=== PATIENT | female | born 1950 | race Caucasian/White ===

== ENCOUNTER → 2016-10-03 | Outpatient (CLI) | payer MEDICARE, BC ==
--- NOTE | 2016-10-03 12:51 | EST ---
DATE OF SERVICE: 10/03/2016 AGE: 66Y SEX: F HT: 67 WT: 148 lbs. Protocol Jairo: X Other: Stage: III Dur. of Exercise: 9 minutes *Heart Rate Blood Pressure *Rest: 88 Rest: 111/81 * *Max. Achieved: 169 Maximum BP: 148/61 85% PMHR: 130 100% PMHR: 153 *METS: 10.5 INDICATION OF THE STUDY: Chest pain. MEDICATIONS: STRESS DATA: Pretesting physical examination showed heart rate of 88, pressure is 111/81 mmHg. Baseline EKG showed sinus rhythm. The patient exercised on the treadmill according to Jairo protocol for a total of 9 minutes and achieved 10.5 METs. Max heart rate was 169, which is about 110% of maximum predicted heart rate. Maximum blood pressure was 148/61 mmHg. Clinically, the patient did not have any symptoms. The EKG did not show any significant ST or T wave abnormalities consistent with ischemia. CONCLUSION: 1. Excellent exercise capacity. 2. Normal EKG in response to exercise. 3. Essentially normal stress test for this patient.
== END | disposition home or self-care (01) ==
LOC: RADNMMAIN 11:23
PROVIDERS: ATTEND Family Medicine
DX: Z09 Encounter for follow-up examination after completed treatment for conditions other than malignant neoplasm (principal); Z82.49 Family history of ischemic heart disease and other diseases of the circulatory system
CPT/HCPCS: 93017

== ENCOUNTER → 2019-04-07 | Outpatient (CLI) | payer MEDICARE, BC ==
--- NOTE | 2019-04-07 23:07 | XR ---
EXAMINATION TYPE: XR cervical spine comp DATE OF EXAM: 04/07/2019 COMPARISON: None HISTORY: 69-year-old female left-sided neck pain TECHNIQUE: 5 views FINDINGS: No predental space widening or prevertebral soft tissue swelling. Mild disc/endplate degenerative kenyon nge from C4 through C7 levels. Alignment is maintained. Scattered facet and uncovertebral joint degen erative change resulting in moderate bony neuroforaminal narrowing on the right at C4-C5, C5-C6, and C6-C7. Moderate bony neuroforaminal narrowing on the left at C5-C6 and C6-C7. IMPRESSION: Moderate spondylotic changes especially from C4 through C7 levels. No malalignment.
== END | disposition home or self-care (01) ==
LOC: RADXRMAIN 11:34
PROVIDERS: ATTEND Family Medicine
DX: M47.812 Spondylosis without myelopathy or radiculopathy, cervical region (principal)
CPT/HCPCS: 72050

== ENCOUNTER → 2019-05-04 | Outpatient (CLI) | payer MEDICARE ==
--- NOTE | 2019-05-05 11:19 | MM ---
Reason for exam: screening (asymptomatic). Last mammogram was performed 3 years and 4 months ago. History: Patient is postmenopausal. Physical Findings: A clinical breast exam by your physician is recommended on an annual basis and results should be correlated with mammographic findings. MG 3D Screening Mammo W/Cad Bilateral CC and MLO view(s) were taken. Prior study comparison: December 30, 2015, mammogram, performed at [facility]. January 08, 2007, bilateral screening mammogram w/CAD. The breast tissue is heterogeneously dense. This may lower the sensitivity of mammography. There are benign appearing vascular, dystrophic calcifications bilaterally. There is no discrete abnormality. ASSESSMENT: Benign, BI-RAD 2 RECOMMENDATION: Routine screening mammogram of both breasts in 1 year.
== END | disposition home or self-care (01) ==
LOC: RADMAMWWP 11:13
PROVIDERS: ATTEND Family Medicine
DX: Z12.31 Encounter for screening mammogram for malignant neoplasm of breast (principal)
CPT/HCPCS: 77063; 77067

== ENCOUNTER → 2020-06-03 | Outpatient (CLI) | payer MEDICARE ==
--- NOTE | 2020-06-03 15:32 | BD ---
EXAMINATION TYPE: Axial Bone Density DATE OF EXAM: 06/03/2020 COMPARISON: NONE CLINICAL HISTORY: Height: 5 FT 6 IN Weight: 146 FRAX RISK QUESTIONS: Alcohol (3 or more units per day): NO Family History (Parent hip fracture): NO Glucocorticoids (More than 3mos): NO (Ex: prednisone, prednisolone, methylprednisolone, dexamethasone, and hydrocortisone). History of Fracture in Adulthood: YES Secondary Osteoporosis: 1. Type 1 Diabetes: NO 2. Hyperthyroidism: NO 3. Menopause before 45: YES 4. Malnutrition: NO 5. Chronic liver disease: NO Rheumatoid Arthritis: NO Current Tobacco Use: NO RISK FACTORS HISTORY OF: Family History of Osteoporosis: NO Active: YES Postmenopausal woman: AGE 41 MEDICATIONS: Additional Medications: NONE Additional History: EXAM MEASUREMENTS: Bone mineral densitometry was performed using the [employer]istat System. Bone mineral density as measured about the Lumbar spine is: ----- L1-L4(G/cm2): 0.962 T Score Values are as follows: ----- L2: -2.3 ----- L3: -1.6 ----- L4: -1.8 ----- L1-L4: -1.8 Bone mineral density has: DECREASED -3.0 % since study of: 2006 Bone mineral density about the R hip (g/cm2): 0.771 Bone mineral density about the L hip (g/cm2): 0.790 T Score values are as follows: -----R Neck: -1.9 -----L Neck: -1.8 -----R Total: -1.7 -----L Total: -1.6 Bone mineral density has: DECREASED -2.1 % since study of: 2006 IMPRESSION: Osteopenia (T Score between -2.5 and -1). There is slightly increased risk of fracture and the patient may be considered for treatment. Re-Screen 2-5 years. NOTE: T-SCORE=SD OF THE YOUNG ADULT MEAN.
== END | disposition home or self-care (01) ==
LOC: RADBDWWP 07:37
PROVIDERS: ATTEND Family Medicine
DX: M85.88 Other specified disorders of bone density and structure, other site (principal); Z03.818 Encounter for observation for suspected exposure to other biological agents ruled out; Z20.828 Contact with and (suspected) exposure to other viral communicable diseases
CPT/HCPCS: 77080

== ENCOUNTER → 2021-07-06 | Outpatient (CLI) | payer MEDICARE ==
--- NOTE | 2021-07-07 11:47 | MM ---
Reason for exam: screening (asymptomatic). Last mammogram was performed 2 years and 2 months ago. History: Patient is postmenopausal. Physical Findings: A clinical breast exam by your physician is recommended on an annual basis and results should be correlated with mammographic findings. MG 3D Screening Mammo W/Cad Bilateral CC and MLO view(s) were taken. Prior study comparison: May 04, 2019, bilateral MG 3d screening mammo w/cad. December 30, 2015, mammogram, performed at [facility]. The breast tissue is heterogeneously dense. This may lower the sensitivity of mammography. There are benign appearing round vascular calcifications bilaterally. There is no discrete abnormality. ASSESSMENT: Benign, BI-RAD 2 RECOMMENDATION: Routine screening mammogram of both breasts in 1 year.
== END | disposition home or self-care (01) ==
LOC: RADMAMWWP 08:01
PROVIDERS: ATTEND Family Medicine
DX: Z12.31 Encounter for screening mammogram for malignant neoplasm of breast (principal); Z78.0 Asymptomatic menopausal state
CPT/HCPCS: 77063; 77067

== ENCOUNTER → 2022-07-10 | Outpatient (CLI) | payer MEDICARE ==
--- NOTE | 2022-07-11 07:35 | MM ---
Reason for Exam: Screening (asymptomatic). Last screening mammogram was performed 12 month(s) ago. Patient History: Menarche at age 12. First Full-Term at age 20. Postmenopausal. Risk Values: Lea 5 year model risk: 1.6%. NCI Lifetime model risk: 3.9%. Prior Study Comparison: 12/30/2015 Screening Mammogram, [facility]. 05/04/2019 Bilateral Screening Mammogram, [facility]. 07/06/2021 Bilateral Screening Mammogram, [facility]. Tissue Density: The breast tissue is heterogeneously dense. This may lower the sensitivity of mammography. Findings: Analyzed By CAD. There is no suspicious group of microcalcifications or new suspicious mass in either breast. Overall Assessment: Benign, BI-RAD 2 Management: Screening Mammogram of both breasts in 1 year. A clinical breast exam by your physician is recommended on an annual basis and results should be correlated with mammographic findings. Electronically signed and approved by: Gerald Bruno M.D. Radiologis
== END | disposition home or self-care (01) ==
LOC: RADMAMWWP 07:24
PROVIDERS: ATTEND Family Medicine
DX: Z12.31 Encounter for screening mammogram for malignant neoplasm of breast (principal); Z78.0 Asymptomatic menopausal state
CPT/HCPCS: 77063; 77067

== ENCOUNTER 2022-08-14 10:08 | Day surgery (SDC) | payer MEDICARE ==
[~2022-08-14 10:08] MED LIST: LIDOCAINE 1% (10MG/ML) FOR IV START INTRADERMA PRN
[2022-08-14] MEDS: LACTATED RINGERS 1,000 ML IV SCH ×2 (10:25→11:05)
[2022-08-14 10:46] VITALS: RESP 16; TEMP 98
[2022-08-14] MEDS ORDERED: PROPOFOL 10 MG/ML 20 ML VIAL IV ONE (11:06)
[2022-08-14] MEDS ORDERED: LIDOCAINE 2% INJ 20 MG/ML (2 ML VIAL) ONE (11:06)
--- NOTE | 2022-08-14 11:26 | P.PCN ---
Date of Procedure: 08/14/22 Procedure(s) Performed: BRIEF HISTORY: Patient is a 72ear-old pleasant white female scheduled for an elective colonoscopy as a part of screening for colon cancer. PROCEDURE PERFORMED: Colonoscopy with biopsy. PREOPERATIVE DIAGNOSIS: Screening for colon cancer. IV sedation per Anesthesia. PROCEDURE: After informed consent was obtained, the patient, was brought into the endoscopy unit. IV sedation was administered by Anesthesia under continuous monitoring. Digital rectal examination was normal. Initially the Olympus CF-160 flexible video colonoscope was then inserted in the rectum, gradually advanced into the cecum without any difficulty. Careful examination was performed as the scope was gradually being withdrawn. Ileocecal valve and the appendiceal orifice were visualized and appeared normal. Prep was excellent. Mucosa of the cecum a centimeter polyp that was removed by cold biopsy. Rest of the, ascending colon, transverse colon, descending colon, sigmoid colon, and rectum appeared normal. Retroflexion was performed in the rectum and no lesions were seen. The patient tolerated the procedure well. IMPRESSION: 3-4 mm cecal polyp status post cold biopsy Rest of the colon appeared normal RECOMMENDATIONS: Findings of this examination were discussed with the patient as well as her family. She was advised to follow with the biopsy results. If the biopsy reveals adenoma she can have a repeat colonoscopy in 5 years.. 7
[2022-08-14 12:03] VITALS: BP 124/77; PULSE 81
== END 2022-08-14 12:17 | disposition home or self-care (01) ==
LOC: ORWHC2ENDO 10:08
PROVIDERS: ATTEND Internal Medicine Gastroenterology
DX: Z12.11 Encounter for screening for malignant neoplasm of colon (principal); K63.5 Polyp of colon; Z79.899 Other long term (current) drug therapy
CPT/HCPCS: 88305; 45380; J2704; J2001

== ENCOUNTER → 2023-01-29 | Outpatient (CLI) | payer MEDICARE ==
[2023-01-29 16:13] LABS: African American GFR (CKD) 66 (>60 ml/min/1.73 sqM); Blood Urea Nitrogen 20 mg/dL (7-17); Non-African American GFR(CKD) 57 (>60 ml/min/1.73 sqM)
--- NOTE | 2023-01-30 19:40 | CT ---
EXAMINATION TYPE: CT iac w con DATE OF EXAM: 01/29/2023 COMPARISON: None HISTORY: 89 year-old female H60.542, Left side hearing loss with pain radiating down jaw x6mo. CT DLP: 142.7 mGycm Automated exposure control for dose reduction was used. TECHNIQUE: Contiguous high-resolution axial scanning of the temporal bones performed with IV Contras t, patient injected with 80 ml mL of Isovue 300. Coronal reformatted images obtained. FINDINGS: Nondominant left vertebral artery that terminates as a PICA branch. Otherwise, there is no abnormalit y of visualized intracranial structures. The skull base appears normal. There is a large soft tissue swelling which fills the left external auditory canal. There is contiguo us extension into the lateral mesotympanum with partial encasement of the malleus and incus. No ossic ular erosion is seen. Partial opacification of the adjacent anterior superior mastoid air cells possibly from direct extens ion from the external auditory canal, axial image 32. No blunting of the scutum at this time. The right middle ear cavity and remainder of the bilateral mastoid air cells are well pneumatized. The adjacent dural venous sinus remains well opacified. The round and oval windows are normal. There is no abnormality of bony labyrinths. The vestibular and cochlear aqueducts are well visualized. The facial nerve canal is normal bilaterally. The internal auditory canal and meati are symmetrical bilaterally. There is no evidence of fractures. Moderate mucosal thickening left maxillary sinus with some layering fluid. Frothy density in the righ t maxillary sinus with trace air-fluid level. Similar in the left sphenoid sinus. Otherwise, scattere d moderate mucosal thickening throughout the remainder of the paranasal sinuses. Leftward nasal septa l deviation. Reformatted images confirm above findings. IMPRESSION: 1. Large soft tissue plug filling the length of the left external auditory canal. There is contiguous extension into the lateral mesotympanum with partial encasement of the malleus and incus. No ossicul ar erosion is seen. 2. Partial opacification of the anterior superior left mastoid air cells just adjacent to the externa l auditory canal, possibly from direct extension of the soft tissue process. Tissue sampling recommen ded. 3. Moderate to severe acute on chronic pansinusitis. Leftward nasal septal deviation.
== END | disposition home or self-care (01) ==
LOC: RADCTMAIN 15:29
PROVIDERS: ATTEND Otolaryngology
DX: H60.542 Acute eczematoid otitis externa, left ear (principal); J32.4 Chronic pansinusitis; J34.2 Deviated nasal septum; J34.89 Other specified disorders of nose and nasal sinuses
CPT/HCPCS: 82565; 84520; 70481; 36415; Q9967

== ENCOUNTER → 2023-04-27 | Outpatient (CLI) | payer MEDICARE ==
--- NOTE | 2023-04-30 19:54 | PE ---
EXAMINATION TYPE: PET CT fusion skull to thigh DATE OF EXAM: 04/27/2023 COMPARISON: 04/02/2023 CT chest Prior PET/CT: None HISTORY: Solitary pulmonary nodule TECHNIQUE: Following the intravenous administration of 10.16 mCi of F-18 FDG, whole body images are performed from the skull base to the midthigh. Images are reviewed on the computer in the coronal, a xial, and sagittal planes. Reconstructed rotating images are created on independent workstation and reviewed on the computer. A localization and attenuation correction CT is performed in conjunction with the PET scan. DLP: 372.28 mGycm SCAN: Initial Blood glucose: 94 mg/dL Average Mediastinum SUV: 1.76 Average Liver SUV: 1.97 FINDINGS: HEAD and NECK: No abnormal uptake. 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 Abnormal u ptake temporal bone regions is not identified on this exam. THORAX: There may be some inflammatory-type changes at the right sternal clavicular junction SUV valu e 3.1, image 98. There is a punctate nodule within the periphery of the superior segment right lower lobe, consistent consistency by 0 is made be below the threshold of detectability size ABDOMEN: No abnormal uptake PELVIS: No abnormal uptake OSSEOUS STRUCTURES: No abnormal uptake LOCALIZATION CT: Small nodule right lobe liver superiorly segment. No suspicious abnormality right st ernoclavicular CT. COMPARISON: None IMPRESSION: 1. 1. No suspicious focal uptake to suggest a primary neoplastic process. 2. No abnormal uptake in the reported neoplastic temporal bone region. 2. No suspicious uptake normal nodule within the right lung. This however may be below the threshold for detectability. Monitoring with CT chest is recommended. Repeat PET/CT can be performed if patient change in size.
== END | disposition home or self-care (01) ==
LOC: RADPETMAIN 13:34
PROVIDERS: ATTEND Family Medicine
DX: R91.1 Solitary pulmonary nodule (principal)
CPT/HCPCS: 78815; A9552

== ENCOUNTER 2023-05-19 12:40 | Inpatient (IN) | payer MEDICARE ==
[2023-05-19] MEDS ORDERED: ACETAMINOPHEN IV (For NPO) 1,000 MG in EMPTY BAG 1 BAG IVPB STA (13:11)
[2023-05-19] MEDS ORDERED: SODIUM CHLORIDE 0.9% 500 ML 500 ML IV ONE (13:11)
[2023-05-19] MEDS ORDERED: ONDANSETRON 4 MG/2 ML VIAL IVP STA (13:14)
[2023-05-19 13:26] LABS: Basophils % (A) 0 %; Eosinophils # (A) 0.1 k/uL (0-0.7); Eosinophils % (A) 1 %; HCT 36.7 % (34.0-46.0); HGB 12.4 gm/dL (11.4-16.0); Lymphocytes # (A) 0.5 k/uL (1.0-4.8); Lymphocytes % (A) 4 %; MCH 34.4 pg (25.0-35.0); MCHC 33.6 g/dL (31.0-37.0); MCV 102.2 fL (80.0-100.0); Macrocytosis Slight; Mean Platelet Volume 7.1; Monocytes # (A) 0.5 k/uL (0-1.0); Monocytes % (A) 4 %; Neutrophils # (A) 11.2 k/uL (1.3-7.7); Neutrophils % (A) 90 %; Platelet Count 455 k/uL (150-450); RDW 13.5 % (11.5-15.5); WBC 12.4 k/uL (3.8-10.6)
[2023-05-19 13:51] LABS: ALT 37 U/L (4-34); AST 45 U/L (14-36); African American GFR (CKD) 84 (>60 ml/min/1.73 sqM); Albumin 3.2 g/dL (3.5-5.0); Alkaline Phosphatase 103 U/L (38-126); Anion Gap 10 mmol/L; Blood Urea Nitrogen 28 mg/dL (7-17); Calcium 8.7 mg/dL (8.4-10.2); Carbon Dioxide 26 mmol/L (22-30); Chloride 99 mmol/L (98-107); Glucose 109 mg/dL (74-99); Non-African American GFR(CKD) 73 (>60 ml/min/1.73 sqM); Potassium 4.3 mmol/L (3.5-5.1); Sodium 135 mmol/L (137-145); Total Bilirubin 0.5 mg/dL (0.2-1.3); Total Protein 6.4 g/dL (6.3-8.2)
--- NOTE | 2023-05-19 14:08 | ED ---
General Adult HPI - General Chief complaint: Nausea/Vomiting/Diarrhea Stated complaint: Weakness Time Seen by Provider: 05/19/23 12:42 Source: patient, family, RN notes reviewed, old records reviewed Mode of arrival: ambulatory Limitations: no limitations - History of Present Illness Initial comments: 73-year-old female presenting for evaluation of nausea, vomiting, dizziness, and poor appetite. Patient is accompanied with her daughter who is able to give a detailed history of her recent past. 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 She also had some facial plastics including a weight in the left eyelid. Patient has not been eating well and his had vomiting every time she stands. No specific abdominal pain. No measured fever. Symptoms have been present even prior to surgery. - Related Data Home Medications Medication Instructions Recorded Confirmed No Known Home Medications 08/10/22 08/10/22 Allergies Allergy/AdvReac Type Severity Reaction Status Date / Time No Known Allergies Allergy Verified 05/19/23 12:52 Review of Systems ROS Statement: Those systems with pertinent positive or pertinent negative responses have been documented in the HPI. ROS Other: All systems not noted in ROS Statement are negative. Past Medical History Past Medical History: Cancer Additional Past Medical History / Comment(s): broken foot x2. cholesteatoma. 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 Incision surrounding the right ear and temporal region) Eye exam: Present: normal appearance, PERRL ENT exam: Present: normal exam Neck exam: Present: normal inspection. Absent: tenderness, meningismus Respiratory exam: Present: normal lung sounds bilaterally. Absent: respiratory distress, wheezes Cardiovascular Exam: Present: regular rate, normal rhythm GI/Abdominal exam: Present: soft, other (Lower abdominal incision is clean and dry). Absent: distended, tenderness Extremities exam: Present: other (Left lateral thigh incision non-erythematous, clean and dry) Neurological exam: Present: alert, oriented X3 Skin exam: Present: warm, dry, intact. Absent: cyanosis, diaphoretic Course Vital Signs 05/19/23 05/19/23 05/19/23 12:52 13:42 14:09 Temperature 97.9 F Pulse Rate 80 79 83 Respiratory 16 17 17 Rate Blood Pressure 119/74 124/74 119/78 O2 Sat by Pulse 97 98 96 Oximetry 05/19/23 15:11 Temperature 99.2 F Pulse Rate 83 Respiratory 18 Rate Blood Pressure 128/75 O2 Sat by Pulse 96 Oximetry Medical Decision Making - Medical Decision Making Was pt. sent in by a medical professional or institution (, [facility], LYMPHEDEMA THERAPIST, urgent care, hospital, or usp...) When possible be specific @ -No Did you speak to anyone other than the patient for history (EMS, parent, family, police, friend...)? What history was obtained from this source @ Patient's daughter Did you review nursing and triage notes (agree or disagree)? Why? @ -I reviewed and agree with nursing and triage notes Were old charts reviewed (outside hosp., previous admission, EMS record, old EKG, old radiological studies, urgent care reports/EKG's, usp records)? Report findings @ -No old charts were reviewed Differential Diagnosis (chest pain, altered mental status, abdominal pain women, abdominal pain men, vaginal bleeding, weakness, fever, dyspnea, syncope, headache, dizziness, GI bleed, back pain, seizure, CVA, palpatations, mental health, musculoskeletal)? @ -[Differential Weakness: Hypoglycemia, shock, sepsis, hyponatremia, anemia, infection, ID, ETOH, adverse medicine reaction, overdose, stroke, this is not meant to be an all-inclusive list. EKG interpreted by me (3pts min.). @ -EKG: Sinus rhythm rate of 82, GA interval 121, QRS duration 80, QTC 400, no ST segment changes. X-rays interpreted by me (1pt min.). @ -None done CT interpreted by me (1pt min.). @ -None done U/S interpreted by me (1pt. min.). @ -None done What testing was considered but not performed or refused? (CT, X-rays, U/S, labs)? Why? @ -None What meds were considered but not given or refused? Why? @ -None Did you discuss the management of the patient with other professionals (professionals i.e. , PA, LYMPHEDEMA THERAPIST, lab, RT, psych nurse, social service technician, packing floor worker, teacher, special service officer, oil field caser)? Give summary @ -No Was smoking cessation discussed for >3mins.? @ -No Was critical care preformed (if so, how long)? @ -No Were there social determinants of health that impacted care today? How? (Homelessness, low income, unemployed, alcoholism, drug addiction, transportation, low edu. Level, literacy, decrease access to med. care, fci, rehab)? @ -No Was there de-escalation of care discussed even if they declined (Discuss DNR or withdrawal of care, Hospice)? DNR status @ -No What co-morbidities impacted this encounter? (DM, HTN, Smoking, COPD, CAD, Cancer, CVA, ARF, Chemo, Hep., AIDS, mental health diagnosis, sleep apnea, morbid obesity)? @ -Squamous cell carcinoma Was patient admitted / discharged? Hospital course, mention meds given and route, prescriptions, significant lab abnormalities, going to OR and other pertinent info. @ -73-year-old female with nausea vomiting, dehydration, poor appetite. Patient states has had progressive weakness, difficulty ambulating secondary to generalized weakness. The patient is currently being treated for squamous cell carcinoma of the head and neck with recent reconstructive surgery at outside hospital. Her incisions are clean and dry without signs of infection. She has a mild leukocytosis and a mild thrombocytosis. She is hemodynamically stable. She is in a sinus rhythm. Currently awaiting urinalysis. Patient does appear dehydrated, will be admitted for symptom control, hydration, and possible placement for rehabilitation. Undiagnosed new problem with uncertain prognosis? @ -No Drug Therapy requiring intensive monitoring for toxicity (Heparin, Nitro, I nsulin, Cardizem)? @ -No Were any procedures done? @ -No Diagnosis/symptom? @ -[Generalized weakness, dehydration, vomiting Acute, or Chronic, or Acute on Chronic? @ -[Acute Uncomplicated (without systemic symptoms) or Complicated (systemic symptoms)? @ -default Side effects of treatment? @ -No Exacerbation, Progression, or Severe Exacerbation? @ -No Poses a threat to life or bodily function? How? (Chest pain, USA, ID, pneumonia, PE, COPD, DKA, ARF, appy, cholecystitis, CVA, Diverticulitis, Homicidal, Suicidal, threat to staff... and all critical care pts) @ -[Moderate risk - Lab Data Result diagrams: 05/19/23 13:15 05/19/23 13:15 Lab Results 05/19/23 05/19/23 05/19/23 Range/Units 13:15 13:15 13:15 WBC 12.4 H (3.8-10.6) k/uL RBC 3.60 L (3.80-5.40) m/uL Hgb 12.4 (11.4-16.0) gm/dL Hct 36.7 (34.0-46.0) % MCV 102.2 H (80.0-100.0) fL MCH 34.4 (25.0-35.0) pg MCHC 33.6 (31.0-37.0) g/dL RDW 13.5 (11.5-15.5) % Plt Count 455 H (150-450) k/uL MPV 7.1 Neutrophils % 90 % Lymphocytes % 4 % Monocytes % 4 % Eosinophils % 1 % Basophils % 0 % Neutrophils # 11.2 H (1.3-7.7) k/uL Lymphocytes # 0.5 L (1.0-4.8) k/uL Monocytes # 0.5 (0-1.0) k/uL Eosinophils # 0.1 (0-0.7) k/uL Basophils # 0.0 (0-0.2) k/uL Macrocytosis Slight Sodium 135 L (137-145) mmol/L Potassium 4.3 (3.5-5.1) mmol/L Chloride 99 (98-107) mmol/L Carbon Dioxide 26 (22-30) mmol/L Anion Gap 10 mmol/L BUN 28 H (7-17) mg/dL Creatinine 0.80 (0.52-1.04) mg/dL Est GFR (CKD-EPI)AfAm 84 (>60 ml/min/1.73 sqM) Est GFR (CKD-EPI)NonAf 73 (>60 ml/min/1.73 sqM) Glucose 109 H (74-99) mg/dL Plasma Lactic Acid Beni 1.2 (0.7-2.0) mmol/L Calcium 8.7 (8.4-10.2) mg/dL Magnesium 2.0 (1.6-2.3) mg/dL Total Bilirubin 0.5 (0.2-1.3) mg/dL AST 45 H (14-36) U/L ALT 37 H (4-34) U/L Alkaline Phosphatase 103 (38-126) U/L Total Protein 6.4 (6.3-8.2) g/dL Albumin 3.2 L (3.5-5.0) g/dL Disposition Clinical Impression: Dehydration, Generalized weakness, Vomiting Disposition: ADMITTED IP TO THIS [facility] Condition: Stable Is patient prescribed a controlled substance at d/c from ED?: No Referrals: Rafa Godfrey DO [Primary Care Provider] - 1-2 days Time of Disposition: 15:41
[2023-05-19] MEDS ORDERED: NALOXONE 0.4 MG/ML 1 ML VIAL IV PRN (15:37)
[2023-05-19] MEDS: SODIUM CHLORIDE 0.9% 1,000 ML IV SCH (15:54)
[2023-05-19] MEDS ORDERED: oxyCODONE-APAP 5-325MG 1 EACH TAB PO PRN (18:14)
--- NOTE | 2023-05-19 18:16 | P.HPIM ---
History of Present Illness H&P Date: 05/19/23 Chief Complaint: Nausea/vomiting/weakness 73-year-old female presenting for evaluation of nausea, vomiting, dizziness, and poor appetite. Patient is accompanied with her daughter who is able to give a detailed history of her recent past. 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 She also had some facial plastics including a weight in the left eyelid. Patient has not been eating well and his had vomiting every time she stands. No specific abdominal pain. No measured fever. Symptoms have been present even prior to surgery. Patient reports she had progressive weakness and difficulty ambulating secondary to generalized weakness EKG: Sinus rhythm rate of 82, NC interval 121, QRS duration 80, QTC 400, no ST segment changes. Bladder completed in ED reveals a difficult 0.4, hemoglobin 12.4, blood count of 455, sodium 135, potassium 4.3, BUN/creatinine of 28/0.80 and blood glucose of 109, lactic acid of 1.2 Patient is being admitted for dehydration/weakness and generalized decline; we will possibly require placement for adult failure to thrive Review of Systems REVIEW OF SYSTEMS: CONSTITUTIONAL: No fever, no malaise, no fatigue. HEENT: No recent visual problems or hearing problems. Denied any sore throat. CARDIOVASCULAR: No chest pain, orthopnea, PND, no palpitations, no syncope. PULMONARY: No shortness of breath, no cough, no hemoptysis. GASTROINTESTINAL: No diarrhea, no nausea, no vomiting, no abdominal pain. NEUROLOGICAL: No headaches, no weakness, no numbness. HEMATOLOGICAL: Denies any bleeding or petechiae. GENITOURINARY: Denies any burning micturition, frequency, or urgency. MUSCULOSKELETAL/RHEUMATOLOGICAL: Denies any joint pain, swelling, or any muscle pain. ENDOCRINE: Denies any polyuria or polydipsia. The rest of the 14-point review of systems is negative. Past Medical History Past Medical History: Cancer Additional Past Medical History / Comment(s): broken foot x2. cholesteatoma. 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 History of Any Multi-Drug Resistant Organisms: None Reported Past Surgical History: Tubal Ligation Past Anesthesia/Blood Transfusion Reactions: No Reported Reaction Past Psychological History: No Psychological Hx Reported Smoking Status: Never smoker Medications and Allergies Home Medications Medication Instructions Recorded Confirmed Type Acetaminophen Tab [Tylenol Tab] 1,000 mg PO Q6H PRN 05/19/23 05/19/23 History Celecoxib 200 mg PO BID 05/19/23 05/19/23 History Ondansetron [Zofran] 4 mg PO Q8H PRN 05/19/23 05/19/23 History oxyCODONE-APAP 5-325MG [Percocet 1 tab PO Q4-6H PRN 05/19/23 05/19/23 History 5-325 mg] Allergies Allergy/AdvReac Type Severity Reaction Status Date / Time No Known Allergies Allergy Verified 05/19/23 12:52 Physical Exam Vitals: Vital Signs Temp Pulse Resp BP Pulse Ox 05/19/23 17:35 99.2 F 90 17 124/70 98 05/19/23 16:30 89 18 131/72 95 05/19/23 15:11 99.2 F 83 18 128/75 96 05/19/23 14:09 83 17 119/78 96 05/19/23 13:42 79 17 124/74 98 05/19/23 12:52 97.9 F 80 16 119/74 97 Intake and Output 05/19/23 05/19/23 05/19/23 06:59 14:59 22:59 Other: Weight 56.245 kg PHYSICAL EXAMINATION: GENERAL: The patient is alert and oriented x3, not in any acute distress. Well developed, well nourished. HEENT: Pupils are round and equally reacting to light. EOMI. No scleral icterus. No conjunctival pallor. Normocephalic, atraumatic. No pharyngeal erythema. No thyromegaly. CARDIOVASCULAR: S1 and S2 present. No murmurs, rubs, or gallops. PULMONARY: Chest is clear to auscultation, no wheezing or crackles. ABDOMEN: Soft, nontender, nondistended, normoactive bowel sounds. No palpable organomegaly. MUSCULOSKELETAL: No joint swelling or deformity. EXTREMITIES: No cyanosis, clubbing, or pedal edema. NEUROLOGICAL: Gross neurological examination did not reveal any focal deficits. SKIN: No rashes. Results CBC & Chem 7: 05/19/23 13:15 05/19/23 13:15 Labs: Abnormal Lab Results - Last 24 Hours (Table) 05/19/23 05/19/23 Range/Units 13:15 13:15 WBC 12.4 H (3.8-10.6) k/uL RBC 3.60 L (3.80-5.40) m/uL MCV 102.2 H (80.0-100.0) fL Plt Count 455 H (150-450) k/uL Neutrophils # 11.2 H (1.3-7.7) k/uL Lymphocytes # 0.5 L (1.0-4.8) k/uL Sodium 135 L (137-145) mmol/L BUN 28 H (7-17) mg/dL Glucose 109 H (74-99) mg/dL AST 45 H (14-36) U/L ALT 37 H (4-34) U/L Albumin 3.2 L (3.5-5.0) g/dL Assessment and Plan Assessment: 1. Intractable nausea/vomiting/dehydration - Patient has been placed on IV fluids in form of normal saline at a rate of 100 mL an hour; symptomatic treatment for nausea and vomiting - Continue with oral intake as tolerated 2. Generalized weakness/adult failure to thrive; we will consult PT/OT; consult case management/[employer]OV[employer] WORKER for possible placement 3. Acute renal injury/dehydration; related to poor oral intake and nausea and vomiting; P fluid hydration as indicated above; we will monitor strict RITCHIE's, daily weights, renal function and electrolytes; avoid nephrotoxins and hypotension 4. Leukocytosis; lactic acid level is within normal limits at 1.2; no signs of infection; likely reactive to intractable vomiting; we will monitor CBC, CRP and pro-calcitonin 5. Transaminitis; AST/ALT elevated at 45/37; could be related to dehydration; we will continue with IV fluid hydration and monitor liver enzymes with plans for further workup if liver enzymes continue to trend up 6. Invasive squamous cell carcinoma of head and neck; we will consult oncology - Pain controlled with home dose of Percocet 5 mg every 4 hours when necessary; we will add IV morphine 4 mg every 4 hours when necessary DVT prophylaxis; SCDs CODE STATUS; full code
[2023-05-19] MEDS ORDERED: MORPHINE SULFATE 4 MG/ML SYRINGE IVP PRN (18:17)
[2023-05-19] MEDS: ACETAMINOPHEN TAB 325 MG TAB PO PRN (18:43)
[2023-05-19] MEDS: ONDANSETRON 4 MG/2 ML VIAL IVP PRN (18:50)
[2023-05-20] MEDS ORDERED: METOCLOPRAMIDE 5 MG/ML 2 ML VIAL IVP PRN ×2 (00:41→00:54)
[2023-05-20] MEDS: METOCLOPRAMIDE 5 MG/ML 2 ML VIAL IVP PRN (01:12)
[2023-05-20] MEDS: ACETAMINOPHEN TAB 325 MG TAB PO PRN ×3 (04:31→22:01)
[2023-05-20] MEDS: SODIUM CHLORIDE 0.9% 1,000 ML IV SCH ×2 (06:23→19:54)
[2023-05-20 10:59] LABS: Basophils # (A) 0.04 X 10*3/uL (0.00-0.10); Basophils % (A) 0.4 %; Eosinophils # (A) 0.35 X 10*3/uL (0.04-0.35); Eosinophils % (A) 3.9 %; HCT 34.1 % (37.2-46.3); HGB 10.7 d/dL (12.0-15.0); Lymphocytes # (A) 1.26 X 10*3/uL (0.90-5.00); Lymphocytes % (A) 14.2 %; MCH 32.9 pg (27.0-32.0); MCHC 31.4 d/dL (32.0-37.0); MCV 104.9 FL (80.0-97.0); Mean Platelet Volume 10.2 FL (9.5-12.2); Monocytes # (A) 0.79 X 10*3/uL (0.20-1.00); Monocytes % (A) 8.9 %; NRBC Per 100 WBC 0 X 10*3/uL (0.00-0.01); Neutrophils # (A) 6.42 X 10*3/uL (1.80-7.70); Neutrophils % (A) 72.3 %; Platelet Count 405 X 10*3/uL (140-440); RBC 3.25 X 10*6/uL (4.10-5.20); WBC 8.89 X 10*3/uL (4.50-10.00)
[2023-05-20 11:42] LABS: BUN/Creat Ratio 32.14 Ratio (12.00-20.00); Blood Urea Nitrogen 22.5 mg/dL (9.0-27.0); Calcium 8.4 mg/dL (8.7-10.3); Carbon Dioxide 22.6 mmol/L (21.6-31.8); Chloride 103 mmol/L (96-109); Glucose 92 mg/dL (70-110); Potassium 4.2 mmol/L (3.5-5.5); Sodium 138 mmol/L (135-145)
--- NOTE | 2023-05-20 12:55 | P.PN ---
Subjective Progress Note Date: 05/20/23 73-year-old female presenting for evaluation of nausea, vomiting, dizziness, and poor appetite. Patient is accompanied with her daughter who is able to give a detailed history of her recent past. 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 She also had some facial plastics including a weight in the left eyelid. Patient has not been eating well and his had vomiting every time she stands. No specific abdominal pain. No measured fever. Symptoms have been present even prior to surgery. Patient reports she had progressive weakness and difficulty ambulating secondary to generalized weakness EKG: Sinus rhythm rate of 82, IL interval 121, QRS duration 80, QTC 400, no ST segment changes. Bladder completed in ED reveals a difficult 0.4, hemoglobin 12.4, blood count of 455, sodium 135, potassium 4.3, BUN/creatinine of 28/0.80 and blood glucose of 109, lactic acid of 1.2 Patient is being admitted for dehydration/weakness and generalized decline; we will possibly require placement for adult failure to thrive 05/20. Patient seen and examined. Patient states she has poor appetite, states food tastes like cardboard. Patient denies any difficulty in swallowing food. REVIEW OF SYSTEMS: CONSTITUTIONAL: No fever, no malaise,. CARDIOVASCULAR: No chest pain, no palpitations, no syncope. PULMONARY: No shortness of breath, no cough, GASTROINTESTINAL: No diarrhea, no nausea, no vomiting, no abdominal pain. NEUROLOGICAL: No headaches, no weakness, PHYSICAL EXAMINATION: GENERAL: The patient is alert and oriented x3, chronically ill-looking, cach ectic HEENT: Pupils are round and equally reacting to light. EOMI. No scleral icterus. No conjunctival pallor. Normocephalic, atraumatic. No pharyngeal erythema. No thyromegaly. CARDIOVASCULAR: S1 and S2 present. No murmurs, rubs, or gallops. PULMONARY: Chest is clear to auscultation, no wheezing or crackles. ABDOMEN: Soft, nontender, nondistended, normoactive bowel sounds. No palpable organomegaly. MUSCULOSKELETAL: No joint swelling or deformity. EXTREMITIES: No cyanosis, clubbing, or pedal edema. NEUROLOGICAL: Gross neurological examination did not reveal any focal deficits. SKIN: No rashes. 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 Continue same treatment. Continue with symptomatic treatment. Resume home medication. Monitor labs and vitals. DVT and GI prophylaxis. Further recommendations as per clinical course of the patient Dictation was produced using [employer] dictation software. please excuse any grammatical, word or spelling errors. Objective - Vital Signs Vital signs: Vital Signs Temp 98.6 F 05/20/23 08:10 Pulse 80 05/20/23 08:10 Resp 16 05/20/23 08:10 BP 115/64 05/20/23 08:10 Pulse Ox 95 05/20/23 08:10 FiO2 Intake & Output 05/19/23 05/20/23 05/20/23 18:59 06:59 18:59 Weight 56.245 kg 56.245 kg Other: Voiding Method Bedpan Diaper # Voids 2 # Bowel Movements 3 - Labs CBC & Chem 7: 05/20/23 06:36 05/20/23 06:36 Labs: Abnormal Lab Results - Last 24 Hours (Table) 05/19/23 05/19/23 Range/Units 13:15 13:15 WBC 12.4 H (3.8-10.6) k/uL RBC 3.60 L (3.80-5.40) m/uL MCV 102.2 H (80.0-100.0) fL Plt Count 455 H (150-450) k/uL Neutrophils # 11.2 H (1.3-7.7) k/uL Lymphocytes # 0.5 L (1.0-4.8) k/uL Sodium 135 L (137-145) mmol/L BUN 28 H (7-17) mg/dL Glucose 109 H (74-99) mg/dL AST 45 H (14-36) U/L ALT 37 H (4-34) U/L Albumin 3.2 L (3.5-5.0) g/dL
[2023-05-20] MEDS: DEXAMETHASONE SOD PHOSPHATE 4 MG/ML 1 ML VIAL IVP SCH ×2 (13:16→20:47)
[2023-05-20] MEDS: MECLIZINE 12.5 MG TAB PO SCH ×2 (13:17→19:06)
--- NOTE | 2023-05-20 15:23 | P.CONS ---
History of Present Illness - Reason for Consult Consult date: 05/20/23 hx squamous cell carcinoma head and neck Requesting physician: Corey Lunsford - Chief Complaint dizziness, n/v - History of Present Illness Patient is a 73 female with a significant history of invasive squamous cell carcinoma the head and neck. Patient follows with Dr. Tang, head and neck oncologist and Dr. Navarro of radiation oncology and was referred to Dr. Anirudh Solo but has yet to establish care in our clinic. She has upcoming appt on 05/23/23. Patient had left canal wall/ typanomastoidectomy on 03/10/23. Pathology confirmed squamous cell carcinoma. Most recently patient underwent surgical resection on 05/13/23 at [facility], and during surgery it was found that malignancy metastasized to the dura. MRI brain was obtained on 05/15/23 followin g surgery, however this was done at [facility] and we do not have access to this record. Daughter states she has brought imaging CD to radiology so scan can be uploaded into EMR. MRI brain and IACs on 04/02/23 revealed left-sided abnormal enhancing soft tissue seen involving the external auditory canal, reticular soft tissues mastoid air cells middle ear and labyrinthine epilympanum. No abnormal enhancement seen in the posterior fossa or brain. Enhancement seen extending to the petrous temporal bone. No abnormal enhancement seen in Meckel's cave. Anterior enhancement extends to the temporal mandibular joint. No abnormal enhancement seen in the internal auditory canals. No focal vasogenic edema on the FLAIR sequence. CT IVAC obtained on 05/10/23 revealed post treatment changes to the left mastoid air cells with persistent soft tissue/fluid extending throughout the temporal bone with erosion of the superior aspect of the temporal bone likely extending into the brain. She presented to the ER for persistent intractable nausea and vomiting and dizziness. daughter states since discharge from [facility] symptoms have worsened. Patient reports she is experiencing a spinning sensation that is worse upon movement was improved upon laying flat enclosing eyes. Patient is also reporting weakness and difficulties controlling her movements. Daughter reports that symptoms began to worsen one day prior to admission was unable to tolerate oral intake which caused family to bring patient to the ER for further evaluation. Upon admission CBC revealed WBC 12.4, hemoglobin 12.4, platelets 455 ,000. Sodium 135. Creatinine 0.80. Glucose 109. VSS, afebrile Review of Systems 10 point ROS is negative except as stated in the HPI Past Medical History Past Medical History: Cancer Additional Past Medical History / Comment(s): broken foot x2. cholesteatoma. 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 History of Any Multi-Drug Resistant Organisms: None Reported Past Surgical History: Tubal Ligation Past Anesthesia/Blood Transfusion Reactions: No Reported Reaction Past Psychological History: No Psychological Hx Reported Smoking Status: Never smoker Past Alcohol Use History: None Reported Past Drug Use History: None Reported Medications and Allergies Home Medications Medication Instructions Recorded Confirmed Type Acetaminophen Tab [Tylenol Tab] 1,000 mg PO Q6H PRN 05/19/23 05/19/23 History Celecoxib 200 mg PO BID 05/19/23 05/19/23 History Ondansetron [Zofran] 4 mg PO Q8H PRN 05/19/23 05/19/23 History oxyCODONE-APAP 5-325MG [Percocet 1 tab PO Q4-6H PRN 05/19/23 05/19/23 History 5-325 mg] Allergies Allergy/AdvReac Type Severity Reaction Status Date / Time No Known Allergies Allergy Verified 05/19/23 12:52 Physical Exam Vitals: Vital Signs Temp Pulse Pulse Pulse Resp BP BP 05/20/23 12:40 99.1 F 81 16 05/20/23 08:10 98.6 F 80 16 05/20/23 02:25 98.1 F 80 18 129/63 05/19/23 19:40 99.2 F 58 L 18 92/54 05/19/23 17:35 99.2 F 90 17 124/70 05/19/23 16:30 89 18 131/72 05/19/23 15:11 99.2 F 83 18 128/75 BP Pulse Ox 05/20/23 12:40 121/64 96 05/20/23 08:10 115/64 95 05/20/23 02:25 94 L 05/19/23 19:40 96 05/19/23 17:35 98 05/19/23 16:30 95 05/19/23 15:11 96 Intake and Output 05/19/23 05/20/23 05/20/23 22:59 06:59 14:59 Other: Voiding Method Bedpan Diaper # Voids 3 2 # Bowel Movements 3 3 Weight 56.245 kg - Constitutional General appearance: average body habitus, no acute distress - EENT Eyes: anicteric sclerae ENT: hearing grossly normal - Respiratory Respiratory: bilateral: CTA - Cardiovascular Rhythm: regular Heart sounds: normal: S1, S2 Abnormal Heart Sounds: no systolic murmur, no diastolic murmur, no rub, no S3 Gallop, no S4 Gallop, no click, no other - Integumentary Integumentary: no cyanotic, no jaundiced - Neurologic left-sided facial droop present, generalized weakness - Musculoskeletal Musculoskeletal: generalized weakness - Psychiatric Psychiatric: A&O x's 3, appropriate affect, intact judgment & insight Results CBC & Chem 7: 05/20/23 06:36 05/20/23 06:36 Labs: Abnormal Lab Results - Last 24 Hours (Table) 05/20/23 05/20/23 05/20/23 Range/Units 06:36 06:36 06:36 RBC 3.25 L (4.10-5.20) X 10*6/uL Hgb 10.7 L (12.0-15.0) d/dL Hct 34.1 L (37.2-46.3) % MCV 104.9 H (80.0-97.0) FL MCH 32.9 H (27.0-32.0) pg MCHC 31.4 L (32.0-37.0) d/dL Anion Gap 12.40 H (4.00-12.00) mmol/L BUN/Creatinine Ratio 32.14 H (12.00-20.00) Ratio Calcium 8.4 L (8.7-10.3) mg/dL Procalcitonin 0.23 H (0.02-0.09) ng/mL Comments: CT IAC reviewed MRI - head: report reviewed Assessment and Plan (1) Intractable vomiting with nausea Current Visit: Yes Status: Acute Priority: High Code(s): R11.2 - NAUSEA WITH VOMITING, UNSPECIFIED SNOMED Code(s): 740233762 (2) Dizziness Current Visit: Yes Status: Acute Priority: High Code(s): R42 - DIZZINESS AND GIDDINESS SNOMED Code(s): 323287420 (3) Squamous cell carcinoma of head and neck Current Visit: Yes Status: Acute Priority: High Code(s): C76.0 - MALIGNANT NEOPLASM OF HEAD, FACE AND NECK SNOMED Code(s): 667289151 Plan: Vertigo, Intractable N/V: -Continue anti-emetics and IV hydration -Will add antivert 12.5mg BID. Due to previous reported sedative affects with medication will use lower dose -Decadron IVP added. Will continue to monitor symptoms Squamous cell carcinoma of head and neck: -New referral to Dr. Anirudh Solo. Scheduled for consult appt on 05/23/23. May need to reschedule pending current hospitalization -Follows with Dr. Navarro of radiation oncology and head and neck oncology, Dr. Tang. Spoke with Dr. Navarro regarding case, consult was placed -Patient had left canal wall/ typanomastoidectomy on 03/10/23. Pathology confirmed squamous cell carcinoma. Most recently patient underwent surgical resection on 05/13/23 at [facility], and during surgery it was found that malignancy metastasized to the dura. MRI brain was obtained on 05/15/23 following surgery, however this was done at [facility] and we do not have access to this record. Daughter states she has brought imaging CD to radiology so scan can be uploaded into EMR. Will review scan once available -MRI brain and IACs on 04/02/23 revealed left-sided abnormal enhancing soft tissue seen involving the external auditory canal, reticular soft tissues mastoid air cells middle ear and labyrinthine epilympanum. No abnormal enhancement seen in the posterior fossa or brain. Enhancement seen extending to the petrous temporal bone. No abnormal enhancement seen in Meckel's cave. Anterior enhancement extends to the temporal mandibular joint. No abnormal enhancement seen in the internal auditory canals. No focal vasogenic edema on the FLAIR sequence. CT IAC obtained on 05/10/23 revealed post treatment changes to the left mastoid air cells with persistent soft tissue/fluid extending throughout the temporal bone with erosion of the superior aspect of the temporal bone likely extending into the brain. -Decadron IVP 4mg q8 ordered. Will continue to monitor symptoms. If there is no meaningful improvement in symptoms would recommend repeat brain imaging. And possible transfer to [facility] where surgery was performed for further evaluation -Will request records from [facility] from recent surgery/admission Pt and family updated on plan and are agreeable attests: I have performed H&P and developed impression and plan of care for patient, discussed with dictator. I agree with dictated note, documented as a scribe Time with Patient: Greater than 30
[2023-05-20] MEDS: droNABinol 2.5 MG CAP PO SCH (18:13)
[2023-05-21] MEDS ORDERED: QUEtiapine 25 MG TAB PO STA (05:10)
[2023-05-21] MEDS: DEXAMETHASONE SOD PHOSPHATE 4 MG/ML 1 ML VIAL IVP SCH ×3 (05:12→20:35)
--- NOTE | 2023-05-21 08:51 | P.CONS ---
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 The patient underwent a left subtotal temporal bone resection on May 17. She unfortunately has been hospitalized secondary to progressive nausea, vomiting and dizziness. 1 week ago, the patient had plan for surgical resection of a left well- differentiated squamous cell carcinoma of the external auditory canal with temporal bone invasion. She underwent a subtotal temporal bone resection, and unfortunately at the time of surgery was found to have involvement of the dura. Therefore, a gross total resection was deemed not possible. Subsequently, the planned left parotidectomy with neck dissection was aborted. The patient was being recommended a definitive radiation approach with consideration of concurrent chemotherapy. Unfortunately, in the days since her surgery, the patient has had some increased difficulty. She was treated for a shingles outbreak. She had become extremely dizzy, being unable to stand. She was having persistent vomiting and loose bowels. She had been started on meclizine as an outpatient, but the patient's daughter notes this mostly was just sedating. She is still having some left-sided facial pain, but states this was worse over the past few days. Since being hospitalized on May 19, the patient is now starting to do a little bit better. She has been started on dexamethasone. She is able to sit up in bed without having the room spinning. She states she still has nausea and loose bowels. She states she was able to tolerate some soup broth, but feels everything she eats goes right through her. Her pain is currently a 4 out of 10, which is improved compared to her home regimen. Review of Systems Constitutional: Denies chills, Denies fever Eyes: denies blurred vision Cardiovascular: Denies chest pain Respiratory: Denies congestion, Denies cough Gastrointestinal: Reports diarrhea, Denies abdominal pain Genitourinary: Denies dysuria Musculoskeletal: Reports muscle weakness Neurological: Denies aphasia, Denies ataxia, Denies confusion Psychiatric: Denies anxiety Past Medical History Past Medical History: Cancer Additional Past Medical History / Comment(s): broken foot x2. cholesteatoma. 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 History of Any Multi-Drug Resistant Organisms: None Reported Past Surgical History: Tubal Ligation Past Anesthesia/Blood Transfusion Reactions: No Reported Reaction Past Psychological History: No Psychological Hx Reported Smoking Status: Never smoker Past Alcohol Use History: None Reported Past Drug Use History: None Reported Medications and Allergies Home Medications Medication Instructions Recorded Confirmed Type Acetaminophen Tab [Tylenol Tab] 1,000 mg PO Q6H PRN 05/19/23 05/19/23 History Celecoxib 200 mg PO BID 05/19/23 05/19/23 History Ondansetron [Zofran] 4 mg PO Q8H PRN 05/19/23 05/19/23 History oxyCODONE-APAP 5-325MG [Percocet 1 tab PO Q4-6H PRN 05/19/23 05/19/23 History 5-325 mg] Allergies Allergy/AdvReac Type Severity Reaction Status Date / Time No Known Allergies Allergy Verified 05/19/23 12:52 Physical Exam Vitals: Vital Signs Temp Pulse Resp BP Pulse Ox 05/21/23 01:52 98.6 F 76 16 98 05/21/23 01:10 121/61 05/20/23 19:09 98.6 F 93 17 119/68 95 05/20/23 12:40 99.1 F 81 16 121/64 96 Intake and Output 05/20/23 05/21/23 05/21/23 22:59 06:59 14:59 Other: Voiding Method Bedpan Diaper - Constitutional General appearance: no acute distress - EENT Eyes: EOMI, PERRLA Ears: left: scarring (Surgical incision sites along left ear are clean, dry and intact.) - Neck Neck: no lymphadenopathy - Respiratory Respiratory: bilateral: CTA - Cardiovascular Rhythm: regular - Gastrointestinal General gastrointestinal: no distended, no tenderness - Neurologic Neurologic: CNII-XII intact (Left facial droop - slightly improved since s urgical procedure. ) - Musculoskeletal Musculoskeletal: strength equal bilaterally - Psychiatric Psychiatric: A&O x's 3, appropriate affect, intact judgment & insight Results CBC & Chem 7: 05/20/23 06:36 05/20/23 06:36 Labs: Abnormal Lab Results - Last 24 Hours (Table) 05/20/23 05/20/23 05/20/23 Range/Units 06:36 06:36 06:36 RBC 3.25 L (4.10-5.20) X 10*6/uL Hgb 10.7 L (12.0-15.0) d/dL Hct 34.1 L (37.2-46.3) % MCV 104.9 H (80.0-97.0) FL MCH 32.9 H (27.0-32.0) pg MCHC 31.4 L (32.0-37.0) d/dL Anion Gap 12.40 H (4.00-12.00) mmol/L BUN/Creatinine Ratio 32.14 H (12.00-20.00) Ratio Calcium 8.4 L (8.7-10.3) mg/dL Procalcitonin 0.23 H (0.02-0.09) ng/mL MRI - head: image reviewed Assessment and Plan Assessment: The patient is a 73-year-old female with a history of a recently diagnosed clinical stage IV (cT4, cN0, 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 The patient underwent a left subtotal temporal bone resection on May 17. She unfortunately has been hospitalized secondary to progressive nausea, vomiting and dizziness. Plan: 1. Nausea/vomiting/dizziness: Patient reports she is slightly improved today (in particular the dizziness), but unfortunately she does still feel nauseous and having loose bowels. It seems the steroids are helping. I am curious of the patient is having a vestibular neuronitis, which may be from her recent surgery versus viral causes versus malignant involvement. Considering the acuteness of the onset, I favor one of the first 2 causes. I will reach out to her surgeon to see his recommendations. At this time, agree with continuing dexamethasone. Please hold meclizine, as this did not seem to improve the patient's symptoms as an outpatient and caused increased dizziness. 2. Squamous cell carcinoma: As detailed above, the patient unfortunately has dural involvement of her disease resulting in this being surgically unresectable. We were planning to see the patient as an outpatient for consideration of definitive radiation as well as possible addition of chemotherapy. I discussed with the patient that we would typically like her to have at least another 1-2 weeks to heal from her surgery. Furthermore, we would need the patient to improve symptomatically from her current difficulties. At this time, she has been unable to ambulate independently without becoming extremely nauseous or having a fall. Today she is sitting up in bed much more easily than she was previously. This is encouraging that she seems to be improving clinically. We will continue to follow during this hospital stay. Time: I spent 45 minutes with this patient, of which greater than 50% of that time was spent counseling, coordinating care, and reviewing the risks, benefits, and all potential complications of radiation. Time with Patient: Greater than 30
[2023-05-21] MEDS: droNABinol 2.5 MG CAP PO SCH ×2 (08:53→18:10)
[2023-05-21] MEDS: SODIUM CHLORIDE 0.9% 1,000 ML IV SCH ×2 (09:42→20:13)
[2023-05-21] MEDS: MECLIZINE 12.5 MG TAB PO SCH (10:21)
[2023-05-21 11:19] LABS: HCT 33.5 % (37.2-46.3); HGB 11.2 d/dL (12.0-15.0); MCH 33.4 pg (27.0-32.0); MCHC 33.4 d/dL (32.0-37.0); Mean Platelet Volume 10.1 FL (9.5-12.2); NRBC Per 100 WBC 0 X 10*3/uL (0.00-0.01); Platelet Count 432 X 10*3/uL (140-440); RBC 3.35 X 10*6/uL (4.10-5.20); RDW 13.6 % (11.5-14.5); WBC 9.83 X 10*3/uL (4.50-10.00)
[2023-05-21 11:45] LABS: ALT 27 U/L (8-44); AST 23 U/L (13-35); Albumin 3.4 d/dL (3.8-4.9); Albumin/Globulin Ratio 1.26 Ratio (1.60-3.17); Alkaline Phosphatase 108 U/L (41-126); BUN/Creat Ratio 35.83 Ratio (12.00-20.00); Blood Urea Nitrogen 21.5 mg/dL (9.0-27.0); Calcium 9.1 mg/dL (8.7-10.3); Carbon Dioxide 22.4 mmol/L (21.6-31.8); Chloride 104 mmol/L (96-109); Globulin 2.7 d/dL (1.6-3.3); Glucose 119 mg/dL (70-110); Potassium 4.6 mmol/L (3.5-5.5); Sodium 138 mmol/L (135-145); Total Bilirubin 0.2 mg/dL (0.3-1.2); Total Protein 6.1 d/dL (6.2-8.2)
[2023-05-21 12:22] VITALS: BMI 19.4
[2023-05-21] MEDS: ACETAMINOPHEN TAB 325 MG TAB PO PRN ×2 (12:22→22:19)
--- NOTE | 2023-05-21 13:47 | P.PN ---
Subjective Progress Note Date: 05/21/23 73-year-old female presenting for evaluation of nausea, vomiting, dizziness, and poor appetite. Patient is accompanied with her daughter who is able to give a detailed history of her recent past. 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 She also had some facial plastics including a weight in the left eyelid. Patient has not been eating well and his had vomiting every time she stands. No specific abdominal pain. No measured fever. Symptoms have been present even prior to surgery. Patient reports she had progressive weakness and difficulty ambulating secondary to generalized weakness EKG: Sinus rhythm rate of 82, OH interval 121, QRS duration 80, QTC 400, no ST segment changes. Bladder completed in ED reveals a difficult 0.4, hemoglobin 12.4, blood count of 455, sodium 135, potassium 4.3, BUN/creatinine of 28/0.80 and blood glucose of 109, lactic acid of 1.2 Patient is being admitted for dehydration/weakness and generalized decline; we will possibly require placement for adult failure to thrive 05/20. Patient seen and examined. Patient states she has poor appetite, states food tastes like cardboard. Patient denies any difficulty in swallowing food. 05/21. Patient seen and examined. Still complaining of poor appetite. Complaining of nausea REVIEW OF SYSTEMS: CONSTITUTIONAL: No fever, no malaise,. CARDIOVASCULAR: No chest pain, no palpitations, no syncope. PULMONARY: No shortness of breath, no cough, GASTROINTESTINAL: As mentioned above NEUROLOGICAL: No headaches, no weakness, PHYSICAL EXAMINATION: GENERAL: The patient is alert and oriented x3, chronically ill-looking, cachectic HEENT: Pupils are round and equally reacting to light. EOMI. No scleral icterus. No conjunctival pallor. Normocephalic, atraumatic. No pharyngeal erythema. No thyromegaly. CARDIOVASCULAR: S1 and S2 present. No murmurs, rubs, or gallops. PULMONARY: Chest is clear to auscultation, no wheezing or crackles. ABDOMEN: Soft, nontender, nondistended, normoactive bowel sounds. No palpable organomegaly. MUSCULOSKELETAL: No joint swelling or deformity. EXTREMITIES: No cyanosis, clubbing, or pedal edema. NEUROLOGICAL: Gross neurological examination did not reveal any focal deficits. SKIN: No rashes. 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 Pathology confirmed squamous cell carcinoma. Most recently patient underwent surgical resection on 05/13/23 at [facility], and during surgery it was found that malignancy metastasized to the dura. MRI brain was obtained on 05/15/23 following surgery. Pain management Hematology oncology following Radiation oncology following Labs and medication were reviewed.. Continue same treatment. Continue with symptomatic treatment. Resume home medication. Monitor labs and vitals. DVT and GI prophylaxis. Further recommendations as per clinical course of the patient Dictation was produced using [employer] dictation software. please excuse any grammatical, word or spelling errors. Objective - Vital Signs Vital signs: Vital Signs Temp 98.5 F 05/21/23 12:04 Pulse 77 05/21/23 12:04 Resp 16 05/21/23 12:04 BP 123/66 05/21/23 12:04 Pulse Ox 96 05/21/23 12:04 FiO2 Intake & Output 05/20/23 05/21/23 05/21/23 18:59 06:59 18:59 Weight 56.245 kg Other: Voiding Method Bedpan Diaper - Labs CBC & Chem 7: 05/21/23 06:06 05/21/23 06:06 Labs: Abnormal Lab Results - Last 24 Hours (Table) 05/21/23 05/21/23 Range/Units 06:06 06:06 RBC 3.35 L (4.10-5.20) X 10*6/uL Hgb 11.2 L (12.0-15.0) d/dL Hct 33.5 L (37.2-46.3) % MCV 100.0 H (80.0-97.0) FL MCH 33.4 H (27.0-32.0) pg BUN/Creatinine Ratio 35.83 H (12.00-20.00) Ratio Glucose 119 H (70-110) mg/dL Total Bilirubin 0.2 L (0.3-1.2) mg/dL Total Protein 6.1 L (6.2-8.2) d/dL Albumin 3.4 L (3.8-4.9) d/dL Albumin/Globulin Ratio 1.26 L (1.60-3.17) Ratio
--- NOTE | 2023-05-21 15:53 | CDI ---
Documentation Clarification Form Date: 05/21/2023 03:43:03 PM From: Kika Gonzalez RN, CCDS Email: [email or web address] Admit Date: 05/19/2023 03:37:00 PM Patient Name: Jannie Michel Visit Number: [id number] Discharge Date: ATTENTION: The Clinical Documentation Specialists (CDI) and [facility] Coding Staff appreciate your assistance in clarifying documentation. Please respond to the clarification below the line at the bottom and electronically sign. The CDI & [facility] Coding staff will review the response and follow-up if needed. Please note: Queries are made part of the Legal Health Record. If you have any questions, please contact the author of this message via ITS. Dr. Tavares Castnaeda Malnutrition is documented in the progress notes. Additional clarification regarding the severity of malnutrition is requested. History/Risk Factors: SCC temporal bone with invasion into dura with recent surgery of the temporal bone. Presented with nausea, vomiting and diarrhea. Admitted with dehydration, failure to thrive and acute renal injury. Clinical Indicators: per RD, underweight, muscle wasting to temporal region, subcutaneous fat loss to triceps. Poor appetite. Consuming 12% of a regular diet. She reports diarrhea anytime she eats Current BMI: 19 05/21 Consult Assessment: Malnutrition, acute severe. Treatment: general healthful diet, monitor labs Supplements: Ensure clear TID Please clarify the severity of malnutrition, if known: [ x ] Severe Protein-Calorie Malnutrition [ ] Other condition, please specify [ ] Unable to Determine MTDD
--- NOTE | 2023-05-21 16:36 | P.PN ---
Subjective Progress Note Date: 05/21/23 Principal diagnosis: n/v, dizziness At today's visit patient is resting comfortably in bed. Patient is reporting improvement in sx. Denies dizziness at this time. N/V has subsided. She is also reporting she feels more steady and better able to control movements of her upper body. Patient reports last night she woke up confused and was experiencing night sweats. Daughter states that patient has experienced this previously at nighttime during hospitalizations. Patient is A&O3 at today's visit and is answering questions appropriately. Objective - Vital Signs Vital signs: Vital Signs Temp 98.5 F 05/21/23 12:04 Pulse 77 05/21/23 12:04 Resp 16 05/21/23 12:04 BP 123/66 05/21/23 12:04 Pulse Ox 96 05/21/23 12:04 FiO2 Intake & Output 05/20/23 05/21/23 05/21/23 18:59 06:59 18:59 Weight 56.245 kg Other: Voiding Method Bedpan Diaper - Constitutional General appearance: Present: average body habitus, no acute distress - EENT Eyes: Present: anicteric sclerae ENT: Present: hearing grossly normal - Respiratory Details: breathing is even and unlabored - Cardiovascular Details: skin warm and dry - Integumentary Integumentary: Absent: cyanotic, jaundiced - Neurologic Neurologic Comment(s): left sided facial droop, baseline. Improved control and strength of upper body/extremities - Musculoskeletal Musculoskeletal: Present: generalized weakness - Psychiatric Psychiatric: Present: A&O x's 3, appropriate affect, intact judgment & insight - Labs CBC & Chem 7: 05/21/23 06:06 05/21/23 06:06 Labs: Abnormal Lab Results - Last 24 Hours (Table) 05/21/23 05/21/23 Range/Units 06:06 06:06 RBC 3.35 L (4.10-5.20) X 10*6/uL Hgb 11.2 L (12.0-15.0) d/dL Hct 33.5 L (37.2-46.3) % MCV 100.0 H (80.0-97.0) FL MCH 33.4 H (27.0-32.0) pg BUN/Creatinine Ratio 35.83 H (12.00-20.00) Ratio Glucose 119 H (70-110) mg/dL Total Bilirubin 0.2 L (0.3-1.2) mg/dL Total Protein 6.1 L (6.2-8.2) d/dL Albumin 3.4 L (3.8-4.9) d/dL Albumin/Globulin Ratio 1.26 L (1.60-3.17) Ratio Assessment and Plan (1) Intractable vomiting with nausea Current Visit: Yes Status: Acute Priority: High Code(s): R11.2 - NAUSEA WITH VOMITING, UNSPECIFIED SNOMED Code(s): 553490564 (2) Dizziness Current Visit: Yes Status: Acute Priority: High Code(s): R42 - DIZZINESS AND GIDDINESS SNOMED Code(s): 884996842 (3) Squamous cell carcinoma of head and neck Current Visit: Yes Status: Acute Priority: High Code(s): C76.0 - MALIGNANT NEOPLASM OF HEAD, FACE AND NECK SNOMED Code(s): 738398487 Plan: Vertigo, Intractable N/V: -Improvement in symptoms, denies dizziness and n/v at todays visit. Diet advanced to full liquids. Encouraged increased oral intake as tolerated -Continue IV hydration and anti-emetics prn -Antivert discontinued due to reported sedative side effects -PT consult placed -Will continue to monitor symptoms Squamous cell carcinoma of head and neck: -New referral to Dr. Anirudh Solo. Scheduled for consult appt on 05/23/23. May need to reschedule pending current hospitalization -Follows with Dr. Navarro of radiation oncology and head and neck oncology, Dr. Tang. Spoke with Dr. Navarro regarding case, consult was placed. Plan for RT 1-2 weeks s/p surgery and recovery from acute condition. -Patient had left canal wall/ typanomastoidectomy on 03/10/23. Pathology confirmed squamous cell carcinoma. Most recently patient underwent surgical resection on 05/13/23 of left temporal soft tissue mass at [facility]. During surgery it was found that malignancy metastasized to the dura. MRI brain was obtained on 05/15/23 following surgery, however this was done at [facility] nd we do not have access to this record. Daughter states she has brought imaging CD to radiology so scan can be uploaded into EMR. Will review scan once available -MRI brain and IACs on 04/02/23 revealed left-sided abnormal enhancing soft tissue seen involving the external auditory canal, reticular soft tissues mastoid air cells middle ear and labyrinthine epilympanum. No abnormal enhancement seen in the posterior fossa or brain. Enhancement seen extending to the petrous temporal bone. No abnormal enhancement seen in Meckel's cave. Anterior enhancement extends to the temporal mandibular joint. No abnormal enhancement seen in the internal auditory canals. No focal vasogenic edema on the FLAIR sequence. CT IAC obtained on 05/10/23 revealed post treatment changes to the left mastoid air cells with persistent soft tissue/fluid extending throughout the temporal bone with erosion of the superior aspect of the temporal bone likely extending into the brain. -Decadron IVP 4mg q8 ordered. Sx have significantly improved over the last 24 hours. Will continue decadron and plan for pt to be discharged on PO decadron. Will continue to monitor symptoms. -Records from [place] from recent surgery/admission requested Pt and family updated on plan and are agreeable
[2023-05-21] MEDS: IBUPROFEN 400 MG TAB PO PRN (18:10)
[2023-05-21] MEDS: ONDANSETRON 4 MG/2 ML VIAL IVP PRN (20:12)
[2023-05-22] MEDS: DEXAMETHASONE SOD PHOSPHATE 4 MG/ML 1 ML VIAL IVP SCH ×3 (05:02→19:58)
[2023-05-22] MEDS: droNABinol 2.5 MG CAP PO SCH ×2 (08:00→18:33)
--- NOTE | 2023-05-22 12:47 | P.PN ---
Subjective Progress Note Date: 05/22/23 Principal diagnosis: n/v, dizziness At today's visit patient is working with PT. Patient is reporting improvement in dizziness and n/v, stating sx have resolved. She is also reporting she feels more steady and better able to control movements of her upper body. Patient reports waking up confused during the night for the last 2 nights. Daughter states that patient has experienced this previously at nighttime during hospitalizations. She is also reporting persisting diarrhea and states she is has not been eating because "nothing tastes good", but denies any n/v. Objective - Vital Signs Vital signs: Vital Signs Temp 98.0 F 05/22/23 07:34 Pulse 73 05/22/23 07:34 Resp 18 05/22/23 07:34 BP 117/69 05/22/23 07:34 Pulse Ox 96 05/22/23 07:34 FiO2 Intake & Output 05/21/23 05/22/23 05/22/23 18:59 06:59 18:59 Weight 56.245 kg Other: Voiding Method Bedside Commode # Voids 1 - Constitutional General appearance: Present: average body habitus, no acute distress - EENT Eyes: Present: anicteric sclerae, EOMI ENT: Present: hearing grossly normal - Respiratory Details: breathing even and unlabored - Cardiovascular Details: skin warm and dry - Integumentary Integumentary: Absent: cyanotic, jaundiced - Neurologic Neurologic Comment(s): left-sided facial droop, baseline. - Musculoskeletal Musculoskeletal: Present: generalized weakness - Psychiatric Psychiatric: Present: A&O x's 3, appropriate affect, intact judgment & insight - Labs CBC & Chem 7: 05/21/23 06:06 05/21/23 06:06 Assessment and Plan (1) Intractable vomiting with nausea Current Visit: Yes Status: Acute Priority: High Code(s): R11.2 - NAUSEA WITH VOMITING, UNSPECIFIED SNOMED Code(s): 562138452 (2) Dizziness Current Visit: Yes Status: Acute Priority: High Code(s): R42 - DIZZINESS AND GIDDINESS SNOMED Code(s): 771710674 (3) Squamous cell carcinoma of head and neck Current Visit: Yes Status: Acute Priority: High Code(s): C76.0 - MALIGNANT NEOPLASM OF HEAD, FACE AND NECK SNOMED Code(s): 282397823 Plan: Vertigo, Intractable N/V: -Improvement in symptoms, denies dizziness and n/v at todays visit. Diet advanced to full liquids, but states she is not eating bc "nothing tastes good". Encouraged increased oral intake as tolerated -Continue IV hydration and anti-emetics prn -Antivert discontinued due to reported sedative side effects -Continue decadron -PT consult placed -Will continue to monitor symptoms Squamous cell carcinoma of head and neck: -Patient had left canal wall/ typanomastoidectomy on 03/10/23. Pathology confirmed squamous cell carcinoma. Most recently patient underwent surgical resection on 05/13/23 of left temporal soft tissue mass at [facility]. During surgery it was found that malignancy metastasized to the dura. MRI brain was obtained on 05/15/23 following surgery, however this was done at [place] and we do not have access to this record. Daughter states she has brought imaging CD to radiology so scan can be uploaded into EMR. Will review scan once available -MRI brain and IACs on 04/02/23 revealed left-sided abnormal enhancing soft tissue seen involving the external auditory canal, reticular soft tissues mastoid air cells middle ear and labyrinthine epilympanum. No abnormal enhancement seen in the posterior fossa or brain. Enhancement seen extending to the petrous temporal bone. No abnormal enhancement seen in Meckel's cave. Anterior enhancement extends to the temporal mandibular joint. No abnormal enhancement seen in the internal auditory canals. No focal vasogenic edema on the FLAIR sequence. CT IAC obtained on 05/10/23 revealed post treatment changes to the left mastoid air cells with persistent soft tissue/fluid extending throug hout the temporal bone with erosion of the superior aspect of the temporal bone likely extending into the brain. -New referral to Dr. Anirudh Solo. Scheduled for consult appt on 05/23/23. May need to reschedule pending current hospitalization -Follows with Dr. Navarro of radiation oncology and head and neck oncology, Dr. Tang. Spoke with Dr. Navarro regarding case, consult was placed. Plan for RT 2-3 weeks s/p surgery and pending recovery from acute condition. Rad onc will speak with surgeon at [facility] regarding recommendations for repeat brain imaging. If scan shows no improvement and/or progression, pt will need to follow up with neurosurgery at [facility] for further evaluation and management. -Decadron IVP 4mg q8 ordered. Sx have significantly improved over the last 24 hours. Will continue decadron and plan for pt to be discharged on PO decadron. Will continue to monitor symptoms. -Records from [place] from recent surgery/admission requested Dr. clevelandests: I have performed H&P and developed impression and plan of care for patient, discussed with dictator. I agree with dictated note, documented as a scribe
--- NOTE | 2023-05-22 13:11 | P.EN ---
Patient will require transport chair to assist with ADLs secondary to head and neck squamous cell carcinoma. Patient does have assistance in the home for someone to propel her to assist with ADLs.
[2023-05-22] MEDS: ACETAMINOPHEN TAB 325 MG TAB PO PRN ×2 (14:27→19:57)
[2023-05-22] MEDS: IBUPROFEN 400 MG TAB PO PRN ×2 (15:26→21:53)
[2023-05-22] MEDS: SODIUM CHLORIDE 0.9% 1,000 ML IV SCH (18:54)
[2023-05-23] MEDS: ACETAMINOPHEN TAB 325 MG TAB PO PRN ×3 (03:01→17:52)
[2023-05-23] MEDS: SODIUM CHLORIDE 0.9% 1,000 ML IV SCH ×2 (03:04→17:54)
[2023-05-23] MEDS: DEXAMETHASONE SOD PHOSPHATE 4 MG/ML 1 ML VIAL IVP SCH ×3 (04:59→20:23)
[2023-05-23] MEDS: droNABinol 2.5 MG CAP PO SCH ×2 (08:08→17:49)
--- NOTE | 2023-05-23 10:03 | P.PN ---
Subjective Progress Note Date: 05/22/23 73-year-old female presenting for evaluation of nausea, vomiting, dizziness, and poor appetite. Patient is accompanied with her daughter who is able to give a detailed history of her recent past. 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 She also had some facial plastics including a weight in the left eyelid. Patient has not been eating well and his had vomiting every time she stands. No specific abdominal pain. No measured fever. Symptoms have been present even prior to surgery. Patient reports she had progressive weakness and difficulty ambulating secondary to generalized weakness EKG: Sinus rhythm rate of 82, PA interval 121, QRS duration 80, QTC 400, no ST segment changes. Bladder completed in ED reveals a difficult 0.4, hemoglobin 12.4, blood count of 455, sodium 135, potassium 4.3, BUN/creatinine of 28/0.80 and blood glucose of 109, lactic acid of 1.2 Patient is being admitted for dehydration/weakness and generalized decline; we will possibly require placement for adult failure to thrive 05/20. Patient seen and examined. Patient states she has poor appetite, states food tastes like cardboard. Patient denies any difficulty in swallowing food. 05/21. Patient seen and examined. Still complaining of poor appetite. Complaining of nausea 05/22/2023 Patient seen and evaluated and follow-up this morning currently sitting up in the chair was able to work with physical therapy although continues with significant weakness. Patient and family refusing rehab and will be going home to stay with family for assistance. Arrangements being made for discharge planning and necessary equipment for the family to assist patient in ADLs. Oncology following as well recommending monitoring overnight continued on IV dexamethasone and will continue taper on discharge. Patient continues to be nauseated and extremely sensitive to smells although is eating a little more today. Encouraged oral intake and small frequent meals including meals from home. Patient is afebrile with no reports of chest pain or shortness of breath. Patient continues with some dizziness although is improved from previous. REVIEW OF SYSTEMS: CONSTITUTIONAL: No fever, no malaise,. CARDIOVASCULAR: No chest pain, no palpitations, no syncope. PULMONARY: No shortness of breath, no cough, GASTROINTESTINAL: As mentioned above NEUROLOGICAL: No headaches, reports generalized weakness PHYSICAL EXAMINATION: GENERAL: The patient is alert and oriented x3, chronically ill-looking, cachectic HEENT: Pupils are round and equally reacting to light. EOMI. No scleral icterus. No conjunctival pallor. Normocephalic, atraumatic. No pharyngeal erythema. No thyromegaly. CARDIOVASCULAR: S1 and S2 present. No murmurs, rubs, or gallops. PULMONARY: Chest is clear to auscultation, no wheezing or crackles. ABDOMEN: Soft, nontender, nondistended, normoactive bowel sounds. No palpable organomegaly. MUSCULOSKELETAL: No joint swelling or deformity. EXTREMITIES: No cyanosis, clubbing, or pedal edema. NEUROLOGICAL: Gross neurological examination did not reveal any focal deficits. SKIN: No rashes. 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 Patient had tympanomastoidectomy on 03/10/2023 as well as underwent recent surgical resection on 05/13/[address] 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 GI prophylaxis DVT perplexes Full code Plan: Patient will continue on gentle IV hydration and continue to encourage small frequent meals and oral intake Continue Marinol Encourage increased activity as tolerated and recommended physical therapy daily Patient would likely benefit from rehab although family and patient are refusing and will take the patient home and care for her in the home with home care Case management following arranging for necessary equipment and supplies for discharge Oncology following recommending monitoring overnight on continued IV dexamethasone and will taper on discharge with oral Follow-up with radiation oncology along with oncology in the outpatient setting Probable discharge in 24 hours The impression and plan of care has been dictated by Jen Washington, Nurse Practitioner as directed. Dr. Bisi MD I have performed a history and examination and MDM of this patient, discussed the same with the dictator, and agree with the dictator's assessment and plan as written ,documented as a scribe. Based on total visit time, I have performed more than 50% of the visit. Objective - Vital Signs Vital signs: Vital Signs Temp 98.0 F 05/22/23 07:34 Pulse 73 05/22/23 07:34 Resp 18 05/22/23 07:34 BP 117/69 05/22/23 07:34 Pulse Ox 96 05/22/23 07:34 FiO2 Intake & Output 05/21/23 05/22/23 05/22/23 18:59 06:59 18:59 Weight 56.245 kg Other: Voiding Method Bedside Commode # Voids 1 - Labs CBC & Chem 7: 05/21/23 06:06 05/21/23 06:06 Labs: Abnormal Lab Results - Last 24 Hours (Table) 05/21/23 05/21/23 Range/Units 06:06 06:06 RBC 3.35 L (4.10-5.20) X 10*6/uL Hgb 11.2 L (12.0-15.0) d/dL Hct 33.5 L (37.2-46.3) % MCV 100.0 H (80.0-97.0) FL MCH 33.4 H (27.0-32.0) pg BUN/Creatinine Ratio 35.83 H (12.00-20.00) Ratio Glucose 119 H (70-110) mg/dL Total Bilirubin 0.2 L (0.3-1.2) mg/dL Total Protein 6.1 L (6.2-8.2) d/dL Albumin 3.4 L (3.8-4.9) d/dL Albumin/Globulin Ratio 1.26 L (1.60-3.17) Ratio
--- NOTE | 2023-05-23 15:32 | P.GSCN ---
History of Present Illness Consult date: 05/23/23 History of present illness: CHIEF COMPLAINT: Nausea vomiting HISTORY OF PRESENT ILLNESS: This is a 73-year-old female with history of squamous cell carcinoma of the head and neck. Patient is status post left canal wall tympanomastoidectomy on 03/10/2023 and Surgical resection on 05/13/2023 of the left temporal soft tissue mass at [facility]. Patient's report that she'll be starting radiation and chemotherapy soon. However, since surgery she's been having nausea and vomiting. She's having difficulty eating. She is dehydrated. She's also having loose stools. She's never had EGD. She denies any fevers chills or sweats. Patient reports that smell of food makes her nauseous and therefore she's having difficulty with eating. PAST MEDICAL HISTORY: 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 status post tympanomastoidectomy and surgical resection of the left temporal soft tissue PAST SURGICAL HISTORY: as stated above MEDICATIONS: See below ALLERGIES: See below SOCIAL HISTORY: No illicit drug use. REVIEW OF SYSTEMS: CONSTITUTIONAL: Denies fever or chills. HEENT: Denies blurred vision, vision changes, or eye pain. Denies hemoptysis CARDIOVASCULAR: Denies chest pain or pressure. RESPIRATORY: No shortness of breath. GASTROINTESTINAL: See HPI for pertinent findings HEMATOLOGIC: Denies bleeding disorders. GENITOURINARY: Denies any blood in urine or increased urinary frequency. SKIN: Denies pruitis. Denies rash. PHYSICAL EXAM: VITAL SIGNS: Reviewed GENERAL: Well-developed in no acute distress. HEENT: No sclera icterus. Extraocular movements grossly intact. Moist buccal mucosa. Head is normocephalic. No nasal drainage. ABDOMEN: Soft. Nondistended. Nontender NEUROLOGIC: Alert and oriented. Cranial nerves II through XII grossly intact. LABORATORY DATA: WBC 9.83 Hgb 11.2 platelets 432 Sodium 138 potassium is 4.6 creatinine 0.6 Lactic acid 1.2 albumin 3.4 IMAGING: ASSESSMENT: 1. Mild protein calorie malnutrition 2. Poor oral intake 3. Nausea and vomiting 5. Squamous cell carcinoma of the head and neck with recent surgery PLAN: -Patient scheduled to see speech therapy for swallowing eval tomorrow -Patient will be scheduled for EGD and possible PEG tube placement for Saturday Thank you for this consultation Physician Compliance Analyst note has been reviewed by physician. Signing provider agrees with the documented findings, assessment, and plan of care. Past Medical History Past Medical History: Cancer Additional Past Medical History / Comment(s): broken foot x2. cholesteatoma. 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 History of Any Multi-Drug Resistant Organisms: None Reported Past Surgical History: Tubal Ligation Past Anesthesia/Blood Transfusion Reactions: No Reported Reaction Past Psychological History: No Psychological Hx Reported Smoking Status: Never smoker Past Alcohol Use History: None Reported Past Drug Use History: None Reported Medications and Allergies Home Medications Medication Instructions Recorded Confirmed Type Acetaminophen Tab [Tylenol] 1,000 mg PO Q6H PRN 05/19/23 05/19/23 History Celecoxib 200 mg PO BID 05/19/23 05/19/23 History Ondansetron [Zofran] 4 mg PO Q8H PRN 05/19/23 05/19/23 History oxyCODONE-APAP 5-325MG [Percocet 1 tab PO Q4-6H PRN 05/19/23 05/19/23 History 5-325 mg] Ibuprofen [Motrin] 400 mg PO Q6HR PRN tab 05/23/23 Rx droNABinol [Marinol] 2.5 mg PO AC-BID 7 Days #14 cap 05/23/23 Rx Allergies Allergy/AdvReac Type Severity Reaction Status Date / Time No Known Allergies Allergy Verified 05/19/23 12:52 Surgical - Exam Vital Signs Temp Pulse Resp BP Pulse Ox 97.9 F 80 16 119/74 97 05/19/23 12:52 05/19/23 12:52 05/19/23 12:52 05/19/23 12:52 05/19/23 12:52 Results - Labs 05/21/23 06:06 05/21/23 06:06
[2023-05-23] MEDS: METOCLOPRAMIDE 5 MG/ML 2 ML VIAL IVP PRN (20:34)
[2023-05-24] MEDS: IBUPROFEN 400 MG TAB PO PRN ×2 (03:10→21:15)
[2023-05-24] MEDS: SODIUM CHLORIDE 0.9% 1,000 ML IV SCH ×2 (03:11→18:09)
--- NOTE | 2023-05-24 05:10 | P.PN ---
Subjective Progress Note Date: 05/23/23 73-year-old female presenting for evaluation of nausea, vomiting, dizziness, and poor appetite. Patient is accompanied with her daughter who is able to give a detailed history of her recent past. 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 She also had some facial plastics including a weight in the left eyelid. Patient has not been eating well and his had vomiting every time she stands. No specific abdominal pain. No measured fever. Symptoms have been present even prior to surgery. Patient reports she had progressive weakness and difficulty ambulating secondary to generalized weakness EKG: Sinus rhythm rate of 82, MA interval 121, QRS duration 80, QTC 400, no ST segment changes. Bladder completed in ED reveals a difficult 0.4, hemoglobin 12.4, blood count of 455, sodium 135, potassium 4.3, BUN/creatinine of 28/0.80 and blood glucose of 109, lactic acid of 1.2 Patient is being admitted for dehydration/weakness and generalized decline; we will possibly require placement for adult failure to thrive 05/20. Patient seen and examined. Patient states she has poor appetite, states food tastes like cardboard. Patient denies any difficulty in swallowing food. 05/21. Patient seen and examined. Still complaining of poor appetite. Complaining of nausea 05/22/2023 Patient seen and evaluated and follow-up this morning currently sitting up in the chair was able to work with physical therapy although continues with significant weakness. Patient and family refusing rehab and will be going home to stay with family for assistance. Arrangements being made for discharge planning and necessary equipment for the family to assist patient in ADLs. Oncology following as well recommending monitoring overnight continued on IV dexamethasone and will continue taper on discharge. Patient continues to be nauseated and extremely sensitive to smells although is eating a little more today. Encouraged oral intake and small frequent meals including meals from home. Patient is afebrile with no reports of chest pain or shortness of breath. Patient continues with some dizziness although is improved from previous. 05/23/2023 Patient is seen in follow-up this morning with sister at the bedside. Patient continues with significant weakness along with nausea and inability to tolerate oral intake. Oncology along with radiation oncology following this patient is supposed to be potentially starting treatment soon. Patient having significant weakness and recommended physical therapy daily. Patient and family refused going to rehab and will be going home with assistance in the home and Homecare. Patient was scheduled for discharge today although continues to have difficulty with eating and not tolerating much oral intake and continues with difficulty in swallowing and handling any smells of food that make her extremely nauseated. Patient maintained on Marinol along with antinausea medications and reports not really helping. Will consult general surgery with discussion of possible PEG tube and further evaluation along with speech therapy and suggest modified Swallow study. REVIEW OF SYSTEMS: CONSTITUTIONAL: No fever, no malaise,. CARDIOVASCULAR: No chest pain, no palpitations, no syncope. PULMONARY: No shortness of breath, no cough, GASTROINTESTINAL: Reports continued nausea and occasional vomiting with bile, no appetite and extremely sensitive to any smells NEUROLOGICAL: No headaches, reports generalized weakness PHYSICAL EXAMINATION: GENERAL: The patient is alert and oriented x3, chronically ill-looking, cachectic HEENT: Pupils are round and equally reacting to light. EOMI. No scleral icterus. No conjunctival pallor. Normocephalic, atraumatic. No pharyngeal erythema. No thyromegaly. CARDIOVASCULAR: S1 and S2 present. No murmurs, rubs, or gallops. PULMONARY: Chest is clear to auscultation, no wheezing or crackles. ABDOMEN: Soft, nontender, nondistended, normoactive bowel sounds. No palpable organomegaly. MUSCULOSKELETAL: No joint swelling or deformity. EXTREMITIES: No cyanosis, clubbing, or pedal edema. NEUROLOGICAL: Gross neurological examination did not reveal any focal deficits. Diffusely weak SKIN: No rashes. 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 Patient and family refusing rehab and will be going home with home care Case management following arranging for necessary equipment and supplies for discharge Oncology following recommending continuing on IV dexamethasone and will taper on discharge with oral Follow-up with radiation oncology along with oncology in the outpatient setting Radiation oncology following discussed with the patient about following up outpatient with treatment once clinically stable and tolerating more oral intake Patient is not tolerating any oral intake and dietary following recommending TPN and have discussed with consultations and will not start at this time with the risks versus benefits explained. Patient be evaluated by speech therapy as patient reports some difficulty in swallowing and tolerating oral intake with possible modified barium swallow study. We'll also consult general surgery to discuss possible PEG tube placement Due to multiple complex medical issues, prognosis is guarded The impression and plan of care has been dictated by Jen Washington, Nurse Practitioner as directed. Dr. Bisi MD I have performed a history and examination and MDM of this patient, discussed the same with the dictator, and agree with the dictator's assessment and plan as written ,documented as a scribe. Based on total visit time, I have performed more than 50% of the visit. Objective - Vital Signs Vital signs: Vital Signs Temp 97.3 F L 05/23/23 07:30 Pulse 76 05/23/23 07:30 Resp 21 05/23/23 07:30 BP 118/66 05/23/23 07:30 Pulse Ox 96 05/23/23 07:30 FiO2 Intake & Output 05/22/23 05/23/23 05/23/23 18:59 06:59 18:59 Intake Total 900 Output Total 25 Balance 900 -25 Weight 56.245 kg Intake: Intake, IV Titration 900 Amount Sodium Chloride 0.9% 1, 900 000 ml @ 75 mls/hr IV . [id number] [facility] Rx#:[id number] Output: Emesis 25 Other: Voiding Method Bedside Commode # Voids 2 # Bowel Movements 2 - Labs CBC & Chem 7: 05/21/23 06:06 05/21/23 06:06
[2023-05-24] MEDS: DEXAMETHASONE SOD PHOSPHATE 4 MG/ML 1 ML VIAL IVP SCH ×3 (05:11→21:15)
[2023-05-24 07:24] LABS: Glucose,Whole Blood 106 mg/dL (70-110)
[2023-05-24] MEDS: droNABinol 2.5 MG CAP PO SCH (08:27)
[2023-05-24 11:06] LABS: Basophils # (A) 0.02 X 10*3/uL (0.00-0.10); Basophils % (A) 0.3 %; Eosinophils # (A) 0 X 10*3/uL (0.04-0.35); Eosinophils % (A) 0 %; HCT 34.8 % (37.2-46.3); HGB 11.9 d/dL (12.0-15.0); Lymphocytes # (A) 1.37 X 10*3/uL (0.90-5.00); MCH 33.7 pg (27.0-32.0); MCHC 34.2 d/dL (32.0-37.0); MCV 98.6 FL (80.0-97.0); Mean Platelet Volume 10.5 FL (9.5-12.2); Monocytes # (A) 1.08 X 10*3/uL (0.20-1.00); Monocytes % (A) 15.8 %; NRBC Per 100 WBC 0 X 10*3/uL (0.00-0.01); Neutrophils # (A) 4.27 X 10*3/uL (1.80-7.70); Neutrophils % (A) 62.4 %; Platelet Count 416 X 10*3/uL (140-440); RBC 3.53 X 10*6/uL (4.10-5.20); WBC 6.84 X 10*3/uL (4.50-10.00)
[2023-05-24] MEDS: METOCLOPRAMIDE 5 MG/ML 2 ML VIAL IVP PRN (12:04)
--- NOTE | 2023-05-24 12:48 | P.PN ---
Subjective Progress Note Date: 05/24/23 Principal diagnosis: n/v, dizziness At today's visit patient is resting comfortably in bed, family at bedside. Patient reports improvement in dizziness but is still experiencing intermittent nausea that is worsened with oral intake. Reports one episode of vomiting last night. She states the smell and taste of food causes her to have significant nausea and is unable to tolerate eating. Upon review of medication administration, patient has only used 1 dose of antiemetics over the last 3 days. Encouraged patient to request medications if she is feeling nauseous and to use medications proactively as needed to increase oral intake. Patient is scheduled for swallow study evaluation today. General surgery has been consulted with plans for EGD and possible PEG tube placement on Saturday. Objective - Vital Signs Vital signs: Vital Signs Temp 97.8 F 05/24/23 11:52 Pulse 51 L 05/24/23 11:52 Resp 17 05/24/23 11:52 BP 123/70 05/24/23 11:52 Pulse Ox 98 05/24/23 11:52 FiO2 Intake & Output 05/23/23 05/24/23 05/24/23 18:59 06:59 18:59 Intake Total 900 1200 Balance 900 1200 Weight 56.245 kg Intake: Intake, IV Titration 900 900 Amount Sodium Chloride 0.9% 1, 900 900 000 ml @ 75 mls/hr IV . [id number] [facility] Rx#:[id number] Oral 300 Other: Voiding Method Bedside Commode Toilet # Voids 2 1 # Bowel Movements 2 1 - Constitutional General appearance: Present: no acute distress, thin - EENT Eyes: Present: anicteric sclerae, EOMI ENT: Present: hearing grossly normal - Respiratory Details: breathing even unlabored - Cardiovascular Details: skin warm and dry - Gastrointestinal General gastrointestinal: Present: soft. Absent: tenderness - Integumentary Integumentary: Absent: cyanotic, jaundiced - Neurologic Neurologic Comment(s): left-sided facial droop, at baseline - Musculoskeletal Musculoskeletal: Present: generalized weakness - Psychiatric Psychiatric: Present: A&O x's 3, appropriate affect, intact judgment & insight - Labs CBC & Chem 7: 05/24/23 05:52 05/21/23 06:06 Labs: Abnormal Lab Results - Last 24 Hours (Table) 05/24/23 Range/Units 05:52 RBC 3.53 L (4.10-5.20) X 10*6/uL Hgb 11.9 L (12.0-15.0) d/dL Hct 34.8 L (37.2-46.3) % MCV 98.6 H (80.0-97.0) FL MCH 33.7 H (27.0-32.0) pg Monocytes # 1.08 H (0.20-1.00) X 10*3/uL Eosinophils # 0 L (0.04-0.35) X 10*3/uL Assessment and Plan (1) Intractable vomiting with nausea Current Visit: Yes Status: Acute Priority: High Code(s): R11.2 - NAUSEA WITH VOMITING, UNSPECIFIED SNOMED Code(s): 595537414 (2) Dizziness Current Visit: Yes Status: Acute Priority: High Code(s): R42 - DIZZINESS AND GIDDINESS SNOMED Code(s): 332854219 (3) Squamous cell carcinoma of head and neck Current Visit: Yes Status: Acute Priority: High Code(s): C76.0 - MALIGNANT NEOPLASM OF HEAD, FACE AND NECK SNOMED Code(s): 843039809 Plan: Vertigo, Intractable N/V: -Reports improvement in dizziness but is still experiencing intermittent nausea that is worsened with oral intake. Reports one episode of vomiting last night. She states the smell and taste of food causes her to have significant nausea and is unable to tolerate eating. Upon review of medication administration, patient has only used 1 dose of antiemetics over the last 3 days. Encouraged patient to request medications if she is feeling nauseous and to use medications proactively as needed to increase oral intake. -Swallow study evaluation scheduled for today. General surgery has been consul kaleb with plans for EGD and possible PEG tube placement on Saturday. -Continue IV hydration, marinol and anti-emetics prn -Continue decadron -Will continue to monitor symptoms Squamous cell carcinoma of head and neck: -Patient had left canal wall/ typanomastoidectomy on 03/10/23. Pathology confirmed squamous cell carcinoma. Most recently patient underwent surgical resection on 05/13/23 of left temporal soft tissue mass at [facility]. During surgery it was found that malignancy metastasized to the dura. MRI brain was obtained on 05/15/23 following surgery, however this was done at [facility] and we do not have access to this record. Records have been requested twice -MRI brain and IACs on 04/02/23 revealed left-sided abnormal enhancing soft tissue seen involving the external auditory canal, reticular soft tissues mastoid air cells middle ear and labyrinthine epilympanum. No abnormal enhancement seen in the posterior fossa or brain. Enhancement seen extending to the petrous temporal bone. No abnormal enhancement seen in Meckel's cave. Anterior enhancement extends to the temporal mandibular joint. No abnormal enhancement seen in the internal auditory canals. No focal vasogenic edema on the FLAIR sequence. CT IAC obtained on 05/10/23 revealed post treatment changes to the left mastoid air cells with persistent soft tissue/fluid extending throughout the temporal bone with erosion of the superior aspect of the temporal bone likely extending into the brain. -New referral to Dr. Anirudh Solo. Consult appt on 05/23/23 was missed due to hospitalization, pt has been rescheduled. Appt in discharge plan -Follows with Dr. Navarro of radiation oncology and head and neck oncology, Dr. Tang. Spoke with Dr. Navarro regarding case. Plan for RT 2-3 weeks s/p surgery and pending recovery from acute condition. Rad onc will speak with surgeon at [facility] regarding recommendations for repeat brain imaging. If scan shows no improvement and/or progression, pt will need to follow up with neurosurgery at [facility] for further evaluation/management prior to treatment. -Decadron IVP 4mg q8 ordered. Dizziness has significantly improved. Will continue decadron and plan for pt to be discharged on PO decadron. Script has been sent to patient's pharmacy. -Will continue to monitor symptoms with plans for outpt f/u to further discuss treatment options Patient and family has been updated on plan of care in detail
[2023-05-24] MEDS: PANTOPRAZOLE 40 MG/10 ML VIAL IVP SCH ×2 (13:29→21:15)
[2023-05-24] MEDS: MEGESTROL 400 MG/10 ML CUP PO SCH (13:29)
--- NOTE | 2023-05-24 13:29 | P.PN ---
Subjective Progress Note Date: 05/24/23 CHIEF COMPLAINT: Nausea and vomiting HISTORY OF PRESENT ILLNESS: Patient with history of squamous cell carcinoma of head and neck. Patient is status post left canal wall tympanomastoidectomy on 03/10/2023 and Surgical resection on 05/13/2023 of the left temporal soft tissue mass at [facility].. She continues to have nausea and vomiting. She was seen by speech therapy and they reported no issues with her swallow and the patient could continue on current diet which is currently full liquids. Patient continues to have episodes of nausea and vomiting. She reports that it's the smell of foods that cause her to have difficulty with eating. Afebrile. WBC 6.8 for HPI 0.9 PHYSICAL EXAM: VITAL SIGNS: Reviewed. GENERAL: Well-developed in no acute distress. ABDOMEN: Soft. Nondistended. Nontender. NEUROLOGIC: Alert and oriented. Cranial nerves II through XII grossly intact. ASSESSMENT: 1. Mild protein calorie malnutrition 2. Poor oral intake 3. Nausea and vomiting 5. Squamous cell carcinoma of the head and neck with recent surgery PLAN: -Patient scheduled for EGD and possible PEG tube placement on Saturday with Dr. Vo -Continue supportive care Physician Laboratory Aide note has been reviewed by physician. Signing provider agrees with the documented findings, assessment, and plan of care. Objective - Vital Signs Vital signs: Vital Signs Temp 97.8 F 05/24/23 11:52 Pulse 51 L 05/24/23 11:52 Resp 17 05/24/23 11:52 BP 123/70 05/24/23 11:52 Pulse Ox 98 05/24/23 11:52 FiO2 Intake & Output 05/23/23 05/24/23 05/24/23 18:59 06:59 18:59 Intake Total 900 1200 Balance 900 1200 Weight 56.245 kg Intake: Intake, IV Titration 900 900 Amount Sodium Chloride 0.9% 1, 900 900 000 ml @ 75 mls/hr IV . [id number] [facility] Rx#:[id number] Oral 300 Other: Voiding Method Bedside Commode Toilet # Voids 2 1 # Bowel Movements 2 1 - Labs CBC & Chem 7: 05/24/23 05:52 05/21/23 06:06 Labs: Abnormal Lab Results - Last 24 Hours (Table) 05/24/23 Range/Units 05:52 RBC 3.53 L (4.10-5.20) X 10*6/uL Hgb 11.9 L (12.0-15.0) d/dL Hct 34.8 L (37.2-46.3) % MCV 98.6 H (80.0-97.0) FL MCH 33.7 H (27.0-32.0) pg Monocytes # 1.08 H (0.20-1.00) X 10*3/uL Eosinophils # 0 L (0.04-0.35) X 10*3/uL
[2023-05-24 14:33] LABS: ALT 18 U/L (8-44); AST 14 U/L (13-35); Albumin 3.1 d/dL (3.8-4.9); Albumin/Globulin Ratio 1.29 Ratio (1.60-3.17); Alkaline Phosphatase 84 U/L (41-126); Blood Urea Nitrogen 17.1 mg/dL (9.0-27.0); Calcium 8.5 mg/dL (8.7-10.3); Carbon Dioxide 21.9 mmol/L (21.6-31.8); Chloride 102 mmol/L (96-109); Globulin 2.4 d/dL (1.6-3.3); Glucose 103 mg/dL (70-110); Potassium 4.4 mmol/L (3.5-5.5); Sodium 136 mmol/L (135-145); Total Bilirubin <0.2 mg/dL (0.3-1.2); Total Protein 5.5 d/dL (6.2-8.2)
[2023-05-25] MEDS: DEXAMETHASONE SOD PHOSPHATE 4 MG/ML 1 ML VIAL IVP SCH ×3 (04:22→20:38)
[2023-05-25] MEDS: SODIUM CHLORIDE 0.9% 1,000 ML IV SCH ×2 (05:37→18:33)
[2023-05-25] MEDS: ACETAMINOPHEN TAB 325 MG TAB PO PRN ×2 (06:14→20:38)
--- NOTE | 2023-05-25 06:19 | P.PN ---
Subjective Progress Note Date: 05/24/23 73-year-old female presenting for evaluation of nausea, vomiting, dizziness, and poor appetite. Patient is accompanied with her daughter who is able to give a detailed history of her recent past. 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 She also had some facial plastics including a weight in the left eyelid. Patient has not been eating well and his had vomiting every time she stands. No specific abdominal pain. No measured fever. Symptoms have been present even prior to surgery. Patient reports she had progressive weakness and difficulty ambulating secondary to generalized weakness EKG: Sinus rhythm rate of 82, W[place] interval 121, QRS duration 80, QTC 400, no ST segment changes. Bladder completed in ED reveals a difficult 0.4, hemoglobin 12.4, blood count of 455, sodium 135, potassium 4.3, BUN/creatinine of 28/0.80 and blood glucose of 109, lactic acid of 1.2 Patient is being admitted for dehydration/weakness and generalized decline; we will possibly require placement for adult failure to thrive 05/20. Patient seen and examined. Patient states she has poor appetite, states food tastes like cardboard. Patient denies any difficulty in swallowing food. 05/21. Patient seen and examined. Still complaining of poor appetite. Complaining of nausea 05/22/2023 Patient seen and evaluated and follow-up this morning currently sitting up in the chair was able to work with physical therapy although continues with significant weakness. Patient and family refusing rehab and will be going home to stay with family for assistance. Arrangements being made for discharge planning and necessary equipment for the family to assist patient in ADLs. Oncology following as well recommending monitoring overnight continued on IV dexamethasone and will continue taper on discharge. Patient continues to be nauseated and extremely sensitive to smells although is eating a little more today. Encouraged oral intake and small frequent meals including meals from home. Patient is afebrile with no reports of chest pain or shortness of breath. Patient continues with some dizziness although is improved from previous. 05/23/2023 Patient is seen in follow-up this morning with sister at the bedside. Patient continues with significant weakness along with nausea and inability to tolerate oral intake. Oncology along with radiation oncology following this patient is supposed to be potentially starting treatment soon. Patient having significant weakness and recommended physical therapy daily. Patient and family refused going to rehab and will be going home with assistance in the home and Homecare. Patient was scheduled for discharge today although continues to have difficulty with eating and not tolerating much oral intake and continues with difficulty in swallowing and handling any smells of food that make her extremely nauseated. Patient maintained on Marinol along with antinausea medications and reports not really helping. Will consult general surgery with discussion of possible PEG tube and further evaluation along with speech therapy and suggest modified Swallow study. 05/24/2023 Patient is seen and evaluated in follow-up this morning continues to have significant difficulties with tolerating oral intake. Swallow study to be performed per speech today and will await results. Patient has been encouraged to use antinausea medications and was taking Marinol although will change to Megace. General surgery consulted as well and plans on performing EGD with possible PEG tube placement on Saturday. Discussed with the patient and family at length along with daughter over the phone that patient may still continue to eat pleasure foods to encourage oral intake and nutrition as patient is significantly weak and if patient does proceed with PEG tube, this could potentially be temporary in order to gain nutrition for strength while atte mpting to go through chemo/radiation treatment. Oncology following and is maintained on IV dexamethasone with significant improvement in dizziness. Will continue gentle IV hydration and encourage oral intake. Encouraged increased activity as tolerated. Patient is up with a walker and doing well. Patient continues to have loose stools and oral intake is extremely poor. Patient denies any chest pain or shortness of breath and patient is afebrile. We'll monitor labs and replace electrolytes per protocol. REVIEW OF SYSTEMS: CONSTITUTIONAL: No fever, no malaise,. CARDIOVASCULAR: No chest pain, no palpitations, no syncope. PULMONARY: No shortness of breath, no cough, GASTROINTESTINAL: Reports continued nausea and occasional vomiting with bile, no appetite and extremely sensitive to any smells NEUROLOGICAL: No headaches, reports generalized weakness PHYSICAL EXAMINATION: GENERAL: The patient is alert and oriented x3, chronically ill-looking, cachectic HEENT: Pupils are round and equally reacting to light. EOMI. No scleral icterus. No conjunctival pallor. Normocephalic, atraumatic. No pharyngeal erythema. No thyromegaly. CARDIOVASCULAR: S1 and S2 present. No murmurs, rubs, or gallops. PULMONARY: Chest is clear to auscultation, no wheezing or crackles. ABDOMEN: Soft, nontender, nondistended, normoactive bowel sounds. No palpable organomegaly. MUSCULOSKELETAL: No joint swelling or deformity. EXTREMITIES: No cyanosis, clubbing, or pedal edema. NEUROLOGICAL: Gross neurological examination did not reveal any focal deficits. Diffusely weak SKIN: No rashes. 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 Speech performed bedside swallow and patient had excellent results with no concerns of dysphagia. Patient continues to have extreme sensitivity to any smells in any oral intake. Discussed with the family at length about bringing in foods that patient may have pleasure in eating to attempt to ensure adequate nutrition Patient was taking Marinol and will switch to Megace Gen. surgery following as well and plans for EGD with possible PEG tube placement. Encourage increased activity as tolerated and recommended physical therapy daily. Patient and family refusing rehab and will be going home with home care Case management following arranging for necessary equipment and supplies for discharge Oncology following recommending continuing on IV dexamethasone and will taper on discharge with oral Follow-up with radiation oncology along with oncology in the outpatient setting Radiation oncology following discussed with the patient about following up outpatient with treatment once clinically stable and tolerating more oral intake Due to multiple complex medical issues, prognosis is guarded The impression and plan of care has been dictated by Jen Washington Nurse Practitioner as directed. Dr. Tunde MD I have performed a history and examination and MDM of this patient, discussed the same with the dictator, and agree with the dictator's assessment and plan as written ,documented as a scribe. Based on total visit time, I have performed more than 50% of the visit. Objective - Vital Signs Vital signs: Vital Signs Temp 98.4 F 10/07/23 02:19 Pulse 68 05/25/23 02:19 Resp 14 05/25/23 02:19 BP 93/51 05/25/23 02:19 Pulse Ox 97 05/25/23 02:19 FiO2 Intake & Output 05/24/23 05/24/23 05/25/23 06:59 18:59 06:59 Intake Total 1200 1500 Balance 1200 1500 Intake: Intake, IV Titration 900 900 Amount Sodium Chloride 0.9% 1, 900 900 000 ml @ 75 mls/hr IV . [id number] [facility] Rx#:[id number] Oral 300 600 Other: Voiding Method Bedside Commode Toilet Toilet # Voids 2 1 2 # Bowel Movements 2 1 1 - Labs CBC & Chem 7: 05/24/23 05:52 05/24/23 05:52 Labs: Abnormal Lab Results - Last 24 Hours (Table) 05/24/23 05/24/23 Range/Units 05:52 05:52 RBC 3.53 L (4.10-5.20) X 10*6/uL Hgb 11.9 L (12.0-15.0) d/dL Hct 34.8 L (37.2-46.3) % MCV 98.6 H (80.0-97.0) FL MCH 33.7 H (27.0-32.0) pg Monocytes # 1.08 H (0.20-1.00) X 10*3/uL Eosinophils # 0 L (0.04-0.35) X 10*3/uL Anion Gap 12.10 H (4.00-12.00) mmol/L BUN/Creatinine Ratio 28.50 H (12.00-20.00) Ratio Calcium 8.5 L (8.7-10.3) mg/dL Total Bilirubin <0.2 L (0.3-1.2) mg/dL Total Protein 5.5 L (6.2-8.2) d/dL Albumin 3.1 L (3.8-4.9) d/dL Albumin/Globulin Ratio 1.29 L (1.60-3.17) Ratio
[2023-05-25] MEDS: PANTOPRAZOLE 40 MG/10 ML VIAL IVP SCH ×2 (08:41→20:38)
[2023-05-25] MEDS: METOCLOPRAMIDE 5 MG/ML 2 ML VIAL IVP PRN (08:41)
[2023-05-25] MEDS: MEGESTROL 400 MG/10 ML CUP PO SCH (08:42)
--- NOTE | 2023-05-25 17:01 | P.PN ---
Progress Note - Text Progress Note Date: 05/25/23 ASSESSMENT: 1. Mild protein calorie malnutrition 2. Poor oral intake 3. Nausea and vomiting 5. Squamous cell carcinoma of the head and neck with recent surgery PLAN: -Patient scheduled for EGD and possible PEG tube placement on Saturday with Dr. Vo -Continue supportive care HPI: YOKOO PHYSICAL EXAM: VITAL SIGNS: Reviewed. GENERAL: Well-developed in no acute distress. ABDOMEN: Soft. Nondistended. Nontender. NEUROLOGIC: Alert and oriented. Cranial nerves II through XII grossly intact.
--- NOTE | 2023-05-25 17:09 | XR ---
EXAMINATION TYPE: XR chest 1V portable DATE OF EXAM: 05/25/2023 COMPARISON: NONE HISTORY: CHF, nausea, vomiting dehydration TECHNIQUE: Single frontal view of the chest is obtained. FINDINGS: There is no focal air space opacity, pleural effusion, or pneumothorax seen. The cardiac silhouette size is within normal limits. The osseous structures are intact. IMPRESSION: No acute process.
[2023-05-25] MEDS: METOCLOPRAMIDE 5 MG/ML 2 ML VIAL IVP SCH ×2 (18:33→21:31)
[2023-05-25] MEDS: IOPAMIDOL CONTRAST (ORAL USE) VIAL PO PRN ×2 (18:33→19:27)
--- NOTE | 2023-05-25 20:42 | CT ---
EXAMINATION TYPE: CT ChestAbdPelvis wo con CT DLP: 335.0 mGycm, Automated exposure control for dose reduction was used. DATE OF EXAM: 05/25/2023 8:16 PM COMPARISON: Pet/CT 04/27/2023. CLINICAL INDICATION:Female, 73 years old with history of vomiting, h/o ca; PHH, n/v Technique: Multiple axial images of the chest, abdomen, and pelvis were obtained. Two-dimensional cor onal and sagittal reconstructions were obtained. Contrast used: mL of , Oral contrast used: with Oral Contrast Findings: CHEST: LUNGS/ PLEURA: No focal consolidation, pneumothorax or effusion. No significant change from 04/27/2023. AIRWAY: Patent and unremarkable. HEART: Size within normal limits. MEDIASTINUM: No gross evidence of adenopathy. VASCULATURE: No aortic aneurysm. MUSCULOSKELETAL: No acute osseous abnormalities. SOFT TISSUES/LYMPH NODES: Unremarkable. LOWER NECK: No significant findings. ABDOMEN: ABDOMEN LIVER: Unremarkable GALLBLADDER AND BILE DUCTS: Unremarkable. PANCREAS: Unremarkable. SPLEEN: Unremarkable. ADRENAL GLANDS: Unremarkable. KIDNEYS AND URETERS: No evidence of hydronephrosis or renal calculus. The ureters are unremarkable. PELVIS BLADDER: Unremarkable REPRODUCTIVE: Unremarkable. ABDOMEN & PELVIS STOMACH AND BOWEL: Oral contrast extends to the mid small bowel in the mid abdomen. No evidence for o bstruction. PERITONEUM: No evidence of pneumoperitoneum or free fluid. VASCULATURE: No evidence of aortic aneurysm. MUSCULOSKELETAL: No acute osseous abnormalities LYMPH NODES: No gross evidence for lymphadenopathy. SOFT TISSUE/ABDOMINAL WALL: Unremarkable IMPRESSION: Oral contrast extends to the mid small bowel in the mid abdomen. No evidence for obstruction. No acut e abdominal or thoracic process.
--- NOTE | 2023-05-25 23:01 | PN ---
PROGRESS NOTE DATE OF SERVICE: 05/25/2023 SUBJECTIVE: This is a 73-year-old woman, who was admitted with nausea, vomiting, poor appetite, is being closely monitored at this time. The patient had a surgery for invasive squamous cell carcinoma of the head and neck and recently consulted Surgery. No chest pain. No palpitation. PAST MEDICAL HISTORY: Reviewed. REVIEW OF SYSTEMS: A 14-point review is negative except as mentioned earlier. CURRENT MEDICATIONS: Reviewed. PHYSICAL EXAMINATION: VITAL SIGNS: Pulse 77, blood pressure 104/70, respirations 16. HEENT: Conjunctivae normal. NECK: No JVD. CARDIOVASCULAR: S1, S2. RESPIRATIONS: Breath sounds diminished at the bases. ABDOMEN: Soft, scaphoid. LEGS: No edema. NEVOUS SYSTEM: Nonfocal. LABORATORY DATA: Hemoglobin 11.9, rest of the labs noted. ASSESSMENT: 1. Intractable nausea, vomiting, possibly gastritis. 2. Dehydration secondary to vomiting. 3. Generalized weakness. 4. Moderate protein-calorie malnutrition. 5. Elevated procalcitonin. 6. Acute renal injury secondary to dehydration. 7. Leukocytosis. 8. Mild transaminitis. 9. 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 10.Metastasis of dura. 11.Full code. RECOMMENDATIONS: Recommend to continue current medications, continue symptomatic treatment. Otherwise, we will continue with symptomatic treatment. Follow closely with Infectious Disease and Surgery for possible endoscopies. PEG tube is an option. Currently, the patient is able to partake small amount of fluid. Continue to monitor. MMODL / IJN: [id number] /
[2023-05-26] MEDS: DEXAMETHASONE SOD PHOSPHATE 4 MG/ML 1 ML VIAL IVP SCH ×3 (04:25→20:12)
[2023-05-26] MEDS: SODIUM CHLORIDE 0.9% 1,000 ML IV SCH ×2 (05:42→17:46)
[2023-05-26 08:24] LABS: ALT 20 U/L (4-34); AST 20 U/L (14-36); African American GFR (CKD) >90 (>60 ml/min/1.73 sqM); Alkaline Phosphatase 82 U/L (38-126); Anion Gap 10 mmol/L; Blood Urea Nitrogen 18 mg/dL (7-17); Calcium 8.6 mg/dL (8.4-10.2); Carbon Dioxide 19 mmol/L (22-30); Chloride 104 mmol/L (98-107); Glucose 111 mg/dL (74-99); Non-African American GFR(CKD) >90 (>60 ml/min/1.73 sqM); Potassium 4.1 mmol/L (3.5-5.1); Sodium 133 mmol/L (137-145); Total Bilirubin 0.5 mg/dL (0.2-1.3)
[2023-05-26] MEDS: PANTOPRAZOLE 40 MG/10 ML VIAL IVP SCH ×2 (08:39→20:16)
[2023-05-26] MEDS: METOCLOPRAMIDE 5 MG/ML 2 ML VIAL IVP SCH ×4 (08:39→20:14)
[2023-05-26] MEDS: MEGESTROL 400 MG/10 ML CUP PO SCH (08:39)
[2023-05-26] MEDS: ACETAMINOPHEN TAB 325 MG TAB PO PRN ×2 (08:40→17:48)
[2023-05-26 08:47] LABS: Basophils % (A) 0 %; Eosinophils % (A) 0 %; HCT 39.8 % (34.0-46.0); HGB 13.4 gm/dL (11.4-16.0); Lymphocytes # (A) 0.8 k/uL (1.0-4.8); Lymphocytes % (A) 9 %; MCH 34.3 pg (25.0-35.0); MCHC 33.5 g/dL (31.0-37.0); MCV 102.3 fL (80.0-100.0); Macrocytosis Slight; Mean Platelet Volume 9.3; Monocytes # (A) 0.5 k/uL (0-1.0); Monocytes % (A) 5 %; Neutrophils # (A) 8.1 k/uL (1.3-7.7); Neutrophils % (A) 86 %; Platelet Count 411 k/uL (150-450); RBC 3.89 m/uL (3.80-5.40); RDW 13.7 % (11.5-15.5); WBC 9.4 k/uL (3.8-10.6)
--- NOTE | 2023-05-26 09:35 | P.PN ---
Progress Note - Text Progress Note Date: 05/26/23 The patient is stable. She is had some continued nausea. The patient has elected not to have a PEG tube placed. On exam vital signs appear stable. Abdomen soft. Patient will undergo EGD tomorrow. PEG tube will be on hold at this time.
[2023-05-26 14:25] LABS: Appearance,Urine Clear (Clear); Bilirubin,Urine Negative (Negative); Blood,Urine Negative (Negative); Color,Urine Colorless; Glucose,Urine (UA) Negative (Negative); Ketones,Urine Trace (Negative); Leukocyte Esterase,Urine Negative (Negative); Nitrite,Urine Negative (Negative); Protein,Urine Negative (Negative); Specific Gravity,Urine 1.016 (1.001-1.035); Urobilinogen,Urine <2.0 mg/dL (<2.0)
--- NOTE | 2023-05-26 22:11 | PN ---
PROGRESS NOTE DATE OF SERVICE: 05/26/2023 SUBJECTIVE: This is a 73-year-old woman, who was admitted with significant nausea, diminished p.o. intake, apparently has some improvement in the p.o. intake. The patient apparently has taken food bought from [employer] yesterday. No chest pain. No palpitations. CT scan of the abdomen and pelvis did not show any acute abnormality. OBJECTIVE: VITAL SIGNS: Pulse is 71, blood pressure 112/69, respirations 18. CHEST: Clear to auscultation. CARDIOVASCULAR: S1, S2. ABDOMEN: Soft. NERVOUS SYSTEM: Diffusely weak. LABORATORY DATA: Reviewed. ASSESSMENT: 1. Intractable nausea and vomiting, possible acute gastritis. 2. Dehydration secondary to vomiting. 3. Generalized weakness. 4. Moderate protein-calorie malnutrition. 5. Elevated procalcitonin. 6. Acute renal injury secondary to dehydration. 7. Leukocytosis. 8. Mild transaminitis. 9. 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 10.Full code. RECOMMENDATIONS: Recommend to continue current management and continue symptomatic treatment. Continue with Megace. Recommend UA with micro and we will repeat serum procalcitonin. Further recommendations to follow. MMODL / IJN: [id number] /
[2023-05-27] MEDS: DEXAMETHASONE SOD PHOSPHATE 4 MG/ML 1 ML VIAL IVP SCH ×3 (04:10→20:04)
[2023-05-27] MEDS: SODIUM CHLORIDE 0.9% 1,000 ML IV SCH ×2 (05:30→23:49)
[2023-05-27] MEDS: MEGESTROL 400 MG/10 ML CUP PO SCH (08:18)
[2023-05-27] MEDS: PANTOPRAZOLE 40 MG/10 ML VIAL IVP SCH ×2 (08:32→20:04)
[2023-05-27] MEDS: METOCLOPRAMIDE 5 MG/ML 2 ML VIAL IVP SCH ×4 (08:32→20:04)
[2023-05-27 11:38] LABS: ALT 15 U/L (8-44); AST 13 U/L (13-35); Albumin 3.1 d/dL (3.8-4.9); Albumin/Globulin Ratio 1.24 Ratio (1.60-3.17); Alkaline Phosphatase 75 U/L (41-126); BUN/Creat Ratio 27.17 Ratio (12.00-20.00); Blood Urea Nitrogen 16.3 mg/dL (9.0-27.0); Calcium 8.7 mg/dL (8.7-10.3); Carbon Dioxide 19.7 mmol/L (21.6-31.8); Chloride 103 mmol/L (96-109); Globulin 2.5 d/dL (1.6-3.3); Glucose 115 mg/dL (70-110); Potassium 4.6 mmol/L (3.5-5.5); Sodium 134 mmol/L (135-145); Total Bilirubin 0.3 mg/dL (0.3-1.2); Total Protein 5.6 d/dL (6.2-8.2)
[2023-05-27 12:07] LABS: Basophils # (A) 0.01 X 10*3/uL (0.00-0.10); Basophils % (A) 0.1 %; Eosinophils # (A) 0.01 X 10*3/uL (0.04-0.35); Eosinophils % (A) 0.1 %; HCT 37.9 % (37.2-46.3); HGB 12.9 d/dL (12.0-15.0); Lymphocytes # (A) 0.92 X 10*3/uL (0.90-5.00); Lymphocytes % (A) 7.1 %; MCH 33.8 pg (27.0-32.0); MCV 99.2 FL (80.0-97.0); Mean Platelet Volume 11.1 FL (9.5-12.2); Monocytes # (A) 0.74 X 10*3/uL (0.20-1.00); Monocytes % (A) 5.7 %; NRBC Per 100 WBC 0 X 10*3/uL (0.00-0.01); Neutrophils # (A) 11.09 X 10*3/uL (1.80-7.70); Neutrophils % (A) 85.5 %; Platelet Count 395 X 10*3/uL (140-440); RBC 3.82 X 10*6/uL (4.10-5.20); RBC Morphology Normal (Normal); RDW 14.1 % (11.5-14.5); WBC 12.97 X 10*3/uL (4.50-10.00)
--- NOTE | 2023-05-27 13:56 | P.PN ---
Subjective Progress Note Date: 05/27/23 Patient seen at 1125 this morning CHIEF COMPLAINT: Nausea and vomiting HISTORY OF PRESENT ILLNESS: Patient scheduled for EGD with possible PEG tube placement today with Dr. Vo. Afebrile. WBC 12.97 Patient with history of squamous cell carcinoma of head and neck. Patient is status post left canal wall tympanomastoidectomy on 03/10/2023 and Surgical resection on 05/13/2023 of the left temporal soft tissue mass at [facility]. PHYSICAL EXAM: VITAL SIGNS: Reviewed. GENERAL: no acute distress. ABDOMEN: Soft. Nondistended. Nontender. NEUROLOGIC: Alert and oriented. Cranial nerves II through XII grossly intact. ASSESSMENT: 1. Mild protein calorie malnutrition 2. Poor oral intake 3. Nausea and vomiting 5. Squamous cell carcinoma of the head and neck with recent surgery PLAN: -Patient scheduled for EGD and possible PEG tube placement today with Dr. Vo Physician Employment Director note has been reviewed by physician. Signing provider agrees with the documented findings, assessment, and plan of care. Objective - Vital Signs Vital signs: Vital Signs Temp 97.4 F L 05/27/23 07:15 Pulse 74 05/27/23 07:15 Resp 17 05/27/23 07:15 BP 95/58 05/27/23 07:15 Pulse Ox 95 05/27/23 07:15 FiO2 Intake & Output 05/26/23 05/27/23 05/27/23 18:59 06:59 18:59 Intake Total 900 900 Balance 900 900 Intake: Intake, IV Titration 900 900 Amount Sodium Chloride 0.9% 1, 900 900 000 ml @ 75 mls/hr IV . [id number] [facility] Rx#:[id number] Other: Voiding Method Toilet Toilet Toilet # Voids 2 4 # Bowel Movements 1 2 - Labs CBC & Chem 7: 05/27/23 07:03 05/27/23 07:03 Labs: Abnormal Lab Results - Last 24 Hours (Table) 05/26/23 05/27/23 05/27/23 Range/Units 14:04 07:03 07:03 WBC 12.97 H (4.50-10.00) X 10*3/uL RBC 3.82 L (4.10-5.20) X 10*6/uL MCV 99.2 H (80.0-97.0) FL MCH 33.8 H (27.0-32.0) pg Neutrophils # 11.09 H (1.80-7.70) X 10*3/uL Eosinophils # 0.01 L (0.04-0.35) X 10*3/uL Sodium 134 L (135-145) mmol/L Carbon Dioxide 19.7 L (21.6-31.8) mmol/L BUN/Creatinine Ratio 27.17 H (12.00-20.00) Ratio Glucose 115 H (70-110) mg/dL Total Protein 5.6 L (6.2-8.2) d/dL Albumin 3.1 L (3.8-4.9) d/dL Albumin/Globulin Ratio 1.24 L (1.60-3.17) Ratio Urine Ketones Trace H (Negative)
[2023-05-27] MEDS ORDERED: IV FLUID CONTINUATION 1,000 ML IV ONE ×2 (15:07)
[2023-05-27] MEDS ORDERED: LIDOCAINE 1% INJ 10MG/ML (20 ML MDV) ONE (15:08)
[2023-05-27] MEDS ORDERED: PROPOFOL 10 MG/ML 20 ML VIAL IV ONE (15:08)
--- NOTE | 2023-05-27 15:26 | P.OP ---
Date of Procedure: 05/27/23 Preoperative Diagnosis: Malnutrition Postoperative Diagnosis: Protein calorie patient Procedure(s) Performed: EGD with PEG tube placement Anesthesia: MAC Surgeon: Stephen Vo Pathology: none sent Condition: stable Disposition: PACU Description of Procedure: The patient's placed on the endoscopy table in the lateral position. She received IV sedation. Next the gastroscope placed oropharynx passed in the esophagus and stomach. There is no evidence of any outlet obstruction. Stomach was insufflated with air. The light reflux seen the anterior abdominal wall. The abdomen was prepped and draped usual fashion. The skin was incised. And the needles placed and stomach under direct visualization. The needle was snared. And the wires placed through the needle and the wire was snared and brought the oropharynx. The PEG tube was placed over top the wire brought down to the stomach. The PEG tube was secured. At the 3 cm jean carlos. The one-piece bolster was used. Patient tolerated procedure well.
--- NOTE | 2023-05-27 21:09 | P.PN ---
Subjective Progress Note Date: 05/27/23 73-year-old female presenting for evaluation of nausea, vomiting, dizziness, and poor appetite. Patient is accompanied with her daughter who is able to give a detailed history of her recent past. 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 She also had some facial plastics including a weight in the left eyelid. Patient has not been eating well and his had vomiting every time she stands. No specific abdominal pain. No measured fever. Symptoms have been present even prior to surgery. Patient reports she had progressive weakness and difficulty ambulating secondary to generalized weakness EKG: Sinus rhythm rate of 82, TN interval 121, QRS duration 80, QTC 400, no ST segment changes. Bladder completed in ED reveals a difficult 0.4, hemoglobin 12.4, blood count of 455, sodium 135, potassium 4.3, BUN/creatinine of 28/0.80 and blood glucose of 109, lactic acid of 1.2 Patient is being admitted for dehydration/weakness and generalized decline; we will possibly require placement for adult failure to thrive 05/20. Patient seen and examined. Patient states she has poor appetite, states food tastes like cardboard. Patient denies any difficulty in swallowing food. 05/21. Patient seen and examined. Still complaining of poor appetite. Complaining of nausea 05/22/2023 Patient seen and evaluated and follow-up this morning currently sitting up in the chair was able to work with physical therapy although continues with significant weakness. Patient and family refusing rehab and will be going home to stay with family for assistance. Arrangements being made for discharge planning and necessary equipment for the family to assist patient in ADLs. Oncology following as well recommending monitoring overnight continued on IV dexamethasone and will continue taper on discharge. Patient continues to be nauseated and extremely sensitive to smells although is eating a little more today. Encouraged oral intake and small frequent meals including meals from home. Patient is afebrile with no reports of chest pain or shortness of breath. Patient continues with some dizziness although is improved from previous. 05/23/2023 Patient is seen in follow-up this morning with sister at the bedside. Patient continues with significant weakness along with nausea and inability to tolerate oral intake. Oncology along with radiation oncology following this patient is supposed to be potentially starting treatment soon. Patient having significant weakness and recommended physical therapy daily. Patient and family refused going to rehab and will be going home with assistance in the home and Homecare. Patient was scheduled for discharge today although continues to have difficulty with eating and not tolerating much oral intake and continues with difficulty in swallowing and handling any smells of food that make her extremely nauseated. Patient maintained on Marinol along with antinausea medications and reports not really helping. Will consult general surgery with discussion of possible PEG tube and further evaluation along with speech therapy and suggest modified Swallow study. 05/24/2023 Patient is seen and evaluated in follow-up this morning continues to have significant difficulties with tolerating oral intake. Swallow study to be performed per speech today and will await results. Patient has been encouraged to use antinausea medications and was taking Marinol although will change to Megace. General surgery consulted as well and plans on performing EGD with possible PEG tube placement on Saturday. Discussed with the patient and family at length along with daughter over the phone that patient may still continue to eat pleasure foods to encourage oral intake and nutrition as patient is significantly weak and if patient does proceed with PEG tube, this could potentially be temporary in order to gain nutrition for strength while atte mpting to go through chemo/radiation treatment. Oncology following and is maintained on IV dexamethasone with significant improvement in dizziness. Will continue gentle IV hydration and encourage oral intake. Encouraged increased activity as tolerated. Patient is up with a walker and doing well. Patient continues to have loose stools and oral intake is extremely poor. Patient denies any chest pain or shortness of breath and patient is afebrile. We'll monitor labs and replace electrolytes per protocol. 05/27/2023 Patient is seen and evaluated in follow-up this morning currently nothing by mouth for EGD with possible PEG tube. Patient reports along with family at the bedside has been eating and able to tolerate. Family has been bringing in food of choice and patient is tolerating quite well. Patient reports is not drinking very well but is tolerating diet with no nausea or vomiting. Patient's walking more frequently and up and encouraged physical therapy daily. Patient is a febrile with no reported chest pain or shortness of breath. Patient hesitant about PEG tube and had a lengthy discussion with her and family about treatment plan moving forward and that PEG tube can definitely be something temporary in the event she does start receiving radiation and chemotherapy in order to continue with keeping her strength as she is not eating adequately in order to maintain this for continued treatments and back and forth with multiple hospitalizations and visits to doctors. Instructed patient to have a discussion with surgery prior to EGD today. Patient verbalized understanding and will do so. REVIEW OF SYSTEMS: CONSTITUTIONAL: No fever, no malaise,. CARDIOVASCULAR: No chest pain, no palpitations, no syncope. PULMONARY: No shortness of breath, no cough, GASTROINTESTINAL: Reports tolerating more pleasure foods that family is bringing in with no reported nausea or vomiting NEUROLOGICAL: No headaches, reports generalized weakness PHYSICAL EXAMINATION: GENERAL: The patient is alert and oriented x3, chronically ill-looking, cachectic HEENT: Pupils are round and equally reacting to light. EOMI. No scleral icterus. No conjunctival pallor. Normocephalic, atraumatic. No pharyngeal erythema. No thyromegaly. CARDIOVASCULAR: S1 and S2 present. No murmurs, rubs, or gallops. PULMONARY: Chest is clear to auscultation, no wheezing or crackles. ABDOMEN: Soft, nontender, nondistended, normoactive bowel sounds. No palpable organomegaly. MUSCULOSKELETAL: No joint swelling or deformity. EXTREMITIES: No cyanosis, clubbing, or pedal edema. NEUROLOGICAL: Gross neurological examination did not reveal any focal deficits. Diffusely weak SKIN: No rashes. 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 Speech performed bedside swallow and patient had excellent results with no concerns of dysphagia. Patient reports has been tolerating more oral intake although continues to have issues with drinking.. Discussed with the family at length about bringing in foods that patient may have pleasure in eating to attempt to ensure adequate nutrition. Patient to continue Megace Gen. surgery following as well and plans for EGD with possible PEG tube placement later today. Patient is somewhat reluctant to receive PEG tube and had a long discussion with her and her daughter about overall treatment plan and continued doctors appointments and the need to continue with gaining strength and mobility in order to continue with these treatments and patient verbalized understanding and will discuss further with general surgery about the PEG tube Encourage increased activity as tolerated and recommended physical therapy daily. Patient and family refusing rehab and will be going home with home care Case management following arranging for necessary equipment and supplies for discharge Oncology following recommending continuing on IV dexamethasone and will taper on discharge with oral Follow-up with radiation oncology along with oncology in the outpatient setting Radiation oncology following discussed with the patient about following up outpatient with treatment once clinically stable and tolerating more oral intake Family called again reporting patient has continued sutures in her surgical site on the left temporal that was supposed to be removed last week although patient has been hospitalized and will need to discuss further with surgeon who placed them for removal of. Due to multiple complex medical issues, prognosis is guarded Will discuss further with general surgery and recommendations regarding tube feedings or bolus feedings and dietary consult for a.m. Possible discharge in 24 hours The impression and plan of care has been dictated by Jen Washington, Nurse Practitioner as directed. Dr. Tunde MD I have performed a history and examination and MDM of this patient, discussed the same with the dictator, and agree with the dictator's assessment and plan as written ,documented as a scribe. Based on total visit time, I have performed more than 50% of the visit. Objective - Vital Signs Vital signs: Vital Signs Temp 97.4 F L 05/27/23 07:15 Pulse 74 05/27/23 07:15 Resp 17 05/27/23 07:15 BP 95/58 05/27/23 07:15 Pulse Ox 95 05/27/23 07:15 FiO2 Intake & Output 05/26/23 05/27/23 05/27/23 18:59 06:59 18:59 Intake Total 900 900 Balance 900 900 Intake: Intake, IV Titration 900 900 Amount Sodium Chloride 0.9% 1, 900 900 000 ml @ 75 mls/hr IV . [id number] [facility] Rx#:[id number] Other: Voiding Method Toilet Toilet # Voids 2 4 # Bowel Movements 1 2 - Labs CBC & Chem 7: 05/27/23 07:03 05/27/23 07:03 Labs: Abnormal Lab Results - Last 24 Hours (Table) 05/26/23 Range/Units 14:04 Urine Ketones Trace H (Negative)
[2023-05-28] MEDS: DEXAMETHASONE SOD PHOSPHATE 4 MG/ML 1 ML VIAL IVP SCH ×2 (04:12→13:19)
[2023-05-28] MEDS: MEGESTROL 400 MG/10 ML CUP PO SCH (07:47)
[2023-05-28] MEDS: PANTOPRAZOLE 40 MG/10 ML VIAL IVP SCH (09:42)
[2023-05-28] MEDS: METOCLOPRAMIDE 5 MG/ML 2 ML VIAL IVP SCH ×3 (09:43→17:14)
[2023-05-28 10:20] VITALS: RESP 19
[2023-05-28 13:07] VITALS: BP 129/70; PULSE 66; TEMP 98.1
[2023-05-28] MEDS: SODIUM CHLORIDE 0.9% 1,000 ML IV SCH (13:19)
--- NOTE | 2023-05-28 13:30 | P.PN ---
Subjective Progress Note Date: 05/28/23 Patient seen at 1125 this morning CHIEF COMPLAINT: Nausea and vomiting HISTORY OF PRESENT ILLNESS: patient status post PEG tube placement. She denies any abdominal pain. She is hungry and wants to eat. Afebrile. Patient with history of squamous cell carcinoma of head and neck. Patient is status post left canal wall tympanomastoidectomy on 03/10/2023 and Surgical resection on 05/13/2023 of the left temporal soft tissue mass at [facility]. PHYSICAL EXAM: VITAL SIGNS: Reviewed. GENERAL: no acute distress. ABDOMEN: Soft. Nondistended. Nontender. PEG tube site clean dry and intact NEUROLOGIC: Alert and oriented. Cranial nerves II through XII grossly intact. ASSESSMENT: 1. Mild protein calorie malnutrition 2. Poor oral intake 3. Nausea and vomiting 5. Squamous cell carcinoma of the head and neck with recent surgery PLAN: -consult dietitian to start tube feeds -ok to restart regular diet -Tube feeds and oral diet to start after 3pm today Physician Cattle Feeder note has been reviewed by physician. Signing provider agrees with the documented findings, assessment, and plan of care. Objective - Vital Signs Vital signs: Vital Signs Temp 98.2 F 05/28/23 07:41 Pulse 72 05/28/23 07:41 Resp 19 05/28/23 07:41 BP 121/71 05/28/23 07:41 Pulse Ox 96 05/28/23 07:41 FiO2 Intake & Output 05/27/23 05/28/23 05/28/23 18:59 06:59 18:59 Intake Total 1000 900 Balance 1000 900 Weight 56.245 kg Intake: IV 100 Intake, IV Titration 900 900 Amount Sodium Chloride 0.9% 1, 900 900 000 ml @ 75 mls/hr IV . [id number] [facility] Rx#:[id number] Other: Voiding Method Toilet Toilet Toilet # Voids 2 # Bowel Movements 1 - Labs CBC & Chem 7: 05/27/23 07:03 05/27/23 07:03
--- NOTE | 2023-05-28 14:13 | P.PN ---
Subjective Progress Note Date: 05/28/23 Principal diagnosis: n/v, dizziness At today's visit patient is resting comfortably in bed. Patient reports improvement in symptoms. Reports dizziness and n/v have subsided. Reporting that she feels hungry and wants to eat. Pt is NPO today until 1500, s/p PEG placement. Objective - Vital Signs Vital signs: Vital Signs Temp 98.1 F 05/28/23 12:21 Pulse 66 05/28/23 12:21 Resp 19 05/28/23 12:21 BP 129/70 05/28/23 12:21 Pulse Ox 96 05/28/23 12:21 FiO2 Intake & Output 05/27/23 05/28/23 05/28/23 18:59 06:59 18:59 Intake Total 1000 900 Balance 1000 900 Weight 50.1 kg Intake: IV 100 Intake, IV Titration 900 900 Amount Sodium Chloride 0.9% 1, 900 900 000 ml @ 75 mls/hr IV . [id number] [facility] Rx#:[id number] Other: Voiding Method Toilet Toilet Toilet # Voids 2 1 # Bowel Movements 1 - Constitutional General appearance: Present: average body habitus, no acute distress - EENT Eyes: Present: anicteric sclerae, EOMI ENT: Present: hearing grossly normal - Respiratory Details: breathing is even and unlabored - Cardiovascular Details: skin warm and dry - Gastrointestinal Gastrointestinal Comment(s): peg tube in situ General gastrointestinal: Present: soft. Absent: tenderness - Integumentary Integumentary: Absent: cyanotic, jaundiced - Psychiatric Psychiatric: Present: A&O x's 3, appropriate affect, intact judgment & insight - Labs CBC & Chem 7: 05/27/23 07:03 05/27/23 07:03 Assessment and Plan (1) Intractable vomiting with nausea Current Visit: Yes Status: Acute Priority: High Code(s): R11.2 - NAUSEA WITH VOMITING, UNSPECIFIED SNOMED Code(s): 576235140 (2) Dizziness Current Visit: Yes Status: Acute Priority: High Code(s): R42 - DIZZINESS AND GIDDINESS SNOMED Code(s): 195829849 (3) Squamous cell carcinoma of head and neck Current Visit: Yes Status: Acute Priority: High Code(s): C76.0 - MALIGNANT NEOPLASM OF HEAD, FACE AND NECK SNOMED Code(s): 666089764 Plan: Vertigo, Intractable N/V: -Reports improvement in symptoms. Dizziness and n/v subsided. Reports she is feeling hungry and wants to eat -Swallow study passed. S/p EGD and PEG tube placement. No evidence of any outlet obstruction. NPO till 1500 today, then will advance patient's diet -Continue IV hydration, marinol and anti-emetics prn. Encouraged increasing oral intake as tolerated and use anti-emetics proactively if symptoms persist -Zofran sent to patient's pharmacy, instructed pt on use -Continue decadron -Will continue to monitor symptoms Squamous cell carcinoma of head and neck: -Patient had left canal wall/ typanomastoidectomy on 03/10/23. Pathology confirmed squamous cell carcinoma. Most recently patient underwent surgical resection on 05/13/23 of left temporal soft tissue mass at [facility]. During surgery it was found that malignancy metastasized to the dura. MRI brain was obtained on 05/15/23 following surgery, however this was done at [facility] and we do not have access to this record. Records have been requested twice -MRI brain and IACs on 04/02/23 revealed left-sided abnormal enhancing soft tissue seen involving the external auditory canal, reticular soft tissues mastoid air cells middle ear and labyrinthine epilympanum. No abnormal enhancement seen in the posterior fossa or brain. Enhancement seen extending to the petrous temporal bone. No abnormal enhancement seen in Meckel's cave. Anterior enhancement extends to the temporal mandibular joint. No abnormal enhancement seen in the internal auditory canals. No focal vasogenic edema on the FLAIR sequence. CT IAC obtained on 05/10/23 revealed post treatment changes to the left mastoid air cells with persistent soft tissue/fluid extending throughout the temporal bone with erosion of the superior aspect of the temporal bone likely extending into the brain. -New referral to Dr. Anirudh Solo. Consult appt on 05/23/23 was missed due to hospitalization, pt has been rescheduled. Appt in discharge plan -Follows with Dr. Navarro of radiation oncology and head and neck oncology, Dr. Tang. Spoke with Dr. Navarro regarding case. Plan for RT 2-3 weeks s/p surgery and pending recovery from acute condition. Rad onc will speak with surgeon at [facility] regarding recommendations for repeat brain imaging. If scan shows no improvement and/or progression, pt will need to follow up with neurosurgery at [facility] for further evaluation/management prior to treatment. -Decadron IVP 4mg q8 ordered. Symptoms have significantly improved. Will contin ue decadron and plan for pt to be discharged on PO decadron. Script has been sent to patient's pharmacy. -Will continue to monitor symptoms with plans for outpt f/u to further discuss treatment options. Plan will likely be concurrent chemo/RT with weekly cisplatin. Will further discuss plan with rad onc. F/u in discharge plan Patient and family has been updated on plan of care in detail
--- NOTE | 2023-06-03 05:19 | P.DS ---
Providers Date of admission: 05/19/23 15:37 Expected date of discharge: 05/28/23 Attending physician: Helena Griffiths Consults: 05/19/23 15:37 Consult Physician Routine Consulting Provider: Anirudh Solo Consult Reason/Comments: Squamous cell Do you want consulting provider notified?: Yes 05/20/23 12:07 Consult Physician Routine Consulting Provider: Daryl Navarro Consult Reason/Comments: brain mets Do you want consulting provider notified?: Already Contacted 05/23/23 14:33 Consult Physician Urgent Consulting Provider: Stephen Vo Consult Reason/Comments: difficulty eating, malnutrition, squamous cell ca of temporal and dura Do you want consulting provider notified?: Yes Primary care physician: Rafa Godfrey Hospital Course: Final diagnosis Intractable nausea/vomiting, likely gastritis Dehydration secondary to above Generalized weakness with gait dysfunction Moderate protein calorie Malnutrition with a BMI of 19.4 Acute renal injury secondary to dehydration, improving Leukocytosis, likely reactive, resolved Mild transaminitis 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 Patient will follow-up with Dr. Godfrey in the outpatient setting upon discharge. Patient is to follow-up with oncology as well as radiation oncology outpatient as scheduled. Total time taken is greater than 35 minutes. Hospital course This is a 73-year-old female who was recently admitted with generalized weakness, nausea and vomiting and inability to tolerate oral intake with dehydration being closely monitored. Patient has had prolonged hospitalization with multiple people following including oncology and general surgery. Patient had extreme difficulty with eating and tolerating oral intake had elected for PEG tube and his oral intake remains poor and patient will be undergoing chemo and radiation therapy possibly worsening oral intake and was seen and evaluated by general surgery and had PEG tube placed. Patient will be educated on flushes and monitoring for patency. Patient to arrange outpatient with primary care provider and/or oncology in the event patient will require tube feedings. Patient will be going home to stay with family and arranging for other support with other family members in the outpatient setting. Please refer to other consultation notes for further HPI. Currently no reports of chest pain, shortness of breath, or palpitations. Patient is afebrile. No reports of nausea or vomiting and patient is tolerating diet. Patient will be discharged home today. Overall poor prognosis. Physical exam: Gen: This is a 73-year-old female who is awake, alert and oriented 3, thin built, elderly appearing HEENT: Head is atraumatic, normocephalic. Pupils equal, round. Sclerae is anicteric. NECK: Supple. No JVD. No lymphadenopathy. No thyromegaly. LUNGS: Clear to auscultation. No wheezes or rhonchi. No intercostal retractions. HEART: Regular rate and rhythm. No murmur. ABDOMEN: Soft. Bowel sounds are present. No masses. No tenderness. EXTREMITIES: No pedal edema. No calf tenderness. NEUROLOGICAL: Patient is awake, alert and oriented x3. Cranial nerves 2 through 12 are grossly intact. Please refer to medication reconciliation sheet for a list of medications. The impression and plan of care has been dictated by Jen Washington, Nurse Practitioner as directed. Dr. Beth MD I have performed a history and examination and MDM of this patient, discussed the same with the dictator, and agree with the dictator's assessment and plan as written ,documented as a scribe. Based on total visit time, I have performed more than 50% of the visit. Patient Condition at Discharge: Stable Plan - Discharge Summary Discharge Rx Participant: No New Discharge Prescriptions: New Ibuprofen [Motrin] 400 mg PO Q6HR PRN tab PRN Reason: Pain Megestrol [Megace] 400 mg PO DAILY 30 Days #400 ml Metoclopramide [Reglan] 5 mg PO TID PRN #30 tab PRN Reason: Nausea Continue Ondansetron [Zofran] 4 mg PO Q8H PRN PRN Reason: Nausea And Vomiting Celecoxib 200 mg PO BID Acetaminophen Tab [Tylenol] 1,000 mg PO Q6H PRN PRN Reason: Pain oxyCODONE-APAP 5-325MG [Percocet 5-325 mg] 1 tab PO Q4-6H PRN PRN Reason: Pain Discharge Medication List Acetaminophen Tab [Tylenol] 1,000 mg PO Q6H PRN 05/19/23 [History] Celecoxib 200 mg PO BID 05/19/23 [History] Ondansetron [Zofran] 4 mg PO Q8H PRN 05/19/23 [History] oxyCODONE-APAP 5-325MG [Percocet 5-325 mg] 1 tab PO Q4-6H PRN 05/19/23 [History] Ibuprofen [Motrin] 400 mg PO Q6HR PRN tab 05/23/23 [Rx] Megestrol [Megace] 400 mg PO DAILY 30 Days #400 ml 05/28/23 [Rx] Metoclopramide [Reglan] 5 mg PO TID PRN #30 tab 05/28/23 [Rx] Follow up Appointment(s)/Referral(s): Anirudh Solo MD [STAFF PHYSICIAN] - 06/03/23 3:30 pm [facility] [NON-STAFF] - 1 Week Rafa Godfrey DO [Primary Care Provider] - 05/28/23 1:00 pm (You will see Max Piña the ENOLOGIST.) [facility], [REFERRING] - 1 Week [facility] [NON-STAFF] - 1 Week Patient Instructions/Handouts: Dehydration (DC), Acute Nausea and Vomiting (DC), Medicinal Use of Cannabis (DC), Dizziness (ED), Full Liquid Diet (DC) Activity/Diet/Wound Care/Special Instructions: Activity Limited until follow-up Follow-up with primary care provider on discharge Follow-up oncology outpatient Follow-up with radiation oncology outpatient Continue taking medications as prescribed Follow-up with surgeon regarding suture removal from surgery Continue Decadron taper per oncology and patient had a prescription that was sent by oncology to her pharmacy Continue Megace daily Continue with as needed Zofran and/or Reglan for nausea and vomiting Patient is to continue with free water flushes of 30 mL's in the PEG tube including pulling back the 30 mL's to keep the PEG tube patent 34 times daily Discharge Disposition: HOME WITH HOME HEALTH SERVICES
--- NOTE | 2023-06-07 06:20 | CDI ---
Documentation Clarification Form Date: 06/07/2023 05:58:07 AM From: Jillian Arana Admit Date: 05/19/2023 03:37:00 PM Patient Name: Jannie Michel Visit Number: [id number] Discharge Date: 05/28/2023 05:45:00 PM ATTENTION: The Clinical Documentation Specialists (CDI) and [facility] Coding Staff appreciate your assistance in clarifying documentation. Please respond to the clarification below the line at the bottom and electronically sign. The CDI & [facility] Coding staff will review the response and follow-up if needed. Please note: Queries are made part of the Legal Health Record. If you have any questions, please contact the author of this message via ITS. Dr. Tavares Castaneda Conflicting documentation has been found in the medical record. As attending physician, please provide clarification. 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 Presented with nausea vomiting and diarrhea and admitted for dehydration and failure to thrive and XU. Clinical Indicators: Per RD underweight, muscle wasting to temporal region subcutaneous fat loss to triceps. Poor appetite consuming 12% of a regular diet Current BMI 19. 10/[address] malnutrition acute severe. Treatment: General healthful diet, monitor labs and supplement Ensure clear TID Please clarify which diagnosis is most appropriate: [ x ] Severe Protein Calorie malnutrion [ ] Moderate Protein Calorie malnutrition [ ] Mild Protein Calorie Malnutrition [ ] Other (please specify) [ ] Unable to determine MTDD
== END 2023-05-28 17:45 | disposition home health service (06) | DRG 640 ==
LOC: EC 12:40 → 5NMEDONC 15:37
PROVIDERS: ADMIT Hospitalist; ATTEND Hospitalist
PROC: 0DH63UZ Insertion of Feeding Device into Stomach, Percutaneous Approach (ICD-10-PCS; principal; 2023-05-27 14:40)
PROC: 3E0G76Z Introduction of Nutritional Substance into Upper GI, Via Natural or Artificial Opening (ICD-10-PCS; principal; 2023-05-27 14:40)
DX: E86.0 Dehydration (principal); E43 Unspecified severe protein-calorie malnutrition; C79.49 Secondary malignant neoplasm of other parts of nervous system; Z68.1 Body mass index [BMI] 19.9 or less, adult; N17.9 Acute kidney failure, unspecified; C76.0 Malignant neoplasm of head, face and neck; D75.839 Thrombocytosis, unspecified; K29.70 Gastritis, unspecified, without bleeding; R62.7 Adult failure to thrive; Z79.1 Long term (current) use of non-steroidal anti-inflammatories (NSAID); B02.9 Zoster without complications; R74.01 Elevation of levels of liver transaminase levels; D72.829 Elevated white blood cell count, unspecified; Z79.899 Other long term (current) drug therapy; Z71.3 Dietary counseling and surveillance
CPT/HCPCS: 43246; 71045; 71250; 74176; 80048; 80053; 81003; 83605; 83735; 84145; 85025; 85027; 93005; 96374; 96375; 96376; 99285

== ENCOUNTER 2023-06-09 08:48 | Inpatient (IN) | payer MEDICARE ==
--- NOTE | 2023-06-09 09:09 | ED ---
General Adult HPI - General Chief complaint: Shortness of Breath Stated complaint: RITESH Time Seen by Provider: 06/09/23 08:55 Source: patient, EMS, RN notes reviewed, old records reviewed Mode of arrival: EMS Limitations: no limitations - History of Present Illness Initial comments: This is a 73-year-old female who presents emergency Department with a past medical history significant for stage IV brain cancer. Patient states it started in her left ear and a part of her temporal bone. Patient comes in today complaining that she has the chills feels a little short of breath but also has significant abdominal pain. Patient denies any vomiting or diarrhea. Patient denies any known fever but she does have the chills. Patient denies chest pain. Patient denies any cough. Patient denies any back pain. - Related Data Home Medications Medication Instructions Recorded Confirmed Acetaminophen Tab [Tylenol] 1,000 mg PO Q6H PRN 05/19/23 05/19/23 Celecoxib 200 mg PO BID 05/19/23 05/19/23 Ondansetron [Zofran] 4 mg PO Q8H PRN 05/19/23 05/19/23 oxyCODONE-APAP 5-325MG [Percocet 1 tab PO Q4-6H PRN 05/19/23 05/19/23 5-325 mg] Previous Rx's Medication Instructions Recorded Ibuprofen [Motrin] 400 mg PO Q6HR PRN tab 05/23/23 Megestrol [Megace] 400 mg PO DAILY 30 Days #400 ml 05/28/23 Metoclopramide [Reglan] 5 mg PO TID PRN #30 tab 05/28/23 Allergies Allergy/AdvReac Type Severity Reaction Status Date / Time No Known Allergies Allergy Verified 05/19/23 12:52 Review of Systems ROS Statement: Those systems with pertinent positive or pertinent negative responses have been documented in the HPI. ROS Other: All systems not noted in ROS Statement are negative. Past Medical History Past Medical History: Cancer Additional Past Medical History / Comment(s): broken foot x2. cholesteatoma. 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 Patient is nontoxic and well- hydrated and is in mild distress. ENT: Neck is soft and supple. No significant lymphadenopathy is noted. Oropharynx is clear. Moist mucous membranes. Neck has full range of motion without eliciting any pain. EYES: The sclera were anicteric and conjunctiva were pink and moist. Extraocular movements were intact and pupils were equal round and reactive to light. Eyelids were unremarkable. PULMONARY: Unlabored respirations. Good breath sounds bilaterally. No audible rales rhonchi or wheezing was noted. CARDIOVASCULAR: There is a regular rate and rhythm without any murmurs gallops or rubs. ABDOMEN: Patient has diffuse abdominal pain and she is guarding SKIN: Skin is clear with no lesions or rashes and otherwise unremarkable. NEUROLOGIC: Patient is alert and oriented x3. Cranial nerves II through XII are grossly in tact. Motor and sensory are also intact. Normal speech, volume and content. Symmetrical smile. MUSCULOSKELETAL: Normal extremities with adequate strength and full range of motion. LYMPHATICS: No significant lymphadenopathy is noted PSYCHIATRIC: Normal psychiatric evaluation. Limitations: no limitations Course Vital Signs 06/09/23 06/09/23 08:50 09:38 Temperature 97.5 F L 96.6 F L Pulse Rate 75 Respiratory 18 Rate Blood Pressure 134/85 O2 Sat by Pulse 97 Oximetry Medical Decision Making - Medical Decision Making EKG as interpreted by myself. EKG shows a sinus rhythm at 82 bpm NE interval 241 QRS is 72 QT interval 350 QTC is 397. Patient's EKG shows no ST segment elevation or depression. Was pt. sent in by a medical professional or institution (, PA, JIGGER MACHINE OPERATOR, urgent care, hospital, or senior living...) When possible be specific @ -No Did you speak to anyone other than the patient for history (EMS, parent, family, police, friend...)? What history was obtained from this source @ -Daughters gave the history Did you review nursing and triage notes (agree or disagree)? Why? @ -I reviewed and agree with nursing and triage notes Were old charts reviewed (outside hosp., previous admission, EMS record, old EKG, old radiological studies, urgent care reports/EKG's, senior living records)? Report findings @ -I reviewed prior charts prior laboratory prior radiological studies. Differential Diagnosis (chest pain, altered mental status, abdominal pain women, abdominal pain men, vaginal bleeding, weakness, fever, dyspnea, syncope, headache, dizziness, GI bleed, back pain, seizure, CVA, palpatations, mental health, musculoskeletal)? @ -Differential Abdominal Pain Women: Appendicitis, Cholecystitis, diverticulosis, ischemic bowel, pancreatitis, hepatitis, UTI, gastroenteritis, AAA, incarcerated hernia, bowel obstruction, constipation, inflammatory bowel, hepatitis, peptic ulcer disease, splenic infarction, perforated viscus, vulvitis, ovarian torsion, PID, kidney stone, placenta abruption, this is not meant to be an all-inclusive list EKG interpreted by me (3pts min.). @ -As above X-rays interpreted by me (1pt min.). @ -Chest x-ray shows significant air under the diaphragms CT interpreted by me (1pt min.). @ -CT of the abdomen and pelvis show a lot of free air as well as a opening in the stomach and a PEG tube that is between the abdominal wall and the stomach. It appears that the PEG tube is been pulled out of the stomach. U/S interpreted by me (1pt. min.). @ -None done What testing was considered but not performed or refused? (CT, X-rays, U/S, l abs)? Why? @ -None What meds were considered but not given or refused? Why? @ -None Did you discuss the management of the patient with other professionals (professionals i.e. , PA, JIGGER MACHINE OPERATOR, lab, RT, psych nurse, manager social work, supervisor quilting, teacher, chief informatics officer, community case manager)? Give summary @ -Dr. Obrien and he agreed to admit the patient. I spoke with the radiologist on 2 separate occasions. Was smoking cessation discussed for >3mins.? @ -No Was critical care preformed (if so, how long)? @ -No Were there social determinants of health that impacted care today? How? (Homelessness, low income, unemployed, alcoholism, drug addiction, transportation, low edu. Level, literacy, decrease access to med. care, snf, rehab)? @ -No Was there de-escalation of care discussed even if they declined (Discuss DNR or withdrawal of care, Hospice)? DNR status @ -No What co-morbidities impacted this encounter? (DM, HTN, Smoking, COPD, CAD, Cancer, CVA, ARF, Chemo, Hep., AIDS, mental health diagnosis, sleep apnea, morbid obesity)? @ -None Was patient admitted / discharged? Hospital course, mention meds given and route, prescriptions, significant lab abnormalities, going to OR and other pertinent info. @ -Patient has free air in the abdomen and it appears as because the PEG tube is been pulled out of the stomach and resides between the abdominal wall in the stomach. Patient was started on Zosyn and given Vanco patient has had 1-1/2 L of normal saline. I spoke with Dr. dieter Obrien will be taking the patient to surgery Undiagnosed new problem with uncertain prognosis? @ -No Drug Therapy requiring intensive monitoring for toxicity (Heparin, Nitro, Insulin, Cardizem)? @ -No Were any procedures done? @ -No Diagnosis/symptom? @ -Peritonitis Acute, or Chronic, or Acute on Chronic? @ -Acute Uncomplicated (without systemic symptoms) or Complicated (systemic symptoms)? @ -Complicated Side effects of treatment? @ -No Exacerbation, Progression, or Severe Exacerbation? @ -No Poses a threat to life or bodily function? How? (Chest pain, USA, MA, pneumonia, PE, COPD, DKA, ARF, appy, cholecystitis, CVA, Diverticulitis, Homicidal, Suicidal, threat to staff... and all critical care pts) @ -Yes this can lead to sepsis and end organ dysfunction Diagnosis/symptom? @ -Feeding tube problems Acute, or Chronic, or Acute on Chronic? @ -Acute Uncomplicated (without systemic symptoms) or Complicated (systemic symptoms)? @ -Complicated Side effects of treatment? @ -none Exacerbation, Progression, or Severe Exacerbation] @ -no Poses a threat to life or bodily function? @ -no - Lab Data Result diagrams: 06/09/23 09:16 06/09/23 09:16 Lab Results 06/09/23 06/09/23 06/09/23 Range/Units 09:16 09:16 09:16 WBC 18.3 H (3.8-10.6) k/uL RBC 4.41 (3.80-5.40) m/uL Hgb 14.7 (11.4-16.0) gm/dL Hct 44.2 (34.0-46.0) % MCV 100.2 H (80.0-100.0) fL MCH 33.2 (25.0-35.0) pg MCHC 33.2 (31.0-37.0) g/dL RDW 13.4 (11.5-15.5) % Plt Count 275 (150-450) k/uL MPV 7.8 Neutrophils % 96 % Lymphocytes % 2 % Monocytes % 2 % Eosinophils % 1 % Basophils % 0 % Neutrophils # 17.5 H (1.3-7.7) k/uL Lymphocytes # 0.3 L (1.0-4.8) k/uL Monocytes # 0.3 (0-1.0) k/uL Eosinophils # 0.2 (0-0.7) k/uL Basophils # 0.0 (0-0.2) k/uL Macrocytosis Slight PT 10.6 (10.0-12.5) sec INR 1.0 (<1.2) APTT 20.7 L (22.0-30.0) sec Sodium (137-145) mmol/L Potassium (3.5-5.1) mmol/L Chloride (98-107) mmol/L Carbon Dioxide (22-30) mmol/L Anion Gap mmol/L BUN (7-17) mg/dL Creatinine (0.52-1.04) mg/dL Est GFR (CKD-EPI)AfAm (>60 ml/min/1.73 sqM) Est GFR (CKD-EPI)NonAf (>60 ml/min/1.73 sqM) Glucose (74-99) mg/dL Plasma Lactic Acid Beni (0.7-2.0) mmol/L Calcium (8.4-10.2) mg/dL Total Bilirubin (0.2-1.3) mg/dL AST (14-36) U/L ALT (4-34) U/L Alkaline Phosphatase (38-126) U/L Troponin I <0.012 (0.000-0.034) ng/mL Total Protein (6.3-8.2) g/dL Albumin (3.5-5.0) g/dL Urine Color Urine Appearance (Clear) Urine pH (5.0-8.0) Ur Specific [place] (1.001-1.035) Urine Protein (Negative) Urine Glucose (UA) (Negative) Urine Ketones (Negative) Urine Blood (Negative) Urine Nitrite (Negative) Urine Bilirubin (Negative) Urine Urobilinogen (<2.0) mg/dL Ur Leukocyte Esterase (Negative) Urine RBC (0-5) /hpf Urine WBC (0-5) /hpf Amorphous Sediment (None) /hpf Coronavirus (PCR) (Not Detectd) 06/09/23 06/09/23 06/09/23 Range/Units 09:16 09:16 09:16 WBC (3.8-10.6) k/uL RBC (3.80-5.40) m/uL Hgb (11.4-16.0) gm/dL Hct (34.0-46.0) % MCV (80.0-100.0) fL MCH (25.0-35.0) pg MCHC (31.0-37.0) g/dL RDW (11.5-15.5) % Plt Count (150-450) k/uL MPV Neutrophils % % Lymphocytes % % Monocytes % % Eosinophils % % Basophils % % Neutrophils # (1.3-7.7) k/uL Lymphocytes # (1.0-4.8) k/uL Monocytes # (0-1.0) k/uL Eosinophils # (0-0.7) k/uL Basophils # (0-0.2) k/uL Macrocytosis PT (10.0-12.5) sec INR (<1.2) APTT (22.0-30.0) sec Sodium 131 L (137-145) mmol/L Potassium 4.4 (3.5-5.1) mmol/L Chloride 102 (98-107) mmol/L Carbon Dioxide 19 L (22-30) mmol/L Anion Gap 10 mmol/L BUN 31 H (7-17) mg/dL Creatinine 0.45 L (0.52-1.04) mg/dL Est GFR (CKD-EPI)AfAm >90 (>60 ml/min/1.73 sqM) Est GFR (CKD-EPI)NonAf >90 (>60 ml/min/1.73 sqM) Glucose 123 H (74-99) mg/dL Plasma Lactic Acid Beni 1.1 (0.7-2.0) mmol/L Calcium 9.2 (8.4-10.2) mg/dL Total Bilirubin 1.1 (0.2-1.3) mg/dL AST 28 (14-36) U/L ALT 29 (4-34) U/L Alkaline Phosphatase 74 (38-126) U/L Troponin I (0.000-0.034) ng/mL Total Protein 6.5 (6.3-8.2) g/dL Albumin 3.2 L (3.5-5.0) g/dL Urine Color Yellow Urine Appearance Cloudy H (Clear) Urine pH 6.5 (5.0-8.0) Ur Specific [place] 1.024 (1.001-1.035) Urine Protein Trace H (Negative) Urine Glucose (UA) Negative (Negative) Urine Ketones Negative (Negative) Urine Blood Moderate H (Negative) Urine Nitrite Negative (Negative) Urine Bilirubin Negative (Negative) Urine Urobilinogen <2.0 (<2.0) mg/dL Ur Leukocyte Esterase Negative (Negative) Urine RBC 3 (0-5) /hpf Urine WBC 1 (0-5) /hpf Amorphous Sediment Few H (None) /hpf Coronavirus (PCR) (Not Detectd) 06/09/23 Range/Units 09:16 WBC (3.8-10.6) k/uL RBC (3.80-5.40) m/uL Hgb (11.4-16.0) gm/dL Hct (34.0-46.0) % MCV (80.0-100.0) fL MCH (25.0-35.0) pg MCHC (31.0-37.0) g/dL RDW (11.5-15.5) % Plt Count (150-450) k/uL MPV Neutrophils % % Lymphocytes % % Monocytes % % Eosinophils % % Basophils % % Neutrophils # (1.3-7.7) k/uL Lymphocytes # (1.0-4.8) k/uL Monocytes # (0-1.0) k/uL Eosinophils # (0-0.7) k/uL Basophils # (0-0.2) k/uL Macrocytosis PT (10.0-12.5) sec INR (<1.2) APTT (22.0-30.0) sec Sodium (137-145) mmol/L Potassium (3.5-5.1) mmol/L Chloride (98-107) mmol/L Carbon Dioxide (22-30) mmol/L Anion Gap mmol/L BUN (7-17) mg/dL Creatinine (0.52-1.04) mg/dL Est GFR (CKD-EPI)AfAm (>60 ml/min/1.73 sqM) Est GFR (CKD-EPI)NonAf (>60 ml/min/1.73 sqM) Glucose (74-99) mg/dL Plasma Lactic Acid Beni (0.7-2.0) mmol/L Calcium (8.4-10.2) mg/dL Total Bilirubin (0.2-1.3) mg/dL AST (14-36) U/L ALT (4-34) U/L Alkaline Phosphatase (38-126) U/L Troponin I (0.000-0.034) ng/mL Total Protein (6.3-8.2) g/dL Albumin (3.5-5.0) g/dL Urine Color Urine Appearance (Clear) Urine pH (5.0-8.0) Ur Specific [place] (1.001-1.035) Urine Protein (Negative) Urine Glucose (UA) (Negative) Urine Ketones (Negative) Urine Blood (Negative) Urine Nitrite (Negative) Urine Bilirubin (Negative) Urine Urobilinogen (<2.0) mg/dL Ur Leukocyte Esterase (Negative) Urine RBC (0-5) /hpf Urine WBC (0-5) /hpf Amorphous Sediment (None) /hpf Coronavirus (PCR) Not Detected (Not Detectd) Disposition Clinical Impression: Peritonitis, Complication of feeding tube Disposition: ADMITTED IP TO THIS [facility] Referrals: Rafa Godfrey DO [Primary Care Provider] - 1-2 days Time of Disposition: 11:45
[2023-06-09] MEDS: SODIUM CHLORIDE 0.9% 500 ML 500 ML IV SCH ×2 (09:40→10:10)
[2023-06-09 09:52] LABS: Amorphous Sediment,Urine Few /hpf; Appearance,Urine Cloudy (Clear); Bilirubin,Urine Negative (Negative); Blood,Urine Moderate (Negative); Color,Urine Yellow; Glucose,Urine (UA) Negative (Negative); Ketones,Urine Negative (Negative); Leukocyte Esterase,Urine Negative (Negative); Nitrite,Urine Negative (Negative); PH, Urine 6.5 (5.0-8.0); Protein,Urine Trace (Negative); RBC,Urine 3 /hpf (0-5); Specific Gravity,Urine 1.024 (1.001-1.035); Urobilinogen,Urine <2.0 mg/dL (<2.0); WBC,Urine 1 /hpf (0-5)
[2023-06-09 10:06] LABS: Basophils % (A) 0 %; Eosinophils # (A) 0.2 k/uL (0-0.7); Eosinophils % (A) 1 %; HCT 44.2 % (34.0-46.0); HGB 14.7 gm/dL (11.4-16.0); Lymphocytes # (A) 0.3 k/uL (1.0-4.8); Lymphocytes % (A) 2 %; MCH 33.2 pg (25.0-35.0); MCHC 33.2 g/dL (31.0-37.0); MCV 100.2 fL (80.0-100.0); Macrocytosis Slight; Mean Platelet Volume 7.8; Monocytes # (A) 0.3 k/uL (0-1.0); Monocytes % (A) 2 %; Neutrophils # (A) 17.5 k/uL (1.3-7.7); Neutrophils % (A) 96 %; Platelet Count 275 k/uL (150-450); RBC 4.41 m/uL (3.80-5.40); RDW 13.4 % (11.5-15.5); WBC 18.3 k/uL (3.8-10.6)
[2023-06-09] MEDS ORDERED: PIPERACILLIN-TAZOBACTAM 3.375 GM in SODIUM CHLORIDE 0.9% 100 ML IVPB STA (10:23)
--- NOTE | 2023-06-09 10:25 | XR ---
EXAMINATION TYPE: XR chest 2V DATE OF EXAM: 06/09/2023 10:20 AM CLINICAL INDICATION:Female, 73 years old with history of Fever; COMPARISON: Chest radiographs from 05/25/2023 TECHNIQUE: XR chest 2V Frontal and lateral views of the chest. FINDINGS: Lungs/Pleura: There is flattening of the diaphragm with increased lucency of the lungs. No evidence o f pneumothorax, pleural effusion or focal consolidation. Pulmonary vascularity: Unremarkable. Heart/mediastinum: Cardiomediastinal silhouette is unremarkable. Musculoskeletal: No acute osseous pathology. Gaseous distention of bowel suggests on the left diaphragm. And suggested free air under the right di aphragm. IMPRESSION: 1. There is lucency under the right diaphragm which is indeterminate and could represent pneumoperito neum. Correlate with subsequent ordered CT abdomen pelvis. 2. COPD changes. Findings communicated to Dr. Lamonte Scruggs MD on 06/09/2023 10:[address] Corey Shah.
[2023-06-09 10:31] LABS: Prothrombin Time 10.6 sec (10.0-12.5)
[2023-06-09 10:35] LABS: Partial Thromboplastin Time 20.7 sec (22.0-30.0)
[2023-06-09 10:36] LABS: ALT 29 U/L (4-34); AST 28 U/L (14-36); African American GFR (CKD) >90 (>60 ml/min/1.73 sqM); Albumin 3.2 g/dL (3.5-5.0); Alkaline Phosphatase 74 U/L (38-126); Anion Gap 10 mmol/L; Blood Urea Nitrogen 31 mg/dL (7-17); Calcium 9.2 mg/dL (8.4-10.2); Carbon Dioxide 19 mmol/L (22-30); Chloride 102 mmol/L (98-107); Glucose 123 mg/dL (74-99); Non-African American GFR(CKD) >90 (>60 ml/min/1.73 sqM); Sodium 131 mmol/L (137-145); Total Bilirubin 1.1 mg/dL (0.2-1.3); Total Protein 6.5 g/dL (6.3-8.2)
[2023-06-09] MEDS ORDERED: ONDANSETRON 4 MG/2 ML VIAL IVP STA (10:38)
[2023-06-09 10:44] LABS: Potassium 4.4 mmol/L (3.5-5.1)
--- NOTE | 2023-06-09 11:05 | CT ---
EXAMINATION TYPE: CT abdomen pelvis wo con CT DLP: 295.2 mGycm, Automated exposure control for dose reduction was used. DATE OF EXAM: 06/09/2023 10:50 AM COMPARISON: 05/25/2023. CLINICAL INDICATION:Female, 73 years old with history of Abdominal pain; Pt c/o difficulty in breathi ng, progressive weakness, chills, lower abdominal pain stage 4 brain cancer with metastasis TECHNIQUE: Axial CT of the abdomen and pelvis. Sagittal and coronal reformats were created on a Dragon Inside workstation. Contrast used: mL of , (none if empty) Oral contrast used: without Oral Contrast (none if empty) FINDINGS: LOWER CHEST: Unremarkable ABDOMEN LIVER: Unremarkable GALLBLADDER AND BILE DUCTS: Unremarkable. PANCREAS: Unremarkable. SPLEEN: Unremarkable. ADRENAL GLANDS: Unremarkable. KIDNEYS AND URETERS: No evidence of hydronephrosis or renal calculus. The ureters are unremarkable. PELVIS BLADDER: Unremarkable REPRODUCTIVE: Unremarkable. ABDOMEN & PELVIS STOMACH AND BOWEL: No evidence of bowel obstruction. The peg tube has retracted out of the gastric wa ll is now within the anterior abdominal wall. There is gastric contents spilling into the abdomen thr ough the PEG tube gastrostomy hole. This results in large pneumoperitoneum and gastric contents withi n the abdomen. Large stool burden throughout the colon. PERITONEUM/RETROPERITONEUM: No evidence free fluid. There is large amount pneumoperitoneum. The mesen rebecca and omentum. VASCULATURE: No evidence of aortic aneurysm. MUSCULOSKELETAL: No acute osseous abnormalities LYMPH NODES: No gross evidence for lymphadenopathy. SOFT TISSUE/ABDOMINAL WALL: Unremarkable IMPRESSION: 1. The peg tube has retracted out of the gastric wall and is now within the anterior abdominal wall. There is gastric contents spilling into the abdomen through the PEG tube gastrostomy hole. This resu lts in large pneumoperitoneum and gastric contents within the abdomen. Surgical consultation recommen ded. 2. Ines omentum likely secondary to irritation from findings above.
[2023-06-09] MEDS ORDERED: VANCOMYCIN IV PER PHARMACY 1 EACH MISC MISCELLANE PRN (11:38)
[2023-06-09] MEDS ORDERED: SODIUM CHLORIDE 0.9% 1,000 ML IV ONE (11:45)
[2023-06-09] MEDS ORDERED: VANCOMYCIN 1,000 MG in SODIUM CHLORIDE 0.9% 250 ML IVPB ONE ×2 (12:00→20:00)
[2023-06-09] MEDS ORDERED: IV FLUID CONTINUATION 1,000 ML IV ONE ×3 (12:11→17:00)
[2023-06-09] MEDS ORDERED: LACTATED RINGERS 1,000 ML IV ONE (12:15)
[2023-06-09] MEDS ORDERED: DEXAMETHASONE SOD PHOSPHATE 4 MG/ML 1 ML VIAL IVP ONE (12:20)
--- NOTE | 2023-06-09 12:38 | P.GSHP ---
History of Present Illness H&P Date: 06/09/23 Chief Complaint: Pneumoperitoneum 73-year-old female came to the ER with abdominal pain today. Chest x-ray shows large volume of free air. Patient had CAT scan performed showing that the gastrostomy tube has pulled away from the stomach. Patient had feeding tube placed about 2 weeks ago. They have been using it intermittently for water and boost. Patient's having ongoing weakness and anorexia. White blood cell count is elevated. Patient is afebrile. Lactic acid normal. - Review of Systems Comment: The patient denies any acute changes in vision or hearing, no dysphagia or odynophagia, no chest pain or shortness of breath, no dysuria or hematuria, no headache, no runny nose, no rectal bleeding or melena, no unexplained weight loss Past Medical History Past Medical History: Cancer Additional Past Medical History / Comment(s): broken foot x2. cholesteatoma. 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 History of Any Multi-Drug Resistant Organisms: None Reported Past Surgical History: Tubal Ligation Past Anesthesia/Blood Transfusion Reactions: No Reported Reaction Past Psychological History: No Psychological Hx Reported Smoking Status: Never smoker Past Alcohol Use History: None Reported Past Drug Use History: None Reported Medications and Allergies Home Medications Medication Instructions Recorded Confirmed Type dexAMETHasone [Decadron] 4 mg IVP TID 06/09/23 06/09/23 History Allergies Allergy/AdvReac Type Severity Reaction Status Date / Time No Known Allergies Allergy Verified 05/19/23 12:52 Surgical - Exam Vital Signs Temp Pulse Resp BP Pulse Ox 97.5 F L 75 18 134/85 97 06/09/23 08:50 06/09/23 08:50 06/09/23 08:50 06/09/23 08:50 06/09/23 08:50 Physical exam: General: Well-developed, well-nourished HEENT: Normocephalic, sclerae nonicteric Abdomen: Nondistended, diffuse tenderness, PEG tube left upper quadrant Extremities: No edema Neuro: Alert and oriented Results - Labs 06/09/23 09:16 06/09/23 09:16 Abnormal Lab Results - Last 24 Hours (Table) 06/09/23 06/09/23 06/09/23 Range/Units 09:16 09:16 09:16 WBC 18.3 H (3.8-10.6) k/uL MCV 100.2 H (80.0-100.0) fL Neutrophils # 17.5 H (1.3-7.7) k/uL Lymphocytes # 0.3 L (1.0-4.8) k/uL APTT 20.7 L (22.0-30.0) sec Sodium (137-145) mmol/L Carbon Dioxide (22-30) mmol/L BUN (7-17) mg/dL Creatinine (0.52-1.04) mg/dL Glucose (74-99) mg/dL Albumin (3.5-5.0) g/dL Urine Appearance Cloudy H (Clear) Urine Protein Trace H (Negative) Urine Blood Moderate H (Negative) Amorphous Sediment Few H (None) /hpf 06/09/23 Range/Units 09:16 WBC (3.8-10.6) k/uL MCV (80.0-100.0) fL Neutrophils # (1.3-7.7) k/uL Lymphocytes # (1.0-4.8) k/uL APTT (22.0-30.0) sec Sodium 131 L (137-145) mmol/L Carbon Dioxide 19 L (22-30) mmol/L BUN 31 H (7-17) mg/dL Creatinine 0.45 L (0.52-1.04) mg/dL Glucose 123 H (74-99) mg/dL Albumin 3.2 L (3.5-5.0) g/dL Urine Appearance (Clear) Urine Protein (Negative) Urine Blood (Negative) Amorphous Sediment (None) /hpf Diabetes panel 06/09/23 Range/Units 09:16 Sodium 131 L (137-145) mmol/L Potassium 4.4 (3.5-5.1) mmol/L Chloride 102 (98-107) mmol/L Carbon Dioxide 19 L (22-30) mmol/L BUN 31 H (7-17) mg/dL Creatinine 0.45 L (0.52-1.04) mg/dL Glucose 123 H (74-99) mg/dL Calcium 9.2 (8.4-10.2) mg/dL AST 28 (14-36) U/L ALT 29 (4-34) U/L Alkaline Phosphatase 74 (38-126) U/L Total Protein 6.5 (6.3-8.2) g/dL Albumin 3.2 L (3.5-5.0) g/dL Calcium panel 06/09/23 Range/Units 09:16 Calcium 9.2 (8.4-10.2) mg/dL Albumin 3.2 L (3.5-5.0) g/dL Pituitary panel 06/09/23 Range/Units 09:16 Sodium 131 L (137-145) mmol/L Potassium 4.4 (3.5-5.1) mmol/L Chloride 102 (98-107) mmol/L Carbon Dioxide 19 L (22-30) mmol/L BUN 31 H (7-17) mg/dL Creatinine 0.45 L (0.52-1.04) mg/dL Glucose 123 H (74-99) mg/dL Calcium 9.2 (8.4-10.2) mg/dL Adrenal panel 06/09/23 Range/Units 09:16 Sodium 131 L (137-145) mmol/L Potassium 4.4 (3.5-5.1) mmol/L Chloride 102 (98-107) mmol/L Carbon Dioxide 19 L (22-30) mmol/L BUN 31 H (7-17) mg/dL Creatinine 0.45 L (0.52-1.04) mg/dL Glucose 123 H (74-99) mg/dL Calcium 9.2 (8.4-10.2) mg/dL Total Bilirubin 1.1 (0.2-1.3) mg/dL AST 28 (14-36) U/L ALT 29 (4-34) U/L Alkaline Phosphatase 74 (38-126) U/L Total Protein 6.5 (6.3-8.2) g/dL Albumin 3.2 L (3.5-5.0) g/dL Assessment and Plan (1) Peritonitis Narrative/Plan: 73-year-old female with peritonitis secondary to gastrostomy tube falling away from stomach wall. We'll proceed with exploratory laparotomy, replacement of gastrostomy tube. Patient and family still want a feeding tube to be replaced. Risks of bleeding, infection, abscess, recurrent gastrostomy-related problems, aspiration, progressive sepsis, cardiac and respiratory failure. Discussed with family that the patient may need to go to the ICU possibly on the ventilator postoperatively. Patient and family are agreeable. Current Visit: Yes Status: Acute Code(s): K65.9 - PERITONITIS, UNSPECIFIED SNOMED Code(s): 96295992
[2023-06-09] MEDS ORDERED: PROPOFOL 10 MG/ML 20 ML VIAL IV ONE (12:44)
[2023-06-09] MEDS ORDERED: fentaNYL (PF) 50 MCG/ML 2 ML AMP ONE (12:44)
[2023-06-09] MEDS ORDERED: METOPROLOL TARTRATE 5 MG/5 ML VIAL IVP ONE (12:44)
[2023-06-09] MEDS ORDERED: SUCCINYLCHOLINE CHLORIDE 200 MG/10 ML VIAL IV ONE (12:44)
[2023-06-09] MEDS ORDERED: MIDAZOLAM 2 MG/2 ML VIAL ONE (12:44)
[2023-06-09] MEDS ORDERED: ROCURONIUM 10 MG/ML (5 ML VIAL) IV ONE (12:44)
[2023-06-09] MEDS ORDERED: ONDANSETRON 4 MG/2 ML VIAL IVP PRN (14:18)
[2023-06-09] MEDS ORDERED: HYDROmorphone 1 MG/ML 1 ML SYRINGE IVP PRN (14:18)
[2023-06-09] MEDS ORDERED: ACETAMINOPHEN IV (For NPO) 675 MG in EMPTY BAG 1 BAG IVPB PRN (14:18)
[2023-06-09] MEDS ORDERED: NALOXONE 0.4 MG/ML 1 ML VIAL IV PRN (14:18)
[2023-06-09] MEDS ORDERED: HYDROmorphone 0.5 MG/0.5 ML SYRINGE IVP ONE ×3 (14:19→15:57)
--- NOTE | 2023-06-09 14:26 | P.OP ---
Date of Procedure: 06/09/23 Procedure(s) Performed: PREOPERATIVE DIAGNOSIS: Peritonitis, free air POSTOPERATIVE DIAGNOSIS: Same PROCEDURE: Exploratory laparotomy, gastrostomy tube replacement, repair gastrorrhaphy SURGEON: Miach EBL: James Sawyer ANESTHESIA: Gen. COMPLICATIONS: None OPERATIVE PROCEDURE: Patient place in the operative table in the supine position. The patient was placed under general anesthesia. The abdomen was prepped and draped along with the indwelling PEG tube. A vertical incision was made in the midline. The previous PEG tube came through the midline and this was incorporated into our skin subcutaneous and fascial opening. Later these layers were debrided using electrocautery to healthy tissue. The PEG tube was sitting just beneath the peritoneum and removed immediately. A large volume of purulent fluid was present in the upper abdomen. This was evacuated. A gastrotomy was noted in the body of the stomach anteriorly closer to the lesser curvature. This was closed using a single firing of a linear 75 stapler with a green load. The staple line was imbricated using interrupted 3-0 GI silk Lambert sutures. A new 3-0 GI silk pursestring was placed in the antrum anteriorly. A small gastrotomy was made there. A new 20-Liberian PEG tube with a 10 mL balloon was advanced into the left upper quadrant through a separate stab incision. This was advanced into the stomach and the balloon was inflated with 10 mL H2O. The pursestring was tied down. Gastrostomy was sutured to the anterior abdominal wall using 4 separate 3-0 silk sutures between the stomach and peritoneum circumferentially around the tube site. The abdomen was then irrigated with 3 L of saline. No further purulence or particulate matter was noted. The fascia was then reapproximated using 2 separate double-stranded #1 PDS sutures. The skin was loosely reapproximated with venita. Sterile dressing applied. DISPOSITION: Stable to recovery room
[2023-06-09] MEDS ORDERED: ONDANSETRON 4 MG/2 ML VIAL IVP ONE (16:08)
[2023-06-09 17:15] LABS: Glucose,Whole Blood 125 mg/dL (70-110)
[2023-06-09] MEDS: PANTOPRAZOLE 40 MG/10 ML VIAL IV SCH (18:06)
[2023-06-09] MEDS: HEPARIN SODIUM,PORCINE 5,000 UNIT/ML 1 ML VIAL SQ SCH (18:07)
[2023-06-09] MEDS: HYDROmorphone 0.5 MG/0.5 ML SYRINGE IVP PRN (21:49)
--- NOTE | 2023-06-09 23:16 | P.CONS ---
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 patient did have a PEG tube for feeding and is a residential resident patient was sent to the ER for evaluation of chills and abdominal pain no clear history of any fever on presentation to the hospital patient was afebrile and no fever has been gone s ubsequently patient was slightly tachycardic but not hypoxic or hypotensive did have a white count of 18.3 BUN was elevated creatinine was normal liver enzymes are normal urine has been negative COVID testing was negative patient did have a CT of abdominal pelvis PEG tube has retracted out of the gastric wall now within the anterior abdominal wall gastric contents spilling into the abdomen through the PEG tube gastrotomy hole resulting in large pneumoperitoneum patient was taken to the OR and the patient is status post laparotomy gastrotomy tube replacement and repair of the gastrorrhaphy patient did receive a dose of Zosyn in the ER she was continued on vancomycin infectious he was consulted for further management of antibiotic therapy at the time my evaluation was recovering from anesthesia not a very good historian she was breathing comfortably on room air no pressors no headache denies any chest pain no cough has been complaining of abdominal pain unable to quantify any further Past Medical History Past Medical History: Cancer Additional Past Medical History / Comment(s): broken foot x2. cholesteatoma. 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 History of Any Multi-Drug Resistant Organisms: None Reported Past Surgical History: Tubal Ligation Past Anesthesia/Blood Transfusion Reactions: No Reported Reaction Past Psychological History: No Psychological Hx Reported Smoking Status: Never smoker Past Alcohol Use History: None Reported Past Drug Use History: None Reported Medications and Allergies Home Medications Medication Instructions Recorded Confirmed Type Omeprazole 20 mg PO DIRECTED 06/09/23 06/09/23 History dexAMETHasone [Decadron] 4 mg PO TID@0600,1400,2200 06/09/23 06/09/23 History Allergies Allergy/AdvReac Type Severity Reaction Status Date / Time No Known Allergies Allergy Verified 06/09/23 18:17 Physical Exam Vitals: Vital Signs Temp Pulse Pulse Pulse Resp BP BP 06/09/23 15:15 85 17 110/78 06/09/23 15:00 82 17 117/78 06/09/23 14:45 78 19 140/83 06/09/23 14:30 73 17 153/90 06/09/23 14:15 75 18 164/95 06/09/23 14:00 97.4 F L 77 20 154/94 06/09/23 12:15 97.4 F L 83 16 109/71 06/09/23 12:10 78 18 110/68 06/09/23 09:38 96.6 F L 06/09/23 08:50 97.5 F L 75 18 134/85 Pulse Ox 06/09/23 15:15 95 06/09/23 15:00 95 06/09/23 14:45 96 06/09/23 14:30 99 06/09/23 14:15 98 06/09/23 14:00 93 L 06/09/23 12:15 96 06/09/23 12:10 99 06/09/23 09:38 06/09/23 08:50 97 Intake and Output 06/09/23 06/09/23 06/09/23 06:59 14:59 22:59 Intake Total 400 Output Total 820 Balance -420 Intake: IV 400 Output: Urine 800 Straight 600 Estimated Blood Loss 20 Other: Weight 45.359 kg 45.359 kg Results CBC & Chem 7: 06/09/23 09:16 06/09/23 09:16 Labs: Abnormal Lab Results - Last 24 Hours (Table) 06/09/23 06/09/23 06/09/23 Range/Units 09:16 09:16 09:16 WBC 18.3 H (3.8-10.6) k/uL MCV 100.2 H (80.0-100.0) fL Neutrophils # 17.5 H (1.3-7.7) k/uL Lymphocytes # 0.3 L (1.0-4.8) k/uL APTT 20.7 L (22.0-30.0) sec Sodium (137-145) mmol/L Carbon Dioxide (22-30) mmol/L BUN (7-17) mg/dL Creatinine (0.52-1.04) mg/dL Glucose (74-99) mg/dL Albumin (3.5-5.0) g/dL Urine Appearance Cloudy H (Clear) Urine Protein Trace H (Negative) Urine Blood Moderate H (Negative) Amorphous Sediment Few H (None) /hpf 06/09/23 Range/Units 09:16 WBC (3.8-10.6) k/uL MCV (80.0-100.0) fL Neutrophils # (1.3-7.7) k/uL Lymphocytes # (1.0-4.8) k/uL APTT (22.0-30.0) sec Sodium 131 L (137-145) mmol/L Carbon Dioxide 19 L (22-30) mmol/L BUN 31 H (7-17) mg/dL Creatinine 0.45 L (0.52-1.04) mg/dL Glucose 123 H (74-99) mg/dL Albumin 3.2 L (3.5-5.0) g/dL Urine Appearance (Clear) Urine Protein (Negative) Urine Blood (Negative) Amorphous Sediment (None) /hpf Assessment and Plan Plan: 1patient presented to hospital with sepsis in this patient who did have a elev ated white count and tachycardia meeting criteria for SIRS source is abdominal in this patient who did have peritonitis from dislodgment of her PEG tube and will need to cover for the enteric gram-negative both aerobes and anaerobes and Gladys 2-start the patient on Zosyn 3.375 g every 8 hours and Diflucan discontinue vancomycin decrease risk of nephrotoxicity We will follow on clinical condition and cultures to further adjust medication if needed Thank you for this consultation we will follow the patient along with you Dictation was produced using [employer] dictation software. please excuse any grammatical, word or spelling errors.
[2023-06-10] MEDS: PIPERACILLIN-TAZOBACTAM 3.375 GM in SODIUM CHLORIDE 0.9% 100 ML IVPB SCH ×3 (00:11→16:41)
[2023-06-10] MEDS: FLUCONAZOLE IN NACL,ISO-OSM 200 MG in SALINE 1 100ML.BAG IVPB SCH (00:11)
[2023-06-10] MEDS: HEPARIN SODIUM,PORCINE 5,000 UNIT/ML 1 ML VIAL SQ SCH ×3 (00:12→16:41)
[2023-06-10 05:35] LABS: Basophils % (A) 0 %; Eosinophils % (A) 0 %; HCT 41.1 % (34.0-46.0); HGB 13.3 gm/dL (11.4-16.0); Lymphocytes # (A) 0.4 k/uL (1.0-4.8); Lymphocytes % (A) 2 %; MCH 33.2 pg (25.0-35.0); MCHC 32.4 g/dL (31.0-37.0); MCV 102.6 fL (80.0-100.0); Macrocytosis Slight; Mean Platelet Volume 8.9; Monocytes # (A) 0.5 k/uL (0-1.0); Monocytes % (A) 3 %; Neutrophils # (A) 19.2 k/uL (1.3-7.7); Neutrophils % (A) 95 %; Platelet Count 250 k/uL (150-450); RBC 4.01 m/uL (3.80-5.40); RDW 13.7 % (11.5-15.5); WBC 20.2 k/uL (3.8-10.6)
[2023-06-10 05:44] LABS: African American GFR (CKD) >90 (>60 ml/min/1.73 sqM); Anion Gap 5 mmol/L; Blood Urea Nitrogen 21 mg/dL (7-17); Calcium 8.1 mg/dL (8.4-10.2); Carbon Dioxide 23 mmol/L (22-30); Chloride 105 mmol/L (98-107); Glucose 92 mg/dL (74-99); Non-African American GFR(CKD) >90 (>60 ml/min/1.73 sqM); Potassium 4.2 mmol/L (3.5-5.1); Sodium 133 mmol/L (137-145)
[2023-06-10] MEDS ORDERED: VANCOMYCIN 750 MG in SODIUM CHLORIDE 0.9% 250 ML IVPB SCH (09:00)
[2023-06-10] MEDS: PANTOPRAZOLE 40 MG/10 ML VIAL IV SCH (10:04)
--- NOTE | 2023-06-10 10:54 | P.PN ---
Subjective Progress Note Date: 06/10/23 CHIEF COMPLAINT: Peritonitis, free air HISTORY OF PRESENT ILLNESS: Patient postop day #1 status post exploratory laparotomy, gastrostomy tube replacement and repair gastrorrhaphy. Patient lying in bed comfortably. Pain controlled. Denies any nausea or vomiting. Afebrile. WBC 18 up to 20.2 Hgb 13.3 platelets 250 sodium 133 potassium 4.2 creatinine 0.42 PHYSICAL EXAM: VITAL SIGNS: Reviewed. GENERAL: Well-developed in no acute distress. ABDOMEN: Soft. Nondistended. Incisional dressing clean dry and intact NEUROLOGIC: Alert and oriented. Cranial nerves II through XII grossly intact. ASSESSMENT: 1. Peritonitis and free air status post exploratory laparotomy, gastrostomy tube replacement and repair gastrorrhaphy 2. History of squamous cell carcinoma of the temporal bone with invasion into the dura PLAN: -Gastrostomy tube to be hooked up to Sher bag for drainage -Interventional radiology service not available. Consult placed for vascular surgery to place PICC line tomorrow for antibiotics and TPN. Vascular surgery service not available today. -Continue antibiotics -Continue pain management -Continue supportive care -DVT prophylaxis subcu heparin and GI prophylaxis Protonix Physician Book Coverer note has been reviewed by physician. Signing provider agrees with the documented findings, assessment, and plan of care. I have personally seen and examined the patient, reviewed the HEARING AID SPECIALIST /PAs history, exam and MDM and agree with the assessment and plan as written. Based on total visit time, I have performed more than 50% of the visit. As above: Patient is doing better today. Pain is less. Labs noted. Gradually increase activity. Begin TPN one PICC line obtained. Objective - Vital Signs Vital signs: Vital Signs Temp 97.6 F 06/10/23 00:00 Pulse 88 06/10/23 06:00 Resp 12 06/10/23 06:00 BP 125/77 06/10/23 06:00 Pulse Ox 94 L 06/10/23 09:12 FiO2 Intake & Output 06/09/23 06/10/23 06/10/23 18:59 06:59 18:59 Intake Total 900 825 Output Total 1120 395 Balance -220 430 Weight 45.359 kg 51.5 kg Intake: IV 900 825 Sodium Chloride 0.9% 1, 825 000 ml @ 75 mls/hr IV . [id number] ONE Rx#:[id number] Output: Urine 1100 395 Straight 600 Estimated Blood Loss 20 Other: Voiding Method Indwelling Catheter Indwelling Catheter - Labs CBC & Chem 7: 06/10/23 04:11 06/10/23 04:11 Labs: Abnormal Lab Results - Last 24 Hours (Table) 06/09/23 06/09/23 06/09/23 Range/Units 09:16 09:16 09:16 WBC 18.3 H (3.8-10.6) k/uL MCV 100.2 H (80.0-100.0) fL Neutrophils # 17.5 H (1.3-7.7) k/uL Lymphocytes # 0.3 L (1.0-4.8) k/uL APTT 20.7 L (22.0-30.0) sec Sodium (137-145) mmol/L Carbon Dioxide (22-30) mmol/L BUN (7-17) mg/dL Creatinine (0.52-1.04) mg/dL Glucose (74-99) mg/dL POC Glucose (mg/dL) (70-110) mg/dL Calcium (8.4-10.2) mg/dL Albumin (3.5-5.0) g/dL Urine Appearance Cloudy H (Clear) Urine Protein Trace H (Negative) Urine Blood Moderate H (Negative) Amorphous Sediment Few H (None) /hpf 06/09/23 06/09/23 06/10/23 Range/Units 09:16 17:14 04:11 WBC (3.8-10.6) k/uL MCV (80.0-100.0) fL Neutrophils # (1.3-7.7) k/uL Lymphocytes # (1.0-4.8) k/uL APTT (22.0-30.0) sec Sodium 131 L 133 L (137-145) mmol/L Carbon Dioxide 19 L (22-30) mmol/L BUN 31 H 21 H (7-17) mg/dL Creatinine 0.45 L 0.42 L (0.52-1.04) mg/dL Glucose 123 H (74-99) mg/dL POC Glucose (mg/dL) 125 H (70-110) mg/dL Calcium 8.1 L (8.4-10.2) mg/dL Albumin 3.2 L (3.5-5.0) g/dL Urine Appearance (Clear) Urine Protein (Negative) Urine Blood (Negative) Amorphous Sediment (None) /hpf 06/10/23 Range/Units 04:11 WBC 20.2 H (3.8-10.6) k/uL MCV 102.6 H (80.0-100.0) fL Neutrophils # 19.2 H (1.3-7.7) k/uL Lymphocytes # 0.4 L (1.0-4.8) k/uL APTT (22.0-30.0) sec Sodium (137-145) mmol/L Carbon Dioxide (22-30) mmol/L BUN (7-17) mg/dL Creatinine (0.52-1.04) mg/dL Glucose (74-99) mg/dL POC Glucose (mg/dL) (70-110) mg/dL Calcium (8.4-10.2) mg/dL Albumin (3.5-5.0) g/dL Urine Appearance (Clear) Urine Protein (Negative) Urine Blood (Negative) Amorphous Sediment (None) /hpf
--- NOTE | 2023-06-10 12:29 | P.CONS ---
History of Present Illness - Reason for Consult Consult date: 06/10/23 - Chief Complaint Peritonitis abdominal pain - History of Present Illness * 73-year-old patient with past medical history significant for squamous cell carcinoma of temporal bone, with invasion of the due to presented to the emergency department with complaints of abdominal pain. * While in ER patient had a CT abdomen and pelvis obtained which showed gastrostomy tube pulled out of stomach, patient had feeding tube placed 2 weeks prior. * Patient was taken to the OR for exploratory laparotomy gastrostomy tube replacement and repair Gastrografin * Workup initiated in ED include basic metabolic panel which showed, CBC showed a CBC 18.3 hemoglobin 14.7 platelet count 275 * Patient was admitted to ICU, started on IV antibiotics consultations obtained from internal medicine, infectious disease REVIEW OF SYSTEMS: Abdominal pain, dry mouth CONSTITUTIONAL: No fever, no malaise, no fatigue. HEENT: No recent visual problems or hearing problems. Denied any sore throat. CARDIOVASCULAR: No chest pain, orthopnea, PND, no palpitations, no syncope. PULMONARY: No shortness of breath, no cough, no hemoptysis. GASTROINTESTINAL: No diarrhea, no nausea, no vomiting, no abdominal pain. NEUROLOGICAL: No headaches, no weakness, no numbness. HEMATOLOGICAL: Denies any bleeding or petechiae. GENITOURINARY: Denies any burning micturition, frequency, or urgency. MUSCULOSKELETAL/RHEUMATOLOGICAL: Denies any joint pain, swelling, or any muscle pain. ENDOCRINE: Denies any polyuria or polydipsia. PHYSICAL EXAMINATION: GENERAL: The patient is alert and oriented x3, ill appearance, pale appearance HEENT: Pupils are round and equally reacting to light. EOMI. no oral thrush no kaleb CARDIOVASCULAR: S1 and S2 present. No murmurs, rubs, or gallops. PULMONARY: Chest is clear to auscultation, no wheezing or crackles. ABDOMEN: Soft, gastrostomy tube in place, surgical incision bandage MUSCULOSKELETAL: No joint swelling or deformity. EXTREMITIES: No cyanosis, clubbing, or pedal edema. NEUROLOGICAL: Gross neurological examination did not reveal any focal deficits. Past Medical History Past Medical History: Cancer Additional Past Medical History / Comment(s): broken foot x2. cholesteatoma. 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 History of Any Multi-Drug Resistant Organisms: None Reported Past Surgical History: Tubal Ligation Past Anesthesia/Blood Transfusion Reactions: No Reported Reaction Past Psychological History: No Psychological Hx Reported Smoking Status: Never smoker Past Alcohol Use History: None Reported Past Drug Use History: None Reported Medications and Allergies Home Medications Medication Instructions Recorded Confirmed Type Omeprazole 20 mg PO DIRECTED 06/09/23 06/09/23 History dexAMETHasone [Decadron] 4 mg PO TID@0600,1400,2200 06/09/23 06/09/23 History Allergies Allergy/AdvReac Type Severity Reaction Status Date / Time No Known Allergies Allergy Verified 06/09/23 18:17 Physical Exam Vitals: Vital Signs Temp Pulse Pulse Resp BP BP Pulse Ox 06/10/23 09:12 94 L 06/10/23 08:00 98.6 F 82 10 L 122/67 95 06/10/23 06:00 88 12 125/77 95 06/10/23 04:00 84 14 128/80 94 L 06/10/23 02:00 82 12 126/76 96 06/10/23 00:00 97.6 F 84 12 120/80 95 06/09/23 22:01 102 H 12 114/77 94 L 06/09/23 22:00 102 H 12 128/83 93 L 06/09/23 20:00 97.7 F 86 16 113/82 95 06/09/23 17:00 91 19 127/75 95 06/09/23 16:45 97.4 F L 94 19 128/85 93 L 06/09/23 16:30 94 19 126/75 93 L 06/09/23 16:01 94 16 124/82 93 L 06/09/23 15:45 98 18 126/78 93 L 06/09/23 15:30 95 20 121/78 95 06/09/23 15:15 85 17 110/78 95 06/09/23 15:00 82 17 117/78 95 06/09/23 14:45 78 19 140/83 96 06/09/23 14:30 73 17 153/90 99 06/09/23 14:15 75 18 164/95 98 06/09/23 14:00 97.4 F L 77 20 154/94 93 L Intake and Output 06/09/23 06/10/23 06/10/23 22:59 06:59 14:59 Intake Total 225 600 Output Total 495 200 Balance -270 400 Intake: IV 225 600 Sodium Chloride 0.9% 1, 225 600 000 ml @ 75 mls/hr IV . [id number] ONE Rx#:[id number] Output: Urine 495 200 Other: Voiding Method Indwelling Catheter Indwelling Catheter Indwelling Catheter Weight 45.359 kg 51.5 kg Results CBC & Chem 7: 06/10/23 04:11 06/10/23 04:11 Labs: Abnormal Lab Results - Last 24 Hours (Table) 06/09/23 06/10/23 06/10/23 Range/Units 17:14 04:11 04:11 WBC 20.2 H (3.8-10.6) k/uL MCV 102.6 H (80.0-100.0) fL Neutrophils # 19.2 H (1.3-7.7) k/uL Lymphocytes # 0.4 L (1.0-4.8) k/uL Sodium 133 L (137-145) mmol/L BUN 21 H (7-17) mg/dL Creatinine 0.42 L (0.52-1.04) mg/dL POC Glucose (mg/dL) 125 H (70-110) mg/dL Calcium 8.1 L (8.4-10.2) mg/dL Assessment and Plan Assessment: Assessment and plan * Dislodged gastrostomy tube with peritonitis * Sepsis secondary to peritonitis * History of squamous cell carcinoma of temporal bone with invasion into dura * Severe protein calorie malnutrition * In regards to dislodged gastrostomy tube, patient is status post exploratory laparotomy postoperative day one, followed by general surgery * In regards to sepsis, blood cultures collected continue patient on IV antibiotics including Zosyn, vancomycin IV Diflucan * In regards to obtain calorie malnutrition number continue patient on IV fluid, TPN to be initiated * Status is full code
[2023-06-10] MEDS: HYDROmorphone 0.5 MG/0.5 ML SYRINGE IVP PRN ×2 (12:34→21:49)
[2023-06-10] MEDS ORDERED: SODIUM CHLORIDE 0.9% 1,000 ML IV ONE (13:28)
[2023-06-10] MEDS: SODIUM CHLORIDE 0.9% 1,000 ML IV SCH (13:35)
--- NOTE | 2023-06-10 15:39 | P.CONS ---
History of Present Illness - Reason for Consult Consult date: 06/10/23 Sq cell carcinoma of temporal bone Requesting physician: Franki Obrien - Chief Complaint chills abd pain, SOB - History of Present Illness Ms. Michel is a 73-year-old woman with no significant past medical history who follows with Dr. 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 She noted persistent ear discomfort 3 years. She had been diagnosed with multiple infections and treated with antibiotics with minimal relief. CT of the internal auditory canal 01/29/2023 noted large soft tissue mass extending the length of the external auditory canal with contiguous extension into the lateral mesotympanum and partial encasement of the malleus and incus. There was concern for partial opacification of the anterior superior left mastoid air cells adjacent to the external auditory canal, possibly from direct extension of soft tissue process. Biopsy of the soft tissue lesion on 03/10/2023 revealed invasive well- differentiated squamous cell carcinoma of the left ear canal. MRI on 04/02/2023 of the brain and internal auditory canals with and without contrast noted abnormal enhancing soft tissue lesion compatible with neoplasm in the external auditory canal. No abnormal enhancement was seen in the posterior fossa or brain. PET/CT on 04/27/2023 noted no abnormal uptake to suggest neoplastic pr ocess or any abnormal uptake in the temporal bone region. There was noted to be a punctate nodule in the superior segment of the right lower lobe that was not FDG avid. She underwent left subtotal resection of the temporal bone with abdominal fat graft, overclosure of the left ear canal along with microdissection and static sling placement on 05/13 noted squamous cell carcinoma invading the temporal bone along with invasion into the ascending branch of the facial nerve as well as into the dura. Gross disease other than disease involving the dura from the ear was resected. Following resection, she had progressive dizziness and vertigo with changes in position. She was subsequently admitted to [facility] with persistent dizziness, vomiting which improved with steroids. She was transitioned from IV steroids to oral dexamethasone 4 mg every 8 hours. She has noted to have progressive trouble chewing food, although she did pass formal swallow evaluation. CT CAP obtained while inpatient noted no evidence of distant metastatic disease. She did have PEG tube placed for nutrition prior to discharge. She still have difficulty swallowing certain foods. She is able to ambulate with a walker independently. 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 Case was presented at head and neck tumor Board at [facility] in [place] late last week, do not have the reports from that yet. She was due to start concurrent carboplatin AUC 2 with XRT, 35 fractions planned. Patient is currently admitted for abdominal pain, she states started day before admission, associated with chills and some shortness of breath. CT AP done on admission showing the PEG tube had pulled away from stomach, pneumoperitoneum. She was assessed by Surgery, had exploratory laparotomy, PEG replaced, she is on antibiotics per ID. She is uncomfortable today but, better than on admission. Vital signs are stable. Review of Systems 10 point ROS is neg except as stated in HPI Past Medical History Past Medical History: Cancer Additional Past Medical History / Comment(s): broken foot x2. cholesteatoma. s quamous cell CA temporal bone with invasion into dura History of Any Multi-Drug Resistant Organisms: None Reported Past Surgical History: Tubal Ligation Past Anesthesia/Blood Transfusion Reactions: No Reported Reaction Past Psychological History: No Psychological Hx Reported Smoking Status: Never smoker Past Alcohol Use History: None Reported Past Drug Use History: None Reported Medications and Allergies Home Medications Medication Instructions Recorded Confirmed Type Omeprazole 20 mg PO DIRECTED 06/09/23 06/09/23 History dexAMETHasone [Decadron] 4 mg PO TID@0600,1400,2200 06/09/23 06/09/23 History Allergies Allergy/AdvReac Type Severity Reaction Status Date / Time No Known Allergies Allergy Verified 06/09/23 18:17 Physical Exam Vitals: Vital Signs Temp Pulse Pulse Pulse Resp BP BP 06/10/23 06:00 88 12 125/77 06/10/23 04:00 84 14 128/80 06/10/23 02:00 82 12 126/76 06/10/23 00:00 97.6 F 84 12 120/80 06/09/23 22:01 102 H 12 114/77 06/09/23 22:00 102 H 12 128/83 06/09/23 20:00 97.7 F 86 16 113/82 06/09/23 17:00 91 19 127/75 06/09/23 16:45 97.4 F L 94 19 128/85 06/09/23 16:30 94 19 126/75 06/09/23 16:01 94 16 124/82 06/09/23 15:45 98 18 126/78 06/09/23 15:30 95 20 121/78 06/09/23 15:15 85 17 110/78 06/09/23 15:00 82 17 117/78 06/09/23 14:45 78 19 140/83 06/09/23 14:30 73 17 153/90 06/09/23 14:15 75 18 164/95 06/09/23 14:00 97.4 F L 77 20 154/94 06/09/23 12:15 97.4 F L 83 16 109/71 06/09/23 12:10 78 18 110/68 06/09/23 09:38 96.6 F L 06/09/23 08:50 97.5 F L 75 18 134/85 Pulse Ox 06/10/23 06:00 95 06/10/23 04:00 94 L 06/10/23 02:00 96 06/10/23 00:00 95 06/09/23 22:01 94 L 06/09/23 22:00 93 L 06/09/23 20:00 95 06/09/23 17:00 95 06/09/23 16:45 93 L 06/09/23 16:30 93 L 06/09/23 16:01 93 L 06/09/23 15:45 93 L 06/09/23 15:30 95 06/09/23 15:15 95 06/09/23 15:00 95 06/09/23 14:45 96 06/09/23 14:30 99 06/09/23 14:15 98 06/09/23 14:00 93 L 06/09/23 12:15 96 06/09/23 12:10 99 06/09/23 09:38 06/09/23 08:50 97 Intake and Output 06/09/23 06/10/23 06/10/23 22:59 06:59 14:59 Intake Total 225 600 Output Total 495 200 Balance -270 400 Intake: IV 225 600 Sodium Chloride 0.9% 1, 225 600 000 ml @ 75 mls/hr IV . [id number] [facility] Rx#:[id number] Output: Urine 495 200 Other: Voiding Method Indwelling Catheter Indwelling Catheter Weight 45.359 kg 51.5 kg - Constitutional frail, emaciated General appearance: cooperative, mild distress, thin - EENT Eyes: anicteric sclerae, EOMI - Neck Neck: no lymphadenopathy - Respiratory Respiratory: bilateral: CTA, diminished - Cardiovascular Rhythm: other (mild tachycardia) Heart sounds: normal: S1, S2 Abnormal Heart Sounds: no systolic murmur, no diastolic murmur, no rub, no S3 Gallop, no S4 Gallop, no click, no other leg Peripheral Edema: bilateral: None - Gastrointestinal PEG in situ General gastrointestinal: absent bowel sounds, soft - Integumentary Integumentary: normal - Neurologic Neurologic: focal deficits (2/2 surgery) - Musculoskeletal Musculoskeletal: generalized weakness - Psychiatric Psychiatric: A&O x's 3, appropriate affect, intact judgment & insight Results CBC & Chem 7: 06/10/23 04:11 06/10/23 04:11 Labs: Abnormal Lab Results - Last 24 Hours (Table) 06/09/23 06/09/23 06/09/23 Range/Units 09:16 09:16 09:16 WBC 18.3 H (3.8-10.6) k/uL MCV 100.2 H (80.0-100.0) fL Neutrophils # 17.5 H (1.3-7.7) k/uL Lymphocytes # 0.3 L (1.0-4.8) k/uL APTT 20.7 L (22.0-30.0) sec Sodium (137-145) mmol/L Carbon Dioxide (22-30) mmol/L BUN (7-17) mg/dL Creatinine (0.52-1.04) mg/dL Glucose (74-99) mg/dL POC Glucose (mg/dL) (70-110) mg/dL Calcium (8.4-10.2) mg/dL Albumin (3.5-5.0) g/dL Urine Appearance Cloudy H (Clear) Urine Protein Trace H (Negative) Urine Blood Moderate H (Negative) Amorphous Sediment Few H (None) /hpf 06/09/23 06/09/23 06/10/23 Range/Units 09:16 17:14 04:11 WBC (3.8-10.6) k/uL MCV (80.0-100.0) fL Neutrophils # (1.3-7.7) k/uL Lymphocytes # (1.0-4.8) k/uL APTT (22.0-30.0) sec Sodium 131 L 133 L (137-145) mmol/L Carbon Dioxide 19 L (22-30) mmol/L BUN 31 H 21 H (7-17) mg/dL Creatinine 0.45 L 0.42 L (0.52-1.04) mg/dL Glucose 123 H (74-99) mg/dL POC Glucose (mg/dL) 125 H (70-110) mg/dL Calcium 8.1 L (8.4-10.2) mg/dL Albumin 3.2 L (3.5-5.0) g/dL Urine Appearance (Clear) Urine Protein (Negative) Urine Blood (Negative) Amorphous Sediment (None) /hpf 06/10/23 Range/Units 04:11 WBC 20.2 H (3.8-10.6) k/uL MCV 102.6 H (80.0-100.0) fL Neutrophils # 19.2 H (1.3-7.7) k/uL Lymphocytes # 0.4 L (1.0-4.8) k/uL APTT (22.0-30.0) sec Sodium (137-145) mmol/L Carbon Dioxide (22-30) mmol/L BUN (7-17) mg/dL Creatinine (0.52-1.04) mg/dL Glucose (74-99) mg/dL POC Glucose (mg/dL) (70-110) mg/dL Calcium (8.4-10.2) mg/dL Albumin (3.5-5.0) g/dL Urine Appearance (Clear) Urine Protein (Negative) Urine Blood (Negative) Amorphous Sediment (None) /hpf Chest x-ray: report reviewed CT scan - abdomen: report reviewed CT scan - pelvis: report reviewed Assessment and Plan (1) Complication of feeding tube Current Visit: Yes Status: Acute Priority: High Code(s): K94.20 - GASTROSTOMY COMPLICATION, UNSPECIFIED SNOMED Code(s): 652843718 (2) Peritonitis Current Visit: Yes Status: Acute Priority: High Code(s): K65.9 - PERITONITIS, UNSPECIFIED SNOMED Code(s): 62361544 (3) Generalized weakness Current Visit: Yes Status: Acute Priority: High Code(s): R53.1 - WEAKNESS SNOMED Code(s): 86826468 (4) Squamous cell carcinoma of head and neck Current Visit: Yes Status: Acute Priority: High Code(s): C76.0 - MALIGNANT NEOPLASM OF HEAD, FACE AND NECK SNOMED Code(s): 275700782 Plan: Feeding tube complication/peritonitis -Status post surgical intervention for PEG that pulled away from stomach, pneumoperitoneum -Patient doing much better -Tube feeds have not yet started Generalized weakness -Secondary to poor oral intake -PT/OT ordered Squamous cell carcinoma of the head and neck -New diagnosis -Pending start of concurrent chemotherapy and radiation. Patient does not need an access device for her weekly chemotherapy as it is not a vessicant -Treatment will be held until patient has had adequate recovery time and rehabilitation, if needed. attests: I have seen and examined patient, performed H&P, developed impression and plan of care. Discussed with dictator. Agree with documentation, dictated as a scribe.
[2023-06-11] MEDS: FLUCONAZOLE IN NACL,ISO-OSM 200 MG in SALINE 1 100ML.BAG IVPB SCH (00:17)
[2023-06-11] MEDS: PIPERACILLIN-TAZOBACTAM 3.375 GM in SODIUM CHLORIDE 0.9% 100 ML IVPB SCH ×4 (00:30→23:17)
[2023-06-11] MEDS: HEPARIN SODIUM,PORCINE 5,000 UNIT/ML 1 ML VIAL SQ SCH ×4 (00:30→23:17)
[2023-06-11 04:38] LABS: HCT 33.4 % (34.0-46.0); HGB 11.1 gm/dL (11.4-16.0); MCHC 33.2 g/dL (31.0-37.0); MCV 102.3 fL (80.0-100.0); Macrocytosis Slight; Mean Platelet Volume 7.7; Platelet Count 217 k/uL (150-450); RBC 3.27 m/uL (3.80-5.40); RDW 13.8 % (11.5-15.5); WBC 15.7 k/uL (3.8-10.6)
[2023-06-11 04:46] LABS: Ionized Calcium 4.7 mg/dL (4.5-5.3)
[2023-06-11 04:51] LABS: Phosphorus 1.9 mg/dL (2.5-4.5)
[2023-06-11 04:52] LABS: African American GFR (CKD) >90 (>60 ml/min/1.73 sqM); Anion Gap 5 mmol/L; Blood Urea Nitrogen 16 mg/dL (7-17); Calcium 7.9 mg/dL (8.4-10.2); Carbon Dioxide 21 mmol/L (22-30); Chloride 107 mmol/L (98-107); Glucose 71 mg/dL (74-99); Non-African American GFR(CKD) >90 (>60 ml/min/1.73 sqM); Potassium 3.2 mmol/L (3.5-5.1); Sodium 133 mmol/L (137-145)
[2023-06-11] MEDS: POTASSIUM CHLORIDE 10 MEQ in WATER FOR INJECTION 1 100ML.BAG IVPB SCH ×4 (05:38→11:44)
[2023-06-11] MEDS ORDERED: LIDOCAINE 1% INJ 10MG/ML (5 ML VIAL-PF) SQ ONE (07:38)
[2023-06-11] MEDS: SODIUM CHLORIDE 0.9% 1,000 ML IV SCH ×3 (07:59→22:12)
--- NOTE | 2023-06-11 08:09 | P.PCN ---
Date of Procedure: 06/11/23 Preoperative Diagnosis: Pneumoperitonitis, need for IV antibiotics and TPN Postoperative Diagnosis: Same Procedure(s) Performed: Ultrasound-guided left basilic dual-lumen PICC line placement Surgeon: Mirza Michele Pathology: none sent Condition: stable Disposition: ICU Indications for Procedure: 73-year-old female with recent history of pneumoperitonitis status post laparotomy in need of IV antibiotics and TPN. Description of Procedure: After written and informed consent was obtained the patient and all risks, benefits and competitions were described the procedure was performed at bedside and patient was laid in a supine position with the left arm outstretched. The area of the left arm was prepped and draped in usual sterile fashion. Timeout was performed in normal fashion. Utilizing ultrasound the basilic vein was visualized and shown to be compressible without any visible thrombus. Under ultrasound guidance the basilic vein was then cannulated with a micropuncture needle and wire was placed under direct visualization of fluoroscopy. Introducer sheath was then placed. The catheter was measured and cut to the appropriate length which was 46 cm. The catheter was then guided through the breakaway sheath and the sheath was removed with good positioning was visualized under fluoroscopy. The catheter was pulled and flushed easily. It was then secured in place in normal fashion. Patient tolerated the procedure well was sent back to his room for recovery.
[2023-06-11] MEDS: PANTOPRAZOLE 40 MG/10 ML VIAL IV SCH (08:23)
--- NOTE | 2023-06-11 08:53 | XR ---
EXAMINATION TYPE: XR chest 1V confirm line plcmt DATE OF EXAM: 06/11/2023 8:24 AM CLINICAL INDICATION:Female, 73 years old with history of CONFIRM LINE PLACEMENT; [facility] COMPARISON: Chest radiographs from 06/09/2023 TECHNIQUE: XR chest 1V confirm line plcmt Frontal view of the chest. FINDINGS: Lungs/Pleura: There is no evidence of pleural effusion, focal consolidation, or pneumothorax. Pulmonary vascularity: Unremarkable. Heart/mediastinum: Cardiomediastinal silhouette is unremarkable. Musculoskeletal: No acute osseous pathology. Other findings: None Lines/Tubes: Left internal jugular central venous catheter with distal tip at the cavoatrial junction. IMPRESSION: Left central venous catheter with tip in appropriate position orbits or pneumothorax. No acute cardiopulmonary disease/process.
[2023-06-11] MEDS ORDERED: MVI, ADULT NO.4 WITH VIT K 10 ML, TRACE (CONC-1ML/DOSE) 1 ML in AMINO ACID 5%-D15W+LYTE... IV ONE ×3 (11:00)
[2023-06-11] MEDS ORDERED: SODIUM PHOSPHATE 30 MMOL in DEXTROSE 5% IN WATER 250 ML IVPB ONE ×4 (11:00→11:48)
[2023-06-11 11:04] LABS: Triglycerides 84.2 mg/dL (0.00-149.00)
--- NOTE | 2023-06-11 11:31 | P.PN ---
Subjective Progress Note Date: 06/11/23 * 73-year-old patient with past medical history significant for squamous cell carcinoma of temporal bone, with invasion of the due to presented to the emergency department with complaints of abdominal pain. * While in ER patient had a CT abdomen and pelvis obtained which showed gastrostomy tube pulled out of stomach, patient had feeding tube placed 2 weeks prior. * Patient was taken to the OR for exploratory laparotomy gastrostomy tube replacement and repair Gastrografin * Workup initiated in ED include basic metabolic panel which showed, CBC showed a CBC 18.3 hemoglobin 14.7 platelet count 275 * Patient was admitted to ICU, started on IV antibiotics consultations obtained from internal medicine, infectious disease * 06/11/23: Patient seen and evaluated bedside, patient did receive oral care overnight, dry mouth and has improved abdominal pain has improved, just complains of generalized weakness, denies fever, chills abdominal pain is improved Objective - Vital Signs Vital signs: Vital Signs Temp 98 F 06/11/23 08:00 Pulse 81 06/11/23 08:00 Resp 16 06/11/23 08:00 BP 117/69 06/11/23 08:00 Pulse Ox 96 06/11/23 08:00 FiO2 Intake & Output 06/10/23 06/11/23 06/11/23 18:59 06:59 18:59 Intake Total 800 Output Total 700 500 Balance 100 -500 Weight 51.5 kg 56.8 kg 56.8 kg Intake: IV 600 Sodium Chloride 0.9% 1, 600 000 ml @ 75 mls/hr IV . [id number] [facility] Rx#:[id number] Intake, IV Titration 200 Amount Sodium Chloride 0.9% 1, 200 000 ml @ 100 mls/hr IV . Q10H [facility] Rx#:[id number] Output: Urine 700 500 Other: Voiding Method Indwelling Catheter Indwelling Catheter Indwelling Catheter - Exam PHYSICAL EXAMINATION: GENERAL: The patient is alert and oriented x3, ill appearance, pale appearance HEENT: Pupils are round and equally reacting to light. EOMI. no oral thrush noted CARDIOVASCULAR: S1 and S2 present. No murmurs, rubs, or gallops. PULMONARY: Chest is clear to auscultation, no wheezing or crackles. ABDOMEN: Soft, gastrostomy tube in place, surgical incision bandage MUSCULOSKELETAL: No joint swelling or deformity. EXTREMITIES: No cyanosis, clubbing, or pedal edema. NEUROLOGICAL: Gross neurological examination did not reveal any focal deficits. - Labs CBC & Chem 7: 06/11/23 04:15 06/11/23 04:15 Labs: Abnormal Lab Results - Last 24 Hours (Table) 06/11/23 06/11/23 06/11/23 Range/Units 04:15 04:15 04:15 WBC 15.7 H (3.8-10.6) k/uL RBC 3.27 L (3.80-5.40) m/uL Hgb 11.1 L (11.4-16.0) gm/dL Hct 33.4 L (34.0-46.0) % MCV 102.3 H (80.0-100.0) fL Sodium 133 L (137-145) mmol/L Potassium 3.2 L (3.5-5.1) mmol/L Carbon Dioxide 21 L (22-30) mmol/L Creatinine 0.50 L (0.52-1.04) mg/dL Glucose 71 L (74-99) mg/dL Calcium 7.9 L (8.4-10.2) mg/dL Phosphorus 1.9 L (2.5-4.5) mg/dL Microbiology - Last 24 Hours (Table) 06/09/23 09:45 Blood Culture - Preliminary Blood 06/09/23 09:30 Blood Culture - Preliminary Blood Assessment and Plan Assessment: Assessment and plan * Dislodged gastrostomy tube with peritonitis * Sepsis secondary to peritonitis * History of squamous cell carcinoma of temporal bone with invasion into dura * Severe protein calorie malnutrition * In regards to dislodged gastrostomy tube, patient is status post exploratory laparotomy postoperative day one, followed by general surgery * In regards to sepsis, blood cultures collected continue patient on IV a ntibiotics including Zosyn, vancomycin IV Diflucan day 3 * In regards to obtain calorie malnutrition number continue patient on IV fluid, TPN initiated, LINE placed * Status is full code
[2023-06-11] MEDS: HYDROmorphone 0.5 MG/0.5 ML SYRINGE IVP PRN ×2 (11:46→18:47)
[2023-06-11] MEDS ORDERED: Potassium Replacement Protocol 1 EACH MISC MISCELLANE PRN (11:48)
[2023-06-11] MEDS ORDERED: Phosphorus Replacement Protoco 1 EACH MISC MISCELLANE PRN (11:48)
[2023-06-11] MEDS: FAT EMULSION 20% 250 ML in EMPTY BAG 1 BAG IV SCH (11:58)
--- NOTE | 2023-06-11 13:15 | P.PN ---
Subjective Progress Note Date: 06/11/23 CHIEF COMPLAINT: Peritonitis, free air HISTORY OF PRESENT ILLNESS: Patient postop day #2 status post exploratory laparotomy, gastrostomy tube replacement and repair gastrorrhaphy. Patient lying in bed comfortably. Pain controlled. Denies any nausea or vomiting. PEG tube site to drainage. Bilious output noted. Patient status post PICC line placement. Afebrile. WBC is down from 20-15.7 potassium is 3.2 and being replaced. Sodium 133 phosphorous 1.9 PHYSICAL EXAM: VITAL SIGNS: Reviewed. GENERAL: Well-developed in no acute distress. ABDOMEN: Soft. Nondistended. Incisional dressing clean dry and intact NEUROLOGIC: Alert and oriented. Cranial nerves II through XII grossly intact. ASSESSMENT: 1. Peritonitis and free air status post exploratory laparotomy, gastrostomy tube replacement and repair gastrorrhaphy 2. History of squamous cell carcinoma of the temporal bone with invasion into the dura PLAN: -Patient status post PICC line placement. TPN to be started today for nutrition support. -Keep Gastrostomy tube to drainage -Continue antibiotics -Continue pain management -Continue supportive care -DVT prophylaxis subcu heparin and GI prophylaxis Protonix Physician Director Personal note has been reviewed by physician. Signing provider agrees with the documented findings, assessment, and plan of care. I have personally seen and examined the patient, reviewed the [employer]NAGER /PAs history, exam and MDM and agree with the assessment and plan as written. Based on total visit time, I have performed more than 50% of the visit. As above: Patient doing well today. Pain is less. Gastrostomy with bilious output. PICC line was placed. TPN has been started. Continue antibiotics. Objective - Vital Signs Vital signs: Vital Signs Temp 98 F 06/11/23 08:00 Pulse 81 06/11/23 08:00 Resp 16 06/11/23 08:00 BP 117/69 06/11/23 08:00 Pulse Ox 96 06/11/23 08:00 FiO2 Intake & Output 06/10/23 06/11/23 06/11/23 18:59 06:59 18:59 Intake Total 800 Output Total 700 500 Balance 100 -500 Weight 51.5 kg 56.8 kg 56.8 kg Intake: IV 600 Sodium Chloride 0.9% 1, 600 000 ml @ 75 mls/hr IV . [id number] ONE Rx#:[id number] Intake, IV Titration 200 Amount Sodium Chloride 0.9% 1, 200 000 ml @ 100 mls/hr IV . Q10H [facility] Rx#:[id number] Output: Urine 700 500 Other: Voiding Method Indwelling Catheter Indwelling Catheter Indwelling Catheter - Labs CBC & Chem 7: 06/11/23 04:15 06/11/23 15:50 Labs: Abnormal Lab Results - Last 24 Hours (Table) 06/11/23 06/11/23 06/11/23 Range/Units 04:15 04:15 04:15 WBC 15.7 H (3.8-10.6) k/uL RBC 3.27 L (3.80-5.40) m/uL Hgb 11.1 L (11.4-16.0) gm/dL Hct 33.4 L (34.0-46.0) % MCV 102.3 H (80.0-100.0) fL Sodium 133 L (137-145) mmol/L Potassium 3.2 L (3.5-5.1) mmol/L Carbon Dioxide 21 L (22-30) mmol/L Creatinine 0.50 L (0.52-1.04) mg/dL Glucose 71 L (74-99) mg/dL Calcium 7.9 L (8.4-10.2) mg/dL Phosphorus 1.9 L (2.5-4.5) mg/dL Microbiology - Last 24 Hours (Table) 06/09/23 09:45 Blood Culture - Preliminary Blood 06/09/23 09:30 Blood Culture - Preliminary Blood
[2023-06-11 13:51] LABS: Glucose,Whole Blood 126 mg/dL (70-110)
--- NOTE | 2023-06-11 14:09 | P.PN ---
Subjective Progress Note Date: 06/10/23 Principal diagnosis: Gastric perforation and abdominal abscess Patient is a 73-year female with past medical history significant for squamous cell carcinoma temporal bone with invasion into dura patient did have a PEG tube for feeding and is a longterm resident patient was sent to the ER for evaluation of chills and abdominal pain patient has severe abdominal pelvis PEG tube was retracted did have a laparotomy with evidence of abdominal abscess status post drainage repair of the gastrorrhaphy and placement of a new PEG tube On today's evaluation that is06/10/2023, the patient continues to be afebrile, the patient is breathing comfortably on room air and denies any chest pain or cough, patient abdominal pain has decreased in intensity, denies any nausea/vom iting or diarrhea . Patient white count is slightly up to 20.2 today, creatinine 0.42 Objective - Vital Signs Vital signs: Vital Signs Temp 98.6 F 06/10/23 08:00 Pulse 82 06/10/23 08:00 Resp 10 L 06/10/23 08:00 BP 122/67 06/10/23 08:00 Pulse Ox 94 L 06/10/23 09:12 FiO2 Intake & Output 06/09/23 06/10/23 06/10/23 18:59 06:59 18:59 Intake Total 900 825 Output Total 1120 395 Balance -220 430 Weight 45.359 kg 51.5 kg Intake: IV 900 825 Sodium Chloride 0.9% 1, 825 000 ml @ 75 mls/hr IV . [id number] [facility] Rx#:[id number] Output: Urine 1100 395 Straight 600 Estimated Blood Loss 20 Other: Voiding Method Indwelling Catheter Indwelling Catheter Indwelling Catheter - Exam GENERAL DESCRIPTION: An elderly female lying in bed in no distress RESPIRATORY SYSTEM: Unlabored breathing , clear to auscultation anteriorly HEART: S1 S2 regular rate and rhythm , ABDOMEN: Soft , mild tenderness EXTREMITIES: No edema feet - Labs CBC & Chem 7: 06/11/23 04:15 06/11/23 04:15 Labs: Abnormal Lab Results - Last 24 Hours (Table) 06/09/23 06/10/23 06/10/23 Range/Units 17:14 04:11 04:11 WBC 20.2 H (3.8-10.6) k/uL MCV 102.6 H (80.0-100.0) fL Neutrophils # 19.2 H (1.3-7.7) k/uL Lymphocytes # 0.4 L (1.0-4.8) k/uL Sodium 133 L (137-145) mmol/L BUN 21 H (7-17) mg/dL Creatinine 0.42 L (0.52-1.04) mg/dL POC Glucose (mg/dL) 125 H (70-110) mg/dL Calcium 8.1 L (8.4-10.2) mg/dL Assessment and Plan (1) Intra-abdominal abscess Current Visit: Yes Status: Acute Code(s): K65.1 - PERITONEAL ABSCESS SNOMED Code(s): 76381983 (2) Peritonitis Current Visit: Yes Status: Acute Priority: High Code(s): K65.9 - PER ITONITIS, UNSPECIFIED SNOMED Code(s): 32794685 Plan: 1patient presented to hospital with sepsis in this patient who did have a elevated white count and tachycardia meeting criteria for SIRS source is abdominal in this patient who did have peritonitis from dislodgment of her PEG tube and will need to cover for the enteric gram-negative both aerobes and anaerobes and Gladys Patient to continue Zosyn 3.375 g every 8 hours and Diflucan and monitor clinical course closely Family the bedside questions were answered Dictation was produced using [employer] dictation software. please excuse any grammatical, word or spelling errors. Time with Patient: Less than 30
--- NOTE | 2023-06-11 14:10 | P.PN ---
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 patient did have a PEG tube for feeding and is a residential resident patient was sent to the ER for evaluation of chills and abdominal pain patient has severe abdominal pelvis PEG tube was retracted did have a laparotomy with evidence of abdominal abscess status post drainage repair of the gastrorrhaphy and placement of a new PEG tube On today's evaluation that is 06/11/2023, the patient remains to be afebrile, the patient is breathing comfortably on room air without the need for supplemental oxygen and denies any shortness of breath, the patient denies having any chest pain or cough, patient denies nausea/vomiting /diarrhea and patient abdominal pain has decreased in intensity Patient white count is down to 15.7, creatinine 0.5, blood cultures are pending Objective - Vital Signs Vital signs: Vital Signs Temp 98 F 06/11/23 08:00 Pulse 81 06/11/23 08:00 Resp 16 06/11/23 08:00 BP 117/69 06/11/23 08:00 Pulse Ox 96 06/11/23 08:00 FiO2 Intake & Output 06/10/23 06/11/23 06/11/23 18:59 06:59 18:59 Intake Total 800 Output Total 700 500 Balance 100 -500 Weight 51.5 kg 56.8 kg Intake: IV 600 Sodium Chloride 0.9% 1, 600 000 ml @ 75 mls/hr IV . [id number] [facility] Rx#:[id number] Intake, IV Titration 200 Amount Sodium Chloride 0.9% 1, 200 000 ml @ 100 mls/hr IV . Q10H [facility] Rx#:[id number] Output: Urine 700 500 Other: Voiding Method Indwelling Catheter Indwelling Catheter Indwelling Catheter - Exam GENERAL DESCRIPTION: An elderly female lying in bed in no distress RESPIRATORY SYSTEM: Unlabored breathing , clear to auscultation anteriorly HEART: S1 S2 regular rate and rhythm , ABDOMEN: Soft , mild tenderness EXTREMITIES: No edema feet - Labs CBC & Chem 7: 06/11/23 04:15 06/11/23 04:15 Labs: Abnormal Lab Results - Last 24 Hours (Table) 10/24/23 10/24/23 10/24/23 Range/Units 04:15 04:15 04:15 WBC 15.7 H (3.8-10.6) k/uL RBC 3.27 L (3.80-5.40) m/uL Hgb 11.1 L (11.4-16.0) gm/dL Hct 33.4 L (34.0-46.0) % MCV 102.3 H (80.0-100.0) fL Sodium 133 L (137-145) mmol/L Potassium 3.2 L (3.5-5.1) mmol/L Carbon Dioxide 21 L (22-30) mmol/L Creatinine 0.50 L (0.52-1.04) mg/dL Glucose 71 L (74-99) mg/dL Calcium 7.9 L (8.4-10.2) mg/dL Phosphorus 1.9 L (2.5-4.5) mg/dL Microbiology - Last 24 Hours (Table) 06/09/23 09:45 Blood Culture - Preliminary Blood 06/09/23 09:30 Blood Culture - Preliminary Blood Assessment and Plan (1) Complication of feeding tube Current Visit: Yes Status: Acute Priority: High Code(s): K94.20 - GASTROSTOMY COMPLICATION, UNSPECIFIED SNOMED Code(s): 629149169 (2) Intra-abdominal abscess Current Visit: Yes Status: Acute Code(s): K65.1 - PERITONEAL ABSCESS SNOMED Code(s): 66031768 (3) Peritonitis Current Visit: Yes Status: Acute Priority: High Code(s): K65.9 - PERITONITIS, UNSPECIFIED SNOMED Code(s): 71895714 Plan: 1patient presented to hospital with sepsis in this patient who did have a elevated white count and tachycardia meeting criteria for SIRS source is abdominal in this patient who did have peritonitis from dislodgment of her PEG tube and will need to cover for the enteric gram-negative both aerobes and anaerobes and Gladys 2-patient is afebrile the patient white count is trending down, Patient to continue Zosyn 3.375 g every 8 hours and Diflucan and monitor clinical course closely Dictation was produced using [employer] dictation software. please excuse any grammatical, word or spelling errors. Time with Patient: Less than 30
[2023-06-12] MEDS: FLUCONAZOLE IN NACL,ISO-OSM 200 MG in SALINE 1 100ML.BAG IVPB SCH ×2 (00:52→22:42)
[2023-06-12] MEDS: SODIUM CHLORIDE 0.9% 1,000 ML IV SCH ×2 (00:52→17:18)
--- NOTE | 2023-06-12 07:00 | IR ---
EXAMINATION TYPE: IR cvc insert >=5 years DATE OF EXAM: 06/11/2023 COMPARISON: None HISTORY: TPN ANTIBIOTICS 46CM LEFT BASILIC, no images, done at bedside Fluoroscopy was provided to the referring clinician.
[2023-06-12 08:57] LABS: HCT 31.7 % (34.0-46.0); HGB 10.8 gm/dL (11.4-16.0); MCH 34.2 pg (25.0-35.0); MCV 100.5 fL (80.0-100.0); Macrocytosis Slight; Mean Platelet Volume 7.4; Platelet Count 209 k/uL (150-450); RBC 3.15 m/uL (3.80-5.40); RDW 13.4 % (11.5-15.5); WBC 11.2 k/uL (3.8-10.6)
[2023-06-12] MEDS: PANTOPRAZOLE 40 MG/10 ML VIAL IV SCH (09:28)
[2023-06-12] MEDS: HEPARIN SODIUM,PORCINE 5,000 UNIT/ML 1 ML VIAL SQ SCH ×3 (09:28→22:43)
[2023-06-12] MEDS: PIPERACILLIN-TAZOBACTAM 3.375 GM in SODIUM CHLORIDE 0.9% 100 ML IVPB SCH ×3 (09:29→22:43)
[2023-06-12 11:19] LABS: African American GFR (CKD) >90 (>60 ml/min/1.73 sqM); Anion Gap 3 mmol/L; Blood Urea Nitrogen 10 mg/dL (7-17); Calcium 7.5 mg/dL (8.4-10.2); Carbon Dioxide 25 mmol/L (22-30); Chloride 99 mmol/L (98-107); Glucose 127 mg/dL (74-99); Magnesium 1.9 mg/dL (1.6-2.3); Non-African American GFR(CKD) >90 (>60 ml/min/1.73 sqM); Phosphorus 1.6 mg/dL (2.5-4.5); Potassium 3.4 mmol/L (3.5-5.1); Sodium 127 mmol/L (137-145)
--- NOTE | 2023-06-12 11:23 | P.PN ---
Subjective Progress Note Date: 06/12/23 * 73-year-old patient with past medical history significant for squamous cell carcinoma of temporal bone, with invasion of the due to presented to the emergency department with complaints of abdominal pain. * While in ER patient had a CT abdomen and pelvis obtained which showed gastrostomy tube pulled out of stomach, patient had feeding tube placed 2 weeks prior. * Patient was taken to the OR for exploratory laparotomy gastrostomy tube replacement and repair Gastrografin * Workup initiated in ED include basic metabolic panel which showed, CBC showed a CBC 18.3 hemoglobin 14.7 platelet count 275 * Patient was admitted to ICU, started on IV antibiotics consultations obtained from internal medicine, infectious disease * 06/11/23: Patient seen and evaluated bedside, patient did receive oral care overnight, dry mouth and has improved abdominal pain has improved, just complains of generalized weakness, denies fever, chills abdominal pain is improved * 06/12/23: Patient seen and evaluated bedside patient is alert to person and situation. Will continue with oral care. Patient does complain of mild abdo quin discomfort continue current antibiotic. CBC showed improvement WBC 11.2 trending down hemoglobin 10.8. Blood cultures no growth for 48 hours Objective - Vital Signs Vital signs: Vital Signs Temp 98.5 F 06/12/23 08:00 Pulse 76 06/12/23 08:00 Resp 18 06/12/23 08:00 BP 104/58 06/12/23 08:00 Pulse Ox 96 06/12/23 08:00 FiO2 Intake & Output 06/11/23 06/12/23 06/12/23 18:59 06:59 18:59 Intake Total 2362 Output Total 580 3075 Balance 1782 -3075 Weight 56.8 kg Intake: Intake, IV Titration 2362 Amount Fat Emulsion 20% 250 ml 42 In Empty Bag 1 bag @ 21 mls/hr IV TuFr [facility] Rx#: [id number] Mvi, Adult No.4 with Vit 60 K 10 ml Trace (Conc-1Ml/ Dose) 1 ml In Amino Acid 5%-D15w+Lytes*E* 1,000 ml @ 30 mls/hr IV .Q24H [facility] Rx#:[id number] Sodium Chloride 0.9% 1, 2000 000 ml @ 100 mls/hr IV . Q10H [facility] Rx#:[id number] Sodium Phosphate 30 mmol 260 In Dextrose 5% in Water 250 ml @ 65 mls/hr IVPB ONCE [facility] Rx#:[id number] Output: Gastric Drainage 80 125 Urine 500 2950 Other: Voiding Method Indwelling Catheter Indwelling Catheter Indwelling Catheter - Exam PHYSICAL EXAMINATION: GENERAL: The patient is alert and oriented x3, ill appearance, pale appearance HEENT: Pupils are round and equally reacting to light. EOMI. no oral thrush noted CARDIOVASCULAR: S1 and S2 present. No murmurs, rubs, or gallops. PULMONARY: Chest is clear to auscultation, no wheezing or crackles. ABDOMEN: Soft, gastrostomy tube in place, surgical incision bandage MUSCULOSKELETAL: No joint swelling or deformity. EXTREMITIES: No cyanosis, clubbing, or pedal edema. NEUROLOGICAL: Gross neurological examination did not reveal any focal deficits. - Labs CBC & Chem 7: 06/12/23 08:38 06/11/23 15:50 Labs: Abnormal Lab Results - Last 24 Hours (Table) 06/11/23 06/12/23 Range/Units 13:50 08:38 WBC 11.2 H (3.8-10.6) k/uL RBC 3.15 L (3.80-5.40) m/uL Hgb 10.8 L (11.4-16.0) gm/dL Hct 31.7 L (34.0-46.0) % MCV 100.5 H (80.0-100.0) fL POC Glucose (mg/dL) 126 H (70-110) mg/dL Microbiology - Last 24 Hours (Table) 06/09/23 09:45 Blood Culture - Preliminary Blood 06/09/23 09:30 Blood Culture - Preliminary Blood Assessment and Plan Assessment: Assessment and plan * Dislodged gastrostomy tube with peritonitis * Sepsis secondary to peritonitis * History of squamous cell carcinoma of temporal bone with invasion into dura * Severe protein calorie malnutrition * In regards to dislodged gastrostomy tube, patient is status post exploratory laparotomy postoperative day one, followed by general surgery * In regards to sepsis, blood cultures collected continue patient on IV antibiotics including Zosyn, Diflucan day 4, vancomycin discontinued * In regards to obtain calorie malnutrition number continue patient on IV fluid, TPN initiated, LINE placed * Status is full code
[2023-06-12 11:36] LABS: C Reactive Protein 10.9 mg/dL (<1.0)
[2023-06-12] MEDS: MVI, ADULT NO.4 WITH VIT K 10 ML, TRACE (CONC-1ML/DOSE) 1 ML in AMINO ACID 5%-D15W+LYTE... IV SCH ×3 (12:04)
--- NOTE | 2023-06-12 13:35 | P.PN ---
Subjective Progress Note Date: 06/12/23 CHIEF COMPLAINT: Peritonitis, free air HISTORY OF PRESENT ILLNESS: Patient postop day #3 status post exploratory laparotomy, gastrostomy tube replacement and repair gastrorrhaphy. Patient lying in bed comfortably. Pain controlled. Denies any nausea or vomiting. PEG tube site to drainage. No output currently. Afebrile WBC 11.2 HB 10.8 sodium is 127 potassium 3.4 phosphorus is 1.6 PHYSICAL EXAM: VITAL SIGNS: Reviewed. GENERAL: Well-developed in no acute distress. ABDOMEN: Soft. Nondistended. Incisional dressing clean dry and intact NEUROLOGIC: Alert and oriented. Cranial nerves II through XII grossly intact. ASSESSMENT: 1. Peritonitis and free air status post exploratory laparotomy, gastrostomy tube replacement and repair gastrorrhaphy 2. 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 Electrolyte imbalance PLAN: -Continue TPN for nutrition support -Planning to start tube feeds tomorrow -Pharmacy replacing electrolytes -Keep Gastrostomy tube to drainage -Continue antibiotics -Continue pain management -Continue supportive care -DVT prophylaxis subcu heparin and GI prophylaxis Protonix Physician Regional Vice President Surgical Sales note has been reviewed by physician. Signing provider agrees with the documented findings, assessment, and plan of care. Objective - Vital Signs Vital signs: Vital Signs Temp 98.5 F 06/12/23 08:00 Pulse 76 06/12/23 08:00 Resp 18 06/12/23 08:00 BP 104/58 06/12/23 08:00 Pulse Ox 96 06/12/23 08:00 FiO2 Intake & Output 06/11/23 06/12/23 06/12/23 18:59 06:59 18:59 Intake Total 2362 Output Total 580 3075 Balance 1782 -3075 Weight 56.8 kg Intake: Intake, IV Titration 2362 Amount Fat Emulsion 20% 250 ml 42 In Empty Bag 1 bag @ 21 mls/hr IV TuFr [facility] Rx#: [id number] Mvi, Adult No.4 with Vit 60 K 10 ml Trace (Conc-1Ml/ Dose) 1 ml In Amino Acid 5%-D15w+Lytes*E* 1,000 ml @ 30 mls/hr IV .Q24H [facility] Rx#:[id number] Sodium Chloride 0.9% 1, 2000 000 ml @ 100 mls/hr IV . Q10H [facility] Rx#:[id number] Sodium Phosphate 30 mmol 260 In Dextrose 5% in Water 250 ml @ 65 mls/hr IVPB ONCE [facility] Rx#:[id number] Output: Gastric Drainage 80 125 Urine 500 2950 Other: Voiding Method Indwelling Catheter Indwelling Catheter Indwelling Catheter - Labs CBC & Chem 7: 06/12/23 08:38 06/12/23 08:38 Labs: Abnormal Lab Results - Last 24 Hours (Table) 06/11/23 06/12/23 Range/Units 13:50 08:38 WBC 11.2 H (3.8-10.6) k/uL RBC 3.15 L (3.80-5.40) m/uL Hgb 10.8 L (11.4-16.0) gm/dL Hct 31.7 L (34.0-46.0) % MCV 100.5 H (80.0-100.0) fL POC Glucose (mg/dL) 126 H (70-110) mg/dL Microbiology - Last 24 Hours (Table) 06/09/23 09:45 Blood Culture - Preliminary Blood 06/09/23 09:30 Blood Culture - Preliminary Blood
[2023-06-12] MEDS ORDERED: SODIUM PHOSPHATE 30 MMOL in DEXTROSE 5% IN WATER 250 ML IVPB ONE ×2 (14:00)
[2023-06-12] MEDS: POTASSIUM CHLORIDE 20 MEQ in WATER FOR INJECTION 1 100ML.BAG IVPB SCH ×2 (15:50→17:18)
[2023-06-12] MEDS: HYDROmorphone 0.5 MG/0.5 ML SYRINGE IVP PRN ×2 (15:50→19:57)
[2023-06-13] MEDS: HYDROmorphone 0.5 MG/0.5 ML SYRINGE IVP PRN ×4 (06:28→23:39)
[2023-06-13 08:22] LABS: African American GFR (CKD) >90 (>60 ml/min/1.73 sqM); Anion Gap 3 mmol/L; Blood Urea Nitrogen 10 mg/dL (7-17); Calcium 7.4 mg/dL (8.4-10.2); Carbon Dioxide 25 mmol/L (22-30); Chloride 101 mmol/L (98-107); Glucose 129 mg/dL (74-99); Magnesium 1.9 mg/dL (1.6-2.3); Non-African American GFR(CKD) >90 (>60 ml/min/1.73 sqM); Potassium 3.5 mmol/L (3.5-5.1); Sodium 129 mmol/L (137-145)
[2023-06-13] MEDS: PANTOPRAZOLE 40 MG/10 ML VIAL IV SCH (08:45)
[2023-06-13] MEDS: HEPARIN SODIUM,PORCINE 5,000 UNIT/ML 1 ML VIAL SQ SCH ×3 (08:46→23:40)
[2023-06-13] MEDS: PIPERACILLIN-TAZOBACTAM 3.375 GM in SODIUM CHLORIDE 0.9% 100 ML IVPB SCH ×3 (08:46→23:39)
[2023-06-13] MEDS ORDERED: SODIUM PHOSPHATE 30 MMOL in DEXTROSE 5% IN WATER 250 ML IVPB ONE ×2 (11:00)
[2023-06-13] MEDS: MVI, ADULT NO.4 WITH VIT K 10 ML, TRACE (CONC-1ML/DOSE) 1 ML in AMINO ACID 5%-D15W+LYTE... IV SCH ×3 (11:11)
[2023-06-13 11:42] LABS: Glucose,Whole Blood 114 mg/dL (70-110)
--- NOTE | 2023-06-13 12:01 | P.PN ---
Subjective Progress Note Date: 06/13/23 * 73-year-old patient with past medical history significant for squamous cell carcinoma of temporal bone, with invasion of the due to presented to the emergency department with complaints of abdominal pain. * While in ER patient had a CT abdomen and pelvis obtained which showed gastrostomy tube pulled out of stomach, patient had feeding tube placed 2 weeks prior. * Patient was taken to the OR for exploratory laparotomy gastrostomy tube replacement and repair Gastrografin * Workup initiated in ED include basic metabolic panel which showed, CBC showed a CBC 18.3 hemoglobin 14.7 platelet count 275 * Patient was admitted to ICU, started on IV antibiotics consultations obtained from internal medicine, infectious disease * 06/11/23: Patient seen and evaluated bedside, patient did receive oral care overnight, dry mouth and has improved abdominal pain has improved, just complains of generalized weakness, denies fever, chills abdominal pain is improved * 06/12/23: Patient seen and evaluated bedside patient is alert to person and situation. Will continue with oral care. Patient does complain of mild abdo quin discomfort continue current antibiotic. CBC showed improvement WBC 11.2 trending down hemoglobin 10.8. Blood cultures no growth for 48 hours * 06/13/23: Patient seen and evaluated bedside, patient is alert and oriented 3, patient appears weak however refusing rehab at this point. Will coord inate with patient and case management. Family would want patient to go to rehab. Follow-up on serum chemistry and CBC continue patient on TPN. Continue IV antibiotics Objective - Vital Signs Vital signs: Vital Signs Temp 97.8 F 06/13/23 08:00 Pulse 82 06/13/23 08:00 Resp 18 06/13/23 08:00 BP 111/62 06/13/23 08:00 Pulse Ox 96 06/13/23 08:00 FiO2 Intake & Output 06/12/23 06/13/23 06/13/23 18:59 06:59 18:59 Intake Total 1000 924.667 Output Total 2400 1600 Balance -2400 -600 924.667 Intake: Intake, IV Titration 924.667 Amount Mvi, Adult No.4 with Vit 924.667 K 10 ml Trace (Conc-1Ml/ Dose) 1 ml In Amino Acid 5%-D15w+Lytes*E* 1,000 ml @ 40 mls/hr IV .Q24H [facility] Rx#:[id number] Oral 1000 Output: Urine 2400 1600 Other: Voiding Method Indwelling Catheter Indwelling Catheter Indwelling Catheter - Exam PHYSICAL EXAMINATION: GENERAL: The patient is alert and oriented x3, ill appearance, pale appearance HEENT: Pupils are round and equally reacting to light. EOMI. no oral thrush noted CARDIOVASCULAR: S1 and S2 present. No murmurs, rubs, or gallops. PULMONARY: Chest is clear to auscultation, no wheezing or crackles. ABDOMEN: Soft, gastrostomy tube in place, surgical incision bandage MUSCULOSKELETAL: No joint swelling or deformity. EXTREMITIES: No cyanosis, clubbing, or pedal edema. NEUROLOGICAL: Gross neurological examination did not reveal any focal deficits. - Labs CBC & Chem 7: 06/12/23 08:38 06/13/23 07:27 Labs: Abnormal Lab Results - Last 24 Hours (Table) 06/13/23 06/13/23 Range/Units 07:27 11:41 Sodium 129 L (137-145) mmol/L Creatinine 0.37 L (0.52-1.04) mg/dL Glucose 129 H (74-99) mg/dL POC Glucose (mg/dL) 114 H (70-110) mg/dL Calcium 7.4 L (8.4-10.2) mg/dL Phosphorus 2.0 L (2.5-4.5) mg/dL Microbiology - Last 24 Hours (Table) 06/09/23 09:45 Blood Culture - Preliminary Blood 06/09/23 09:30 Blood Culture - Preliminary Blood Assessment and Plan Assessment: Assessment and plan * Dislodged gastrostomy tube with peritonitis status post exploratory laparotomy * Sepsis secondary to peritonitis * History of squamous cell carcinoma of temporal bone with invasion into dura * Severe protein calorie malnutrition * In regards to dislodged gastrostomy tube, patient is status post exploratory laparotomy , followed by general surgery * In regards to sepsis, blood cultures collected continue patient on IV antibiotics including Zosyn, Diflucan day 5 , vancomycin discontinued * In regards to obtain calorie malnutrition number continue patient on IV fluid, TPN initiated, LINE placed * Patient does have global weakness will benefit from discharge to subacute rehab * Status is full code
--- NOTE | 2023-06-13 12:57 | P.PN ---
Subjective Progress Note Date: 06/13/23 CHIEF COMPLAINT: Peritonitis, free air HISTORY OF PRESENT ILLNESS: Patient postop day #4 status post exploratory laparotomy, gastrostomy tube replacement and repair gastrorrhaphy. Patient lying in bed comfortably. Pain controlled. Denies any nausea or vomiting. PEG tube site to drainage. Small amount of bilious drainage in tube. Afebrile Na 129 K 3.5 Phos 2.0 Mag 1.9 PHYSICAL EXAM: VITAL SIGNS: Reviewed. GENERAL: Well-developed in no acute distress. ABDOMEN: Soft. Nondistended. Incisional dressing clean dry and intact NEUROLOGIC: Alert and oriented. Cranial nerves II through XII grossly intact. ASSESSMENT: 1. Peritonitis and free air status post exploratory laparotomy, gastrostomy tube replacement and repair gastrorrhaphy 2. 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 Electrolyte imbalance PLAN: -Consult dietitian to start tube feeds at 10 mL per hour. Do not advanced tube feeds -Continue TPN for nutrition support -Pharmacy replacing electrolytes -Keep Gastrostomy tube to drainage -Continue antibiotics -Continue pain management -Continue supportive care -pit manager his family meeting today to discuss discharge planning -DVT prophylaxis subcu heparin and GI prophylaxis Protonix Physician Medical Microbiologist note has been reviewed by physician. Signing provider agrees with the documented findings, assessment, and plan of care. I have personally seen and examined the patient, reviewed the MANAGER PROCESS IMPROVEMENT /PAs history, exam and MDM and agree with the assessment and plan as written. Based on total visit time, I have performed more than 50% of the visit. As above: Patient doing well today. Less pain. Begin tube feeds at 10 mL per hour. Dressing with a small amount of bloody drainage superiorly. Will follow. Objective - Vital Signs Vital signs: Vital Signs Temp 97.8 F 06/13/23 08:00 Pulse 82 06/13/23 08:00 Resp 18 06/13/23 08:00 BP 111/62 06/13/23 08:00 Pulse Ox 96 06/13/23 08:00 FiO2 Intake & Output 06/12/23 06/13/23 06/13/23 18:59 06:59 18:59 Intake Total 1000 Output Total 2400 1600 Balance -2400 -600 Intake: Oral 1000 Output: Urine 2400 1600 Other: Voiding Method Indwelling Catheter Indwelling Catheter Indwelling Catheter - Labs CBC & Chem 7: 06/12/23 08:38 06/13/23 07:27 Labs: Abnormal Lab Results - Last 24 Hours (Table) 06/12/23 06/13/23 Range/Units 08:38 07:27 Sodium 127 L 129 L (137-145) mmol/L Potassium 3.4 L (3.5-5.1) mmol/L Creatinine 0.34 L 0.37 L (0.52-1.04) mg/dL Glucose 127 H 129 H (74-99) mg/dL Calcium 7.5 L 7.4 L (8.4-10.2) mg/dL Phosphorus 1.6 L 2.0 L (2.5-4.5) mg/dL C-Reactive Protein 10.9 H (<1.0) mg/dL Microbiology - Last 24 Hours (Table) 06/09/23 09:45 Blood Culture - Preliminary Blood 06/09/23 09:30 Blood Culture - Preliminary Blood
[2023-06-13 18:14] LABS: Glucose,Whole Blood 96 mg/dL (70-110)
[2023-06-13] MEDS: SODIUM CHLORIDE 0.9% 1,000 ML IV SCH ×2 (18:51)
--- NOTE | 2023-06-13 19:48 | P.PN ---
Subjective Progress Note Date: 06/13/23 Principal diagnosis: Peritonitis, Sq cell carcinoma temporal bone In f/u today pt is feeling frustrated, she wants to just sleep for a few days. She thinks she is going to live with her daughter when she is discharged. Objective - Vital Signs Vital signs: Vital Signs Temp 98.0 F 06/13/23 12:00 Pulse 80 06/13/23 12:00 Resp 18 06/13/23 12:00 BP 96/62 06/13/23 12:00 Pulse Ox 96 06/13/23 12:35 FiO2 Intake & Output 06/12/23 06/13/23 06/13/23 18:59 06:59 18:59 Intake Total 1000 924.667 Output Total 2400 1600 600 Balance -2400 -600 324.667 Intake: Intake, IV Titration 924.667 Amount Mvi, Adult No.4 with Vit 924.667 K 10 ml Trace (Conc-1Ml/ Dose) 1 ml In Amino Acid 5%-D15w+Lytes*E* 1,000 ml @ 40 mls/hr IV .Q24H [facility] Rx#:[id number] Oral 1000 Output: Urine 2400 1600 600 Other: Voiding Method Indwelling Catheter Indwelling Catheter Indwelling Catheter - Constitutional General appearance: Present: disheveled, mild distress, thin - EENT Eyes: Present: anicteric sclerae, ptosis ENT: Present: hearing grossly normal - Respiratory Details: weak resp effort, congested cough - Peripheral edema leg Peripheral Edema: bilateral: None - Neurologic Neurologic: Present: focal deficits (from surgery) - Musculoskeletal Musculoskeletal: Present: generalized weakness - Psychiatric Psychiatric Comment(s): mood is irritable Psychiatric: Present: A&O x's 3, intact judgment & insight - Labs CBC & Chem 7: 06/12/23 08:38 06/13/23 07:27 Labs: Abnormal Lab Results - Last 24 Hours (Table) 06/13/23 06/13/23 Range/Units 07:27 11:41 Sodium 129 L (137-145) mmol/L Creatinine 0.37 L (0.52-1.04) mg/dL Glucose 129 H (74-99) mg/dL POC Glucose (mg/dL) 114 H (70-110) mg/dL Calcium 7.4 L (8.4-10.2) mg/dL Phosphorus 2.0 L (2.5-4.5) mg/dL Microbiology - Last 24 Hours (Table) 06/09/23 09:45 Blood Culture - Preliminary Blood 06/09/23 09:30 Blood Culture - Preliminary Blood Assessment and Plan (1) Complication of feeding tube Current Visit: Yes Status: Acute Priority: High Code(s): K94.20 - GASTROSTOMY COMPLICATION, UNSPECIFIED SNOMED Code(s): 942429399 (2) Peritonitis Current Visit: Yes Status: Acute Priority: High Code(s): K65.9 - PERITONITIS, UNSPECIFIED SNOMED Code(s): 42515887 (3) Generalized weakness Current Visit: Yes Status: Acute Priority: High Code(s): R53.1 - WEAKNESS SNOMED Code(s): 56488124 (4) Squamous cell carcinoma of head and neck Current Visit: Yes Status: Acute Priority: High Code(s): C76.0 - MALIGNANT NEOPLASM OF HEAD, FACE AND NECK SNOMED Code(s): 126868951 Plan: Feeding tube complication/peritonitis -Status post surgical intervention for PEG that pulled away from stomach, pneumoperitoneum -Patient doing much better post revision -TPN cont -Defer mgmt to Surgery Generalized weakness -Secondary to poor oral intake, prolonged bed rest. Pt is not wanting to get up today -PT/OT ordered Squamous cell carcinoma of the head and neck -New diagnosis -Pending start of concurrent chemotherapy and radiation. Patient does not need an access device for her weekly chemotherapy as it is not a vessicant -Treatment will be held until patient has had adequate recovery time and rehabilitation, if needed. Pt mentioned she may be going to live with daughter. If pt is no longer going to local told her to let us know so we can get her care transferred to Medical and Radiation Oncology closer to where she will be living. She will let us know.
[2023-06-13] MEDS: FLUCONAZOLE IN NACL,ISO-OSM 200 MG in SALINE 1 100ML.BAG IVPB SCH (23:39)
[2023-06-14 00:08] LABS: Glucose,Whole Blood 87 mg/dL (70-110)
[2023-06-14 05:56] LABS: Glucose,Whole Blood 102 mg/dL (70-110)
[2023-06-14] MEDS: PANTOPRAZOLE 40 MG/10 ML VIAL IV SCH (08:26)
[2023-06-14] MEDS: HEPARIN SODIUM,PORCINE 5,000 UNIT/ML 1 ML VIAL SQ SCH ×3 (08:26→23:08)
[2023-06-14] MEDS: PIPERACILLIN-TAZOBACTAM 3.375 GM in SODIUM CHLORIDE 0.9% 100 ML IVPB SCH ×3 (08:26→23:03)
[2023-06-14 08:38] LABS: Anion Gap 4 mmol/L; Blood Urea Nitrogen 8 mg/dL (7-17); Carbon Dioxide 27 mmol/L (22-30); Chloride 100 mmol/L (98-107); Glucose 112 mg/dL (74-99); Potassium 3.9 mmol/L (3.5-5.1); Sodium 131 mmol/L (137-145)
[2023-06-14 08:39] LABS: African American GFR (CKD) >90 (>60 ml/min/1.73 sqM); Calcium 7.8 mg/dL (8.4-10.2); Magnesium 1.9 mg/dL (1.6-2.3); Non-African American GFR(CKD) >90 (>60 ml/min/1.73 sqM); Phosphorus 2.2 mg/dL (2.5-4.5)
[2023-06-14] MEDS ORDERED: SODIUM PHOSPHATE 15 MMOL in DEXTROSE 5% IN WATER 250 ML IVPB ONE ×2 (10:00)
[2023-06-14] MEDS: SODIUM CHLORIDE 0.9% 1,000 ML IV SCH ×3 (10:42→17:45)
[2023-06-14] MEDS: MVI, ADULT NO.4 WITH VIT K 10 ML, TRACE (CONC-1ML/DOSE) 1 ML in AMINO ACID 5%-D15W+LYTE... IV SCH ×3 (11:26)
--- NOTE | 2023-06-14 11:44 | P.PN ---
Subjective Progress Note Date: 06/14/23 CHIEF COMPLAINT: Peritonitis, free air HISTORY OF PRESENT ILLNESS: Patient postop day #5 status post exploratory laparotomy, gastrostomy tube replacement and repair gastrorrhaphy. Patient lying in bed comfortably. Tube feeds were started yesterday and currently at 10 mL per hour. Patient reports having flatus. He denies any bowel movement. Afebrile. Sodium 131 potassium 3.9 and creatinine 0.6 PHYSICAL EXAM: VITAL SIGNS: Reviewed. GENERAL: Well-developed in no acute distress. ABDOMEN: Soft. Nondistended. Incision site clean dry and intact. PEG tube site clean dry and intact. Patient receiving tube feeds. NEUROLOGIC: Alert and oriented. Cranial nerves II through XII grossly intact. ASSESSMENT: 1. Peritonitis and free air status post exploratory laparotomy, gastrostomy tube replacement and repair gastrorrhaphy 2. 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 Advancement of tube feeds will be ordered by Dr. Obrien -Continue TPN for nutrition support until tube feeds can be increased -Continue antibiotics -Continue pain management -Continue supportive care -gis manager working on discharge planning to ECF -DVT prophylaxis subcu heparin and GI prophylaxis Protonix Physician Fashion Marketer note has been reviewed by physician. Signing provider agrees with the documented findings, assessment, and plan of care. I have personally seen and examined the patient, reviewed the PHYSICIAN LIAISON /PAs history, exam and MDM and agree with the assessment and plan as written. Based on total visit time, I have performed more than 50% of the visit. As above: Patient doing well today. No pain. Tolerating tube feeds at 10 mL/h. Will increase tube feeds to 20. Continue TPN. We'll consult speech pathology for bedside swallow evaluation. May begin diet if she passes. Continue antibiotics. Anticipate transfer to ECF on Saturday. Objective - Vital Signs Vital signs: Vital Signs Temp 98 F 06/14/23 08:20 Pulse 84 06/14/23 08:20 Resp 18 06/14/23 08:20 BP 99/56 06/14/23 08:20 Pulse Ox 95 06/14/23 08:27 FiO2 21 06/14/23 08:27 Intake & Output 06/13/23 06/14/23 06/14/23 18:59 06:59 18:59 Intake Total 924.667 Output Total 1400 1600 Balance -475.333 -1600 Weight 56.8 kg Intake: Intake, IV Titration 924.667 Amount Mvi, Adult No.4 with Vit 924.667 K 10 ml Trace (Conc-1Ml/ Dose) 1 ml In Amino Acid 5%-D15w+Lytes*E* 1,000 ml @ 40 mls/hr IV .Q24H [facility] Rx#:[id number] Output: Urine 1400 1600 Straight 800 Uretheral (Sher) 400 Other: Voiding Method Indwelling Catheter External Catheter External Catheter - Labs CBC & Chem 7: 06/12/23 08:38 06/14/23 07:20 Labs: Abnormal Lab Results - Last 24 Hours (Table) 06/13/23 06/14/23 Range/Units 11:41 07:20 Sodium 131 L (137-145) mmol/L Creatinine 0.36 L (0.52-1.04) mg/dL Glucose 112 H (74-99) mg/dL POC Glucose (mg/dL) 114 H (70-110) mg/dL Calcium 7.8 L (8.4-10.2) mg/dL Phosphorus 2.2 L (2.5-4.5) mg/dL
[2023-06-14 12:06] LABS: Glucose,Whole Blood 167 mg/dL (70-110)
--- NOTE | 2023-06-14 12:18 | P.PN ---
Subjective Progress Note Date: 06/12/23 Principal diagnosis: Gastric perforation and abdominal abscess Patient is a 73-year female with past medical history significant for squamous cell carcinoma temporal bone with invasion into dura patient did have a PEG tube for feeding and is a [facility] resident patient was sent to the ER for evaluation of chills and abdominal pain patient has severe abdominal pelvis PEG tube was retracted did have a laparotomy with evidence of abdominal abscess status post drainage repair of the gastrorrhaphy and placement of a new PEG tube On today's evaluation that is 06/12/2023, the patient denies any fever and chills, the patient is breathing comfortably on room air and denies any shortness of breath, the patient denies having any chest pain or cough, patient has decreased in intensity Abdominal pain, nausea/vomiting /diarrhea Patient white count is down to 11.2, creatinine 0.34, blood cultures are so far negative Objective - Vital Signs Vital signs: Vital Signs Temp 98.5 F 06/12/23 08:00 Pulse 76 06/12/23 08:00 Resp 18 06/12/23 08:00 BP 104/58 06/12/23 08:00 Pulse Ox 96 06/12/23 08:00 FiO2 Intake & Output 06/11/23 06/12/23 06/12/23 18:59 06:59 18:59 Intake Total 2362 Output Total 580 3075 Balance 1782 -3075 Weight 56.8 kg Intake: Intake, IV Titration 2362 Amount Fat Emulsion 20% 250 ml 42 In Empty Bag 1 bag @ 21 mls/hr IV TuFr [facility] Rx#: [id number] Mvi, Adult No.4 with Vit 60 K 10 ml Trace (Conc-1Ml/ Dose) 1 ml In Amino Acid 5%-D15w+Lytes*E* 1,000 ml @ 30 mls/hr IV .Q24H [facility] Rx#:[id number] Sodium Chloride 0.9% 1, 2000 000 ml @ 100 mls/hr IV . Q10H [facility] Rx#:[id number] Sodium Phosphate 30 mmol 260 In Dextrose 5% in Water 250 ml @ 65 mls/hr IVPB [facility] Rx#:[id number] Output: Gastric Drainage 80 125 Urine 500 2950 Other: Voiding Method Indwelling Catheter Indwelling Catheter Indwelling Catheter - Exam GENERAL DESCRIPTION: An elderly female lying in bed in no distress RESPIRATORY SYSTEM: Unlabored breathing , clear to auscultation anteriorly HEART: S1 S2 regular rate and rhythm , ABDOMEN: Soft , mild tenderness EXTREMITIES: No edema feet - Labs CBC & Chem 7: 06/12/23 08:38 06/14/23 07:20 Labs: Abnormal Lab Results - Last 24 Hours (Table) 06/11/23 06/12/23 06/12/23 Range/Units 13:50 08:38 08:38 WBC 11.2 H (3.8-10.6) k/uL RBC 3.15 L (3.80-5.40) m/uL Hgb 10.8 L (11.4-16.0) gm/dL Hct 31.7 L (34.0-46.0) % MCV 100.5 H (80.0-100.0) fL Sodium 127 L (137-145) mmol/L Potassium 3.4 L (3.5-5.1) mmol/L Creatinine 0.34 L (0.52-1.04) mg/dL Glucose 127 H (74-99) mg/dL POC Glucose (mg/dL) 126 H (70-110) mg/dL Calcium 7.5 L (8.4-10.2) mg/dL Phosphorus 1.6 L (2.5-4.5) mg/dL C-Reactive Protein 10.9 H (<1.0) mg/dL Microbiology - Last 24 Hours (Table) 06/09/23 09:45 Blood Culture - Preliminary Blood 06/09/23 09:30 Blood Culture - Preliminary Blood Assessment and Plan (1) Complication of feeding tube Current Visit: Yes Status: Acute Priority: High Code(s): K94.20 - GASTR OSTOMY COMPLICATION, UNSPECIFIED SNOMED Code(s): 626159145 (2) Intra-abdominal abscess Current Visit: Yes Status: Acute Code(s): K65.1 - PERITONEAL ABSCESS SNOME D Code(s): 86917331 (3) Peritonitis Current Visit: Yes Status: Acute Priority: High Code(s): K65.9 - PERITONITIS, UNSPECIFIED SNOMED Code(s): 43349332 Plan: 1patient presented to hospital with sepsis in this patient who did have a elevated white count and tachycardia meeting criteria for SIRS source is ab dominal in this patient who did have peritonitis from dislodgment of her PEG tube and will need to cover for the enteric gram-negative both aerobes and anaerobes and Gladys 2-patient is afebrile the patient white count is trending down, Patient to continue Zosyn 3.375 g every 8 hours and Diflucan and the patient benefit from continuation of IV antibiotics on discharge this was discussed with the rn case manager Dictation was produced using [email or web address] dictation software. please excuse any grammatical, word or spelling errors. Time with Patient: Less than 30
--- NOTE | 2023-06-14 12:19 | P.PN ---
Subjective Progress Note Date: 06/13/23 Principal diagnosis: Gastric perforation and abdominal abscess Patient is a 73-year female with past medical history significant for squamous cell carcinoma temporal bone with invasion into dura patient did have a PEG tube for feeding and is a jail resident patient was sent to the ER for evaluation of chills and abdominal pain patient has severe abdominal pelvis PEG tube was retracted did have a laparotomy with evidence of abdominal abscess status post drainage repair of the gastrorrhaphy and placement of a new PEG tube On today's evaluation that is 06/13/2023, the patient continues to be afebrile, the patient is breathing comfortably on room air, the patient denies any chest pain or cough, patient denies abdominal pain, and denies any nausea/vomiting or diarrhea Patient white count is down to 11.2 as of yesterday, creatinine 0.37, blood cultures are pending Objective - Vital Signs Vital signs: Vital Signs Temp 98.1 F 06/12/23 20:00 Pulse 86 06/13/23 04:00 Resp 16 06/13/23 04:00 BP 104/64 06/13/23 04:00 Pulse Ox 96 06/13/23 04:00 FiO2 Intake & Output 06/12/23 06/13/23 06/13/23 18:59 06:59 18:59 Intake Total 1000 Output Total 2400 1600 Balance -2400 -600 Intake: Oral 1000 Output: Urine 2400 1600 Other: Voiding Method Indwelling Catheter Indwelling Catheter - Exam GENERAL DESCRIPTION: An elderly female lying in bed in no distress RESPIRATORY SYSTEM: Unlabored breathing , clear to auscultation anteriorly HEART: S1 S2 regular rate and rhythm , ABDOMEN: Soft , mild tenderness EXTREMITIES: No edema feet - Labs CBC & Chem 7: 06/12/23 08:38 06/14/23 07:20 Labs: Abnormal Lab Results - Last 24 Hours (Table) 06/12/23 06/13/23 Range/Units 08:38 07:27 Sodium 127 L 129 L (137-145) mmol/L Potassium 3.4 L (3.5-5.1) mmol/L Creatinine 0.34 L 0.37 L (0.52-1.04) mg/dL Glucose 127 H 129 H (74-99) mg/dL Calcium 7.5 L 7.4 L (8.4-10.2) mg/dL Phosphorus 1.6 L 2.0 L (2.5-4.5) mg/dL C-Reactive Protein 10.9 H (<1.0) mg/dL Microbiology - Last 24 Hours (Table) 06/09/23 09:45 Blood Culture - Preliminary Blood 06/09/23 09:30 Blood Culture - Preliminary Blood Assessment and Plan (1) Complication of feeding tube Current Visit: Yes Status: Acute Priority: High Code(s): K94.20 - GASTROSTOMY COMPLICATION, UNSPECIFIED SNOMED Code(s): 117214399 (2) Intra-abdominal abscess Current Visit: Yes Status: Acute Code(s): K65.1 - PERITONEAL ABSCESS SNOMED Code(s): 68396507 (3) Peritonitis Current Visit: Yes Status: Acute Priority: High Code(s): K65.9 - PERITONITIS, UNSPECIFIED SNOMED Code(s): 10405847 Plan: 1patient presented to hospital with sepsis in this patient who did have a elevated white count and tachycardia meeting criteria for SIRS source is abdominal in this patient who did have peritonitis from dislodgment of her PEG tube and will need to cover for the enteric gram-negative both aerobes and anaerobes and Gladys 2-patient is afebrile the patient white count is trending down 3- Patient to continue Zosyn 3.375 g every 8 hours and Diflucan 2 week on discharge Dictation was produced using [employer] dictation software. please excuse any grammatical, word or spelling errors. Time with Patient: Less than 30
--- NOTE | 2023-06-14 12:20 | P.PN ---
Subjective Progress Note Date: 06/14/23 Principal diagnosis: Gastric perforation and abdominal abscess Patient is a 73-year female with past medical history significant for squamous cell carcinoma temporal bone with invasion into dura patient did have a PEG tube for feeding and is a long term resident patient was sent to the ER for evaluation of chills and abdominal pain patient has severe abdominal pelvis PEG tube was retracted did have a laparotomy with evidence of abdominal abscess status post drainage repair of the gastrorrhaphy and placement of a new PEG tube On today's evaluation that is 06/14/2023, the patient denies any fever or any chills, the patient is breathing comfortably on room air, the patient denies any chest pain or cough, patient denies abdominal pain, and denies any nausea/vom iting or diarrhea, patient did have urinary retention requiring reinsertion of Sher catheter Patient white count is down to 11.2 as of 06/12/2023, creatinine 0.36, blood cultures are so far negative Objective - Vital Signs Vital signs: Vital Signs Temp 98 F 06/14/23 08:20 Pulse 84 06/14/23 08:20 Resp 18 06/14/23 08:20 BP 99/56 06/14/23 08:20 Pulse Ox 95 06/14/23 08:27 FiO2 21 06/14/23 08:27 Intake & Output 06/13/23 06/14/23 06/14/23 18:59 06:59 18:59 Intake Total 924.667 Output Total 1400 1600 Balance -475.333 -1600 Weight 56.8 kg Intake: Intake, IV Titration 924.667 Amount Mvi, Adult No.4 with Vit 924.667 K 10 ml Trace (Conc-1Ml/ Dose) 1 ml In Amino Acid 5%-D15w+Lytes*E* 1,000 ml @ 40 mls/hr IV .Q24H [facility] Rx#:[id number] Output: Urine 1400 1600 Straight 800 Uretheral (Sher) 400 Other: Voiding Method Indwelling Catheter External Catheter External Catheter - Exam GENERAL DESCRIPTION: An elderly female lying in bed in no distress RESPIRATORY SYSTEM: Unlabored breathing , clear to auscultation anteriorly HEART: S1 S2 regular rate and rhythm , ABDOMEN: Soft , mild tenderness EXTREMITIES: No edema feet - Labs CBC & Chem 7: 06/12/23 08:38 06/14/23 07:20 Labs: Abnormal Lab Results - Last 24 Hours (Table) 06/13/23 06/14/23 Range/Units 11:41 07:20 Sodium 131 L (137-145) mmol/L Creatinine 0.36 L (0.52-1.04) mg/dL Glucose 112 H (74-99) mg/dL POC Glucose (mg/dL) 114 H (70-110) mg/dL Calcium 7.8 L (8.4-10.2) mg/dL Phosphorus 2.2 L (2.5-4.5) mg/dL Assessment and Plan (1) Complication of feeding tube Current Visit: Yes Status: Acute Priority: High Code(s): K94.20 - GASTROSTOMY COMPLICATION, UNSPECIFIED SNOMED Code(s): 922268446 (2) Intra-abdominal abscess Current Visit: Yes Status: Acute Code(s): K65.1 - PERITONEAL ABSCESS SNOMED Code(s): 40632626 (3) Peritonitis Current Visit: Yes Status: Acute Priority: High Code(s): K65.9 - PERITONITIS, UNSPECIFIED SNOMED Code(s): 93453184 Plan: 1patient presented to hospital with sepsis in this patient who did have a elevated white count and tachycardia meeting criteria for SIRS source is abdominal in this patient who did have peritonitis from dislodgment of her PEG tube and will need to cover for the enteric gram-negative both aerobes and anaerobes and Gladys 2-patient is afebrile the patient white count is trending down, we will repeat a CBC with a.m. lab 3- Patient to continue Zosyn 3.375 g every 8 hours and Diflucan and monitor clinical course closely Dictation was produced using [employer] dictation software. please excuse any grammatical, word or spelling errors. Time with Patient: Less than 30
--- NOTE | 2023-06-14 15:38 | P.PN ---
Subjective Progress Note Date: 06/14/23 73-year-old patient with past medical history significant for squamous cell carcinoma of temporal bone, with invasion of the due to presented to the emergency department with complaints of abdominal pain. * While in ER patient had a CT abdomen and pelvis obtained which showed gastrostomy tube pulled out of stomach, patient had feeding tube placed 2 weeks prior. * Patient was taken to the OR for exploratory laparotomy gastrostomy tube replacement and repair Gastrografin * Workup initiated in ED include basic metabolic panel which showed, CBC showed a CBC 18.3 hemoglobin 14.7 platelet count 275 * Patient was admitted to ICU, started on IV antibiotics consultations obtained from internal medicine, infectious disease * 06/11/23: Patient seen and evaluated bedside, patient did receive oral care overnight, dry mouth and has improved abdominal pain has improved, just complains of generalized weakness, denies fever, chills abdominal pain is improved * 06/12/23: Patient seen and evaluated bedside patient is alert to person and situation. Will continue with oral care. Patient does complain of mild abdominal discomfort continue current antibiotic. CBC showed improvement WBC 11.2 trending down hemoglobin 10.8. Blood cultures no growth for 48 hours * 06/13/23: Patient seen and evaluated bedside, patient is alert and oriented 3, patient appears weak however refusing rehab at this point. Will coordin ate with patient and case management. Family would want patient to go to rehab. Follow-up on serum chemistry and CBC continue patient on TPN. Continue IV antibiotics 06/14. Patient seen and examined. Currently on TPN and IV antibiotics. REVIEW OF SYSTEMS: CONSTITUTIONAL: No fever, no malaise,. CARDIOVASCULAR: No chest pain, no palpitations, no syncope. PULMONARY: No shortness of breath, no cough, GASTROINTESTINAL: No diarrhea, no nausea, no vomiting, no abdominal pain. NEUROLOGICAL: No headaches, no weakness, PHYSICAL EXAMINATION: GENERAL: The patient is alert and oriented x3, not in any acute distress. Chronically ill-looking HEENT: Pupils are round and equally reacting to light. EOMI. No scleral icterus. No conjunctival pallor. Normocephalic, atraumatic. No pharyngeal erythema. No thyromegaly. CARDIOVASCULAR: S1 and S2 present. No murmurs, rubs, or gallops. PULMONARY: Chest is clear to auscultation, no wheezing or crackles. ABDOMEN: Soft, nontender, surgical incision seen, PEG tube seen MUSCULOSKELETAL: No joint swelling or deformity. EXTREMITIES: No cyanosis, clubbing, or pedal edema. NEUROLOGICAL: Gross neurological examination did not reveal any focal deficits. SKIN: No rashes. Assessment and plan Dislodged gastrostomy tube with peritonitis status post exploratory laparotomy * Sepsis secondary to peritonitis * History of squamous cell carcinoma of temporal bone with invasion into dura * Severe protein calorie malnutrition Monitor vital signs Monitor CBC Monitor CMP In regards to dislodged gastrostomy tube,status post exploratory laparotomy , continue TPN In regards to sepsis, blood cultures collected continue patient on IV antibiotics including Zosyn, Diflucan day 5 , ID following Labs and medication were reviewed.. Continue same treatment. Continue with symptomatic treatment. Resume home medication. Monitor labs and vitals. DVT and GI prophylaxis. Further recommendations as per clinical course of the patient Dictation was produced using [employer] dictation software. please excuse any grammatical, word or spelling errors. Objective - Vital Signs Vital signs: Vital Signs Temp 98.8 F 06/14/23 11:20 Pulse 88 06/14/23 11:20 Resp 18 06/14/23 11:20 BP 98/63 06/14/23 11:20 Pulse Ox 96 06/14/23 11:20 FiO2 21 06/14/23 08:27 Intake & Output 06/13/23 06/14/23 06/14/23 18:59 06:59 18:59 Intake Total 924.667 970 Output Total 1400 1600 Balance -475.333 -1600 970 Weight 56.8 kg 56.8 kg Intake: Intake, IV Titration 924.667 970 Amount Mvi, Adult No.4 with Vit 924.667 970 K 10 ml Trace (Conc-1Ml/ Dose) 1 ml In Amino Acid 5%-D15w+Lytes*E* 1,000 ml @ 40 mls/hr IV .Q24H [facility] Rx#:[id number] Output: Urine 1400 1600 Straight 800 Uretheral (Sher) 400 Other: Voiding Method Indwelling Catheter External Catheter External Catheter - Labs CBC & Chem 7: 06/12/23 08:38 06/14/23 07:20 Labs: Abnormal Lab Results - Last 24 Hours (Table) 10/27/23 10/27/23 Range/Units 07:20 12:04 Sodium 131 L (137-145) mmol/L Creatinine 0.36 L (0.52-1.04) mg/dL Glucose 112 H (74-99) mg/dL POC Glucose (mg/dL) 167 H (70-110) mg/dL Calcium 7.8 L (8.4-10.2) mg/dL Phosphorus 2.2 L (2.5-4.5) mg/dL
[2023-06-14] MEDS: FAT EMULSION 20% 250 ML in EMPTY BAG 1 BAG IV SCH (16:44)
[2023-06-14] MEDS: HYDROmorphone 0.5 MG/0.5 ML SYRINGE IVP PRN ×2 (17:40→22:53)
[2023-06-14 18:03] LABS: Glucose,Whole Blood 131 mg/dL (70-110)
[2023-06-14] MEDS: FLUCONAZOLE IN NACL,ISO-OSM 200 MG in SALINE 1 100ML.BAG IVPB SCH (23:08)
[2023-06-15 00:07] LABS: Glucose,Whole Blood 137 mg/dL (70-110)
[2023-06-15] MEDS: HYDROmorphone 0.5 MG/0.5 ML SYRINGE IVP PRN ×4 (03:31→21:28)
[2023-06-15] MEDS: SODIUM CHLORIDE 0.9% 1,000 ML IV SCH ×2 (03:31→13:07)
[2023-06-15 06:10] LABS: Glucose,Whole Blood 135 mg/dL (70-110)
[2023-06-15] MEDS: HEPARIN SODIUM,PORCINE 5,000 UNIT/ML 1 ML VIAL SQ SCH ×3 (08:35→23:16)
[2023-06-15] MEDS: PANTOPRAZOLE 40 MG/10 ML VIAL IV SCH (08:35)
[2023-06-15] MEDS: PIPERACILLIN-TAZOBACTAM 3.375 GM in SODIUM CHLORIDE 0.9% 100 ML IVPB SCH ×3 (08:35→23:16)
[2023-06-15] MEDS: TAMSULOSIN 0.4 MG CAP.ER.24H PO SCH (08:35)
[2023-06-15] MEDS: MVI, ADULT NO.4 WITH VIT K 10 ML, TRACE (CONC-1ML/DOSE) 1 ML in AMINO ACID 5%-D15W+LYTE... IV SCH ×3 (09:25)
[2023-06-15 09:35] LABS: Basophils % (A) 0 %; Eosinophils # (A) 0.4 k/uL (0-0.7); Eosinophils % (A) 5 %; HGB 10.9 gm/dL (11.4-16.0); Lymphocytes # (A) 0.8 k/uL (1.0-4.8); Lymphocytes % (A) 8 %; MCH 36.4 pg (25.0-35.0); MCHC 35.1 g/dL (31.0-37.0); MCV 103.7 fL (80.0-100.0); Macrocytosis Slight; Mean Platelet Volume 7.5; Monocytes # (A) 0.3 k/uL (0-1.0); Monocytes % (A) 3 %; Neutrophils # (A) 7.4 k/uL (1.3-7.7); Neutrophils % (A) 82 %; Platelet Count 232 k/uL (150-450); RBC 2.99 m/uL (3.80-5.40); RDW 13.5 % (11.5-15.5)
--- NOTE | 2023-06-15 09:45 | P.PN ---
Subjective Progress Note Date: 06/15/23 Principal diagnosis: patient is a 73-year-old female noted to have free air and peritonitis. patient is postop day 6 exploratory laparotomy with gastrorrhaphy and placement of PEG tube. Patient currently resting quietly with no abdominal complaints. Tube feeds are Jevity 1. 5 running at 30 mL per hour. Objective - Vital Signs Vital signs: Vital Signs Temp 97.0 F L 06/15/23 04:00 Pulse 85 06/15/23 04:00 Resp 18 06/15/23 04:00 BP 89/52 06/15/23 04:00 Pulse Ox 96 06/15/23 04:00 FiO2 21 06/14/23 08:27 Intake & Output 06/14/23 06/15/23 06/15/23 18:59 06:59 18:59 Intake Total 970 879.333 Output Total 700 Balance 270 879.333 Weight 56.8 kg Intake: Intake, IV Titration 970 879.333 Amount Mvi, Adult No.4 with Vit 970 879.333 K 10 ml Trace (Conc-1Ml/ Dose) 1 ml In Amino Acid 5%-D15w+Lytes*E* 1,000 ml @ 40 mls/hr IV .Q24H [facility] Rx#:[id number] Output: Urine 700 Other: Voiding Method External Catheter - Constitutional Constitutional Comment(s): resting quietly, no acute distress - Respiratory Details: nonlabored respirations - Cardiovascular Details: the other rate and rhythm - Gastrointestinal Gastrointestinal Comment(s): abdomen is flat, soft, incision site clean and dry without evidence of infectio n, PEG site appears good. - Labs CBC & Chem 7: 06/12/23 08:38 06/14/23 07:20 Labs: Abnormal Lab Results - Last 24 Hours (Table) 06/14/23 06/14/23 06/14/23 Range/Units 12:04 18:01 23:52 POC Glucose (mg/dL) 167 H 131 H 137 H (70-110) mg/dL 06/15/23 Range/Units 06:07 POC Glucose (mg/dL) 135 H (70-110) mg/dL Microbiology - Last 24 Hours (Table) 06/09/23 09:45 Blood Culture - Final Blood 06/09/23 09:30 Blood Culture - Final Blood Assessment and Plan Assessment: 73-year-old female postop day 6 laparotomy with new PEG tube placement. Patient tolerating tube feeds well, consider weaning TPN soon. Time with Patient: Less than 30
[2023-06-15 09:50] LABS: African American GFR (CKD) >90 (>60 ml/min/1.73 sqM); Anion Gap 6 mmol/L; Blood Urea Nitrogen 12 mg/dL (7-17); Calcium 7.4 mg/dL (8.4-10.2); Carbon Dioxide 24 mmol/L (22-30); Chloride 103 mmol/L (98-107); Glucose 122 mg/dL (74-99); Magnesium 1.9 mg/dL (1.6-2.3); Non-African American GFR(CKD) >90 (>60 ml/min/1.73 sqM); Phosphorus 2.1 mg/dL (2.5-4.5); Potassium 3.6 mmol/L (3.5-5.1); Sodium 133 mmol/L (137-145)
[2023-06-15] MEDS ORDERED: POTASSIUM CHLORIDE 10 MEQ in WATER FOR INJECTION 1 100ML.BAG IVPB STA (10:39)
[2023-06-15] MEDS ORDERED: SODIUM PHOSPHATE 30 MMOL in DEXTROSE 5% IN WATER 250 ML IVPB ONE ×2 (11:00)
[2023-06-15 11:34] LABS: Glucose,Whole Blood 119 mg/dL (70-110)
--- NOTE | 2023-06-15 13:06 | P.PN ---
Subjective Progress Note Date: 06/15/23 73-year-old patient with past medical history significant for squamous cell carcinoma of temporal bone, with invasion of the due to presented to the emergency department with complaints of abdominal pain. * While in ER patient had a CT abdomen and pelvis obtained which showed gastrostomy tube pulled out of stomach, patient had feeding tube placed 2 weeks prior. * Patient was taken to the OR for exploratory laparotomy gastrostomy tube replacement and repair Gastrografin * Workup initiated in ED include basic metabolic panel which showed, CBC showed a CBC 18.3 hemoglobin 14.7 platelet count 275 * Patient was admitted to ICU, started on IV antibiotics consultations obtained from internal medicine, infectious disease * 06/11/23: Patient seen and evaluated bedside, patient did receive oral care overnight, dry mouth and has improved abdominal pain has improved, just complains of generalized weakness, denies fever, chills abdominal pain is improved * 06/12/23: Patient seen and evaluated bedside patient is alert to person and situation. Will continue with oral care. Patient does complain of mild abdominal discomfort continue current antibiotic. CBC showed improvement WBC 11.2 trending down hemoglobin 10.8. Blood cultures no growth for 48 hours * 06/13/23: Patient seen and evaluated bedside, patient is alert and oriented 3, patient appears weak however refusing rehab at this point. Will coordin ate with patient and case management. Family would want patient to go to rehab. Follow-up on serum chemistry and CBC continue patient on TPN. Continue IV antibiotics 06/14. Patient seen and examined. Currently on TPN and IV antibiotics. 06/15. Patient seen and examined. States she feels better. Denies any abdominal pain. Denies any nausea or vomiting REVIEW OF SYSTEMS: CONSTITUTIONAL: No fever, no malaise,. CARDIOVASCULAR: No chest pain, no palpitations, no syncope. PULMONARY: No shortness of breath, no cough, GASTROINTESTINAL: As mentioned above NEUROLOGICAL: No headaches, no weakness, PHYSICAL EXAMINATION: GENERAL: The patient is alert and oriented x3, not in any acute distress. Chronically ill-looking HEENT: Pupils are round and equally reacting to light. EOMI. No scleral icterus. No conjunctival pallor. Normocephalic, atraumatic. No pharyngeal erythema. No thyromegaly. CARDIOVASCULAR: S1 and S2 present. No murmurs, rubs, or gallops. PULMONARY: Chest is clear to auscultation, no wheezing or crackles. ABDOMEN: Soft, nontender, surgical incision seen, PEG tube seen MUSCULOSKELETAL: No joint swelling or deformity. EXTREMITIES: No cyanosis, clubbing, or pedal edema. NEUROLOGICAL: Gross neurological examination did not reveal any focal deficits. SKIN: No rashes. 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 surgery following Labs and medication were reviewed.. Continue same treatment. Continue with symptomatic treatment. Resume home medication. Monitor labs and vitals. DVT and GI prophylaxis. Further recommendations as per clinical course of the patient Dictation was produced using [employer] dictation software. please excuse any grammatical, word or spelling errors. Objective - Vital Signs Vital signs: Vital Signs Temp 98.6 F 06/15/23 11:59 Pulse 88 06/15/23 11:59 Resp 16 06/15/23 11:59 BP 108/69 06/15/23 11:59 Pulse Ox 97 06/15/23 11:59 FiO2 21 06/14/23 08:27 Intake & Output 06/14/23 06/15/23 06/15/23 18:59 06:59 18:59 Intake Total 970 1119.333 Output Total 700 500 Balance 270 619.333 Weight 56.8 kg Intake: Intake, IV Titration 970 879.333 Amount Mvi, Adult No.4 with Vit 970 879.333 K 10 ml Trace (Conc-1Ml/ Dose) 1 ml In Amino Acid 5%-D15w+Lytes*E* 1,000 ml @ 40 mls/hr IV .Q24H [facility] Rx#:[id number] Oral 240 Output: Urine 700 500 Other: Voiding Method External Catheter External Catheter - Labs CBC & Chem 7: 06/15/23 08:15 06/15/23 08:15 Labs: Abnormal Lab Results - Last 24 Hours (Table) 1006/14/23 06/15/23 Range/Units 18:01 23:52 06:07 RBC (3.80-5.40) m/uL Hgb (11.4-16.0) gm/dL Hct (34.0-46.0) % MCV (80.0-100.0) fL MCH (25.0-35.0) pg Lymphocytes # (1.0-4.8) k/uL Sodium (137-145) mmol/L Creatinine (0.52-1.04) mg/dL Glucose (74-99) mg/dL POC Glucose (mg/dL) 131 H 137 H 135 H (70-110) mg/dL Calcium (8.4-10.2) mg/dL Phosphorus (2.5-4.5) mg/dL 06/15/23 06/15/23 06/15/23 Range/Units 08:15 08:15 11:32 RBC 2.99 L (3.80-5.40) m/uL Hgb 10.9 L (11.4-16.0) gm/dL Hct 31.0 L (34.0-46.0) % MCV 103.7 H (80.0-100.0) fL MCH 36.4 H (25.0-35.0) pg Lymphocytes # 0.8 L (1.0-4.8) k/uL Sodium 133 L (137-145) mmol/L Creatinine 0.29 L (0.52-1.04) mg/dL Glucose 122 H (74-99) mg/dL POC Glucose (mg/dL) 119 H (70-110) mg/dL Calcium 7.4 L (8.4-10.2) mg/dL Phosphorus 2.1 L (2.5-4.5) mg/dL Microbiology - Last 24 Hours (Table) 06/09/23 09:45 Blood Culture - Final Blood 06/09/23 09:30 Blood Culture - Final Blood
--- NOTE | 2023-06-15 13:32 | P.PN ---
Subjective Progress Note Date: 06/15/23 Principal diagnosis: Gastric perforation and abdominal abscess Patient is a 73-year female with past medical history significant for squamous cell carcinoma temporal bone with invasion into dura patient did have a PEG tube for feeding and is a [facility] resident patient was sent to the ER for evaluation of chills and abdominal pain patient has severe abdominal pelvis PEG tube was retracted did have a laparotomy with evidence of abdominal abscess status post drainage repair of the gastrorrhaphy and placement of a new PEG tube On today's evaluation that is 06/15/2023, the patient remains to be afebrile, the patient is breathing comfortably on room air and denies any shortness of breath, the patient denies any chest pain or cough, patient denies Abdominal pain and no nausea/vomiting or diarrhea Patient white count is normalized to 9.0, creatinine 0.29, blood cultures are so far negative Objective - Vital Signs Vital signs: Vital Signs Temp 98.6 F 06/15/23 11:59 Pulse 88 06/15/23 11:59 Resp 16 06/15/23 11:59 BP 108/69 06/15/23 11:59 Pulse Ox 97 06/15/23 11:59 FiO2 21 06/14/23 08:27 Intake & Output 06/14/23 06/15/23 06/15/23 18:59 06:59 18:59 Intake Total 970 1119.333 Output Total 700 500 Balance 270 619.333 Weight 56.8 kg Intake: Intake, IV Titration 970 879.333 Amount Mvi, Adult No.4 with Vit 970 879.333 K 10 ml Trace (Conc-1Ml/ Dose) 1 ml In Amino Acid 5%-D15w+Lytes*E* 1,000 ml @ 40 mls/hr IV .Q24H [facility] Rx#:[id number] Oral 240 Output: Urine 700 500 Other: Voiding Method External Catheter External Catheter - Exam GENERAL DESCRIPTION: An elderly female lying in bed in no distress RESPIRATORY SYSTEM: Unlabored breathing , clear to auscultation anteriorly HEART: S1 S2 regular rate and rhythm , ABDOMEN: Soft , mild tenderness EXTREMITIES: No edema feet - Labs CBC & Chem 7: 06/15/23 08:15 06/15/23 08:15 Labs: Abnormal Lab Results - Last 24 Hours (Table) 06/14/23 06/14/23 06/15/23 Range/Units 18:01 23:52 06:07 RBC (3.80-5.40) m/uL Hgb (11.4-16.0) gm/dL Hct (34.0-46.0) % MCV (80.0-100.0) fL MCH (25.0-35.0) pg Lymphocytes # (1.0-4.8) k/uL Sodium (137-145) mmol/L Creatinine (0.52-1.04) mg/dL Glucose (74-99) mg/dL POC Glucose (mg/dL) 131 H 137 H 135 H (70-110) mg/dL Calcium (8.4-10.2) mg/dL Phosphorus (2.5-4.5) mg/dL 06/15/23 06/15/23 06/15/23 Range/Units 08:15 08:15 11:32 RBC 2.99 L (3.80-5.40) m/uL Hgb 10.9 L (11.4-16.0) gm/dL Hct 31.0 L (34.0-46.0) % MCV 103.7 H (80.0-100.0) fL MCH 36.4 H (25.0-35.0) pg Lymphocytes # 0.8 L (1.0-4.8) k/uL Sodium 133 L (137-145) mmol/L Creatinine 0.29 L (0.52-1.04) mg/dL Glucose 122 H (74-99) mg/dL POC Glucose (mg/dL) 119 H (70-110) mg/dL Calcium 7.4 L (8.4-10.2) mg/dL Phosphorus 2.1 L (2.5-4.5) mg/dL Microbiology - Last 24 Hours (Table) 06/09/23 09:45 Blood Culture - Final Blood 06/09/23 09:30 Blood Culture - Final Blood Assessment and Plan (1) Complication of feeding tube Current Visit: Yes Status: Acute Priority: High Code(s): K94.20 - GASTROSTOMY COMPLICATION, UNSPECIFIED SNOMED Code(s): 797004051 (2) Intra-abdominal abscess Current Visit: Yes Status: Acute Code(s): K65.1 - PERITONEAL ABSCESS SNOMED Code(s): 67107940 (3) Peritonitis Current Visit: Yes Status: Acute Priority: High Code(s): K65.9 - PERITONITIS, UNSPECIFIED SNOMED Code(s): 34555799 Plan: 1patient presented to hospital with sepsis in this patient who did have a elevated white count and tachycardia meeting criteria for SIRS source is abdominal in this patient who did have peritonitis from dislodgment of her PEG tube and will need to cover for the enteric gram-negative both aerobes and anaerobes and Gladys 2-patient is afebrile the patient white count has normalized 3- Patient to continue Zosyn 3.375 g every 8 hours and Diflucan and will benefit from continuation of IV antibiotics on discharge Dictation was produced using [employer] dictation software. please excuse any grammatical, word or spelling errors.
[2023-06-15 16:23] LABS: Glucose,Whole Blood 108 mg/dL (70-110)
[2023-06-15] MEDS: FLUCONAZOLE IN NACL,ISO-OSM 200 MG in SALINE 1 100ML.BAG IVPB SCH (23:17)
[2023-06-16 00:12] LABS: Glucose,Whole Blood 133 mg/dL (70-110)
[2023-06-16] MEDS: SODIUM CHLORIDE 0.9% 1,000 ML IV SCH ×3 (05:49→18:56)
[2023-06-16 05:51] LABS: Glucose,Whole Blood 127 mg/dL (70-110)
[2023-06-16 07:41] LABS: Basophils % (A) 0 %; Eosinophils # (A) 0.5 k/uL (0-0.7); Eosinophils % (A) 5 %; HGB 10.5 gm/dL (11.4-16.0); Lymphocytes # (A) 0.6 k/uL (1.0-4.8); Lymphocytes % (A) 5 %; MCH 33.4 pg (25.0-35.0); MCHC 32.9 g/dL (31.0-37.0); MCV 101.5 fL (80.0-100.0); Macrocytosis Slight; Mean Platelet Volume 8.1; Monocytes # (A) 0.4 k/uL (0-1.0); Monocytes % (A) 4 %; Neutrophils # (A) 9.6 k/uL (1.3-7.7); Neutrophils % (A) 85 %; Platelet Count 292 k/uL (150-450); RBC 3.15 m/uL (3.80-5.40); RDW 13.6 % (11.5-15.5); WBC 11.3 k/uL (3.8-10.6)
[2023-06-16 08:04] LABS: ALT 24 U/L (4-34); AST 24 U/L (14-36); African American GFR (CKD) >90 (>60 ml/min/1.73 sqM); Alkaline Phosphatase 74 U/L (38-126); Anion Gap 6 mmol/L; Blood Urea Nitrogen 14 mg/dL (7-17); Calcium 7.3 mg/dL (8.4-10.2); Carbon Dioxide 26 mmol/L (22-30); Chloride 101 mmol/L (98-107); Glucose 124 mg/dL (74-99); Non-African American GFR(CKD) >90 (>60 ml/min/1.73 sqM); Potassium 3.7 mmol/L (3.5-5.1); Sodium 133 mmol/L (137-145); Total Bilirubin 0.4 mg/dL (0.2-1.3); Total Protein 4.5 g/dL (6.3-8.2)
[2023-06-16] MEDS: TAMSULOSIN 0.4 MG CAP.ER.24H PO SCH (08:18)
[2023-06-16] MEDS: PANTOPRAZOLE 40 MG/10 ML VIAL IV SCH (08:34)
[2023-06-16] MEDS: HEPARIN SODIUM,PORCINE 5,000 UNIT/ML 1 ML VIAL SQ SCH ×3 (08:34→23:49)
[2023-06-16] MEDS: PIPERACILLIN-TAZOBACTAM 3.375 GM in SODIUM CHLORIDE 0.9% 100 ML IVPB SCH ×3 (08:35→23:48)
[2023-06-16] MEDS: HYDROmorphone 0.5 MG/0.5 ML SYRINGE IVP PRN ×4 (08:44→23:51)
[2023-06-16 11:24] LABS: Glucose,Whole Blood 131 mg/dL (70-110)
--- NOTE | 2023-06-16 12:52 | P.PN ---
Subjective Progress Note Date: 06/16/23 Resting comfortably. Currently on tube feeds and tolerating. No new issues. Objective - Vital Signs Vital signs: Vital Signs Temp 98.7 F 06/16/23 08:00 Pulse 102 H 06/16/23 08:00 Resp 17 06/16/23 08:00 BP 106/66 06/16/23 08:00 Pulse Ox 97 06/16/23 08:00 FiO2 21 06/14/23 08:27 Intake & Output 06/15/23 06/16/23 06/16/23 18:59 06:59 18:59 Intake Total 1119.333 Output Total 1100 250 Balance 19.333 -250 Weight 56.8 kg Intake: Intake, IV Titration 879.333 Amount Mvi, Adult No.4 with Vit 879.333 K 10 ml Trace (Conc-1Ml/ Dose) 1 ml In Amino Acid 5%-D15w+Lytes*E* 1,000 ml @ 40 mls/hr IV .Q24H [facility] Rx#:[id number] Oral 240 Output: Urine 1100 250 Other: Voiding Method External Catheter External Catheter External Catheter - Labs CBC & Chem 7: 06/16/23 06:45 06/16/23 06:45 Labs: Abnormal Lab Results - Last 24 Hours (Table) 06/16/23 06/16/23 06/16/23 Range/Units 00:10 05:45 06:45 WBC 11.3 H (3.8-10.6) k/uL RBC 3.15 L (3.80-5.40) m/uL Hgb 10.5 L (11.4-16.0) gm/dL Hct 32.0 L (34.0-46.0) % MCV 101.5 H (80.0-100.0) fL Neutrophils # 9.6 H (1.3-7.7) k/uL Lymphocytes # 0.6 L (1.0-4.8) k/uL Sodium (137-145) mmol/L Creatinine (0.52-1.04) mg/dL Glucose (74-99) mg/dL POC Glucose (mg/dL) 133 H 127 H (70-110) mg/dL Calcium (8.4-10.2) mg/dL Total Protein (6.3-8.2) g/dL Albumin (3.5-5.0) g/dL 06/16/23 06/16/23 Range/Units 06:45 11:20 WBC (3.8-10.6) k/uL RBC (3.80-5.40) m/uL Hgb (11.4-16.0) gm/dL Hct (34.0-46.0) % MCV (80.0-100.0) fL Neutrophils # (1.3-7.7) k/uL Lymphocytes # (1.0-4.8) k/uL Sodium 133 L (137-145) mmol/L Creatinine 0.31 L (0.52-1.04) mg/dL Glucose 124 H (74-99) mg/dL POC Glucose (mg/dL) 131 H (70-110) mg/dL Calcium 7.3 L (8.4-10.2) mg/dL Total Protein 4.5 L (6.3-8.2) g/dL Albumin 2.0 L (3.5-5.0) g/dL
--- NOTE | 2023-06-16 14:24 | P.PN ---
Subjective Progress Note Date: 06/16/23 73-year-old patient with past medical history significant for squamous cell carcinoma of temporal bone, with invasion of the due to presented to the emergency department with complaints of abdominal pain. * While in ER patient had a CT abdomen and pelvis obtained which showed gastrostomy tube pulled out of stomach, patient had feeding tube placed 2 weeks prior. * Patient was taken to the OR for exploratory laparotomy gastrostomy tube replacement and repair Gastrografin * Workup initiated in ED include basic metabolic panel which showed, CBC showed a CBC 18.3 hemoglobin 14.7 platelet count 275 * Patient was admitted to ICU, started on IV antibiotics consultations obtained from internal medicine, infectious disease * 06/11/23: Patient seen and evaluated bedside, patient did receive oral care overnight, dry mouth and has improved abdominal pain has improved, just complains of generalized weakness, denies fever, chills abdominal pain is improved * 06/12/23: Patient seen and evaluated bedside patient is alert to person and situation. Will continue with oral care. Patient does complain of mild abdominal discomfort continue current antibiotic. CBC showed improvement WBC 11.2 trending down hemoglobin 10.8. Blood cultures no growth for 48 hours * 06/13/23: Patient seen and evaluated bedside, patient is alert and oriented 3, patient appears weak however refusing rehab at this point. Will coordin ate with patient and case management. Family would want patient to go to rehab. Follow-up on serum chemistry and CBC continue patient on TPN. Continue IV antibiotics 06/14. Patient seen and examined. Currently on TPN and IV antibiotics. 06/15. Patient seen and examined. States she feels better. Denies any abdominal pain. Denies any nausea or vomiting 06/16. Patient seen and examined. Continues to be on tube feeding. Family at the bedside, they are wanting the patient to go to rehab REVIEW OF SYSTEMS: CONSTITUTIONAL: No fever, no malaise,. CARDIOVASCULAR: No chest pain, no palpitations, no syncope. PULMONARY: No shortness of breath, no cough, GASTROINTESTINAL: As mentioned above NEUROLOGICAL: No headaches, no weakness, PHYSICAL EXAMINATION: GENERAL: The patient is alert and oriented x3, not in any acute distress. Chronically ill-looking HEENT: Pupils are round and equally reacting to light. EOMI. No scleral icterus. No conjunctival pallor. Normocephalic, atraumatic. No pharyngeal erythema. No thyromegaly. CARDIOVASCULAR: S1 and S2 present. No murmurs, rubs, or gallops. PULMONARY: Chest is clear to auscultation, no wheezing or crackles. ABDOMEN: Soft, nontender, surgical incision seen, PEG tube seen MUSCULOSKELETAL: No joint swelling or deformity. EXTREMITIES: No cyanosis, clubbing, or pedal edema. NEUROLOGICAL: Gross neurological examination did not reveal any focal deficits. SKIN: No rashes. 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 surgery following Labs and medication were reviewed.. Continue same treatment. Continue with symptomatic treatment. Resume home medication. Monitor labs and vitals. DVT and GI prophylaxis. Further recommendations as per clinical course of the patient Dictation was produced using [employer] dictation software. please excuse any grammatical, word or spelling errors. Objective - Vital Signs Vital signs: Vital Signs Temp 98.7 F 06/16/23 12:00 Pulse 120 H 06/16/23 12:00 Resp 18 06/16/23 12:00 BP 105/65 06/16/23 12:00 Pulse Ox 96 06/16/23 12:00 FiO2 21 06/14/23 08:27 Intake & Output 06/15/23 06/16/23 06/16/23 18:59 06:59 18:59 Intake Total 1119.333 Output Total 1100 250 Balance 19.333 -250 Weight 56.8 kg Intake: Intake, IV Titration 879.333 Amount Mvi, Adult No.4 with Vit 879.333 K 10 ml Trace (Conc-1Ml/ Dose) 1 ml In Amino Acid 5%-D15w+Lytes*E* 1,000 ml @ 40 mls/hr IV .Q24H [facility] Rx#:[id number] Oral 240 Output: Urine 1100 250 Other: Voiding Method External Catheter External Catheter External Catheter - Labs CBC & Chem 7: 06/16/23 06:45 06/16/23 06:45 Labs: Abnormal Lab Results - Last 24 Hours (Table) 06/16/23 06/16/23 06/16/23 Range/Units 00:10 05:45 06:45 WBC 11.3 H (3.8-10.6) k/uL RBC 3.15 L (3.80-5.40) m/uL Hgb 10.5 L (11.4-16.0) gm/dL Hct 32.0 L (34.0-46.0) % MCV 101.5 H (80.0-100.0) fL Neutrophils # 9.6 H (1.3-7.7) k/uL Lymphocytes # 0.6 L (1.0-4.8) k/uL Sodium (137-145) mmol/L Creatinine (0.52-1.04) mg/dL Glucose (74-99) mg/dL POC Glucose (mg/dL) 133 H 127 H (70-110) mg/dL Calcium (8.4-10.2) mg/dL Total Protein (6.3-8.2) g/dL Albumin (3.5-5.0) g/dL 06/16/23 06/16/23 Range/Units 06:45 11:20 WBC (3.8-10.6) k/uL RBC (3.80-5.40) m/uL Hgb (11.4-16.0) gm/dL Hct (34.0-46.0) % MCV (80.0-100.0) fL Neutrophils # (1.3-7.7) k/uL Lymphocytes # (1.0-4.8) k/uL Sodium 133 L (137-145) mmol/L Creatinine 0.31 L (0.52-1.04) mg/dL Glucose 124 H (74-99) mg/dL POC Glucose (mg/dL) 131 H (70-110) mg/dL Calcium 7.3 L (8.4-10.2) mg/dL Total Protein 4.5 L (6.3-8.2) g/dL Albumin 2.0 L (3.5-5.0) g/dL
--- NOTE | 2023-06-16 15:46 | P.PN ---
Subjective Progress Note Date: 06/16/23 Principal diagnosis: Gastric perforation and abdominal abscess Patient is a 73-year female with past medical history significant for squamous cell carcinoma temporal bone with invasion into dura patient did have a PEG tube for feeding and is a [facility] resident patient was sent to the ER for evaluation of chills and abdominal pain patient has severe abdominal pelvis PEG tube was retracted did have a laparotomy with evidence of abdominal abscess status post drainage repair of the gastrorrhaphy and placement of a new PEG tube On today's evaluation that is 06/16/2023, the patient denies any fever or chills, the patient is breathing comfortably on room air and no need for supplemental oxygen, the patient denies any chest pain or cough, patient denies nausea/vomiting or diarrhea and no abdominal pain Patient white count is 11.3, creatinine is 0.31, blood cultures are so far negative Objective - Vital Signs Vital signs: Vital Signs Temp 98.7 F 06/16/23 12:00 Pulse 120 H 06/16/23 12:00 Resp 18 06/16/23 12:00 BP 105/65 06/16/23 12:00 Pulse Ox 96 06/16/23 12:00 FiO2 21 06/14/23 08:27 Intake & Output 06/15/23 06/16/23 06/16/23 18:59 06:59 18:59 Intake Total 1119.333 Output Total 1100 250 Balance 19.333 -250 Weight 56.8 kg Intake: Intake, IV Titration 879.333 Amount Mvi, Adult No.4 with Vit 879.333 K 10 ml Trace (Conc-1Ml/ Dose) 1 ml In Amino Acid 5%-D15w+Lytes*E* 1,000 ml @ 40 mls/hr IV .Q24H [facility] Rx#:[id number] Oral 240 Output: Urine 1100 250 Other: Voiding Method External Catheter External Catheter External Catheter - Exam GENERAL DESCRIPTION: An elderly female lying in bed in no distress RESPIRATORY SYSTEM: Unlabored breathing , clear to auscultation anteriorly HEART: S1 S2 regular rate and rhythm , ABDOMEN: Soft , mild tenderness EXTREMITIES: No edema feet - Labs CBC & Chem 7: 06/16/23 06:45 06/16/23 06:45 Labs: Abnormal Lab Results - Last 24 Hours (Table) 06/16/23 06/16/23 06/16/23 Range/Units 00:10 05:45 06:45 WBC 11.3 H (3.8-10.6) k/uL RBC 3.15 L (3.80-5.40) m/uL Hgb 10.5 L (11.4-16.0) gm/dL Hct 32.0 L (34.0-46.0) % MCV 101.5 H (80.0-100.0) fL Neutrophils # 9.6 H (1.3-7.7) k/uL Lymphocytes # 0.6 L (1.0-4.8) k/uL Sodium (137-145) mmol/L Creatinine (0.52-1.04) mg/dL Glucose (74-99) mg/dL POC Glucose (mg/dL) 133 H 127 H (70-110) mg/dL Calcium (8.4-10.2) mg/dL Total Protein (6.3-8.2) g/dL Albumin (3.5-5.0) g/dL 06/16/23 06/16/23 Range/Units 06:45 11:20 WBC (3.8-10.6) k/uL RBC (3.80-5.40) m/uL Hgb (11.4-16.0) gm/dL Hct (34.0-46.0) % MCV (80.0-100.0) fL Neutrophils # (1.3-7.7) k/uL Lymphocytes # (1.0-4.8) k/uL Sodium 133 L (137-145) mmol/L Creatinine 0.31 L (0.52-1.04) mg/dL Glucose 124 H (74-99) mg/dL POC Glucose (mg/dL) 131 H (70-110) mg/dL Calcium 7.3 L (8.4-10.2) mg/dL Total Protein 4.5 L (6.3-8.2) g/dL Albumin 2.0 L (3.5-5.0) g/dL Assessment and Plan (1) Complication of feeding tube Current Visit: Yes Status: Acute Priority: High Code(s): K94.20 - GASTROSTOMY COMPLICATION, UNSPECIFIED SNOMED Code(s): 349421921 (2) Intra-abdominal abscess Current Visit: Yes Status: Acute Code(s): K65.1 - PERITONEAL ABSCESS SNOMED Code(s): 42219428 (3) Peritonitis Current Visit: Yes Status: Acute Priority: High Code(s): K65.9 - PERITONITIS, UNSPECIFIED SNOMED Code(s): 65659027 Plan: 1patient presented to hospital with sepsis in this patient who did have a elevated white count and tachycardia meeting criteria for SIRS source is abdominal in this patient who did have peritonitis from dislodgment of her PEG tube and will need to cover for the enteric gram-negative both aerobes and anaerobes and Gladys 2-patient is afebrile the patient white count slightly up today 3- Patient to continue Zosyn 3.375 g every 8 hours and Diflucan plan to continue with IV Zosyn for at least another 10 days on discharge Dictation was produced using [employer] dictation software. please excuse any grammatical, word or spelling errors. Time with Patient: Less than 30
[2023-06-16 16:12] LABS: Glucose,Whole Blood 113 mg/dL (70-110)
[2023-06-16 23:47] LABS: Glucose,Whole Blood 144 mg/dL (70-110)
[2023-06-16] MEDS: FLUCONAZOLE IN NACL,ISO-OSM 200 MG in SALINE 1 100ML.BAG IVPB SCH (23:49)
[2023-06-17] MEDS: HYDROmorphone 0.5 MG/0.5 ML SYRINGE IVP PRN ×3 (04:22→17:12)
[2023-06-17 05:56] LABS: Glucose,Whole Blood 106 mg/dL (70-110)
[2023-06-17] MEDS: SODIUM CHLORIDE 0.9% 1,000 ML IV SCH ×2 (06:09→18:53)
[2023-06-17] MEDS: PANTOPRAZOLE 40 MG/10 ML VIAL IV SCH (08:55)
[2023-06-17] MEDS: HEPARIN SODIUM,PORCINE 5,000 UNIT/ML 1 ML VIAL SQ SCH ×2 (08:55→16:30)
[2023-06-17] MEDS: TAMSULOSIN 0.4 MG CAP.ER.24H PO SCH (08:56)
[2023-06-17] MEDS: PIPERACILLIN-TAZOBACTAM 3.375 GM in SODIUM CHLORIDE 0.9% 100 ML IVPB SCH ×2 (08:56→16:30)
[2023-06-17] MEDS ORDERED: HYDROcodone/APAP 5-325MG 1 EACH TAB PO PRN (10:41)
--- NOTE | 2023-06-17 10:41 | P.PN ---
Subjective Progress Note Date: 06/17/23 CHIEF COMPLAINT: Peritonitis, free air HISTORY OF PRESENT ILLNESS: Patient postop day #8 status post exploratory laparotomy, gastrostomy tube replacement and repair gastrorrhaphy. Patient reports her pain is controlled. She passed her swallow eval today with speech therapy. She is scheduled to work with physical therapy today. health manager is working on ECF placement and insurance authorization for ECF. On patient's tube feeds are at goal at 45 mL per hour. She reports having bowel movements. She reports her pain is controlled. Patient's TPN has been discontinued. PHYSICAL EXAM: VITAL SIGNS: Reviewed. GENERAL: Well-developed in no acute distress. ABDOMEN: Soft. Nondistended. Incision site clean dry and intact. PEG tube site clean dry and intact. Patient receiving tube feeds. NEUROLOGIC: Alert and oriented. Cranial nerves II through XII grossly intact. ASSESSMENT: 1. Peritonitis and free air status post exploratory laparotomy, gastrostomy tube replacement and repair gastrorrhaphy 2. History of squamous cell carcinoma of the temporal bone with invasion into the dura PLAN: -Continue tube feeds at goal -Okay to start diet from surgical standpoint. Speech therapy as started patient on pured diet -Continue tube feeds at 10 mL per hour. Advancement of tube feeds will be ordered by Dr. Obrien -Continue antibiotics per ID service -Continue pain management. Transition patient to oral pain meds. [place] added. -Continue supportive care -Possible discharge to ECF tomorrow -DVT prophylaxis subcu heparin and GI prophylaxis Protonix Physician Vegetable Grader note has been reviewed by physician. Signing provider agrees with the documented findings, assessment, and plan of care. 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 Based on total visit time, I have performed more than 50% of the visit. As above: Over the weekend the patient has gradually noticed increased abdo quin swelling and some nausea. She feels bloated. She did have a small soft stool this morning. No vomiting. Residuals from gastric tube have been small per the nursing staff. On exam patient is more distended today. Abdominal x- rays obtained. Patient has dilated small bowel and large bowel loops. There is some increased stool in the left colon. Will hold tube feeds for now. May continue pure diet when necessary since the patient's appetite is small. Family is questioning because of the increased left-sided facial pain about possible MRI while she is hospitalized. We'll discuss further with oncology. We will modify her analgesic regimen. Ambien for sleep. Objective - Vital Signs Vital signs: Vital Signs Temp 98.3 F 06/17/23 08:00 Pulse 91 06/17/23 08:00 Resp 16 06/17/23 08:00 BP 103/63 06/17/23 08:00 Pulse Ox 95 06/17/23 08:00 FiO2 21 06/14/23 08:27 Intake & Output 06/16/23 06/17/23 06/17/23 18:59 06:59 18:59 Output Total 400 800 Balance -400 -800 Output: Urine 400 800 Other: Voiding Method External Catheter External Catheter - Labs CBC & Chem 7: 06/16/23 06:45 06/16/23 06:45 Labs: Abnormal Lab Results - Last 24 Hours (Table) 06/16/23 06/16/23 06/16/23 Range/Units 11:20 16:07 23:45 POC Glucose (mg/dL) 131 H 113 H 144 H (70-110) mg/dL
[2023-06-17 12:23] LABS: Glucose,Whole Blood 105 mg/dL (70-110)
[2023-06-17] MEDS ORDERED: ACETAMINOPHEN TAB 325 MG TAB PO PRN (13:52)
[2023-06-17] MEDS ORDERED: ZOLPIDEM 5 MG TAB PO PRN (13:52)
[2023-06-17] MEDS ORDERED: traMADol 50 MG TAB PO PRN (13:52)
[2023-06-17] MEDS ORDERED: IBUPROFEN 600 MG TAB PO PRN (13:52)
--- NOTE | 2023-06-17 13:54 | P.PN ---
Subjective Progress Note Date: 06/17/23 73-year-old patient with past medical history significant for squamous cell carcinoma of temporal bone, with invasion of the due to presented to the emergency department with complaints of abdominal pain. * While in ER patient had a CT abdomen and pelvis obtained which showed gastrostomy tube pulled out of stomach, patient had feeding tube placed 2 weeks prior. * Patient was taken to the OR for exploratory laparotomy gastrostomy tube replacement and repair Gastrografin * Workup initiated in ED include basic metabolic panel which showed, CBC showed a CBC 18.3 hemoglobin 14.7 platelet count 275 * Patient was admitted to ICU, started on IV antibiotics consultations obtained from internal medicine, infectious disease * 06/11/23: Patient seen and evaluated bedside, patient did receive oral care overnight, dry mouth and has improved abdominal pain has improved, just complains of generalized weakness, denies fever, chills abdominal pain is improved * 06/12/23: Patient seen and evaluated bedside patient is alert to person and situation. Will continue with oral care. Patient does complain of mild abdominal discomfort continue current antibiotic. CBC showed improvement WBC 11.2 trending down hemoglobin 10.8. Blood cultures no growth for 48 hours * 06/13/23: Patient seen and evaluated bedside, patient is alert and oriented 3, patient appears weak however refusing rehab at this point. Will coordin ate with patient and case management. Family would want patient to go to rehab. Follow-up on serum chemistry and CBC continue patient on TPN. Continue IV antibiotics 06/14. Patient seen and examined. Currently on TPN and IV antibiotics. 06/15. Patient seen and examined. States she feels better. Denies any abdominal pain. Denies any nausea or vomiting 06/16. Patient seen and examined. Continues to be on tube feeding. Family at the bedside, they are wanting the patient to go to rehab 06/17. Patient seen and examined. Tolerating tube feeding. Plan is for patient to be discharged to [facility] tomorrow, started on diet per surgery REVIEW OF SYSTEMS: CONSTITUTIONAL: No fever, no malaise,. CARDIOVASCULAR: No chest pain, no palpitations, no syncope. PULMONARY: No shortness of breath, no cough, GASTROINTESTINAL: As mentioned above NEUROLOGICAL: No headaches, no weakness, PHYSICAL EXAMINATION: GENERAL: The patient is alert and oriented x3, not in any acute distress. Chronically ill-looking HEENT: Pupils are round and equally reacting to light. EOMI. No scleral icterus. No conjunctival pallor. Normocephalic, atraumatic. No pharyngeal erythema. No th yromegaly. CARDIOVASCULAR: S1 and S2 present. No murmurs, rubs, or gallops. PULMONARY: Chest is clear to auscultation, no wheezing or crackles. ABDOMEN: Soft, nontender, surgical incision seen, PEG tube seen MUSCULOSKELETAL: No joint swelling or deformity. EXTREMITIES: No cyanosis, clubbing, or pedal edema. NEUROLOGICAL: Gross neurological examination did not reveal any focal deficits. SKIN: No rashes. 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 surgery following In regards to sepsis, blood cultures collected continue patient on IV antibiotics including Zosyn, Diflucan , ID following Gen. surgery following Labs and medication were reviewed.. Continue same treatment. Continue with symptomatic treatment. Resume home medication. Monitor labs and vitals. DVT and GI prophylaxis. Further recommendations as per clinical course of the patient Dictation was produced using [employer] dictation software. please excuse any grammatical, word or spelling errors. Objective - Vital Signs Vital signs: Vital Signs Temp 98.3 F 06/17/23 08:00 Pulse 91 06/17/23 08:00 Resp 16 06/17/23 08:00 BP 103/63 06/17/23 08:00 Pulse Ox 95 06/17/23 08:00 FiO2 21 06/14/23 08:27 Intake & Output 06/16/23 06/17/23 06/17/23 18:59 06:59 18:59 Output Total 400 800 Balance -400 -800 Output: Urine 400 800 Other: Voiding Method External Catheter External Catheter - Labs CBC & Chem 7: 06/16/23 06:45 06/16/23 06:45 Labs: Abnormal Lab Results - Last 24 Hours (Table) 06/16/23 06/16/23 06/16/23 Range/Units 11:20 16:07 23:45 POC Glucose (mg/dL) 131 H 113 H 144 H (70-110) mg/dL
--- NOTE | 2023-06-17 14:05 | XR ---
EXAMINATION TYPE: XR abdomen 2V DATE OF EXAM: 06/17/2023 COMPARISON: CT abdomen pelvis 06/09/2023 HISTORY: Abdominal pain TECHNIQUE: Upright and supine images of the abdomen is obtained FINDINGS: Dilated gas filled small and large bowel. Stool is present within the colon. No gas identified within the rectum. No convincing evidence for pneumoperitoneum. Midline skin venita identified. PEG tube d emonstrated in the left upper quadrant. No unusual calcifications. Lung bases are clear. The osseous structures are intact. IMPRESSION: Dilated small and large bowel suggestive of a postoperative ileus. Continued follow-up is recommend.
[2023-06-17] MEDS ORDERED: ZINC OXIDE PASTE (Z-GUARD) 1 APPLIC APPLIC TOPICAL PRN (14:09)
--- NOTE | 2023-06-17 15:06 | P.PN ---
Subjective Progress Note Date: 06/17/23 Principal diagnosis: peritonitis, peg problem at today's visit patient is resting in bed. She is reporting fatigue and states that she needs a nap. Patient is tolerating tube feedings. Denies nausea vomiting. Plan is for rehabilitation upon discharge and per family, placement in nursing facility once d/c from rehab Objective - Vital Signs Vital signs: Vital Signs Temp 98.4 F 06/17/23 11:26 Pulse 95 06/17/23 13:50 Resp 16 06/17/23 13:50 BP 100/63 06/17/23 11:26 Pulse Ox 95 06/17/23 11:26 FiO2 21 06/14/23 08:27 Intake & Output 06/16/23 06/17/23 06/17/23 18:59 06:59 18:59 Intake Total 0 Output Total 400 800 Balance -400 -800 0 Weight 56.8 kg Intake: Oral 0 Output: Urine 400 800 Other: Voiding Method External Catheter External Catheter External Catheter # Bowel Movements 2 - Constitutional General appearance: Present: no acute distress, thin - EENT ENT: Present: hearing grossly normal - Respiratory Details: breathing is even and unlabored - Cardiovascular Details: skin warm and dry - Integumentary Integumentary: Absent: cyanotic - Musculoskeletal Musculoskeletal: Present: generalized weakness - Psychiatric Psychiatric Comment(s): lethargic Psychiatric: Present: A&O x's 3 - Labs CBC & Chem 7: 06/16/23 06:45 06/16/23 06:45 Labs: Abnormal Lab Results - Last 24 Hours (Table) 06/16/23 06/16/23 Range/Units 16:07 23:45 POC Glucose (mg/dL) 113 H 144 H (70-110) mg/dL Assessment and Plan (1) Complication of feeding tube Current Visit: Yes Status: Acute Priority: High Code(s): K94.20 - GASTROSTOMY COMPLICATION, UNSPECIFIED SNOMED Code(s): 964587030 (2) Generalized weakness Current Visit: Yes Status: Acute Priority: High Code(s): R53.1 - WEAKNESS SNOMED Code(s): 81382156 (3) Peritonitis Current Visit: Yes Status: Acute Priority: High Code(s): K65.9 - PERITONITIS, UNSPECIFIED SNOMED Code(s): 41819009 (4) Squamous cell carcinoma of head and neck Current Visit: Yes Status: Acute Priority: High Code(s): C76.0 - MALIGNANT NEOPLASM OF HEAD, FACE AND NECK SNOMED Code(s): 657243949 Plan: Feeding tube complication/peritonitis -Status post surgical intervention for PEG that pulled away from stomach, pneumoperitoneum -Patient doing much better post revision -TPN cont, tolerating well -Defer mgmt to Surgery Generalized weakness -Secondary to poor oral intake, prolonged bed rest. Pt is not wanting to get up today -PT/OT ordered. Per daughter she has been refusing PT -Plan for discharge to rehab Squamous cell carcinoma of the head and neck -New diagnosis -Pending start of concurrent chemotherapy and radiation. Patient does not need an access device for her weekly chemotherapy as it is not a vessicant -Treatment will be held until patient has had adequate recovery time and rehabilitation Per family patient will be going to rehabilitation upon discharge and then a nursing care facility. Family plans on moving patient closer to the [facility]. Spoke with family today that she can keep keep care locally in [place] if she would like or we can refer her care to our other clinic in [place] to Dr. Jean. Family was given information regarding our [place] clinic. Daughter states they will update us when a plan is set in place.
[2023-06-17 18:02] LABS: Glucose,Whole Blood 98 mg/dL (70-110)
[2023-06-18 00:01] LABS: Glucose,Whole Blood 104 mg/dL (70-110)
[2023-06-18] MEDS: FLUCONAZOLE IN NACL,ISO-OSM 200 MG in SALINE 1 100ML.BAG IVPB SCH (00:15)
[2023-06-18] MEDS: PIPERACILLIN-TAZOBACTAM 3.375 GM in SODIUM CHLORIDE 0.9% 100 ML IVPB SCH ×4 (00:15→23:51)
[2023-06-18] MEDS: HEPARIN SODIUM,PORCINE 5,000 UNIT/ML 1 ML VIAL SQ SCH ×4 (00:15→23:51)
[2023-06-18] MEDS: HYDROmorphone 0.5 MG/0.5 ML SYRINGE IVP PRN ×2 (03:04→21:00)
[2023-06-18] MEDS: SODIUM CHLORIDE 0.9% 1,000 ML IV SCH ×2 (03:07→20:24)
[2023-06-18] MEDS: PANTOPRAZOLE 40 MG/10 ML VIAL IV SCH (09:07)
[2023-06-18] MEDS: TAMSULOSIN 0.4 MG CAP.ER.24H PO SCH (09:08)
[2023-06-18 12:03] LABS: Glucose,Whole Blood 86 mg/dL (70-110)
--- NOTE | 2023-06-18 13:27 | P.PN ---
Subjective Progress Note Date: 06/17/23 Principal diagnosis: Gastric perforation and abdominal abscess Patient is a 73-year female with past medical history significant for squamous cell carcinoma temporal bone with invasion into dura patient did have a PEG tube for feeding and is a halfway resident patient was sent to the ER for evaluation of chills and abdominal pain patient has severe abdominal pelvis PEG tube was retracted did have a laparotomy with evidence of abdominal abscess status post drainage repair of the gastrorrhaphy and placement of a new PEG tube On today's evaluation that is 06/17/2023, the patient continues to be afebrile , the patient is breathing comfortably on room air and denies any shortness of breath, the patient denies any chest pain or cough, patient denies abdominal p ain and no nausea/vomiting or diarrhea Patient white count is 11.3, creatinine is 0.31 as of 06/16/2023, blood cultures are so far negative Objective - Vital Signs Vital signs: Vital Signs Temp 98.4 F 06/17/23 11:26 Pulse 95 06/17/23 11:26 Resp 16 06/17/23 11:26 BP 100/63 06/17/23 11:26 Pulse Ox 95 06/17/23 11:26 FiO2 21 06/14/23 08:27 Intake & Output 06/16/23 06/17/23 06/17/23 18:59 06:59 18:59 Output Total 400 800 Balance -400 -800 Output: Urine 400 800 Other: Voiding Method External Catheter External Catheter External Catheter - Exam GENERAL DESCRIPTION: An elderly female lying in bed in no distress RESPIRATORY SYSTEM: Unlabored breathing , clear to auscultation anteriorly HEART: S1 S2 regular rate and rhythm , ABDOMEN: Soft , mild tenderness EXTREMITIES: No edema feet - Labs CBC & Chem 7: 06/16/23 06:45 06/16/23 06:45 Labs: Abnormal Lab Results - Last 24 Hours (Table) 06/16/23 06/16/23 Range/Units 16:07 23:45 POC Glucose (mg/dL) 113 H 144 H (70-110) mg/dL Assessment and Plan (1) Complication of feeding tube Current Visit: Yes Status: Acute Priority: High Code(s): K94.20 - GASTROSTOMY COMPLICATION, UNSPECIFIED SNOMED Code(s): 730388842 (2) Intra-abdominal abscess Current Visit: Yes Status: Acute Code(s): K65.1 - PERITONEAL ABSCESS SNOMED Code(s): 43852143 (3) Peritonitis Current Visit: Yes Status: Acute Priority: High Code(s): K65.9 - PERITONITIS, UNSPECIFIED SNOMED Code(s): 22801240 Plan: 1patient presented to hospital with sepsis in this patient who did have a elevated white count and tachycardia meeting criteria for SIRS source is abdominal in this patient who did have peritonitis from dislodgment of her PEG tube and will need to cover for the enteric gram-negative both aerobes and anaerobes and Gladys 2-patient is afebrile the patient white count slightly up yesterday no CBC was done today 3- Patient to continue Zosyn 3.375 g every 8 hours and Diflucan to finish 2-3 weeks course of therapy Family the bedside questions were answered Dictation was produced using [employer] dictation software. please excuse any grammatical, word or spelling errors.
--- NOTE | 2023-06-18 13:28 | P.PN ---
Subjective Progress Note Date: 06/18/23 Principal diagnosis: Gastric perforation and abdominal abscess Patient is a 73-year female with past medical history significant for squamous cell carcinoma temporal bone with invasion into dura patient did have a PEG tube for feeding and is a skilled nursing resident patient was sent to the ER for evaluation of chills and abdominal pain patient has severe abdominal pelvis PEG tube was retracted did have a laparotomy with evidence of abdominal abscess status post drainage repair of the gastrorrhaphy and placement of a new PEG tube On today's evaluation that is 06/18/2023, the patient remains to be afebrile , the patient is breathing comfortably on room air without need for supplemental oxygen, the patient denies any chest pain and no significant cough or sputum p roduction, patient denies abdominal pain and no nausea/vomiting or diarrhea Patient white count is 11.3, creatinine is 0.31 as of 06/16/2023 no lab draw today, blood cultures are so far negative Objective - Vital Signs Vital signs: Vital Signs Temp 98.7 F 06/18/23 12:00 Pulse 94 06/18/23 12:00 Resp 17 06/18/23 12:00 BP 119/68 06/18/23 12:00 Pulse Ox 96 06/18/23 12:00 FiO2 21 06/14/23 08:27 Intake & Output 06/17/23 06/18/23 06/18/23 18:59 06:59 18:59 Intake Total 240 Output Total 400 400 500 Balance -160 -400 -500 Weight 56.8 kg Intake: Oral 240 Output: Urine 400 400 500 Other: Voiding Method External Catheter External Catheter External Catheter # Bowel Movements 2 - Exam GENERAL DESCRIPTION: An elderly female lying in bed in no distress RESPIRATORY SYSTEM: Unlabored breathing , clear to auscultation anteriorly HEART: S1 S2 regular rate and rhythm , ABDOMEN: Soft , mild tenderness EXTREMITIES: No edema feet - Labs CBC & Chem 7: 06/16/23 06:45 06/16/23 06:45 Assessment and Plan (1) Complication of feeding tube Current Visit: Yes Status: Acute Priority: High Code(s): K94.20 - GASTROSTOMY COMPLICATION, UNSPECIFIED SNOMED Code(s): 862674896 (2) Intra-abdominal abscess Current Visit: Yes Status: Acute Code(s): K65.1 - PERITONEAL ABSCESS SNOMED Code(s): 11692004 (3) Peritonitis Current Visit: Yes Status: Acute Priority: High Code(s): K65.9 - PERITONITIS, UNSPECIFIED SNOMED Code(s): 64825727 Plan: 1patient presented to hospital with sepsis in this patient who did have a elevated white count and tachycardia meeting criteria for SIRS source is abdominal in this patient who did have peritonitis from dislodgment of her PEG tube and will need to cover for the enteric gram-negative both aerobes and anaerobes and Gladys 2-patient is afebrile the patient will continue Zosyn 3.375 g every 8 hours and Diflucan to finish a total of 2-3 weeks course of therapy depending upon the cli nical response Family the bedside questions were answered Dictation was produced using [employer] dictation software. please excuse any grammatical, word or spelling errors. Time with Patient: Less than 30
[2023-06-18 13:33] LABS: African American GFR (CKD) >90 (>60 ml/min/1.73 sqM); Anion Gap 7 mmol/L; Blood Urea Nitrogen 10 mg/dL (7-17); Calcium 8.2 mg/dL (8.4-10.2); Carbon Dioxide 24 mmol/L (22-30); Chloride 102 mmol/L (98-107); Glucose 90 mg/dL (74-99); Non-African American GFR(CKD) >90 (>60 ml/min/1.73 sqM); Potassium 3.8 mmol/L (3.5-5.1); Sodium 133 mmol/L (137-145)
--- NOTE | 2023-06-18 13:51 | P.PN ---
Subjective Progress Note Date: 06/18/23 CHIEF COMPLAINT: Peritonitis, free air HISTORY OF PRESENT ILLNESS: Patient postop day #9 status post exploratory laparotomy, gastrostomy tube replacement and repair gastrorrhaphy. Patient reports her pain is controlled. Patient had abdominal distention and increased abdominal pain yesterday. Abdominal x-ray had shown ileus. Her tube feeds were placed on hold. Patient is not taking in much orally. Patient did have a small to medium bowel movement this morning. And had another bowel movement this afternoon. Oncology has ordered an MRI of the brain. Patient did receive insurance authorization for ECF placement. PEG tube drainage 100 mL bilious output to the night and 30 mL output this morning. PHYSICAL EXAM: VITAL SIGNS: Reviewed. GENERAL: Well-developed in no acute distress. ABDOMEN: Soft. Mildly distended. Incision site clean dry and intact. PEG tube site clean dry and intact. PEG tube drainage with bilious output. NEUROLOGIC: Alert and oriented. Cranial nerves II through XII grossly intact. ASSESSMENT: 1. Peritonitis and free air status post exploratory laparotomy, gastrostomy tube replacement and repair gastrorrhaphy 2. 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 Ileus PLAN: -Keep tube feeds on hold -Okay to continue pured diet since appetite is small -MRI of the brain ordered by oncology service for further evaluation of patient's left-sided facial pain. -Continue antibiotics per ID service -Continue pain management -Continue supportive care -DVT prophylaxis subcu heparin and GI prophylaxis Protonix Physician Visual Inspector note has been reviewed by physician. Signing provider agrees with the documented findings, assessment, and plan of care. I have personally seen and examined the patient, reviewed the TEENAGE PROGRAM DIRECTOR /PAs history, exam and MDM and agree with the assessment and plan as written. Based on total visit time, I have performed more than 50% of the visit. As above: Patient downstairs getting the MRI performed. Continue to hold tube feeds for now. Repeat abdominal x-rays tomorrow. Increase activity. Objective - Vital Signs Vital signs: Vital Signs Temp 98.6 F 06/18/23 09:04 Pulse 89 06/18/23 09:04 Resp 17 06/18/23 09:04 BP 116/66 06/18/23 09:04 Pulse Ox 97 06/18/23 09:04 FiO2 21 06/14/23 08:27 Intake & Output 06/17/23 06/18/23 06/18/23 18:59 06:59 18:59 Intake Total 240 Output Total 400 400 Balance -160 -400 Weight 56.8 kg Intake: Oral 240 Output: Urine 400 400 Other: Voiding Method External Catheter External Catheter External Catheter # Bowel Movements 2 - Labs CBC & Chem 7: 06/16/23 06:45 06/18/23 12:40
--- NOTE | 2023-06-18 14:01 | P.PN ---
Subjective Progress Note Date: 06/18/23 73-year-old patient with past medical history significant for squamous cell carcinoma of temporal bone, with invasion of the due to presented to the emergency department with complaints of abdominal pain. * While in ER patient had a CT abdomen and pelvis obtained which showed gastrostomy tube pulled out of stomach, patient had feeding tube placed 2 weeks prior. * Patient was taken to the OR for exploratory laparotomy gastrostomy tube replacement and repair Gastrografin * Workup initiated in ED include basic metabolic panel which showed, CBC showed a CBC 18.3 hemoglobin 14.7 platelet count 275 * Patient was admitted to ICU, started on IV antibiotics consultations obtained from internal medicine, infectious disease * 06/11/23: Patient seen and evaluated bedside, patient did receive oral care overnight, dry mouth and has improved abdominal pain has improved, just complains of generalized weakness, denies fever, chills abdominal pain is improved * 06/12/23: Patient seen and evaluated bedside patient is alert to person and situation. Will continue with oral care. Patient does complain of mild abdominal discomfort continue current antibiotic. CBC showed improvement WBC 11.2 trending down hemoglobin 10.8. Blood cultures no growth for 48 hours * 06/13/23: Patient seen and evaluated bedside, patient is alert and oriented 3, patient appears weak however refusing rehab at this point. Will coordin ate with patient and case management. Family would want patient to go to rehab. Follow-up on serum chemistry and CBC continue patient on TPN. Continue IV antibiotics 06/14. Patient seen and examined. Currently on TPN and IV antibiotics. 06/15. Patient seen and examined. States she feels better. Denies any abdominal pain. Denies any nausea or vomiting 06/16. Patient seen and examined. Continues to be on tube feeding. Family at the bedside, they are wanting the patient to go to rehab 06/17. Patient seen and examined. Tolerating tube feeding. Plan is for patient to be discharged to [facility] tomorrow, started on diet per surgery 06/18. Patient seen and examined. Very lethargic this morning, received pain medications overnight secondary to her abdominal pain. Tube feeding On hold secondary to IBS. MRI of the brain ordered for left facial pain per oncology REVIEW OF SYSTEMS: Review of systems cannot be obtained as patient today is very lethargic PHYSICAL EXAMINATION: GENERAL: The patient is lethargic, not in any acute distress. Chronically ill-l ooking HEENT: Pupils are round and equally reacting to light. EOMI. No scleral icterus. No conjunctival pallor. Normocephalic, atraumatic. No pharyngeal erythema. No thyromegaly. CARDIOVASCULAR: S1 and S2 present. No murmurs, rubs, or gallops. PULMONARY: Chest is clear to auscultation, no wheezing or crackles. ABDOMEN: Soft, nontender, surgical incision seen, PEG tube seen MUSCULOSKELETAL: No joint swelling or deformity. EXTREMITIES: No cyanosis, clubbing, or pedal edema. NEUROLOGICAL: Gross neurological examination did not reveal any focal deficits. SKIN: No rashes. 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 surgery following MRI brain ordered by oncology In regards to sepsis, blood cultures collected continue patient on IV antibiotics including Zosyn, Diflucan , ID following Gen. surgery following Labs and medication were reviewed.. Continue same treatment. Continue with symptomatic treatment. Resume home medication. Monitor labs and vitals. DVT and GI prophylaxis. Further recommendations as per clinical course of the patient Dictation was produced using [employer] dictation software. please excuse any grammatical, word or spelling errors. Objective - Vital Signs Vital signs: Vital Signs Temp 98.7 F 06/18/23 12:00 Pulse 94 06/18/23 12:00 Resp 17 06/18/23 12:00 BP 119/68 06/18/23 12:00 Pulse Ox 96 06/18/23 12:00 FiO2 21 06/14/23 08:27 Intake & Output 06/17/23 06/18/23 06/18/23 18:59 06:59 18:59 Intake Total 240 Output Total 400 400 500 Balance -160 -400 -500 Weight 56.8 kg Intake: Oral 240 Output: Urine 400 400 500 Other: Voiding Method External Catheter External Catheter External Catheter # Bowel Movements 2 - Labs CBC & Chem 7: 06/16/23 06:45 06/18/23 12:40 Labs: Abnormal Lab Results - Last 24 Hours (Table) 06/18/23 Range/Units 12:40 Sodium 133 L (137-145) mmol/L Creatinine 0.32 L (0.52-1.04) mg/dL Calcium 8.2 L (8.4-10.2) mg/dL
[2023-06-18] MEDS: METOCLOPRAMIDE 5 MG/ML 2 ML VIAL IVP SCH ×3 (14:47→23:51)
[2023-06-18 16:51] LABS: Glucose,Whole Blood 90 mg/dL (70-110)
--- NOTE | 2023-06-18 19:11 | P.PN ---
Subjective Progress Note Date: 06/18/23 Principal diagnosis: peritonitis, peg problem At today's visit patient is resting in bed. Pt is reporting pain on left side of head is at about baseline, rates pain 4-5/10. Denies dizziness. Patient is tolerating tube feedings. Denies nausea vomiting. Plan is for rehabilitation upon discharge and per family, placement in nursing facility once d/c from rehab Objective - Vital Signs Vital signs: Vital Signs Temp 98.6 F 06/18/23 09:04 Pulse 89 06/18/23 09:04 Resp 17 06/18/23 09:04 BP 116/66 06/18/23 09:04 Pulse Ox 96 06/18/23 11:39 FiO2 21 06/14/23 08:27 Intake & Output 06/17/23 06/18/23 06/18/23 18:59 06:59 18:59 Intake Total 240 Output Total 400 400 500 Balance -160 -400 -500 Weight 56.8 kg Intake: Oral 240 Output: Urine 400 400 500 Other: Voiding Method External Catheter External Catheter External Catheter # Bowel Movements 2 - Constitutional General appearance: Present: no acute distress, thin - EENT Eyes: Present: anicteric sclerae, EOMI ENT: Present: hearing grossly normal - Respiratory Details: breathing is even and unlabored - Cardiovascular Details: skin warm and dry - Integumentary Integumentary: Absent: cyanotic - Neurologic Neurologic Comment(s): left sided facial droop - Musculoskeletal Musculoskeletal: Present: generalized weakness - Psychiatric Psychiatric: Present: A&O x's 3, appropriate affect, intact judgment & insight - Labs CBC & Chem 7: 06/16/23 06:45 06/18/23 12:40 Assessment and Plan (1) Complication of feeding tube Current Visit: Yes Status: Acute Priority: High Code(s): K94.20 - GASTROSTOMY COMPLICATION, UNSPECIFIED SNOMED Code(s): 417060687 (2) Generalized weakness Current Visit: Yes Status: Acute Priority: High Code(s): R53.1 - WEAKNESS SNOMED Code(s): 26998229 (3) Peritonitis Current Visit: Yes Status: Acute Priority: High Code(s): K65.9 - PERITONITIS, UNSPECIFIED SNOMED Code(s): 46092782 (4) Squamous cell carcinoma of head and neck Current Visit: Yes Status: Acute Priority: High Code(s): C76.0 - MALIGNANT NEOPLASM OF HEAD, FACE AND NECK SNOMED Code(s): 895065349 Plan: Feeding tube complication/peritonitis -Status post surgical intervention for PEG that pulled away from stomach, pneumoperitoneum -Patient doing much better post revision -TPN cont, tolerating well -Defer mgmt to Surgery Generalized weakness -Secondary to poor oral intake, prolonged bed rest. Pt is not wanting to get up today -PT/OT ordered. 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 Patient does not need an access device for her weekly chemotherapy as it is not a vessicant -Treatment will be held until patient has had adequate recovery time and rehabilitation -Spoke with general surgery team regarding persisting left temporal pain. Will obtain repeat Brain and IAC MRI. Spoke with Dr. Navarro who has been in contact with patients neurosurgeon. Previous MRI from [facility] has been uploaded in PACS system for comparison Per family patient will be going to rehabilitation upon discharge and then a nursing care facility. Family plans on moving patient closer to the [facility]. Spoke with family today that she can keep keep care locally in [place] if she would like or we can refer her care to our other clinic in [place] with Dr. Jean. Family was given information regarding our [place] clinic. Daughter states they will update us when a plan is set in place. attests: I have seen and examined patient, performed H&P, developed impression and plan of care. Discussed with dictator. Agree with documentation, dictated as a scribe.
[2023-06-18 23:55] LABS: Glucose,Whole Blood 81 mg/dL (70-110)
[2023-06-19 06:10] LABS: Glucose,Whole Blood 67 mg/dL (70-110)
[2023-06-19] MEDS: METOCLOPRAMIDE 5 MG/ML 2 ML VIAL IVP SCH ×4 (06:14→23:44)
[2023-06-19 06:42] LABS: Glucose,Whole Blood 74 mg/dL (70-110)
[2023-06-19 08:38] LABS: Basophils % (A) 0 %; Eosinophils # (A) 0.1 k/uL (0-0.7); Eosinophils % (A) 1 %; HCT 33.2 % (34.0-46.0); HGB 11.2 gm/dL (11.4-16.0); Lymphocytes # (A) 0.6 k/uL (1.0-4.8); Lymphocytes % (A) 6 %; MCH 34.1 pg (25.0-35.0); MCHC 33.7 g/dL (31.0-37.0); MCV 101.2 fL (80.0-100.0); Macrocytosis Slight; Mean Platelet Volume 7.4; Monocytes # (A) 0.4 k/uL (0-1.0); Monocytes % (A) 4 %; Neutrophils # (A) 8.6 k/uL (1.3-7.7); Neutrophils % (A) 87 %; Platelet Count 375 k/uL (150-450); RBC 3.28 m/uL (3.80-5.40); RDW 13.8 % (11.5-15.5); WBC 9.8 k/uL (3.8-10.6)
[2023-06-19] MEDS: HEPARIN SODIUM,PORCINE 5,000 UNIT/ML 1 ML VIAL SQ SCH ×3 (09:17→23:44)
[2023-06-19] MEDS: SODIUM CHLORIDE 0.9% 1,000 ML IV SCH ×3 (09:18→21:01)
[2023-06-19] MEDS: TAMSULOSIN 0.4 MG CAP.ER.24H PO SCH (09:18)
[2023-06-19] MEDS: PANTOPRAZOLE 40 MG/10 ML VIAL IV SCH (09:18)
[2023-06-19] MEDS: PIPERACILLIN-TAZOBACTAM 3.375 GM in SODIUM CHLORIDE 0.9% 100 ML IVPB SCH ×3 (09:18→23:45)
--- NOTE | 2023-06-19 10:23 | XR ---
EXAMINATION TYPE: XR abdomen 2V DATE OF EXAM: 06/19/2023 COMPARISON: Abdominal radiograph 06/17/2023 HISTORY: Pain TECHNIQUE : Upright and supine views of the abdomen obtained FINDINGS: Decreased gaseous filled small and large bowel from prior exam. No dilated visualized bowel. PEG tube within the left upper quadrant. Midline skin venita identified. No convincing evidence for pneumope ritoneum. No abnormal calcifications. Lung bases are clear. The osseous structures are intact IMPRESSION: Resolving postoperative ileus.
[2023-06-19] MEDS ORDERED: LACTULOSE 20 GM/30 ML CUP PEG/G-TUBE SCH (11:15)
--- NOTE | 2023-06-19 11:44 | P.PN ---
Subjective Progress Note Date: 06/19/23 CHIEF COMPLAINT: Peritonitis, free air HISTORY OF PRESENT ILLNESS: Patient postop day #10 status post exploratory laparotomy, gastrostomy tube replacement and repair gastrorrhaphy. Patient reports her pain is controlled. Denies any further nausea or vomiting. She did have bowel movements. Her tube feeds currently main on hold. PEG tube is to drainage with 75 mL bilious output. Abdominal x-ray resolving postoperative ileus. Afebrile. Mildly tachycardic heart rate 110. WBC is 9.8 Hgb 11.2. MRI of brain results pending PHYSICAL EXAM: VITAL SIGNS: Reviewed. GENERAL: Well-developed in no acute distress. ABDOMEN: Soft. Nondistended. Incision site clean dry and intact. PEG tube site clean dry and intact. PEG tube drainage with bilious output. NEUROLOGIC: Alert and oriented. Cranial nerves II through XII grossly intact. ASSESSMENT: 1. Peritonitis and free air status post exploratory laparotomy, gastrostomy tube replacement and repair gastrorrhaphy 2. 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 Ileus improving PLAN: -Restart tube feeds at 20 mL per hour -Add lactulose 30 mL twice a day through PEG tube -Discontinue IV Dilaudid -MRI of the brain ordered by oncology service for further evaluation of patient's left-sided facial pain. -Continue antibiotics per ID service -Continue pain management -Continue supportive care -Working on discharge planning. Patient does have insurance authorization -DVT prophylaxis subcu heparin and GI prophylaxis Protonix Physician Pickle Cutter note has been reviewed by physician. Signing provider agrees with the documented findings, assessment, and plan of care. I have personally seen and examined the patient, reviewed the HOME ENERGY RATER /PAs history, exam and MDM and agree with the assessment and plan as written. Based on total visit time, I have performed more than 50% of the visit. As above: Patient has no abdominal pain when seen on rounds yesterday. Tube feeds restarted. She is having multiple loose stools. Continue oncologic evaluation. Objective - Vital Signs Vital signs: Vital Signs Temp 96.8 F L 06/19/23 08:22 Pulse 110 H 06/19/23 08:22 Resp 17 06/19/23 08:22 BP 118/70 06/19/23 08:22 Pulse Ox 97 06/19/23 08:22 FiO2 21 06/14/23 08:27 Intake & Output 06/18/23 06/19/23 06/19/23 18:59 06:59 18:59 Intake Total 10 Output Total 655 Balance -655 10 Intake: IV 10 Invasive Line 3 10 Output: Gastric Drainage 155 Urine 500 Other: Voiding Method External Catheter External Catheter External Catheter # Bowel Movements 2 4 1 - Labs CBC & Chem 7: 06/19/23 08:20 06/18/23 12:40 Labs: Abnormal Lab Results - Last 24 Hours (Table) 06/18/23 06/19/23 06/19/23 Range/Units 12:40 06:08 08:20 RBC 3.28 L (3.80-5.40) m/uL Hgb 11.2 L (11.4-16.0) gm/dL Hct 33.2 L (34.0-46.0) % MCV 101.2 H (80.0-100.0) fL Neutrophils # 8.6 H (1.3-7.7) k/uL Lymphocytes # 0.6 L (1.0-4.8) k/uL Sodium 133 L (137-145) mmol/L Creatinine 0.32 L (0.52-1.04) mg/dL POC Glucose (mg/dL) 67 L (70-110) mg/dL Calcium 8.2 L (8.4-10.2) mg/dL
[2023-06-19] MEDS: DEXAMETHASONE SOD PHOSPHATE 4 MG/ML 1 ML VIAL IVP SCH ×2 (11:53→20:41)
--- NOTE | 2023-06-19 12:18 | MR ---
EXAMINATION TYPE: MR brain and iac wo/w con DATE OF EXAM: 06/18/2023 4:30 PM CLINICAL INDICATION:Female, 73 years old with history of hx temporal squamous cell carcinoma; COMPARISON: Pet/CT 04/27/2023, MRI 05/15/2023, 04/02/2023, CT 05/10/2023 TECHNIQUE: Multi planar, multi sequence imaging was performed through the brain. Specialized thin s equences were obtained through the internal auditory canals. Pre-and post gadolinium sequences were obtained. MR contrast: IV Contrast: 5.5 cc Gadavist FINDINGS: Extensive surgical changes within the left temporal bone. There is no evidence for involvement of the cerebrum or cerebellum. There is loss of flow void within a left transverse venous sinus suggesting occlusion. The carotid arteries appears patent. No evidence for additional sites of metastatic diseas e within the cerebrum or cerebellum. Post contrast enhancement within the temporal bone likely on the basis of residual tumor. There is so me enhancement along the soft tissues around the left ear and extending along the scalp series 1201 i mage 81. No evidence for diffusion restricted to suggest acute/subacute CVA.. There is scattered white matter changes with a T2 signal in the periventricular deep white matter. IMPRESSION: 1. Postsurgical changes of the left temporal lobe with enhancement compatible with persistent malign jeronimo. Additionally there is enhancement extending along the scalp just superficial to the calvarium s uspicious for tumor spreading along the superficial soft tissues. 2. Left transverse venous sinus loss of flow void suggestive of occlusion which may be bland thrombu s versus tumor. No evidence for acute/subacute CVA 3. Scattered nonspecific white matter changes.
--- NOTE | 2023-06-19 12:20 | P.PN ---
Subjective Progress Note Date: 06/19/23 Principal diagnosis: peritonitis, peg problem At today's visit patient is resting comfortably in bed. Pt began experiencing multiple episodes of n/v with associated dizziness. Still having persisting nausea but vomiting subsided. Denies dizziness. Denies pain. Objective - Vital Signs Vital signs: Vital Signs Temp 96.8 F L 06/19/23 08:22 Pulse 110 H 06/19/23 08:22 Resp 17 06/19/23 08:22 BP 118/70 06/19/23 08:22 Pulse Ox 97 06/19/23 08:22 FiO2 21 06/14/23 08:27 Intake & Output 06/18/23 06/19/23 06/19/23 18:59 06:59 18:59 Intake Total 10 0 Output Total 655 Balance -655 10 0 Intake: IV 10 Invasive Line 3 10 Oral 0 Output: Gastric Drainage 155 Urine 500 Other: Voiding Method External Catheter External Catheter External Catheter # Bowel Movements 2 4 1 - Constitutional General appearance: Present: no acute distress, thin - EENT Eyes: Present: anicteric sclerae, EOMI ENT: Present: hearing grossly normal - Respiratory Details: breathing even and unlabored - Cardiovascular Details: skin warm and dry - Integumentary Integumentary: Absent: cyanotic, jaundiced - Musculoskeletal Musculoskeletal: Present: generalized weakness - Psychiatric Psychiatric: Present: A&O x's 3, appropriate affect, intact judgment & insight - Labs CBC & Chem 7: 06/19/23 08:20 06/18/23 12:40 Labs: Abnormal Lab Results - Last 24 Hours (Table) 06/18/23 06/19/23 06/19/23 Range/Units 12:40 06:08 08:20 RBC 3.28 L (3.80-5.40) m/uL Hgb 11.2 L (11.4-16.0) gm/dL Hct 33.2 L (34.0-46.0) % MCV 101.2 H (80.0-100.0) fL Neutrophils # 8.6 H (1.3-7.7) k/uL Lymphocytes # 0.6 L (1.0-4.8) k/uL Sodium 133 L (137-145) mmol/L Creatinine 0.32 L (0.52-1.04) mg/dL POC Glucose (mg/dL) 67 L (70-110) mg/dL Calcium 8.2 L (8.4-10.2) mg/dL Assessment and Plan (1) Complication of feeding tube Current Visit: Yes Status: Acute Priority: High Code(s): K94.20 - GASTROSTOMY COMPLICATION, UNSPECIFIED SNOMED Code(s): 382257882 (2) Generalized weakness Current Visit: Yes Status: Acute Priority: High Code(s): R53.1 - WEAKNESS SNOMED Code(s): 86729496 (3) Peritonitis Current Visit: Yes Status: Acute Priority: High Code(s): K65.9 - PERITONITIS, UNSPECIFIED SNOMED Code(s): 97732141 (4) Squamous cell carcinoma of head and neck Current Visit: Yes Status: Acute Priority: High Code(s): C76.0 - MALIGNANT NEOPLASM OF HEAD, FACE AND NECK SNOMED Code(s): 344556272 Plan: Feeding tube complication/peritonitis -Status post surgical intervention for PEG that pulled away from stomach, pneumoperitoneum -Patient doing much better post revision -TPN cont, tolerating well -Defer mgmt to Surgery Generalized weakness -Secondary to poor oral intake, prolonged bed rest. -PT/OT ordered. 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 Patient does not need an access device for her weekly chemotherapy as it is not a vessicant -Treatment will be held until patient has had adequate recovery time and rehabilitation -Spoke with general surgery team regarding persisting left temporal pain. Repeat Brain and IAC MRI obtained, report pending -Decadron started at 4mg BID due to sx of N/V and dizziness. Will continue to monitor Per family patient will be going to rehabilitation upon discharge and then a nursing care facility. Family plans on moving patient closer to the [place] area. Spoke with family today that she can keep keep care locally in [place] if she would like or we can refer her care to our other clinic in [place] with Dr. Jean. Family was given information regarding our [place] clinic. Daughter states they will update us when a plan is set in place. attests: I have seen and examined patient, performed H&P, developed impressi on and plan of care. Discussed with dictator. Agree with documentation, dictated as a scribe.
[2023-06-19 12:27] LABS: Glucose,Whole Blood 79 mg/dL (70-110)
--- NOTE | 2023-06-19 13:14 | P.PN ---
Subjective Progress Note Date: 06/19/23 73-year-old patient with past medical history significant for squamous cell carcinoma of temporal bone, with invasion of the due to presented to the emergency department with complaints of abdominal pain. * While in ER patient had a CT abdomen and pelvis obtained which showed gastrostomy tube pulled out of stomach, patient had feeding tube placed 2 weeks prior. * Patient was taken to the OR for exploratory laparotomy gastrostomy tube replacement and repair Gastrografin * Workup initiated in ED include basic metabolic panel which showed, CBC showed a CBC 18.3 hemoglobin 14.7 platelet count 275 * Patient was admitted to ICU, started on IV antibiotics consultations obtained from internal medicine, infectious disease * 06/11/23: Patient seen and evaluated bedside, patient did receive oral care overnight, dry mouth and has improved abdominal pain has improved, just complains of generalized weakness, denies fever, chills abdominal pain is improved * 06/12/23: Patient seen and evaluated bedside patient is alert to person and situation. Will continue with oral care. Patient does complain of mild abdominal discomfort continue current antibiotic. CBC showed improvement WBC 11.2 trending down hemoglobin 10.8. Blood cultures no growth for 48 hours * 06/13/23: Patient seen and evaluated bedside, patient is alert and oriented 3, patient appears weak however refusing rehab at this point. Will coordin ate with patient and case management. Family would want patient to go to rehab. Follow-up on serum chemistry and CBC continue patient on TPN. Continue IV antibiotics 06/14. Patient seen and examined. Currently on TPN and IV antibiotics. 06/15. Patient seen and examined. States she feels better. Denies any abdominal pain. Denies any nausea or vomiting 06/16. Patient seen and examined. Continues to be on tube feeding. Family at the bedside, they are wanting the patient to go to rehab 06/17. Patient seen and examined. Tolerating tube feeding. [facility], started on diet per surgery 06/18. Patient seen and examined. Very lethargic this morning, received pain medications overnight secondary to her abdominal pain. Tube feeding On hold secondary to IBS. MRI of the brain ordered for left facial pain per oncology 06/19. Patient seen and examined. Patient is alert, answering questions. Patient had bowel movement. Surgery plan to resume patient back on tube feeding REVIEW OF SYSTEMS: Denies chest pain Denied any nausea or vomiting. Denies abdominal pain PHYSICAL EXAMINATION: GENERAL: The patient is alert, not in any acute distress. Chronically ill- looking HEENT: Pupils are round and equally reacting to light. EOMI. No scleral icterus. No conjunctival pallor. Normocephalic, atraumatic. No pharyngeal erythema. No thyromegaly. CARDIOVASCULAR: S1 and S2 present. No murmurs, rubs, or gallops. PULMONARY: Chest is clear to auscultation, no wheezing or crackles. ABDOMEN: Soft, nontender, surgical incision seen, PEG tube seen MUSCULOSKELETAL: No joint swelling or deformity. EXTREMITIES: No cyanosis, clubbing, or pedal edema. NEUROLOGICAL: Gross neurological examination did not reveal any focal deficits. SKIN: No rashes. Assessment and plan Dislodged gastrostomy tube with peritonitis status post exploratory laparotomy * Sepsis secondary to peritonitis * History of squamous cell carcinoma of temporal bone with invasion into dura * Severe protein calorie malnutrition Monitor vital signs Monitor CBC Monitor CMP In regards to dislodged gastrostomy tube,status post exploratory laparotomy , tube feeding to be resumed. surgery following MRI brain ordered by oncology In regards to sepsis, blood cultures collected continue patient on IV antib iotics including Zosyn, Diflucan , ID following Gen. surgery following Labs and medication were reviewed.. Continue same treatment. Continue with symptomatic treatment. Resume home medication. Monitor labs and vitals. DVT and GI prophylaxis. Further recommendations as per clinical course of the patient Dictation was produced using [employer] dictation software. please excuse any grammatical, word or spelling errors. Objective - Vital Signs Vital signs: Vital Signs Temp 97.1 F L 06/19/23 12:00 Pulse 107 H 06/19/23 12:00 Resp 16 06/19/23 12:00 BP 117/63 06/19/23 12:00 Pulse Ox 98 06/19/23 12:00 FiO2 21 06/14/23 08:27 Intake & Output 06/18/23 06/19/23 06/19/23 18:59 06:59 18:59 Intake Total 10 0 Output Total 655 Balance -655 10 0 Intake: IV 10 Invasive Line 3 10 Oral 0 Output: Gastric Drainage 155 Urine 500 Other: Voiding Method External Catheter External Catheter External Catheter # Bowel Movements 2 4 1 - Labs CBC & Chem 7: 06/19/23 08:20 06/18/23 12:40 Labs: Abnormal Lab Results - Last 24 Hours (Table) 06/18/23 06/19/23 06/19/23 Range/Units 12:40 06:08 08:20 RBC 3.28 L (3.80-5.40) m/uL Hgb 11.2 L (11.4-16.0) gm/dL Hct 33.2 L (34.0-46.0) % MCV 101.2 H (80.0-100.0) fL Neutrophils # 8.6 H (1.3-7.7) k/uL Lymphocytes # 0.6 L (1.0-4.8) k/uL Sodium 133 L (137-145) mmol/L Creatinine 0.32 L (0.52-1.04) mg/dL POC Glucose (mg/dL) 67 L (70-110) mg/dL Calcium 8.2 L (8.4-10.2) mg/dL
[2023-06-19 16:30] LABS: Glucose,Whole Blood 106 mg/dL (70-110)
[2023-06-19] MEDS: FLUCONAZOLE IN NACL,ISO-OSM 200 MG in SALINE 1 100ML.BAG IVPB SCH ×2 (23:45)
[2023-06-20 00:20] LABS: Glucose,Whole Blood 146 mg/dL (70-110)
[2023-06-20] MEDS: METOCLOPRAMIDE 5 MG/ML 2 ML VIAL IVP SCH ×4 (05:20→23:49)
[2023-06-20 06:12] LABS: Glucose,Whole Blood 145 mg/dL (70-110)
[2023-06-20] MEDS: PIPERACILLIN-TAZOBACTAM 3.375 GM in SODIUM CHLORIDE 0.9% 100 ML IVPB SCH ×3 (09:21→23:50)
[2023-06-20] MEDS: PANTOPRAZOLE 40 MG/10 ML VIAL IV SCH (09:21)
[2023-06-20] MEDS: HEPARIN SODIUM,PORCINE 5,000 UNIT/ML 1 ML VIAL SQ SCH ×3 (09:22→23:49)
[2023-06-20] MEDS: DEXAMETHASONE SOD PHOSPHATE 4 MG/ML 1 ML VIAL IVP SCH ×2 (09:22→21:08)
[2023-06-20] MEDS: TAMSULOSIN 0.4 MG CAP.ER.24H PO SCH (09:22)
[2023-06-20 12:01] LABS: Glucose,Whole Blood 150 mg/dL (70-110)
--- NOTE | 2023-06-20 13:10 | P.PN ---
Subjective Progress Note Date: 06/20/23 73-year-old patient with past medical history significant for squamous cell carcinoma of temporal bone, with invasion of the due to presented to the emergency department with complaints of abdominal pain. * While in ER patient had a CT abdomen and pelvis obtained which showed gastrostomy tube pulled out of stomach, patient had feeding tube placed 2 weeks prior. * Patient was taken to the OR for exploratory laparotomy gastrostomy tube replacement and repair Gastrografin * Workup initiated in ED include basic metabolic panel which showed, CBC showed a CBC 18.3 hemoglobin 14.7 platelet count 275 * Patient was admitted to ICU, started on IV antibiotics consultations obtained from internal medicine, infectious disease * 06/11/23: Patient seen and evaluated bedside, patient did receive oral care overnight, dry mouth and has improved abdominal pain has improved, just complains of generalized weakness, denies fever, chills abdominal pain is improved * 06/12/23: Patient seen and evaluated bedside patient is alert to person and situation. Will continue with oral care. Patient does complain of mild abdominal discomfort continue current antibiotic. CBC showed improvement WBC 11.2 trending down hemoglobin 10.8. Blood cultures no growth for 48 hours * 06/13/23: Patient seen and evaluated bedside, patient is alert and oriented 3, patient appears weak however refusing rehab at this point. Will coordin ate with patient and case management. Family would want patient to go to rehab. Follow-up on serum chemistry and CBC continue patient on TPN. Continue IV antibiotics 06/14. Patient seen and examined. Currently on TPN and IV antibiotics. 06/15. Patient seen and examined. States she feels better. Denies any abdominal pain. Denies any nausea or vomiting 06/16. Patient seen and examined. Continues to be on tube feeding. Family at the bedside, they are wanting the patient to go to rehab 06/17. Patient seen and examined. Tolerating tube feeding. Plan is for patient to be discharged to [facility] tomorrow, started on diet per surgery 06/18. Patient seen and examined. Very lethargic this morning, received pain medications overnight secondary to her abdominal pain. Tube feeding On hold secondary to IBS. MRI of the brain ordered for left facial pain per oncology 06/19. Patient seen and examined. Patient is alert, answering questions. Patient had bowel movement. Surgery plan to resume patient back on tube feeding 06/20. Patient seen and examined. Denies abdominal pain. Tolerating tube feeding. Discharge planning in progress. REVIEW OF SYSTEMS: Denies chest pain Denied any nausea or vomiting. Denies abdominal pain PHYSICAL EXAMINATION: GENERAL: The patient is alert, not in any acute distress. Chronically ill- looking HEENT: Pupils are round and equally reacting to light. EOMI. No scleral icterus. No conjunctival pallor. Normocephalic, atraumatic. No pharyngeal erythema. No thyromegaly. CARDIOVASCULAR: S1 and S2 present. No murmurs, rubs, or gallops. PULMONARY: Chest is clear to auscultation, no wheezing or crackles. ABDOMEN: Soft, nontender, surgical incision seen, PEG tube seen MUSCULOSKELETAL: No joint swelling or deformity. EXTREMITIES: No cyanosis, clubbing, or pedal edema. NEUROLOGICAL: Gross neurological examination did not reveal any focal deficits. SKIN: No rashes. Assessment and plan Dislodged gastrostomy tube with peritonitis status post exploratory laparotomy * Sepsis secondary to peritonitis * History of squamous cell carcinoma of temporal bone with invasion into dura * Severe protein calorie malnutrition Monitor vital signs Monitor CBC Monitor CMP In regards to dislodged gastrostomy tube,status post exploratory laparotomy , tube feeding . surgery following MRI brain showed postsurgical changes of the left temporal bone with enhancement compatible with persistent malignancy, enhancement extending along the scalp just superficial to the calvarium suspicious for tumor spreading along the superficial soft tissues. Hematology ordered CTA head and neck In regards to sepsis, blood cultures collected continue patient on IV antibiotics including Zosyn, Diflucan , ID following Gen. surgery following Labs and medication were reviewed.. Continue same treatment. Continue with symptomatic treatment. Resume home medication. Monitor labs and vitals. DVT and GI prophylaxis. Further recommendations as per clinical course of the pa emma Dictation was produced using [employer] dictation software. please excuse any grammatical, word or spelling errors. Objective - Vital Signs Vital signs: Vital Signs Temp 98.2 F 06/20/23 08:00 Pulse 120 H 06/20/23 08:00 Resp 16 06/20/23 08:00 BP 107/62 06/20/23 08:00 Pulse Ox 95 06/20/23 08:00 FiO2 21 06/14/23 08:27 Intake & Output 06/19/23 06/20/23 06/20/23 18:59 06:59 18:59 Intake Total 0 60 20 Balance 0 60 20 Weight 56.8 kg 54 kg Intake: Oral 0 0 Tube Feeding 60 20 Other: Voiding Method External Catheter External Catheter External Catheter # Bowel Movements 1 - Labs CBC & Chem 7: 06/19/23 08:20 06/18/23 12:40 Labs: Abnormal Lab Results - Last 24 Hours (Table) 06/20/23 06/20/23 06/20/23 Range/Units 00:19 06:09 11:59 POC Glucose (mg/dL) 146 H 145 H 150 H (70-110) mg/dL
--- NOTE | 2023-06-20 13:27 | P.PN ---
Subjective Progress Note Date: 06/20/23 CHIEF COMPLAINT: Peritonitis, free air HISTORY OF PRESENT ILLNESS: Patient postop day #11 status post exploratory laparotomy, gastrostomy tube replacement and repair gastrorrhaphy. Patient reports her pain is controlled. Denies any further nausea or vomiting. She did have bowel movements. She is tolerating tube feeds. Tube feeds are currently a 20 mL per hour. Afebrile. tachy. MRI of the brain postsurgical changes of the left temporal lobe with enhancement compatible with persistent malignancy. Additionally enhancement extending along the scalp just superficial to the calvarium suspicious for tumor spreading along superficial soft tissues. Left transverse venous sinus loss of flow void shows of occlusion which may be bland thrombus versus tumor. No acute stroke. PHYSICAL EXAM: VITAL SIGNS: Reviewed. GENERAL: Well-developed in no acute distress. ABDOMEN: Soft. Nondistended. Incision site clean dry and intact. PEG tube site clean dry and intact. PEG tube drainage with bilious output. NEUROLOGIC: Alert and oriented. Cranial nerves II through XII grossly intact. ASSESSMENT: 1. Peritonitis and free air status post exploratory laparotomy, gastrostomy tube replacement and repair gastrorrhaphy 2. 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 Ileus improving PLAN: -Continue tube feeds at 20 mL per hour -Oncology service complaining of further workup on MRI of the brain findings -Continue antibiotics per ID service -Continue pain management -Continue supportive care -We'll switch attending to medical service -DVT prophylaxis subcu heparin and GI prophylaxis Protonix Physician Curing Press Maintainer note has been reviewed by physician. Signing provider agrees with the documented findings, assessment, and plan of care. 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 Based on total visit time, I have performed more than 50% of the visit. As above: Patient tolerating tube feeds at 20 mL per hour. No abdominal pain. She has moved her bowel today. MRI results noted. Increase tube feeds to 30 mL per hour. Continue small volume oral intake. We'll follow. Objective - Vital Signs Vital signs: Vital Signs Temp 98.2 F 06/20/23 08:00 Pulse 120 H 06/20/23 08:00 Resp 16 06/20/23 08:00 BP 107/62 06/20/23 08:00 Pulse Ox 95 06/20/23 08:00 FiO2 21 06/14/23 08:27 Intake & Output 06/19/23 06/20/23 06/20/23 18:59 06:59 18:59 Intake Total 0 60 20 Balance 0 60 20 Weight 56.8 kg 54 kg Intake: Oral 0 Tube Feeding 60 20 Other: Voiding Method External Catheter External Catheter External Catheter # Bowel Movements 1 - Labs CBC & Chem 7: 06/19/23 08:20 06/20/23 12:29 Labs: Abnormal Lab Results - Last 24 Hours (Table) 06/20/23 06/20/23 Range/Units 00:19 06:09 POC Glucose (mg/dL) 146 H 145 H (70-110) mg/dL
[2023-06-20 14:18] LABS: African American GFR (CKD) >90 (>60 ml/min/1.73 sqM); Anion Gap 6 mmol/L; Blood Urea Nitrogen 18 mg/dL (7-17); Carbon Dioxide 24 mmol/L (22-30); Chloride 106 mmol/L (98-107); Glucose 136 mg/dL (74-99); Non-African American GFR(CKD) >90 (>60 ml/min/1.73 sqM); Potassium 3.3 mmol/L (3.5-5.1); Sodium 136 mmol/L (137-145)
--- NOTE | 2023-06-20 14:21 | P.PN ---
Subjective Progress Note Date: 06/19/23 Principal diagnosis: Gastric perforation and abdominal abscess Patient is a 73-year female with past medical history significant for squamous cell carcinoma temporal bone with invasion into dura patient did have a PEG tube for feeding and is a group home resident patient was sent to the ER for evaluation of chills and abdominal pain patient has severe abdominal pelvis PEG tube was retracted did have a laparotomy with evidence of abdominal abscess status post drainage repair of the gastrorrhaphy and placement of a new PEG tube On today's evaluation that is 06/19/2023, the patient continues to be afebrile , the patient is breathing comfortably on room air and denies any shortness of breath, the patient denies any chest pain and no cough or sputum production, p atient denies abdominal pain and no nausea/vomiting or diarrhea , feeling better no new symptoms Patient white count is 9.8, creatinine is 0.32 as of 06/18/2023, blood cultures are so far negative Objective - Vital Signs Vital signs: Vital Signs Temp 96.8 F L 06/19/23 08:22 Pulse 110 H 06/19/23 08:22 Resp 17 06/19/23 08:22 BP 118/70 06/19/23 08:22 Pulse Ox 97 06/19/23 08:22 FiO2 21 06/14/23 08:27 Intake & Output 06/18/23 06/19/23 06/19/23 18:59 06:59 18:59 Intake Total 10 0 Output Total 655 Balance -655 10 0 Intake: IV 10 Invasive Line 3 10 Oral 0 Output: Gastric Drainage 155 Urine 500 Other: Voiding Method External Catheter External Catheter External Catheter # Bowel Movements 2 4 1 - Exam GENERAL DESCRIPTION: An elderly female lying in bed in no distress RESPIRATORY SYSTEM: Unlabored breathing , clear to auscultation anteriorly HEART: S1 S2 regular rate and rhythm , ABDOMEN: Soft , mild tenderness EXTREMITIES: No edema feet - Labs CBC & Chem 7: 06/19/23 08:20 06/20/23 12:29 Labs: Abnormal Lab Results - Last 24 Hours (Table) 06/18/23 06/19/23 06/19/23 Range/Units 12:40 06:08 08:20 RBC 3.28 L (3.80-5.40) m/uL Hgb 11.2 L (11.4-16.0) gm/dL Hct 33.2 L (34.0-46.0) % MCV 101.2 H (80.0-100.0) fL Neutrophils # 8.6 H (1.3-7.7) k/uL Lymphocytes # 0.6 L (1.0-4.8) k/uL Sodium 133 L (137-145) mmol/L Creatinine 0.32 L (0.52-1.04) mg/dL POC Glucose (mg/dL) 67 L (70-110) mg/dL Calcium 8.2 L (8.4-10.2) mg/dL Assessment and Plan (1) Complication of feeding tube Current Visit: Yes Status: Acute Priority: High Code(s): K94.20 - GASTROSTOMY COMPLICATION, UNSPECIFIED SNOMED Code(s): 491464173 (2) Intra-abdominal abscess Current Visit: Yes Status: Acute Code(s): K65.1 - PERITONEAL ABSCESS SNOMED Code(s): 22204094 (3) Peritonitis Current Visit: Yes Status: Acute Priority: High Code(s): K65.9 - PERITONITIS, UNSPECIFIED SNOMED Code(s): 01932184 Plan: 1patient presented to hospital with sepsis in this patient who did have a elevated white count and tachycardia meeting criteria for SIRS source is abdominal in this patient who did have peritonitis from dislodgment of her PEG tube and will need to cover for the enteric gram-negative both aerobes and anaerobes and Gladys 2-patient is afebrile and WBC normalized , the patient will continue Zosyn 3.375 g every 8 hours and Diflucan to finish a total of 2-3 weeks course of therapy depending upon the clinical response Dictation was produced using [employer] software. please excuse any grammatical, word or spelling errors.
--- NOTE | 2023-06-20 14:26 | P.PN ---
Subjective Progress Note Date: 06/20/23 Principal diagnosis: Gastric perforation and abdominal abscess Patient is a 73-year female with past medical history significant for squamous cell carcinoma temporal bone with invasion into dura patient did have a PEG tube for feeding and is a [facility] resident patient was sent to the ER for evaluation of chills and abdominal pain patient has severe abdominal pelvis PEG tube was retracted did have a laparotomy with evidence of abdominal abscess status post drainage repair of the gastrorrhaphy and placement of a new PEG tube On today's evaluation that is 06/19/2023, the patient continues to be afebrile , the patient is breathing comfortably on room air and denies any shortness of breath, the patient denies any chest pain and no cough or sputum production, p atient denies abdominal pain and no nausea/vomiting or diarrhea , feeling better no new symptoms Patient white count is 9.8 as of yesterday, creatinine is 0.50, blood cultures are so far negative Objective - Vital Signs Vital signs: Vital Signs Temp 98.2 F 06/20/23 08:00 Pulse 120 H 06/20/23 08:00 Resp 16 06/20/23 08:00 BP 107/62 06/20/23 08:00 Pulse Ox 95 06/20/23 08:00 FiO2 21 06/14/23 08:27 Intake & Output 06/19/23 06/20/23 06/20/23 18:59 06:59 18:59 Intake Total 0 60 20 Balance 0 60 20 Weight 56.8 kg 54 kg Intake: Oral 0 0 Tube Feeding 60 20 Other: Voiding Method External Catheter External Catheter External Catheter # Bowel Movements 1 - Exam GENERAL DESCRIPTION: An elderly female lying in bed in no distress RESPIRATORY SYSTEM: Unlabored breathing , clear to auscultation anteriorly HEART: S1 S2 regular rate and rhythm , ABDOMEN: Soft , mild tenderness EXTREMITIES: No edema feet - Labs CBC & Chem 7: 06/19/23 08:20 06/20/23 12:29 Labs: Abnormal Lab Results - Last 24 Hours (Table) 06/20/23 06/20/23 06/20/23 Range/Units 00:19 06:09 11:59 Sodium (137-145) mmol/L Potassium (3.5-5.1) mmol/L BUN (7-17) mg/dL Creatinine (0.52-1.04) mg/dL Glucose (74-99) mg/dL POC Glucose (mg/dL) 146 H 145 H 150 H (70-110) mg/dL Calcium (8.4-10.2) mg/dL 06/20/23 Range/Units 12:29 Sodium 136 L (137-145) mmol/L Potassium 3.3 L (3.5-5.1) mmol/L BUN 18 H (7-17) mg/dL Creatinine 0.50 L (0.52-1.04) mg/dL Glucose 136 H (74-99) mg/dL POC Glucose (mg/dL) (70-110) mg/dL Calcium 8.0 L (8.4-10.2) mg/dL Assessment and Plan (1) Complication of feeding tube Current Visit: Yes Status: Acute Priority: High Code(s): K94.20 - GASTROSTOMY COMPLICATION, UNSPECIFIED SNOMED Code(s): 238876093 (2) Intra-abdominal abscess Current Visit: Yes Status: Acute Code(s): K65.1 - PERITONEAL ABSCESS SNOMED Code(s): 66425844 (3) Peritonitis Current Visit: Yes Status: Acute Priority: High Code(s): K65.9 - PERITONITIS, UNSPECIFIED SNOMED Code(s): 10012943 Plan: 1patient presented to hospital with sepsis in this patient who did have a elevated white count and tachycardia meeting criteria for SIRS source is abdominal in this patient who did have peritonitis from dislodgment of her PEG tube and will need to cover for the enteric gram-negative both aerobes and anaerobes and Gladys 2-patient is afebrile and WBC has normalized as of yesterday 3-the patient will continue Zosyn 3.375 g every 8 hours and Diflucan for another 10 days to finish her course of therapy , currently waiting for placement Dictation was produced using [employer] dictation software. please excuse any grammatical, word or spelling errors. Time with Patient: Less than 30
[2023-06-20] MEDS: SODIUM CHLORIDE 0.9% 1,000 ML IV SCH (14:46)
--- NOTE | 2023-06-20 17:15 | P.PN ---
Subjective Progress Note Date: 06/20/23 Principal diagnosis: peritonitis, peg problem At today's visit patient is resting comfortably in bed. Pt reports n/v has subsided. Reports decreased appetitie, not eating or drinking. Tube feedings continue, tolerating well. Denies dizziness, left sided head pain, rating 4/10. Pt has been refusing to work with PT Objective - Vital Signs Vital signs: Vital Signs Temp 98 F 06/20/23 12:00 Pulse 83 06/20/23 12:00 Resp 16 06/20/23 12:00 BP 106/66 06/20/23 12:00 Pulse Ox 95 06/20/23 12:00 FiO2 21 06/14/23 08:27 Intake & Output 06/19/23 06/20/23 06/20/23 18:59 06:59 18:59 Intake Total 0 60 220 Balance 0 60 220 Weight 56.8 kg 54 kg Intake: Oral 0 180 Tube Feeding 60 40 Other: Voiding Method External Catheter External Catheter External Catheter # Bowel Movements 1 - Constitutional General appearance: Present: no acute distress, thin - EENT Eyes: Present: anicteric sclerae ENT: Present: hearing grossly normal - Respiratory Details: breathing is even and unlabored - Cardiovascular Details: skin warm and dry - Neurologic Neurologic Comment(s): left sided facial droop, baseline - Musculoskeletal Musculoskeletal: Present: generalized weakness - Psychiatric Psychiatric: Present: A&O x's 3 - Labs CBC & Chem 7: 06/19/23 08:20 06/20/23 12:29 Labs: Abnormal Lab Results - Last 24 Hours (Table) 06/20/23 06/20/23 06/20/23 Range/Units 00:19 06:09 11:59 Sodium (137-145) mmol/L Potassium (3.5-5.1) mmol/L BUN (7-17) mg/dL Creatinine (0.52-1.04) mg/dL Glucose (74-99) mg/dL POC Glucose (mg/dL) 146 H 145 H 150 H (70-110) mg/dL Calcium (8.4-10.2) mg/dL 06/20/23 Range/Units 12:29 Sodium 136 L (137-145) mmol/L Potassium 3.3 L (3.5-5.1) mmol/L BUN 18 H (7-17) mg/dL Creatinine 0.50 L (0.52-1.04) mg/dL Glucose 136 H (74-99) mg/dL POC Glucose (mg/dL) (70-110) mg/dL Calcium 8.0 L (8.4-10.2) mg/dL Assessment and Plan (1) Complication of feeding tube Current Visit: Yes Status: Acute Priority: High Code(s): K94.20 - G ASTROSTOMY COMPLICATION, UNSPECIFIED SNOMED Code(s): 300372892 (2) Generalized weakness Current Visit: Yes Status: Acute Priority: High Code(s): R53.1 - WEAKNESS SNOMED Code(s): 16220867 (3) Peritonitis Current Visit: Yes Status: Acute Priority: High Code(s): K65.9 - PERITONITIS, UNSPECIFIED SNOMED Code(s): 98129919 (4) Squamous cell carcinoma of head and neck Current Visit: Yes Status: Acute Priority: High Code(s): C76.0 - MALIGNANT NEOPLASM OF HEAD, FACE AND NECK SNOMED Code(s): 714349593 Plan: Feeding tube complication/peritonitis -Status post surgical intervention for PEG that pulled away from stomach, pneumoperitoneum -Patient doing much better post revision -TPN cont, tolerating well -Defer mgmt to Surgery Generalized weakness -Secondary to poor oral intake, prolonged bed rest. -PT/OT ordered, pt has been refusing PT. Discussed she needs to put in an effort to work with PT to get stronger, otherwise she will continue to decline and treatment will not be an option if her PS continues to decline -Plan for discharge to rehab Squamous cell carcinoma of the head and neck -New diagnosis -Pending start of concurrent chemotherapy and radiation. Patient does not need an access device for her weekly chemotherapy as it is not a vessicant -Treatment will be held until patient has had adequate recovery time and rehabilitation -Spoke with general surgery team regarding persisting left temporal pain. Repeat Brain and IAC MRI obtained. Scan revealed postsurgical changes to the left temporal lobe with enhancement compatible with persistent malignancy. Dirk tionally there is had enhancement extending along the scalp just superficial to the calvarium suspicious for tumor spreading along the superficial soft tissues. Left transverse venous sinus loss of flow void suggestive of occlusion which may be bland thrombosis versus tumor. No evidence for acute/subacute CVA. Dr. Batista spoke with radiation oncology and they reviewed scan and believe that enhancement along the scalp is similar to previous exam but does believe there is disease progression into the dura. Spoke with radiology in regards to venous sinus occlusion noted on exam. It is believed that this is less likely tumor invovlement but reports flow was slow on exam with could be related to a bland thrombus. We will obtain CTA brain to further evaluate. If thrombus is noted patient will need to be placed on anticoagulation. We will continue to follow. Spoke with daughter via telephone regarding results and POC -Decadron started at 4mg BID due to sx of N/V and dizziness. Sx improving, will continue to monitor Per family patient will be going to rehabilitation upon discharge and then a nursing care facility. Family plans on moving patient closer to the [facility]. Spoke with family today that she can keep keep care locally in [place] if she would like or we can refer her care to our other clinic in [place] with Dr. Jean. Daugher states they would prefer care in [place]. Family was given information regarding our [place] clinic and we will transfer records to Dr. Jean
[2023-06-20 18:40] LABS: Glucose,Whole Blood 172 mg/dL (70-110)
[2023-06-20] MEDS ORDERED: HYDROmorphone 0.5 MG/0.5 ML SYRINGE IVP STA (20:41)
[2023-06-20] MEDS: FLUCONAZOLE IN NACL,ISO-OSM 200 MG in SALINE 1 100ML.BAG IVPB SCH (23:50)
[2023-06-20 23:58] LABS: Glucose,Whole Blood 160 mg/dL (70-110)
[2023-06-21] MEDS: SODIUM CHLORIDE 0.9% 1,000 ML IV SCH (00:03)
[2023-06-21 03:38] VITALS: RESP 18
[2023-06-21] MEDS: METOCLOPRAMIDE 5 MG/ML 2 ML VIAL IVP SCH (05:31)
[2023-06-21 06:38] LABS: Glucose,Whole Blood 154 mg/dL (70-110)
--- NOTE | 2023-06-21 08:31 | CT ---
EXAMINATION TYPE: CT head without contrast CT angio head DATE OF EXAM: 06/20/2023 COMPARISON: MRI 06/18/2023 HISTORY: 73-year-old female possible left venous sinus thrombosis noted on MRI, abnormal MRI TECHNIQUE: CT of the head without IV contrast. Subsequent scanning after administration of 100 mL Iso demario 370 IV contrast. Coronal and sagittal reconstructions performed. 3-D reconstructions generated on a dedicated independent workstation. CT DLP: 2916.5 mGycm Automated exposure control for dose reduction was used. FINDINGS: No evidence for acute intracranial hemorrhage, acute ischemic change, mass, mass effect, midline shif t, or extra axial fluid collection. No hydrocephalus. No effacement of cerebral sulci raises the rect um cisterns. Dunaway-white matter differentiation is maintained. Mild ventricular prominence secondary t o mild central cerebral atrophy. Mild periventricular white matter hypodensities suggest changes of c hronic small vessel ischemic disease. Subdural hyperdensity overlies the left eye to be correlated clinically. Postresection changes with packing material in the left mastoid process. Following IV contrast, imaging does not include the bilateral vertebral arteries. The basilar artery and remainder of the posterior circulation is patent. The internal carotid arteries and remainder of the anterior circulation is patent. No aneurysmal change is seen. We note filling defects throughout the left transverse and left sigmoid sinus. Refer to dictations on axial series 33. IMPRESSION: 1. FILLING DEFECT NOTED WITHIN THE LEFT SIGMOID SINUS AND TO A LESSER EXTENT ALONG THE LENGTH OF THE LEFT TRANSVERSE SINUS. ENHANCEMENT IN THE LEFT TRANSVERSE SINUS HAS BECOME MORE DIMINUTIVE THAN OLYA RED TO THE PATIENT'S RECENT MRI. FINDINGS SUGGESTIVE OF VENOUS SINUS THROMBOSIS. 2. OTHERWISE, NO ACUTE INTRACRANIAL ABNORMALITY SEEN. 3. POST RESECTION CHANGES LEFT MASTOID PROCESS WITH PACKING MATERIAL. 4. NO LARGE VESSEL INTRACRANIAL ARTERIAL OCCLUSION OR ANEURYSMAL CHANGE IS SEEN.
[2023-06-21] MEDS: TAMSULOSIN 0.4 MG CAP.ER.24H PO SCH (09:02)
[2023-06-21] MEDS: DEXAMETHASONE SOD PHOSPHATE 4 MG/ML 1 ML VIAL IVP SCH (09:02)
[2023-06-21] MEDS: PANTOPRAZOLE 40 MG/10 ML VIAL IV SCH (09:03)
[2023-06-21] MEDS: HEPARIN SODIUM,PORCINE 5,000 UNIT/ML 1 ML VIAL SQ SCH (09:03)
[2023-06-21] MEDS: PIPERACILLIN-TAZOBACTAM 3.375 GM in SODIUM CHLORIDE 0.9% 100 ML IVPB SCH (09:03)
--- NOTE | 2023-06-21 10:20 | P.DS ---
Providers Date of admission: 06/09/23 11:45 Expected date of discharge: 06/21/23 Attending physician: Tavares Castaneda MD Consults: 06/09/23 14:18 Consult Physician Routine Consulting Provider: Anirudh Solo Consult Reason/Comments: History of malignancy Do you want consulting provider notified?: Yes Consult Physician Routine Consulting Provider: Rodo Gracia Consult Reason/Comments: Peritonitis Do you want consulting provider notified?: Yes 06/09/23 14:22 Consult Physician Routine Consulting Provider: Criselda Campos Consult Reason/Comments: Medical management Do you want consulting provider notified?: Yes Primary care physician: Rafa Godfrey [facility] Course: Discharge diagnoses; Venous sinus thrombosis Dislodged gastrostomy tube with peritonitis status post exploratory laparotomy Sepsis secondary to peritonitis History of squamous cell carcinoma of temporal bone with invasion into dura Severe protein calorie malnutrition Hospital course; 73-year-old patient with past medical history significant for squamous cell carcinoma of temporal bone, with invasion of the due [facility] of [facility]. * While in ER patient had a CT abdomen and pelvis obtained which showed gastrostomy tube pulled out of stomach, patient had feeding tube placed 2 wee ks prior. * Patient was taken to the OR for exploratory laparotomy gastrostomy tube replacement and repair Gastrografin * Workup initiated in ED include basic metabolic panel which showed, CBC showed a CBC 18.3 hemoglobin 14.7 platelet count 275 * Patient was admitted to ICU, started on IV antibiotics consultations obtained from internal medicine, infectious disease * 06/11/23: Patient seen and evaluated bedside, patient did receive oral care overnight, dry mouth and has improved abdominal pain has improved, just complains of generalized weakness, denies fever, chills abdominal pain is improved * 06/12/23: Patient seen and evaluated bedside patient is alert to person and situation. Will continue with oral care. Patient does complain of mild abdominal discomfort continue current antibiotic. CBC showed improvement WBC 11.2 trending down hemoglobin 10.8. Blood cultures no growth for 48 hours * 06/13/23: Patient seen and evaluated bedside, patient is alert and oriented 3, patient appears weak however refusing rehab at this point. Will coordinate with patient and case management. Family would want patient to go to rehab. Follow-up on serum chemistry and CBC continue patient on TPN. C ontinue IV antibiotics 10/27. Patient seen and examined. Currently on TPN and IV antibiotics. 06/15. Patient seen and examined. States she feels better. Denies any abdominal pain. Denies any nausea or vomiting 06/16. Patient seen and examined. Continues to be on tube feeding. Family at the bedside, they are wanting the patient to go to rehab 06/17. Patient seen and examined. Tolerating tube feeding. Plan is for patient to be discharged to [facility] tomorrow, started on diet per surgery 06/18. Patient seen and examined. Very lethargic this morning, received pain medications overnight secondary to her abdominal pain. Tube feeding On hold secondary to IBS. MRI of the brain ordered for left facial pain per oncology 06/19. Patient seen and examined. Patient is alert, answering questions. Patient had bowel movement. Surgery plan to resume patient back on tube feeding 06/20. Patient seen and examined. Denies abdominal pain. Tolerating tube feeding. Discharge planning in progress. 06/21. Patient seen and examined. Repeat Brain and IAC MRI obtained. Scan revealed postsurgical changes to the left temporal lobe with enhancement compatible with persistent malignancy. Additionally there is had enhancement extending along the scalp just superficial to the calvarium suspicious for tumor spreading along the superficial soft tissues. Left transverse venous sinus loss of flow void suggestive of occlusion which may be bland thrombosis versus tumor. No evidence for acute/subacute CVA. Dr. Batista spoke with radiation oncology and they reviewed scan and believe that enhancement along the scalp is similar to previous exam but does believe there is disease progression into the dura. Spoke with radiology in regards to venous sinus occlusion noted on exam. It is believed that this is less likely tumor invovlement but reports flow was slow on exam with could be related to a bland thrombus. We will obtain CTA brain to further evaluate. If thrombus is noted patient will need to be placed on anticoagulation. Patient had CTA head and neck done which showed filling defect noted in the left sigmoid sinus and to a lesser extent along the length of the left transverse sinus, findings suggestive of venous sinus thrombosis. Hematology oncology started patient on Eliquis 10 mg twice a day for 7 days followed by 5 twice a day. Patient being discharged on IV Zosyn and Diflucan per ID recommendations PHYSICAL EXAMINATION: GENERAL: The patient is alert, not in any acute distress. Chronically ill-looki ng HEENT: Pupils are round and equally reacting to light. EOMI. No scleral icterus. No conjunctival pallor. Normocephalic, atraumatic. No pharyngeal erythema. No thyromegaly. CARDIOVASCULAR: S1 and S2 present. No murmurs, rubs, or gallops. PULMONARY: Chest is clear to auscultation, no wheezing or crackles. ABDOMEN: Soft, nontender, surgical incision seen, PEG tube seen MUSCULOSKELETAL: No joint swelling or deformity. EXTREMITIES: No cyanosis, clubbing, or pedal edema. NEUROLOGICAL: Gross neurological examination did not reveal any focal deficits. SKIN: No rashes. Dictation was produced using [employer] dictation software. please excuse any grammatical, word or spelling errors. Patient Condition at Discharge: Fair Plan - Discharge Summary Discharge Rx Participant: No New Discharge Prescriptions: New Piperacillin-Tazobactam [Zosyn] 3.375 gm IVPB Q8HR 10 Days each Fluconazole in NaCl,Iso-Osm [Diflucan 200 mg/100 ml IVPB] 200 mg IVPB DAILY@0000 10 Days #10 each Apixaban Initiation Dose--VTE [Eliquis Initiation Dosing for VTE Treatment] 10 mg PO BID 30 Days #60 tab Tamsulosin [Flomax] 0.4 mg PO PC-BRKFST 30 Days #30 cap Continue dexAMETHasone [Decadron] 4 mg PO TID@0600,1400,2200 Omeprazole 20 mg PO DIRECTED Discharge Medication List Omeprazole 20 mg PO DIRECTED 06/09/23 [History] dexAMETHasone [Decadron] 4 mg PO TID@0600,1400,2200 06/09/23 [History] Apixaban Initiation Dose--VTE [Eliquis Initiation Dosing for VTE Treatment] 10 mg PO BID 30 Days #60 tab 06/21/23 [Rx] Fluconazole in NaCl,Iso-Osm [Diflucan 200 mg/100 ml IVPB] 200 mg IVPB DAILY@0000 10 Days #10 each 06/21/23 [Rx] Piperacillin-Tazobactam [Zosyn] 3.375 gm IVPB Q8HR 10 Days each 06/21/23 [Rx] Tamsulosin [Flomax] 0.4 mg PO PC-BRKFST 30 Days #30 cap 06/21/23 [Rx] Follow up Appointment(s)/Referral(s): Anirudh Solo MD [STAFF PHYSICIAN] - 4 Weeks (Please call office for follow up appt once discharged from rehab. ) Rafa Godfrey DO [Primary Care Provider] - 1-2 days [facility] [NON-STAFF] - Discharge Disposition: TRANSFER TO SNF/ECF
[2023-06-21] MEDS ORDERED: Apixaban Initiation Dose--VTE 5 MG TAB PO SCH (11:00)
--- NOTE | 2023-06-21 11:50 | P.PN ---
Subjective Progress Note Date: 06/21/23 CHIEF COMPLAINT: Peritonitis, free air HISTORY OF PRESENT ILLNESS: Patient postop day #12 status post exploratory laparotomy, gastrostomy tube replacement and repair gastrorrhaphy. Patient reports her pain is controlled. Patient is tolerating tube feeds at 30 mL per hour. No abdominal pain. She is having bowel movements. Denies any nausea vomiting. Patient had a CTA of the brain that showed a filling defect noted in the left sinus and findings suggestive of a venous sinus thrombosis. Hematology has started anticoagulation. Patient scheduled for discharge to [facility] today. PHYSICAL EXAM: VITAL SIGNS: Reviewed. GENERAL: Well-developed in no acute distress. ABDOMEN: Soft. Nondistended. Incision site clean dry and intact. PEG tube site clean dry and intact. NEUROLOGIC: Alert and oriented. Cranial nerves II through XII grossly intact. ASSESSMENT: 1. Peritonitis and free air status post exploratory laparotomy, gastrostomy tube replacement and repair gastrorrhaphy 2. 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 Ileus resolved PLAN: -Continue tube feeds -Okay to continue Pureed diet -Discharge antibiotics per ID service -Patient follow-up in the office with Dr. Obrien -DVT prophylaxis subcu heparin and GI prophylaxis Protonix Physician [employer] note has been reviewed by physician. Signing provider agrees with the documented findings, assessment, and plan of care. I have personally seen and examined the patient, reviewed the [employer] /PAs history, exam and MDM and agree with the assessment and plan as written. Based on total visit time, I have performed more than 50% of the visit. As above: Patient continues to tolerate tube feeds at 30 mL per hour. She is still having bowel function. Denies nausea or vomiting. Denies abdominal pain. Plan is for discharge today to rehab. Outpatient oncologic workup continues. Objective - Vital Signs Vital signs: Vital Signs Temp 98.4 F 06/20/23 19:44 Pulse 81 06/21/23 03:26 Resp 18 06/21/23 03:26 BP 106/57 06/21/23 03:26 Pulse Ox 100 06/21/23 03:26 FiO2 21 06/14/23 08:27 Intake & Output 06/20/23 06/21/23 06/21/23 18:59 06:59 18:59 Intake Total 240 90 Output Total 350 Balance -110 90 Intake: Oral 180 0 Tube Feeding 60 90 Output: Urine 350 Other: Voiding Method External Catheter External Catheter # Voids 1 1 # Bowel Movements 1 1 - Labs CBC & Chem 7: 06/19/23 08:20 06/20/23 12:29 Labs: Abnormal Lab Results - Last 24 Hours (Table) 06/20/23 06/20/23 06/20/23 Range/Units 11:59 12:29 18:39 Sodium 136 L (137-145) mmol/L Potassium 3.3 L (3.5-5.1) mmol/L BUN 18 H (7-17) mg/dL Creatinine 0.50 L (0.52-1.04) mg/dL Glucose 136 H (74-99) mg/dL POC Glucose (mg/dL) 150 H 172 H (70-110) mg/dL Calcium 8.0 L (8.4-10.2) mg/dL 06/20/23 06/21/23 Range/Units 23:56 06:36 Sodium (137-145) mmol/L Potassium (3.5-5.1) mmol/L BUN (7-17) mg/dL Creatinine (0.52-1.04) mg/dL Glucose (74-99) mg/dL POC Glucose (mg/dL) 160 H 154 H (70-110) mg/dL Calcium (8.4-10.2) mg/dL
[2023-06-21 11:55] LABS: Glucose,Whole Blood 181 mg/dL (70-110)
[2023-06-21 14:08] VITALS: BP 102/65; PULSE 90; TEMP 97.7
[2023-06-21 14:53] VITALS: BMI 18.1
--- NOTE | 2023-06-21 16:09 | P.PN ---
Subjective Progress Note Date: 06/21/23 Principal diagnosis: peritonitis, peg problem At today's visit patient is resting comfortably in bed. Pt reports n/v has subsided. Tube feedings continue, tolerating well. Denies dizziness, left sided head pain persisting. Per family they have noticed some slurred speech today. Objective - Vital Signs Vital signs: Vital Signs Temp 97.7 F 06/21/23 12:00 Pulse 90 06/21/23 12:00 Resp 18 06/21/23 12:00 BP 102/65 06/21/23 12:00 Pulse Ox 96 06/21/23 12:00 FiO2 21 06/14/23 08:27 Intake & Output 06/20/23 06/21/23 06/21/23 18:59 06:59 18:59 Intake Total 240 90 420 Output Total 350 Balance -110 90 420 Weight 54 kg Intake: Oral 180 0 360 Tube Feeding 60 90 60 Output: Urine 350 Other: Voiding Method External Catheter External Catheter External Catheter # Voids 1 1 # Bowel Movements 1 1 1 - Constitutional General appearance: Present: no acute distress, thin - EENT Eyes: Present: anicteric sclerae ENT: Present: hearing grossly normal - Respiratory Details: breathing is even and unlabored - Cardiovascular Details: skin warm and dry - Integumentary Integumentary: Absent: cyanotic - Neurologic Neurologic Comment(s): left-sided facial droop - Musculoskeletal Musculoskeletal: Present: generalized weakness - Psychiatric Psychiatric: Present: A&O x's 3 - Labs CBC & Chem 7: 06/19/23 08:20 06/20/23 12:29 Labs: Abnormal Lab Results - Last 24 Hours (Table) 06/20/23 06/20/23 06/21/23 Range/Units 18:39 23:56 06:36 POC Glucose (mg/dL) 172 H 160 H 154 H (70-110) mg/dL 06/21/23 Range/Units 11:52 POC Glucose (mg/dL) 181 H (70-110) mg/dL Assessment and Plan (1) Complication of feeding tube Current Visit: Yes Status: Acute Priority: High Code(s): K94.20 - GASTROSTOMY COMPLICATION, UNSPECIFIED SNOMED Code(s): 842312319 (2) Generalized weakness Current Visit: Yes Status: Acute Priority: High Code(s): R53.1 - WEAKNESS SNOMED Code(s): 11308245 (3) Peritonitis Current Visit: Yes Status: Acute Priority: High Code(s): K65.9 - PERITONI TIS, UNSPECIFIED SNOMED Code(s): 35739129 (4) Squamous cell carcinoma of head and neck Current Visit: Yes Status: Acute Priority: High Code(s): C76.0 - MALIGNANT NEOPLASM OF HEAD, FACE AND NECK SNOMED Code(s): 478041003 (5) Cerebral venous sinus thrombosis Current Visit: Yes Status: Acute Priority: High Code(s): G08 - INTRACRANIAL AND INTRASPINAL PHLEBITIS AND THROMBOPHLEBITIS SNOMED Code(s): 752990745 Plan: Feeding tube complication/peritonitis -Status post surgical intervention for PEG that pulled away from stomach, pneumoperitoneum -Patient doing much better post revision -TPN cont, tolerating well -Defer mgmt to Surgery Generalized weakness -Secondary to poor oral intake, prolonged bed rest. -PT/OT ordered, pt has been refusing PT. Discussed she needs to put in an effort to work with PT to get stronger, otherwise she will continue to decline and treatment will not be an option if her PS continues to decline -Plan for discharge to rehab today Squamous cell carcinoma of the head and neck -New diagnosis -Pending start of concurrent chemotherapy and radiation. At this time due to poor PS, immunotherapy will be considered vs chemotherapy. -Treatment will be held until patient has had adequate recovery time and rehab ilitation. POC regarding treatment and the need for successful rehab before treatment was discussed at length with patient and family, and they verbalized understanding -Spoke with general surgery team regarding persisting left temporal pain. Repeat Brain and IAC MRI obtained. Scan revealed postsurgical changes to the left temporal lobe with enhancement compatible with persistent malignancy. Additionally there is had enhancement extending along the scalp just superficial to the calvarium suspicious for tumor spreading along the superficial soft tissues. Left transverse venous sinus loss of flow void suggestive of occlusion which may be bland thrombosis versus tumor. No evidence for acute/subacute CVA. Dr. Batista spoke with radiation oncology and they reviewed scan and believe that enhancement along the scalp is similar to previous exam and are r/t post surgical changes, but does believe there is disease progression into the dura. Spoke with radiology in regards to venous sinus occlusion noted on MRI. It is believed that this is less likely tumor involvement but reports flow was slow on exam with could be related to a bland thrombus. CTA brain obtained to further evaluate. -CTA head revealed filling defect noted within the left sigmoid sinus and to a lesser extent along the length of the left transverse sinus. Enhancement in the left transverse sinus has become more diminutive when compared to the patient's recent MRI, findings suggestive of venous sinus thrombosis. Otherwise no acute intracranial abnormality seen. Findings discussed in detail with patient and family at today's visit. Will start patient on Eliquis -Decadron started at 4mg BID due to sx of N/V and dizziness. Sx improving. Patient will be placed on slow Decadron taper Per family patient will be going to rehabilitation upon discharge and then a nursing care facility. Family plans on moving patient closer to the [place] area. [place] states they would prefer to keep care locally to where pt will be living. Family was given information regarding our [facility] and we will transfer records to Dr. Jean. F/u will be scheduled once pt completes rehab attests: I seen and examined patient, performed H&P, developed impression and plan of care. Discussed with dictator. Agree with documentation, dictated as a scribe
== END 2023-06-21 16:37 | DRG 326 ==
LOC: EC 08:48 → 4SSUR 11:45 → 3SCARD 14:29 → 2SICU 16:47 → 3SCARD 06-11 18:04
PROVIDERS: ADMIT Internal Medicine; ATTEND Internal Medicine
PROC: 0DW60UZ Revision of Feeding Device in Stomach, Open Approach (ICD-10-PCS; principal; 2023-06-09 11:48)
PROC: 02HV33Z Insertion of Infusion Device into Superior Vena Cava, Percutaneous Approach (ICD-10-PCS; 2023-06-11)
PROC: 3E0436Z Introduction of Nutritional Substance into Central Vein, Percutaneous Approach (ICD-10-PCS; 2023-06-11)
DX: K94.23 Gastrostomy malfunction (principal); A41.9 Sepsis, unspecified organism; E43 Unspecified severe protein-calorie malnutrition; G08 Intracranial and intraspinal phlebitis and thrombophlebitis; K25.5 Chronic or unspecified gastric ulcer with perforation; K65.9 Peritonitis, unspecified; K65.1 Peritoneal abscess; C41.0 Malignant neoplasm of bones of skull and face; G81.94 Hemiplegia, unspecified affecting left nondominant side; K56.7 Ileus, unspecified; Z68.1 Body mass index [BMI] 19.9 or less, adult; K91.89 Other postprocedural complications and disorders of digestive system; C76.0 Malignant neoplasm of head, face and neck; I80.9 Phlebitis and thrombophlebitis of unspecified site; Y83.3 Surgical operation with formation of external stoma as the cause of abnormal reaction of the patient, or of later complication, without mention of misadventure at the time of the procedure; K58.9 Irritable bowel syndrome, unspecified; Z20.822 Contact with and (suspected) exposure to COVID-19; Z79.01 Long term (current) use of anticoagulants; Z79.1 Long term (current) use of non-steroidal anti-inflammatories (NSAID); Z85.830 Personal history of malignant neoplasm of bone; Z85.841 Personal history of malignant neoplasm of brain
CPT/HCPCS: 36415; 36573; 70496; 70553; 71046; 74019; 74176; 80048; 80053; 81001; 82330; 83605; 83735; 84100; 84132; 84478; 84484; 85025; 85027; 85610; 85730; 86140; 87040; 87635; 93005; 94760; 96361; 96365; 96375; 99285